=== PATIENT | male | born 1935 | race Caucasian/White ===

== ENCOUNTER 2023-03-13 14:09 | Inpatient (IN) ==
--- NOTE | 2023-03-13 14:41 | Emergency Department Note ---
Impression & Plan Altered mental status, Delirium due to general medical condition, Elevated troponin ED Provider Note NAME: JAGDISH BARLOW AGE: 87 SEX: M : 1935 ARRIVES VIA: Ambulance INFORMANT: Patient ED PROVIDER(S): Austyn Luciano DO CHIEF COMPLAINT: AMS HPI: Patient is an 87-year-old gentleman who presents to the ER brought in by EMS following being evaluated at [facility] earlier today. Per the he has been significantly more confused since . He has been agitated and they have been having trouble controlling him. She notes that normally he is just faintly confused but has trouble elaborating what exactly this confusion is. She notes he normally knows the year the day where he is at what is going on. She believes he will sometimes intermittently forget things. Patient denies any headache or change in vision. No chest pain or shortness of breath. No nausea, vomiting, or diarrhea. Denies any falls. ADDITIONAL HISTORY OBTAINED: Per HPI Chronic Medical/Social Conditions Affecting Care: Per HPI PAST MEDICAL HISTORY:See Below PAST SURGICAL HISTORY:See Below FAMILY HISTORY:See Below SOCIAL HISTORY:See Below HOME MEDICATIONS:See Below ALLERGIES:See Below VITALS:See Below PHYSICAL EXAMINATION: GENERAL: Sitting up in bed, alert, well appearing, well nourished, no distress, non-toxic EYE EXAM: normal conjunctiva. PERRL and EOM's intact. OROPHARYNX: no exudate, no erythema, lips, buccal mucosa, and tongue normal and mucous membranes are moist NECK: supple, no nuchal rigidity, no adenopathy, non-tender LUNGS: Clear to auscultation. Normal chest wall mechanics HEART: no murmurs, S1 normal and S2 normal ABDOMEN: abdomen soft, non-tender, normo-active bowel sounds, no masses, no rebound or guarding. BACK: Back is symmetrical on inspection and there is no deformity, no midline tenderness, no CVA tenderness. SKIN: no rashes and no bruising UPPER EXTREMITIES: upper extremities are grossly normal. LOWER EXTREMITIES: No pitting edema. NEURO EXAM: Normal sensorium, cranial nerves II-XII intact, normal speech, no weakness of arms, no weakness of legs. No drift. Finger to nose intact. Gross sensation intact. MEDICAL DECISION MAKING: Patient is an 87-year-old male who presents ER brought in by EMS for the above- stated complaint. IV was established blood work was obtained. Labs show no significant leukocytosis or anemia. BMP was remarkable for slightly elevated glucose at 250s. LFTs bilirubin was unremarkable. Troponin was initially elevated in the 30s. Repeat troponin was 42. This did trend up with more than a 20% increase did discuss with the hospitalist for further observation. Lipase was normal. UA was clean. Just recently finished up antibiotics. Granddaughter was updated at bedside. Discussed with the [facility] hospitalist for further evaluation management treatment. External Records Reviewed: None Consults/Care Managements Discussions: Per MDM Triage Nursing notes reviewed. Limited review of prior medical records performed Vital Signs: reviewed and remarkable for no significant abnormalities Differential diagnosis: Differential diagnoses includes but is not limited to toxic, metabolic, infectious, traumatic, cardiac, neurologic, hematologic, psychiatric and inflammatory etiologies. ER treatment provided: See below Diagnostics interpreted by me include EKG and cardiac monitoring as listed below: -Cardiac Monitoring: An order was placed for continuous cardiac monitoring. The monitor shows a rate of 75 with sinus rhythm. -ECG: Ventricularly paced rate of 70 QTc 481 -Laboratory studies:Interpreted by me as stated above in MDM and shown below. Imaging studies: Xrays: As interpreted by me: Portable AP upright 1 view of the chest shows pacer located in the left upper chest wall CTs show: CT head was negative per radiology Procedures:none Critical Care: None Past Med/Surg History Medical History (Updated 03/13/23 @ 20:20 by Austyn Luciano DO) Atrial fibrillation HTN (hypertension) CHF (congestive heart failure) CAD (coronary artery disease) Urinary retention BPH (benign prostatic hyperplasia) History of stroke DM (diabetes mellitus), type 2 Surgical History History of coronary artery stent placement Knee joint replacement status Pacemaker Family History Other Hypertension Social History (Updated 03/13/23 @ 19:27 by Azalia Gregg PA-C) Smoking Status: Never smoker Hx Alcohol Use: No Hx Substance Use: No Feels Safe at Home: Yes Allergies Allergies Allergy/AdvReac Type Severity Reaction Status Date / Time colestipol Allergy Unknown Unknown Unverified 03/13/23 18:47 gabapentin Allergy Unknown Nausea and Unverified 03/13/23 18:47 vomiting niacin Allergy Unknown Flushing Unverified 03/13/23 18:47 [id number]-[id number] Reductase Allergy Unknown Muscle Pain Unverified 03/13/23 18:47 Inhibitor Home Meds Home Medications Medication Instructions Recorded Confirmed acetaminophen 325 mg tablet 650 mg PO TID PRN 03/13/23 03/13/23 (Tylenol) pain/fever/headache allopurinol 300 mg tablet 150 mg PO DAILY 03/13/23 03/13/23 apixaban 5 mg tablet (Eliquis) 5 mg PO BID 03/13/23 03/13/23 atorvastatin 40 mg tablet 20 mg PO DAILY 03/13/23 03/13/23 cephalexin 250 mg capsule 250 mg PO TID UTI 03/13/23 03/13/23 codeine 10 mg-guaifenesin 100 mg/5 5 ml PO HS PRN Cough 03/13/23 03/13/23 mL oral liquid (Guaifenesin AC) docusate sodium 100 mg capsule 100 mg PO DAILY 03/13/23 03/13/23 empagliflozin 10 mg tablet 10 mg PO DAILY 03/13/23 03/13/23 (Jardiance) finasteride 5 mg tablet 5 mg PO DAILY 03/13/23 03/13/23 furosemide 20 mg tablet (Lasix) 20 mg PO DAILY 03/13/23 03/13/23 guaifenesin 200 mg tablet 200 mg PO BID 03/13/23 03/13/23 insulin NPH isoph U-100 human 100 See Rx Instructions .Route .COMPLEX 03/13/23 03/13/23 unit/mL (3 mL) subcutaneous pen (Humulin N NPH U-100 Insulin KwikPen) losartan 25 mg tablet 25 mg PO DAILY 03/13/23 03/13/23 metoprolol succinate 25 mg 12.5 mg PO DAILY 03/13/23 03/13/23 tablet,extended release 24 hr multivitamin 1 tab PO DAILY 03/13/23 03/13/23 nut.tx.gluc.intol,lac-free,soy 1 ea PO BID 03/13/23 03/13/23 (Glucerna oral liquid) omeprazole 20 mg capsule,delayed 20 mg PO DAILY 03/13/23 03/13/23 release polyethylene glycol 3350 17 17 g PO DAILY PRN Constipation 03/13/23 03/13/23 gram/dose oral powder (Miralax) spironolactone 25 mg tablet 12.5 mg PO DAILY 03/13/23 03/13/23 tamsulosin 0.4 mg capsule 0.4 mg PO DAILY 03/13/23 03/13/23 Results & Data (ED) Vital Signs Vital Signs - 24 hr 03/13/23 14:22 03/13/23 14:25 03/13/23 14:46 Temperature 36.8 C Temperature Source Oral Pulse Rate 76 71 Pulse Rate [Right Finger] Pulse Rhythm Respiratory Rate 18 Respiratory Effort / Characteristics Non-Labored Spontaneous Respiratory Depth Normal Blood Pressure 124/76 Blood Pressure [Right Arm] Blood Pressure Mean 92 Blood Pressure Mean [Right Arm] Pulse Oximetry 94 95 Oxygen Delivery Method Room Air Room Air Sepsis New/Unexplained Change in Mental Status No Sepsis Action Taken by Nursing No Action Required 03/13/23 14:46 03/13/23 16:11 03/13/23 17:53 Temperature Temperature Source Pulse Rate 70 70 Pulse Rate [Right Finger] 72 Pulse Rhythm Regular Respiratory Rate 20 20 Respiratory Effort / Characteristics Non-Labored Spontaneous Respiratory Depth Normal Blood Pressure Blood Pressure [Right Arm] 145/85 H Blood Pressure Mean Blood Pressure Mean [Right Arm] 105 Pulse Oximetry 95 97 Oxygen Delivery Method Room Air Room Air Sepsis New/Unexplained Change in Mental Status Sepsis Action Taken by Nursing 03/13/23 18:22 Temperature Temperature Source Pulse Rate Pulse Rate [Right Finger] 70 Pulse Rhythm Respiratory Rate 18 Respiratory Effort / Characteristics Non-Labored Spontaneous Respiratory Depth Normal Blood Pressure Blood Pressure [Right Arm] 146/82 H Blood Pressure Mean Blood Pressure Mean [Right Arm] 103 Pulse Oximetry 97 Oxygen Delivery Method Room Air Sepsis New/Unexplained Change in Mental Status Sepsis Action Taken by Nursing Laboratory Data 03/13/23 14:30 03/13/23 14:30 Lab Results 03/13/23 03/13/23 03/13/23 Range/Units 14:24 14:30 15:00 WBC 7.63 (4.8-10.8) K/ul RBC 4.69 L (4.70-6.10) M/uL Hgb 15.0 (14.0-18.0) g/dl Hct 44.3 (42.0-52.0) % MCV 94.5 (80.0-100.0) fL MCH 32.0 (25.0-34.0) pg MCHC 33.9 (32.0-36.0) g/dL RDW Std Deviation 51.7 H (36.4-46.3) fL RDW Coeff of Tanmay 14.9 H (11.5-14.5) % Plt Count 164 (130-400) K/uL MPV 11.3 (9.4-12.4) fL Immature Gran % (Auto) 0.4 % Neut % (Auto) 79.8 % Lymph % (Auto) 10.7 % Harper % (Auto) 6.6 % Eos % (Auto) 1.7 % Baso % (Auto) 0.8 % Neut # (Auto) 6.09 (1.40-6.50) K/uL Lymph # (Auto) 0.82 L (1.20-3.40) K/uL Harper # (Auto) 0.50 (0.11-0.59) K/uL Eos # (Auto) 0.13 (0.00-0.50) K/uL Baso # (Auto) 0.06 (0.00-0.20) K/uL Immature Gran # (Auto) 0.03 (0.01-0.20) K/uL Sodium 136 (136-145) mmol/L Potassium 4.3 (3.5-5.1) mmol/L Chloride 103 (98-107) mmol/L Carbon Dioxide 26 (21-32) mmol/L Anion Gap 7 (3-11) BUN 36 H (6-23) mg/dl Creatinine 1.13 (0.6-1.4) mg/dl Est Cr Clr Drug Dosing 57.1 ml/min Est GFR ( Amer) 66.9 ml/min Est GFR (Non-Af Amer) 57.7 ml/min BUN/Creatinine Ratio 31.9 H (10-20) Glucose 257 H (70-99(Fasting)) mg/dl POC Glucose 258 H (70-99) mg/dl Calcium 8.8 (8.6-10.3) mg/dl Total Bilirubin 0.5 (0.2-1.0) mg/dl AST 25 (13-39) U/L ALT 20 (7-52) U/L Alkaline Phosphatase 111 H (34-104) U/L Troponin I High Sens 34.6 H (0-20) pg/ml Total Protein 7.0 (6.0-8.3) gm/dl Albumin 3.7 (3.4-5.0) gm/dl Globulin 3.3 (2.5-4.0) gm/dl Albumin/Globulin Ratio 1.1 (0.9-2) Lipase 41 (11-82) U/L Urine Color Yellow Urine Appearance Clear (Clear) Urine pH 5.5 (4.5-7.5) Ur Specific [place] 1.020 (1.000-1.030) Urine Protein 1+ H (Negative) Urine Glucose (UA) 3+ H (Negative) Urine Ketones Negative (Negative) Urine Blood 3+ H (Negative) Urine Nitrite Negative (Negative) Urine Bilirubin Negative (Negative) Urine Urobilinogen Negative (Negative) Ur Leukocyte Esterase Negative (Negative) Urine WBC (Auto) 1-5 (0-5) /hpf Urine RBC (Auto) >30 H (0-4) /hpf U Hyaline Cast (Auto) 0 (0-5) /lpf U Epithel Cells (Auto) 0-5 (0-5) /lpf Urine Bacteria (Auto) Negative (Negative) 03/13/23 Range/Units 17:30 WBC (4.8-10.8) K/ul RBC (4.70-6.10) M/uL Hgb (14.0-18.0) g/dl Hct (42.0-52.0) % MCV (80.0-100.0) fL MCH (25.0-34.0) pg MCHC (32.0-36.0) g/dL RDW Std Deviation (36.4-46.3) fL RDW Coeff of Tanmay (11.5-14.5) % Plt Count (130-400) K/uL MPV (9.4-12.4) fL Immature Gran % (Auto) % Neut % (Auto) % Lymph % (Auto) % Harper % (Auto) % Eos % (Auto) % Baso % (Auto) % Neut # (Auto) (1.40-6.50) K/uL Lymph # (Auto) (1.20-3.40) K/uL Harper # (Auto) (0.11-0.59) K/uL Eos # (Auto) (0.00-0.50) K/uL Baso # (Auto) (0.00-0.20) K/uL Immature Gran # (Auto) (0.01-0.20) K/uL Sodium (136-145) mmol/L Potassium (3.5-5.1) mmol/L Chloride (98-107) mmol/L Carbon Dioxide (21-32) mmol/L Anion Gap (3-11) BUN (6-23) mg/dl Creatinine (0.6-1.4) mg/dl Est Cr Clr Drug Dosing ml/min Est GFR ( Amer) ml/min Est GFR (Non-Af Amer) ml/min BUN/Creatinine Ratio (10-20) Glucose (70-99(Fasting)) mg/dl POC Glucose (70-99) mg/dl Calcium (8.6-10.3) mg/dl Total Bilirubin (0.2-1.0) mg/dl AST (13-39) U/L ALT (7-52) U/L Alkaline Phosphatase (34-104) U/L Troponin I High Sens 42.2 H (0-20) pg/ml Total Protein (6.0-8.3) gm/dl Albumin (3.4-5.0) gm/dl Globulin (2.5-4.0) gm/dl Albumin/Globulin Ratio (0.9-2) Lipase (11-82) U/L Urine Color Urine Appearance (Clear) Urine pH (4.5-7.5) Ur Specific [place] (1.000-1.030) Urine Protein (Negative) Urine Glucose (UA) (Negative) Urine Ketones (Negative) Urine Blood (Negative) Urine Nitrite (Negative) Urine Bilirubin (Negative) Urine Urobilinogen (Negative) Ur Leukocyte Esterase (Negative) Urine WBC (Auto) (0-5) /hpf Urine RBC (Auto) (0-4) /hpf U Hyaline Cast (Auto) (0-5) /lpf U Epithel Cells (Auto) (0-5) /lpf Urine Bacteria (Auto) (Negative) Administered Medications Discontinued Medications Ceftriaxone Sodium 2,000 mg/ (Dextrose) 50 mls @ 100 mls/hr IV Q24H ANIYA; Protocol Stop: 03/23/23 19:29 Last Admin: 03/13/23 20:06 Dose: Not Given Documented By: [facility] Imaging Data Radiologist's Impression: Chest X-Ray 03/13/23 14:42 XR chest 1V portable CLINICAL HISTORY: ams TECHNIQUE: Single frontal radiograph of the chest was obtained. Comparison: None available at the time of this dictation. FINDINGS: Pacemaker defibrillator is seen. Calcified aortic knob is seen. The lungs are clear. No evidence of pleural effusion or pneumothorax. IMPRESSION: No acute chest disease. ACT 112: Negative or not required by law. Electronically signed by: Hever Loera M.D. 03/13/2023 4:[address] 03/13/23 14:46 CT head/brain wo con CLINICAL HISTORY: ams Technique: Contiguous axial CT images of the head were acquired from the base of the skull to the vertex without intravenous contrast administration. Images were viewed in brain, subdural and bone windows. Automated dose lowering techniques and/or adjustment according to patient size were utilized for this exam. Comparison: None available at the time of this dictation. Findings: Areas of decreased attenuation are present in the periventricular and subcortical white matter bilaterally consistent with small vessel ischemic disease. Generalized cerebral atrophy with commensurate enlargement of the ventricles, sulci, and cisterns is also present. There is no acute intracranial hemorrhage or evidence of acute territorial infarction. No shift of the midline structures, mass effect, or extra-axial abnormalities are shown. Atherosclerotic calcifications are present in the intracranial segments of the internal carotid arteries. Focal encephalomalacia is in the right frontal lobe and insular and frontal parietal white matter. Imaged portions of the paranasal sinuses and mastoid air cells are clear. The orbits appear normal. There are no acute fractures of the calvaria or scalp swelling. Impression: No focal abnormalities are seen. 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 ACT 112: Negative or not required by law. Electronically signed by: Hever Loera M.D. 03/13/2023 4:52 PM Discharge Plan Visit Data Chief Complaint: Altered Mental Status ED Provider: Austyn Luciano Discharge Problem: Altered mental status, Delirium due to general medical condition, Elevated troponin Forms Stand Alone Forms: [facility] Prescriptions Prescriptions: No Action multivitamin Tablet 1 tab PO DAILY atorvastatin 40 mg Tablet 20 mg PO DAILY acetaminophen [Tylenol] 325 mg Tablet 650 mg PO TID PRN (Reason: pain/fever/headache) cephalexin [Keflex] 250 mg Capsule 250 mg PO TID Rx Instructions: Start Date 03/07/23 - End Date 03/12/23. spironolactone 25 mg Tablet 12.5 mg PO DAILY guaifenesin 200 mg Tablet 200 mg PO BID tamsulosin 0.4 mg Capsule 0.4 mg PO DAILY losartan 25 mg Tablet 25 mg PO DAILY docusate sodium 100 mg Capsule 100 mg PO DAILY omeprazole 20 mg Capsule,Delayed Release(Dr/Ec) 20 mg PO DAILY codeine-guaifenesin [Guaifenesin AC] 10-100 mg/5 mL Liquid 5 ml PO HS PRN (Reason: Cough) allopurinol 300 mg Tablet 150 mg PO DAILY furosemide [Lasix] 20 mg Tablet 20 mg PO DAILY metoprolol succinate 25 mg Tablet Extended Release 24 Hr 12.5 mg PO DAILY polyethylene glycol 3350 [Miralax] 17 gram/dose Powder 17 g PO DAILY PRN (Reason: Constipation) finasteride 5 mg Tablet 5 mg PO DAILY Glucerna Liquid 1 ea PO BID Rx Instructions: Drink 1 can twice daily Humulin N NPH Insulin KwikPen 100 unit/mL (3 mL) Insulin Pen See Rx Instructions .ROUTE .COMPLEX Rx Instructions: inject 15 units in the morning and 10 units in the evening Eliquis 5 mg Tablet 5 mg PO BID Jardiance 10 mg Tablet 10 mg PO DAILY Referrals Referrals: PCP,NO [Primary Care Provider] - Discharge Problem: Altered mental status Qualifiers: Altered mental status type: unspecified Qualified Code(s): R41.82 - Altered mental status, unspecified
[2023-03-13 15:14] LABS: Appearance Urine Clear (Clear); Bacteria Urine Automated Negative (Negative); Bilirubin Urine Negative (Negative); Blood Urine 3+ (Negative); Cast Urine Automated 0 /lpf (0-5); Color Urine Yellow; Epithelial Cell Urine Auto 0-5 /lpf (0-5); Glucose Urine UA 3+ (Negative); Ketones Urine Negative (Negative); Leukocyte Esterase Urine Negative (Negative); Nitrite Urine Negative (Negative); Protein Urine 1+ (Negative); RBC Urine Automated >30 /hpf (0-4); Urobilinogen Urine Negative (Negative); pH Urine 5.5 (4.5-7.5)
[2023-03-13 15:20] LABS: Basophils # (auto) 0.06 K/uL (0.00-0.20); Basophils % (auto) 0.8 %; Eosinophils # (auto) 0.13 K/uL (0.00-0.50); Eosinophils % (auto) 1.7 %; Hematocrit (blood only) 44.3 % (42.0-52.0); Immature Granulocytes # (auto) 0.03 K/uL (0.01-0.20); Immature Granulocytes % (auto) 0.4 %; Lymphocytes # (auto) 0.82 K/uL (1.20-3.40); Lymphocytes % (auto) 10.7 %; Mean Corpuscular Hgb Conc 33.9 g/dL (32.0-36.0); Mean Corpuscular Volume 94.5 fL (80.0-100.0); Mean Platelet Volume 11.3 fL (9.4-12.4); Monocytes % (auto) 6.6 %; Neutrophils # (auto) 6.09 K/uL (1.40-6.50); Neutrophils % (auto) 79.8 %; Platelet Count 164 K/uL (130-400); RDW Coefficient of Variation 14.9 % (11.5-14.5); RDW Standard Deviation 51.7 fL (36.4-46.3); Red Blood Count 4.69 M/uL (4.70-6.10); White Blood Count 7.63 K/ul (4.8-10.8)
[2023-03-13 15:35] LABS: Albumin Globulin Ratio 1.1 (0.9-2); Albumin Level 3.7 gm/dl (3.4-5.0); BUN Creatinine Ratio 31.9 (10-20); Bilirubin,Total 0.5 mg/dl (0.2-1.0); Calcium 8.8 mg/dl (8.6-10.3); Creatinine Clr Calc Pharmacy 57.1 ml/min; Est GFR (African American) 66.9 ml/min; Est GFR (Non-African American) 57.7 ml/min; Globulin 3.3 gm/dl (2.5-4.0); Potassium 4.3 mmol/L (3.5-5.1)
[2023-03-13 15:42] LABS: Troponin I High Sensitivity 34.6 pg/ml (0-20)
--- NOTE | 2023-03-13 16:30 | XRay Report ---
XR chest 1V portable CLINICAL HISTORY: ams TECHNIQUE: Single frontal radiograph of the chest was obtained. Comparison: None available at the time of this dictation. FINDINGS: Pacemaker defibrillator is seen. Calcified aortic knob is seen. The lungs are clear. No evidence of p leural effusion or pneumothorax. IMPRESSION: No acute chest disease. ACT 112: Negative or not required by law. Electronically signed by: Hever Loera M.D. 03/13/2023 4:29 PM
--- NOTE | 2023-03-13 16:54 | CT Scan Report ---
CT head/brain wo con CLINICAL HISTORY: ams Technique: Contiguous axial CT images of the head were acquired from the base of the skull to the sherif harry without intravenous contrast administration. Images were viewed in brain, subdural and bone [facility]. Automated dose lowering techniques and/or adjustment according to patient size were utilized for this exam. Comparison: None available at the time of this dictation. Findings: Areas of decreased attenuation are present in the periventricular and subcortical white matter bilate rally consistent with small vessel ischemic disease. Generalized cerebral atrophy with commensurate e nlargement of the ventricles, sulci, and cisterns is also present. There is no acute intracranial hem orrhage or evidence of acute territorial infarction. No shift of the midline structures, mass effect, or extra-axial abnormalities are shown. Atherosclerotic calcifications are present in the intracran ial segments of the internal carotid arteries. Focal encephalomalacia is in the right frontal lobe an d insular and frontal parietal white matter. Imaged portions of the paranasal sinuses and mastoid air cells are clear. The orbits appear normal. There are no acute fractures of the calvaria or scalp swelling. Impression: No focal abnormalities are seen. 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 ACT 112: Negative or not required by law. Electronically signed by: Hever Loera M.D. 03/13/2023 4:52 PM
--- NOTE | 2023-03-13 18:47 | History & Physical Report ---
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 Acute metabolic encephalopathy Complicated UTI Recently treated with outpatient Keflex but persistent intermittent confusion, agitation History of urinary retention with recently placed Dumont last week Afebrile, no leukocytosis, UA without presence of nitrates and leuk esterase but likely partially treated Continue Zosyn for now CT abd/pelvis to evaluate for any obstruction Elevated troponin Mildly elevated HS trop of 34 --> 42, likely demand ischemia in setting of infection. 2D echo ordered. 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 No CP, EKG without acute ischemic dalton ges. Continue Toprol, statin H/o pacemaker placement Replaced in 2019. Requesting records to see if MRI compatible Hypertension Continue home losartan, Toprol Congestive heart failure Appears euvolemic. Requested recent cardiology documentation from [facility] Hold lasix and spironolactone for now until AM labs obtained Type 2 diabetes Initial BSG 258, A1c unknown, will obtain in a.m. Hold home agents Basal/bolus insulin while in-patient BSG AC HS BPH Chronic, stable. Continue finasteride, Flomax DVT Ppx: Eliquis Code status: FULL PCP: [facility] Dispo: Observation med tele Patient seen in collaboration with Dr. Gipson. Please see addendum. 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 History primarily obtained by granddaughter at bedside due to patient's confusion. [facility] and was seen for multiple visits due to progressive confusion and found to have UTI. Completed Keflex course yesterday but remains confused and somewhat agitated. Was directed by home health nurse to go to ED for further evaluation. Of note, had dumont catheter placed last week with leg bag for urinary retention. No F/C, lightheadedness, CP, SOB, N/V, abdominal pain, dysuria, diarrhea or constipation. Some agitation in perineal area due to strap from catheter bag. Has been having increased urgency but denies dysuria or hematuria. Allergies Allergy/AdvReac Type Severity Reaction Status Date / Time colestipol Allergy Unknown Unknown Unverified 03/13/23 18:47 gabapentin Allergy Unknown Nausea and Unverified 03/13/23 18:47 vomiting niacin Allergy Unknown Flushing Unverified 03/13/23 18:47 [id number]-[id number] Reductase Allergy Unknown Muscle Pain Unverified 03/13/23 18:47 Inhibitor Home Medications Medication Instructions Recorded Confirmed Type acetaminophen 325 mg tablet 650 mg PO TID PRN 03/13/23 03/13/23 History (Tylenol) pain/fever/headache allopurinol 300 mg tablet 150 mg PO DAILY 03/13/23 03/13/23 History apixaban 5 mg tablet (Eliquis) 5 mg PO BID 03/13/23 03/13/23 History atorvastatin 40 mg tablet 20 mg PO DAILY 03/13/23 03/13/23 History cephalexin 250 mg capsule 250 mg PO TID UTI 03/13/23 03/13/23 History codeine 10 mg-guaifenesin 100 mg/5 5 ml PO HS PRN Cough 03/13/23 03/13/23 History mL oral liquid (Guaifenesin AC) docusate sodium 100 mg capsule 100 mg PO DAILY 03/13/23 03/13/23 History empagliflozin 10 mg tablet 10 mg PO DAILY 03/13/23 03/13/23 History (Jardiance) finasteride 5 mg tablet 5 mg PO DAILY 03/13/23 03/13/23 History furosemide 20 mg tablet (Lasix) 20 mg PO DAILY 03/13/23 03/13/23 History guaifenesin 200 mg tablet 200 mg PO BID 03/13/23 03/13/23 History insulin NPH isoph U-100 human 100 See Rx Instructions .Route .COMPLEX 03/13/23 03/13/23 History unit/mL (3 mL) subcutaneous pen (Humulin N NPH U-100 Insulin KwikPen) losartan 25 mg tablet 25 mg PO DAILY 03/13/23 03/13/23 History metoprolol succinate 25 mg 12.5 mg PO DAILY 03/13/23 03/13/23 History tablet,extended release 24 hr multivitamin 1 tab PO DAILY 03/13/23 03/13/23 History nut.tx.gluc.intol,lac-free,soy 1 ea PO BID 03/13/23 03/13/23 History (Glucerna oral liquid) omeprazole 20 mg capsule,delayed 20 mg PO DAILY 03/13/23 03/13/23 History release polyethylene glycol 3350 17 17 g PO DAILY PRN Constipation 03/13/23 03/13/23 History gram/dose oral powder (Miralax) spironolactone 25 mg tablet 12.5 mg PO DAILY 03/13/23 03/13/23 History tamsulosin 0.4 mg capsule 0.4 mg PO DAILY 03/13/23 03/13/23 History Past Med/Surg History Medical History (Updated 03/13/23 @ 20:20 by Austyn Luciano DO) Atrial fibrillation HTN (hypertension) CHF (congestive heart failure) CAD (coronary artery disease) Urinary retention BPH (benign prostatic hyperplasia) History of stroke DM (diabetes mellitus), type 2 Surgical History History of coronary artery stent placement Knee joint replacement status Pacemaker Family History Other Hypertension Social History (Updated 03/13/23 @ 19:27 by Azalia Gregg PA-C) Smoking Status: Never smoker Hx Alcohol Use: No Hx Substance Use: No Preferred Language: Greek Communication Ability: Effective [employer] Required: No Beliefs That Will Affect Care: None Current Living Situation: Spouse Other Information That Helps Us Care for You: No Feels Safe at Home: Yes Safety Concerns: Feels Safe At This Time Assistive Devices: Cane Review of Systems Review of Systems: At least ten systems reviewed and negative except as noted in the HPI. Physical Exam Physical Exam: Please see Dr. Gipson's addendum for physical exam. Results & Data Results & Data Vital Signs (Past 12 Hours) Vital Signs Temp Pulse Pulse Resp BP BP Pulse Ox 03/13/23 18:22 70 18 146/82 H 97 03/13/23 17:53 70 03/13/23 16:11 72 20 145/85 H 97 03/13/23 14:46 70 20 95 03/13/23 14:46 95 03/13/23 14:25 71 03/13/23 14:22 36.8 C 76 18 124/76 94 O2 Del Method 03/13/23 18:22 Room Air 03/13/23 17:53 03/13/23 16:11 Room Air 03/13/23 14:46 Room Air 03/13/23 14:46 Room Air 03/13/23 14:25 03/13/23 14:22 Room Air Laboratory Results Short CBC 03/13/23 Range/Units 14:30 WBC 7.63 (4.8-10.8) K/ul Hgb 15.0 (14.0-18.0) g/dl Hct 44.3 (42.0-52.0) % Plt Count 164 (130-400) K/uL BMP 03/13/23 14:30 Sodium 136 Potassium 4.3 Chloride 103 Carbon Dioxide 26 BUN 36 H Creatinine 1.13 Glucose 257 H Calcium 8.8 Liver Function 03/13/23 Range/Units 14:30 Total Bilirubin 0.5 (0.2-1.0) mg/dl AST 25 (13-39) U/L ALT 20 (7-52) U/L Alkaline Phosphatase 111 H (34-104) U/L Albumin 3.7 (3.4-5.0) gm/dl Urine 03/13/23 Range/Units 15:00 Urine Color Yellow Urine Appearance Clear (Clear) Urine pH 5.5 (4.5-7.5) Ur Specific [place] 1.020 (1.000-1.030) Urine Protein 1+ H (Negative) Urine Glucose (UA) 3+ H (Negative) Diagnostic Findings Chest X-Ray 03/13/23 14:42 XR chest 1V portable CLINICAL HISTORY: ams TECHNIQUE: Single frontal radiograph of the chest was obtained. Comparison: None available at the time of this dictation. FINDINGS: Pacemaker defibrillator is seen. Calcified aortic knob is seen. The lungs are clear. No evidence of pleural effusion or pneumothorax. IMPRESSION: No acute chest disease. ACT 112: Negative or not required by law. Electronically signed by: Hever Loera M.D. 03/13/2023 4:[address] 03/13/23 14:46 CT head/brain wo con CLINICAL HISTORY: ams Technique: Contiguous axial CT images of the head were acquired from the base of the skull to the vertex without intravenous contrast administration. Images were viewed in brain, subdural and bone windows. Automated dose lowering techniques and/or adjustment according to patient size were utilized for this exam. Comparison: None available at the time of this dictation. Findings: Areas of decreased attenuation are present in the periventricular and subcortical white matter bilaterally consistent with small vessel ischemic disease. Generalized cerebral atrophy with commensurate enlargement of the ventricles, sulci, and cisterns is also present. There is no acute intracranial hemorrhage or evidence of acute territorial infarction. No shift of the midline structures, mass effect, or extra-axial abnormalities are shown. Atherosclerotic calcifications are present in the intracranial segments of the internal carotid arteries. Focal encephalomalacia is in the right frontal lobe and insular and frontal parietal white matter. Imaged portions of the paranasal sinuses and mastoid air cells are clear. The orbits appear normal. There are no acute fractures of the calvaria or scalp swelling. Impression: No focal abnormalities are seen. 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 ACT 112: Negative or not required by law. Electronically signed by: Hever Loera M.D. 03/13/2023 4:52 PM Supervising Physician Co-Signing Physician Notes delayed entry date of service noted above Attending Addendum: care coordinated with JASON Azalia Gregg please refer to her notes for full details, I agree with her notes patient seen and examined, records reviewed by myself as well diagnoses and plan of care as per above notes Mo Gipson MD
[2023-03-13] MEDS ORDERED: cefTRIAXone SODIUM 2,000 MG in DEXTROSE 5 % MINI-B 50 ML IV SCH (19:30)
[2023-03-13] MEDS ORDERED: GLUCAGON FOR INJ 1 MG VIAL SQ PRN (19:59)
[2023-03-13] MEDS ORDERED: CARBOHYDRATES FOR HYPOGLYCEMIA PO PRN (19:59)
[2023-03-13] MEDS ORDERED: GLUCOSE 10 TAB/TUBE PO PRN (19:59)
[2023-03-13] MEDS ORDERED: DEXTROSE 50% 50 ML SYRINGE IV PRN (19:59)
[2023-03-13] MEDS ORDERED: GLUCOSE 40% GEL 15 GM TUBE PO PRN (19:59)
[2023-03-13] MEDS ORDERED: APIXABAN 5 MG TABLET PO STA (20:07)
[2023-03-13] MEDS ORDERED: PIPERACILLIN/TAZOBACTAM 4.5 GM in DEXTROSE 5% MINI-B 100 ML IV STA (20:09)
[2023-03-13] MEDS ORDERED: APIXABAN 5 MG TABLET PO SCH (21:00)
[2023-03-13] MEDS: LANTUS PER UNIT CHARGE SQ SCH (21:03)
[2023-03-13] MEDS: INSULIN ASPART PER UNIT CHARGE SC SCH (21:04)
[2023-03-13] MEDS ORDERED: NON-FORMULARY MEDICATION (Nut.Tx.Gluc.Intol,Lac-Free,Soy [Glucerna] Liquid) PO SCH (22:26)
[2023-03-13] MEDS ORDERED: ONDANSETRON INJ 2 MG/ML 2 ML VIAL IV PRN (22:26)
[2023-03-13] MEDS ORDERED: guaiFENesin/CODEINE 100MG/10MG 5ML UDC PO PRN (22:26)
--- NOTE | 2023-03-13 23:18 | CT Scan Report ---
Exam(s): CT ABDOMEN + PELVIS Without Contrast EXAM: CT Abdomen and Pelvis Without Intravenous Contrast CLINICAL HISTORY: Reason for exam: urinary retention, comp UTI. TECHNIQUE: Axial computed tomography images of the abdomen and pelvis without intravenous contrast. Automated exposure control was utilized for the study. A dose lowering technique was utilized adhering to the principles of ALARA. COMPARISON: No relevant prior studies available. FINDINGS: ABDOMEN: Liver: Unremarkable. Gallbladder and bile ducts: Unremarkable. Pancreas: Unremarkable. Spleen: Unremarkable. Adrenals: Unremarkable. Kidneys and ureters: No hydronephrosis in the kidneys. Exophytic cortical cyst arising from the posterior cortex of the left kidney measuring 2.8 cm. Stomach and bowel: Sigmoid diverticulosis without acute diverticulitis. PELVIS: Appendix: No findings to suggest acute appendicitis. Bladder: Lopez catheter with balloon inflated in the bladder. Circumferential mucosal thickening within the bladder. Reproductive: Prostate mildly enlarged. ABDOMEN and PELVIS: Intraperitoneal space: Unremarkable. No free air. No significant fluid collection. Bones/joints: Sclerotic lesion within the posterior left iliac bone adjacent to the SI joint measuring 3 cm. Chronic compression deformity at T12. Soft tissues: Unremarkable. Vasculature: Unremarkable. Lymph nodes: Unremarkable. IMPRESSION: 1. Circumferential mucosal thickening in the bladder suggestive of cystitis. Prostate is mildly enlarged. No hydronephrosis. 2. Sigmoid diverticulosis without acute diverticulitis. 3. Sclerotic lesion within the posterior left iliac bone adjacent to the SI joint measuring 3 cm. 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 Electronically signed by: Daren Macdonald MD 03/13/23 23:17 PM
[2023-03-13] MEDS ORDERED: LOSARTAN POTASSIUM 25 MG TAB PO STA (23:48)
[2023-03-14] MEDS: PIPERACILLIN/TAZOBACTAM 4.5 GM in DEXTROSE 5% MINI-B 100 ML IV SCH ×3 (02:41→17:53)
[2023-03-14 06:00] LABS: BUN Creatinine Ratio 32.1 (10-20); Calcium 8.5 mg/dl (8.6-10.3); Creatinine Clr Calc Pharmacy 68.7 ml/min; Est GFR (African American) 90.6 ml/min; Est GFR (Non-African American) 78.2 ml/min
[2023-03-14 06:08] LABS: Hematocrit (blood only) 42.6 % (42.0-52.0); Hemoglobin 14.3 g/dl (14.0-18.0); Mean Corpuscular Hemoglobin 31.4 pg (25.0-34.0); Mean Corpuscular Hgb Conc 33.6 g/dL (32.0-36.0); Mean Corpuscular Volume 93.4 fL (80.0-100.0); Mean Platelet Volume 11.1 fL (9.4-12.4); Platelet Count 159 K/uL (130-400); RDW Standard Deviation 51.9 fL (36.4-46.3); Red Blood Count 4.56 M/uL (4.70-6.10); White Blood Count 7.11 K/ul (4.8-10.8)
[2023-03-14] MEDS: allopurinoL 300 MG TAB PO SCH (07:42)
[2023-03-14] MEDS: TAMSULOSIN HCL 0.4 MG CAP PO SCH (07:42)
[2023-03-14] MEDS: APIXABAN 5 MG TABLET PO SCH ×2 (07:42→20:34)
[2023-03-14] MEDS: DOCUSATE SODIUM 100 MG CAP PO SCH (07:43)
[2023-03-14] MEDS: FINASTERIDE 5 MG TAB PO SCH (07:43)
[2023-03-14] MEDS: ATORVASTATIN 20 MG TAB PO SCH (07:43)
[2023-03-14] MEDS: MULTIVITAMIN TAB PO SCH (07:44)
[2023-03-14] MEDS: LOSARTAN POTASSIUM 25 MG TAB PO SCH (07:44)
[2023-03-14] MEDS: METOPROLOL SUCC 25MG EXT REL TAB PO SCH (07:44)
[2023-03-14] MEDS: PANTOprazole 40 MG TAB PO SCH (07:45)
[2023-03-14 08:10] LABS: Estimated Average Glucose 209 mg/dl; Hemoglobin A1C 8.9 % (4.5-5.6)
[2023-03-14] MEDS: INSULIN ASPART PER UNIT CHARGE SC SCH ×4 (08:57→21:50)
[2023-03-14] MEDS: LANTUS PER UNIT CHARGE SQ SCH ×2 (08:57→21:49)
[2023-03-14] MEDS: ASPIRIN 81 MG ECTAB PO SCH (13:12)
--- NOTE | 2023-03-14 15:06 | Hospitalist Progress Note ---
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 Acute metabolic encephalopathy Complicated UTI Recently treated with outpatient Keflex but persistent intermittent confusion, agitation History of urinary retention with recently placed Lopez last week Afebrile, no leukocytosis, UA without presence of nitrates and leuk esterase but likely partially treated Continue Zosyn for now CT abd/pelvis to evaluate for any obstruction 03/14 mental status improving per Brain MRI: pending until pacemaker MRI compatibility verified with business development analyst Urine culture pending Blood culture pending IV Zosyn Day 2 Elevated troponin Mildly elevated HS trop of 34 --> 42, likely demand ischemia in setting of infection. 2D echo ordered. 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 No CP, EKG without acute ischemic changes. Continue Toprol, statin H/o pacemaker placement Replaced in 2019. Requesting records to see if MRI compatible Hypertension Continue home losartan, Toprol Congestive heart failure Appears euvolemic. Requested recent cardiology documentation from [place] resume usual diuretics Type 2 diabetes Initial BSG 258, A1c unknown, will obtain in a.m. Hold home agents Basal/bolus insulin while in-patient BSG AC HS BPH Chronic, stable. Continue finasteride, Flomax DVT Ppx: Eliquis Code status: FULL PCP: [facility] Dispo: lives at home with his anticipate d/c home when medically stable Admission and Anticipated Discharge Date Admission Date: March 14, 2023 Subjective ff up for altered mental status, etc seen with at bedside alert, oriented x 2 answers most questions appropriately states he is improving, less confused patient states he feels fine overall denies abdominal pain no chest pain, dyspnea, palpitations, dizziness no cough no other symptoms Review of Systems Review of Systems: all noted and negative except for above Physical Exam Physical Exam: General- oriented x 1-2, not in distress, speaks in sentences with no effort or accessory muscle use Eyes- anicteric Neck- no JVD Lungs- clear breath sounds bilaterally, no rales/wheezes Heart- normal rate, regular rhythm; no murmurs Abdomen- normal bowel sounds, nondistended, soft, nontender Lopez cath in place, yellow urine Extremities- no pretibial edema, no calf tenderness Neuro- alert, oriented x 1-2; no new gross focal neurologic deficits Skin- warm & dry Results & Data Results & Data Vital Signs (Past 12 Hours) Vital Signs Temp Pulse Pulse Resp BP Pulse Ox O2 Del Method 03/14/23 15:00 70 03/14/23 12:09 36.7 C 70 18 151/87 H 93 Room Air 03/14/23 07:43 36.6 C 70 18 157/88 H 93 Room Air 03/14/23 07:00 70 03/14/23 03:31 36.7 C 70 18 113/67 99 Room Air
--- NOTE | 2023-03-14 19:18 | Electrocardiogram Report ---
Test Reason : Blood Pressure : / mmHG Vent. Rate : 070 BPM Atrial Rate : 071 BPM P-R Int : 000 ms QRS Dur : 134 ms QT Int : 440 ms P-R-T Axes : 000 219 084 degrees QTc Int : 475 ms Ventricular-paced rhythm Biventricular pacemaker detected Abnormal ECG No previous ECGs available Confirmed by Goran Caceres ([id number]) on 03/14/2023 7:18:03 PM Referred By: REFERRED SELF Confirmed By:Goran Caceres
[2023-03-14] MEDS: ACETAMINOPHEN 325 MG TAB PO PRN (20:33)
[2023-03-14] MEDS ORDERED: OLANZapine 10 MG/2.1 ML SDV IM STA (22:04)
--- NOTE | 2023-03-14 22:10 | Electrocardiogram Report ---
Test Reason : Blood Pressure : / mmHG Vent. Rate : 070 BPM Atrial Rate : 060 BPM P-R Int : 000 ms QRS Dur : 136 ms QT Int : 446 ms P-R-T Axes : 000 235 077 degrees QTc Int : 481 ms Ventricular-paced rhythm Underlying sinus rhythm with AV dissociation Biventricular pacemaker detected Abnormal ECG When compared with ECG of 13-MAR-2023 14:25, (unconfirmed) No significant change was found Confirmed by Goran Caceres ([id number]) on 03/14/2023 10:09:57 PM Referred By: REFERRED SELF Confirmed By:Goran Caceres
--- NOTE | 2023-03-14 22:29 | Electrocardiogram Report ---
Test Reason : Blood Pressure : / mmHG Vent. Rate : 070 BPM Atrial Rate : 068 BPM P-R Int : 000 ms QRS Dur : 150 ms QT Int : 462 ms P-R-T Axes : 040 256 076 degrees QTc Int : 498 ms Ventricular-paced rhythm Underlying sinus rhythm with AV dissociation Biventricular pacemaker detected Abnormal ECG When compared with ECG of 13-MAR-2023 18:17, (unconfirmed) No significant change was found Confirmed by Goran Cacrees ([id number]) on 03/14/2023 10:29:38 PM Referred By: REFERRED SELF Confirmed By:Goran Caceres
--- NOTE | 2023-03-14 22:33 | Electrocardiogram Report ---
Test Reason : Blood Pressure : / mmHG Vent. Rate : 070 BPM Atrial Rate : 075 BPM P-R Int : 000 ms QRS Dur : 146 ms QT Int : 474 ms P-R-T Axes : 000 -26 078 degrees QTc Int : 511 ms Ventricular-paced rhythm Underlying sinus rhythm with AV dossociation Biventricular pacemaker detected Abnormal ECG When compared with ECG of 14-MAR-2023 06:09, (unconfirmed) No significant change was found Confirmed by Goran Caceres ([id number]) on 03/14/2023 10:33:19 PM Referred By: REFERRED SELF Confirmed By:Goran Caceres
[2023-03-15] MEDS: OLANZapine 10 MG/2.1 ML SDV IM PRN ×2 (01:41→09:05)
[2023-03-15] MEDS: PIPERACILLIN/TAZOBACTAM 4.5 GM in DEXTROSE 5% MINI-B 100 ML IV SCH ×3 (01:41→17:41)
[2023-03-15 06:55] LABS: Hematocrit (blood only) 46.7 % (42.0-52.0); Hemoglobin 15.9 g/dl (14.0-18.0); Mean Corpuscular Hemoglobin 31.7 pg (25.0-34.0); Mean Corpuscular Volume 93.2 fL (80.0-100.0); Mean Platelet Volume 10.5 fL (9.4-12.4); Platelet Count 161 K/uL (130-400); RDW Coefficient of Variation 14.8 % (11.5-14.5); RDW Standard Deviation 50.7 fL (36.4-46.3); Red Blood Count 5.01 M/uL (4.70-6.10)
[2023-03-15 07:29] LABS: BUN Creatinine Ratio 20.5 (10-20); Creatinine Clr Calc Pharmacy 43.7 ml/min; Est GFR (African American) 55.4 ml/min; Est GFR (Non-African American) 47.8 ml/min
[2023-03-15] MEDS: METOPROLOL SUCC 25MG EXT REL TAB PO SCH (07:43)
[2023-03-15] MEDS: APIXABAN 5 MG TABLET PO SCH ×2 (07:43→21:19)
[2023-03-15] MEDS: PANTOprazole 40 MG TAB PO SCH (07:44)
[2023-03-15] MEDS: allopurinoL 300 MG TAB PO SCH (07:45)
[2023-03-15] MEDS: DOCUSATE SODIUM 100 MG CAP PO SCH (07:45)
[2023-03-15] MEDS: LOSARTAN POTASSIUM 25 MG TAB PO SCH (07:47)
[2023-03-15] MEDS: MULTIVITAMIN TAB PO SCH (07:47)
[2023-03-15] MEDS: TAMSULOSIN HCL 0.4 MG CAP PO SCH (07:47)
[2023-03-15] MEDS: ATORVASTATIN 20 MG TAB PO SCH (07:47)
[2023-03-15] MEDS: ASPIRIN 81 MG ECTAB PO SCH (07:48)
[2023-03-15] MEDS: FINASTERIDE 5 MG TAB PO SCH (07:49)
[2023-03-15] MEDS: LANTUS PER UNIT CHARGE SQ SCH ×2 (08:54→21:18)
[2023-03-15] MEDS: INSULIN ASPART PER UNIT CHARGE SC SCH ×4 (08:55→21:18)
--- NOTE | 2023-03-15 11:49 | Hospitalist Progress Note ---
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 Acute metabolic encephalopathy Complicated UTI Urinary Retention, Prostate Enlargement Recently treated with outpatient Keflex but persistent intermittent confusion, agitation History of urinary retention with recently placed Lopez last week Afebrile, no leukocytosis, UA without presence of nitrates and leuk esterase but likely partially treated CT abd/pelvis: 1. Circumferential mucosal thickening in the bladder suggestive of cystitis. Prostate is mildly enlarged. No hydronephrosis. 2. Sigmoid diverticulosis without acute diverticulitis. 3. Sclerotic lesion within the posterior left iliac bone adjacent to the SI joint measuring 3 cm. 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 03/15 worsening confusion overnight possible acute worsening of confusion in light of UTI, recent Lopez Cath placement, underlying cognitive impairment, vascular dementia, history of CVA - management of medical conditions per below - will consult Psych partially treated UTI? - CT abd/pelvis: no pyelonephritis, abscess, lithiasis - still awaiting copy of initial urine cultures from [facility] - Urine culture pending Blood culture pending IV Zosyn Day 3 Urinary Retention - diagnosed last week at [facility] - will remove Lopez today, trial of voiding - may need Urology evaluation as inpatient if without improvement Acute CVA unlikely - CT head done last week at [place] unrevealing repeat CT head: no acute process Brain MRI: cannot be performed as PM not compatible patient already on Eliquis, ASA Elevated troponin Mildly elevated HS trop of 34 --> 42, likely demand ischemia in setting of infection. 2D echo ordered. 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 No CP, EKG without acute ischemic changes. Continue Toprol, statin H/o pacemaker placement Replaced in 2019. Requesting records to see if MRI compatible Hypertension Continue home losartan, Toprol Congestive heart failure Appears euvolemic. Requested recent cardiology documentation from [place] continue usual diuretics Type 2 diabetes Initial BSG 258, A1c unknown, will obtain in a.m. Hold home agents Basal/bolus insulin while in-patient BSG AC HS BPH Chronic, stable. Continue finasteride, Flomax DVT Ppx: Eliquis Code status: FULL PCP: [place] Dispo: lives at home with his anticipate d/c home when medically stable Admission and Anticipated Discharge Date Admission Date: March 14, 2023 Subjective ff up for altered mental status, etc seen resting in bed, not in distress was agitated, confused overnight required Zyprexa, restraints awake, alert, confused calm, cooperative no chest pain, dyspnea, palpitations, dizziness denies abdominal pain, nausea no other new symptoms discussed care with patient's at length outside the room Review of Systems Review of Systems: all noted and negative except for above Physical Exam Physical Exam: General- oriented x 1, not in distress, speaks in sentences with no effort or accessory muscle use Eyes- anicteric Neck- no JVD Lungs- clear breath sounds bilaterally, no rales/wheezes Heart- normal rate, regular rhythm; no murmurs Abdomen- normal bowel sounds, nondistended, soft, nontender Extremities- no pretibial edema, no calf tenderness Lopez cath in place: yellow urine Neuro- alert, oriented x 1; no new gross focal neurologic deficits Skin- warm & dry Results & Data Results & Data Vital Signs (Past 12 Hours) Vital Signs Temp Pulse Pulse Resp BP Pulse Ox O2 Del Method 03/15/23 08:08 36.5 C 71 16 145/76 H 95 Room Air 03/15/23 07:06 70 03/15/23 04:20 36.5 C 71 18 124/66 94 Room Air
--- NOTE | 2023-03-15 12:01 | Communication Note ---
Date of Service: March 15, 2023 Per medical 87 yo male with a PMH embolic stroke, mild residual memory deficis, on Eliquis for afib/paced rhythm, HTN, diabetes, an urinary retention. Periods of agitation overnight due to UTI/confusion and ripped at IV, dumont requiring wrist restraints and 2.5 mg Zyprexa X3. Case reviewed briefly with Dr. Gipson as QTc of 511 likely inaccurate give pacer. We can't diagnose dementia when acutely encephalopathic so will hold full consult for now. watch for hyperglycemia if requiring Zyprexa regularly, avoid standing based on acute change and QTc. Zyprexa would be favored over Haldol for patient as less EPS/impact on swallow/QTc issues. May require 5 mg Zyprexa if continues to require more than 1 dose with monitoring of QTc. 03/15/23 03/15/23 03/15/23 Range/Units 11:27 08:27 06:23 WBC 8.10 (4.8-10.8) K/ul RBC 5.01 (4.70-6.10) M/uL Hgb 15.9 (14.0-18.0) g/dl Hct 46.7 (42.0-52.0) % MCV 93.2 (80.0-100.0) fL MCH 31.7 (25.0-34.0) pg MCHC 34.0 (32.0-36.0) g/dL RDW Std Deviation 50.7 H (36.4-46.3) fL RDW Coeff of Tanmay 14.8 H (11.5-14.5) % Plt Count 161 (130-400) K/uL MPV 10.5 (9.4-12.4) fL Sodium 141 (136-145) mmol/L Potassium 4.0 (3.5-5.1) mmol/L Chloride 105 (98-107) mmol/L Carbon Dioxide 29 (21-32) mmol/L Anion Gap 7 (3-11) BUN 27 H (6-23) mg/dl Creatinine 1.32 D (0.6-1.4) mg/dl Est Cr Clr Drug Dosing 43.7 ml/min Est GFR ( Amer) 55.4 ml/min Est GFR (Non-Af Amer) 47.8 ml/min BUN/Creatinine Ratio 20.5 H (10-20) Glucose 198 H (70-99(Fasting)) mg/dl POC Glucose 180 H 217 H (70-99) mg/dl Calcium 9.0 (8.6-10.3) mg/dl 03/14/23 03/14/23 03/14/23 Range/Units 21:37 20:20 17:26 WBC (4.8-10.8) K/ul RBC (4.70-6.10) M/uL Hgb (14.0-18.0) g/dl Hct (42.0-52.0) % MCV (80.0-100.0) fL MCH (25.0-34.0) pg MCHC (32.0-36.0) g/dL RDW Std Deviation (36.4-46.3) fL RDW Coeff of Tanmay (11.5-14.5) % Plt Count (130-400) K/uL MPV (9.4-12.4) fL Sodium (136-145) mmol/L Potassium (3.5-5.1) mmol/L Chloride (98-107) mmol/L Carbon Dioxide (21-32) mmol/L Anion Gap (3-11) BUN (6-23) mg/dl Creatinine (0.6-1.4) mg/dl Est Cr Clr Drug Dosing ml/min Est GFR ( Amer) ml/min Est GFR (Non-Af Amer) ml/min BUN/Creatinine Ratio (10-20) Glucose (70-99(Fasting)) mg/dl POC Glucose 152 H 175 H 200 H (70-99) mg/dl Calcium (8.6-10.3) mg/dl 03/14/23 Range/Units 12:17 WBC (4.8-10.8) K/ul RBC (4.70-6.10) M/uL Hgb (14.0-18.0) g/dl Hct (42.0-52.0) % MCV (80.0-100.0) fL MCH (25.0-34.0) pg MCHC (32.0-36.0) g/dL RDW Std Deviation (36.4-46.3) fL RDW Coeff of Tanmay (11.5-14.5) % Plt Count (130-400) K/uL MPV (9.4-12.4) fL Sodium (136-145) mmol/L Potassium (3.5-5.1) mmol/L Chloride (98-107) mmol/L Carbon Dioxide (21-32) mmol/L Anion Gap (3-11) BUN (6-23) mg/dl Creatinine (0.6-1.4) mg/dl Est Cr Clr Drug Dosing ml/min Est GFR ( Amer) ml/min Est GFR (Non-Af Amer) ml/min BUN/Creatinine Ratio (10-20) Glucose (70-99(Fasting)) mg/dl POC Glucose 132 H (70-99) mg/dl Calcium (8.6-10.3) mg/dl
[2023-03-16] MEDS: PIPERACILLIN/TAZOBACTAM 4.5 GM in DEXTROSE 5% MINI-B 100 ML IV SCH ×3 (01:52→17:15)
[2023-03-16] MEDS: guaiFENesin 200 MG TAB PO PRN (08:48)
[2023-03-16] MEDS: MULTIVITAMIN TAB PO SCH (08:48)
[2023-03-16] MEDS: DOCUSATE SODIUM 100 MG CAP PO SCH (08:48)
[2023-03-16] MEDS: APIXABAN 5 MG TABLET PO SCH ×2 (08:48→20:55)
[2023-03-16] MEDS: allopurinoL 300 MG TAB PO SCH (08:48)
[2023-03-16] MEDS: METOPROLOL SUCC 25MG EXT REL TAB PO SCH (08:48)
[2023-03-16] MEDS: ASPIRIN 81 MG ECTAB PO SCH (08:48)
[2023-03-16] MEDS: PANTOprazole 40 MG TAB PO SCH (08:48)
[2023-03-16] MEDS: FINASTERIDE 5 MG TAB PO SCH (08:49)
[2023-03-16] MEDS: ATORVASTATIN 20 MG TAB PO SCH (08:49)
[2023-03-16] MEDS: LOSARTAN POTASSIUM 25 MG TAB PO SCH (08:49)
[2023-03-16] MEDS: TAMSULOSIN HCL 0.4 MG CAP PO SCH (08:49)
[2023-03-16] MEDS: INSULIN ASPART PER UNIT CHARGE SC SCH ×4 (09:27→20:55)
[2023-03-16] MEDS: LANTUS PER UNIT CHARGE SQ SCH ×2 (09:28→20:55)
[2023-03-16] MEDS ORDERED: Nursing to Pharmacy Communication SCH (09:45)
--- NOTE | 2023-03-16 12:07 | Psychiatric Consultation ---
Date of Consultation March 16, 2023 Impression / Recommendations Impression 87 yo male with likely some baseline cognitive impairment related to age and hx of stroke presents with agitation during multifactorial delirium. History from re: his baseline does not indicate sundowning/behavioral disturbance. (1) Delirium due to general medical condition: (2) Complicated UTI (urinary tract infection): (3) History of stroke: Plan no additional recs at this time, Zyprexa IM 2.5 mg prn as ordered by hospitalist and follow. CPT Code Overall, I spent a total of 56 minutes with this case, including review of chart, direct evaluation of the patient, coordination with nursing,coordination of care with hospitalist service, and documentation. Psych History Identifying Data 87 yo male from [place]. Admit 03/13 with metabolic encephalopathy. Consult placed 03/15/[address] Gipson for possible dementia with behavioral disturbance. Chief Complaint "[]". History of Present Illness as per initial review of chart 03/15/23: Per medical 87 yo male with a PMH embolic stroke, mild residual memory deficis, on Eliquis for afib/paced rhythm, HTN, diabetes, an urinary retention. Periods of agitation overnight due to UTI/confusion and ripped at IV, dumont requiring wrist restraints and 2.5 mg Zyprexa X3. Case reviewed briefly with Dr. Gipson as QTc of 511 likely inaccurate give pacer. We can't diagnose dementia when acutely encephalopathic so will hold full consult for now. watch for hyperglycemia if requiring Zyprexa regularly, avoid standing based on acute change and QTc. Zyprexa would be favored over Haldol for patient as less EPS/impact on swallow/QTc issues. May require 5 mg Zyprexa if continues to require more than 1 dose with monitoring of QTc. as per liaison: Met with patient for consult service. Patient's and daughter at bedside. Patient is oriented to self only, affect brightens with family talking with him. Currently has pleasant mood but unable to follow simple commands. Ate bites of fruit and drank 2 ensures from dinner tray. Patient remains in bilateral wrist restraints d/t pulling at medical equipment and impulsive. reports patient has a history of CVA in 2018, had some short term memory issues otherwise independent. At baseline he is able to do all ADLs, work on motors in the garage, and manage animals on the farm. reports patient has been complaining of urinary issues, unable to empty bladder, increased frequency ect. He has been seen by PCP at [facility] without any relief. Patient has become confused, agitated and unable to care for self for at least 2 weeks. reports patient has no history of mental health including SI or depression. Consult service will continue to round and offer support as needed. overnight patient did not require addition Zyprexa prn since am 03/15. Patient tolerating dumont. Did attempt to crawl out of bed despite soft wrist restraints. gluc check at that time was 61. Allergies Allergy/AdvReac Type Severity Reaction Status Date / Time colestipol Allergy Unknown Unknown Unverified 03/13/23 18:47 gabapentin Allergy Unknown Nausea and Unverified 03/13/23 18:47 vomiting niacin Allergy Unknown Flushing Unverified 03/13/23 18:47 Czeylwl-HZU-MeT Reductase Allergy Unknown Muscle Pain Unverified 03/13/23 18:47 Inhibitor Home Medications Medication Instructions Recorded Confirmed Type acetaminophen 325 mg tablet 650 mg PO TID PRN 03/13/23 03/13/23 History (Tylenol) pain/fever/headache allopurinol 300 mg tablet 150 mg PO DAILY 03/13/23 03/13/23 History apixaban 5 mg tablet (Eliquis) 5 mg PO BID 03/13/23 03/13/23 History atorvastatin 40 mg tablet 20 mg PO DAILY 03/13/23 03/13/23 History cephalexin 250 mg capsule 250 mg PO TID UTI 03/13/23 03/13/23 History codeine 10 mg-guaifenesin 100 mg/5 5 ml PO HS PRN Cough 03/13/23 03/13/23 History mL oral liquid (Guaifenesin AC) docusate sodium 100 mg capsule 100 mg PO DAILY 03/13/23 03/13/23 History empagliflozin 10 mg tablet 10 mg PO DAILY 03/13/23 03/13/23 History (Jardiance) finasteride 5 mg tablet 5 mg PO DAILY 03/13/23 03/13/23 History furosemide 20 mg tablet (Lasix) 20 mg PO DAILY 03/13/23 03/13/23 History guaifenesin 200 mg tablet 200 mg PO BID 03/13/23 03/13/23 History insulin NPH isoph U-100 human 100 See Rx Instructions .Route .COMPLEX 03/13/23 03/13/23 History unit/mL (3 mL) subcutaneous pen (Humulin N NPH U-100 Insulin KwikPen) losartan 25 mg tablet 25 mg PO DAILY 03/13/23 03/13/23 History metoprolol succinate 25 mg 12.5 mg PO DAILY 03/13/23 03/13/23 History tablet,extended release 24 hr multivitamin 1 tab PO DAILY 03/13/23 03/13/23 History nut.tx.gluc.intol,lac-free,soy 1 ea PO BID 03/13/23 03/13/23 History (Glucerna oral liquid) omeprazole 20 mg capsule,delayed 20 mg PO DAILY 03/13/23 03/13/23 History release polyethylene glycol 3350 17 17 g PO DAILY PRN Constipation 03/13/23 03/13/23 History gram/dose oral powder (Miralax) spironolactone 25 mg tablet 12.5 mg PO DAILY 03/13/23 03/13/23 History tamsulosin 0.4 mg capsule 0.4 mg PO DAILY 03/13/23 03/13/23 History Patient History Medical History Atrial fibrillation HTN (hypertension) CHF (congestive heart failure) CAD (coronary artery disease) Urinary retention BPH (benign prostatic hyperplasia) History of stroke DM (diabetes mellitus), type 2 Surgical History History of coronary artery stent placement Knee joint replacement status Pacemaker Family History Other Hypertension Social History Smoking Status: Never smoker Hx Alcohol Use: No Hx Substance Use: No Preferred Language: Samoan Communication Ability: Effective Sampler Ovens Required: No Beliefs That Will Affect Care: None Current Living Situation: Spouse Other Information That Helps Us Care for You: No Feels Safe at Home: Yes Safety Concerns: Feels Safe At This Time Assistive Devices: Cane Physical Exam Psychiatric: sedated, confused, unable to fully assess Vital Signs (Past 24 Hours): Last Vital Signs Temp 37.0 C 03/16/23 08:05 Pulse 69 03/16/23 08:05 Resp 16 03/16/23 08:05 BP 168/85 H 03/16/23 08:05 Pulse Ox 93 03/16/23 08:05 O2 Del Method Room Air 03/16/23 08:05 Review of Systems Unobtainable due to cognitive status Results & Data (PSY) Laboratory Results 03/16/23 03/16/23 03/16/23 Range/Units 12:07 08:19 01:14 POC Glucose 228 H 163 H 122 H (70-99) mg/dl 03/15/23 03/15/23 03/15/23 Range/Units 23:36 23:14 20:22 POC Glucose 167 H 61 L* 141 H (70-99) mg/dl 03/15/23 Range/Units 16:42 POC Glucose 190 H (70-99) mg/dl Medications Administered Acetaminophen (Acetaminophen 325 Mg Tab) 650 mg PO TID PRN PRN Reason: pain/fever/headache Stop: 04/12/23 22:25 Last Admin: 03/14/23 20:33 Dose: 650 mg Documented By: [id number] Allopurinol (Allopurinol 300 Mg Tab) 150 mg PO DAILY [facility] Stop: 04/13/23 08:59 Last Admin: 03/16/23 08:48 Dose: 150 mg Documented By: Admin: 03/15/23 07:45 Dose: 150 mg Documented By: Admin: 03/14/23 07:42 Dose: 150 mg Documented By: MONICA Apixaban (Apixaban 5 Mg Tablet) 5 mg PO BID [facility] Stop: 04/13/23 08:59 Last Admin: 03/16/23 08:48 Dose: 5 mg Documented By: Admin: 03/15/23 21:19 Dose: 5 mg Documented By: Admin: 03/15/23 07:43 Dose: 5 mg Documented By: Admin: 03/14/23 20:34 Dose: 5 mg Documented By: [id number] Admin: 03/14/23 07:42 Dose: 5 mg Documented By: MONICA Aspirin (Aspirin 81 Mg Ectab) 81 mg PO QAM [facility] Stop: 04/13/23 12:14 Last Admin: 03/16/23 08:48 Dose: 81 mg Documented By: Admin: 03/15/23 07:48 Dose: 81 mg Documented By: Admin: 03/14/23 13:12 Dose: 81 mg Documented By: MONICA Atorvastatin Calcium (Atorvastatin 20 Mg Tab) 20 mg PO DAILY [facility] Stop: 04/13/23 08:59 Last Admin: 03/16/23 08:49 Dose: 20 mg Documented By: Admin: 03/15/23 07:47 Dose: 20 mg Documented By: Admin: 03/14/23 07:43 Dose: 20 mg Documented By: MONICA Dextrose (Dextrose 50% 50 Ml Syringe) 25 - 50 ml IV UD PRN; Protocol PRN Reason: Hypoglycemia Protocol Stop: 04/12/23 19:58 Last Admin: 03/15/23 23:18 Dose: 25 ml Documented By: KARTIK Docusate Sodium (Docusate Sodium 100 Mg Cap) 100 mg PO DAILY ANIYA Stop: 04/13/23 08:59 Last Admin: 03/16/23 08:48 Dose: 100 mg Documented By: Admin: 03/15/23 07:45 Dose: 100 mg Documented By: Admin: 03/14/23 07:43 Dose: 100 mg Documented By: MONICA Finasteride (Finasteride 5 Mg Tab) 5 mg PO DAILY [facility] Stop: 04/13/23 08:59 Last Admin: 03/16/23 08:49 Dose: 5 mg Documented By: Admin: 03/15/23 07:49 Dose: 5 mg Documented By: Admin: 03/14/23 07:43 Dose: 5 mg Documented By: MONICA Guaifenesin (Guaifenesin 200 Mg Tab) 200 mg PO BID PRN PRN Reason: congestion Stop: 04/12/23 22:25 Last Admin: 03/16/23 08:48 Dose: 200 mg Documented By: SHELDON Piperacillin Sod/Tazobactam (Sod 4.5 gm/ Dextrose) 100 mls @ 25 mls/hr IV Q8H ANIYA; Protocol Stop: 03/24/23 01:59 Last Admin: 03/16/23 09:53 Dose: 25 mls/hr Documented By: Infusion: 03/16/23 06:01 Dose: Infused Documented By: Admin: 03/16/23 01:52 Dose: 25 mls/hr Documented By: Infusion: 03/15/23 21:50 Dose: Infused Documented By: Admin: 03/15/23 17:41 Dose: 25 mls/hr Documented By: Infusion: 03/15/23 14:58 Dose: Infused Documented By: Admin: 03/15/23 10:21 Dose: 25 mls/hr Documented By: Infusion: 03/15/23 05:46 Dose: Infused Documented By: Admin: 03/15/23 01:41 Dose: 25 mls/hr Documented By: Infusion: 03/14/23 23:46 Dose: Infused Documented By: Admin: 03/14/23 17:53 Dose: 25 mls/hr Documented By: Infusion: 03/14/23 13:13 Dose: Infused Documented By: Admin: 03/14/23 09:00 Dose: 25 mls/hr Documented By: Infusion: 03/14/23 06:54 Dose: Infused Documented By: Admin: 03/14/23 02:41 Dose: 25 mls/hr Documented By: NAZANIN Insulin Aspart (Insulin Aspart Per Unit Charge) 0 units SC ACHS ANIYA Stop: 04/12/23 20:59 Last Admin: 03/16/23 09:27 Dose: 6 units Documented By: SHELDON Co-signed By: JESSICA Admin: 03/15/23 21:18 Dose: Not Given Documented By: KARTIK Co-signed By: KAYDEN Admin: 03/15/23 17:41 Dose: 11 units Documented By: MONICA Co-signed By: [id number] Admin: 03/15/23 12:40 Dose: 6 units Documented By: MONICA Co-signed By: [id number] Admin: 03/15/23 08:55 Dose: 3 units Documented By: MONICA Co-signed By: [id number] Admin: 03/14/23 21:50 Dose: Not Given Documented By: NETTA Co-signed By: RUI Admin: 03/14/23 17:52 Dose: 10 units Documented By: MONICA Co-signed By: [id number] Admin: 03/14/23 13:12 Dose: 6 units Documented By: MONICA Co-signed By: [id number] Admin: 03/14/23 08:57 Dose: 5 units Documented By: MONICA Co-signed By: MM Admin: 03/13/23 21:04 Dose: Not Given Documented By: JT Insulin Glargine (Lantus Per Unit Charge) 5 units SQ BID ANIYA Stop: 04/15/23 08:59 Last Admin: 03/16/23 09:28 Dose: Not Given Documented By: SHELDON Losartan Potassium (Losartan Potassium 25 Mg Tab) 25 mg PO DAILY ANIYA Stop: 04/13/23 08:59 Last Admin: 03/16/23 08:49 Dose: 25 mg Documented By: Admin: 03/15/23 07:47 Dose: 25 mg Documented By: Admin: 03/14/23 07:44 Dose: 25 mg Documented By: MONICA Metoprolol Succinate (Metoprolol Succ 25mg Ext Rel Tab) 12.5 mg PO DAILY ANIYA Stop: 04/13/23 08:59 Last Admin: 03/16/23 08:48 Dose: 12.5 mg Documented By: Admin: 03/15/23 07:43 Dose: 12.5 mg Documented By: Admin: 03/14/23 07:44 Dose: 12.5 mg Documented By: MONICA Multivitamins (Multivitamin Tab) 1 tab PO DAILY ANIYA Stop: 04/13/23 08:59 Last Admin: 03/16/23 08:48 Dose: 1 tab Documented By: Admin: 03/15/23 07:47 Dose: 1 tab Documented By: Admin: 03/14/23 07:44 Dose: 1 tab Documented By: MONICA Olanzapine (Olanzapine 10 Mg/2.1 Ml Sdv) 2.5 mg IM Q4H PRN PRN Reason: Agitation Stop: 04/13/23 22:03 Last Admin: 03/15/23 09:05 Dose: 2.5 mg Documented By: Admin: 03/15/23 01:41 Dose: 2.5 mg Documented By: NETTA Pantoprazole Sodium (Pantoprazole 40 Mg Tab) 40 mg PO DAILY ANIYA Stop: 04/13/23 08:59 Last Admin: 03/16/23 08:48 Dose: 40 mg Documented By: Admin: 03/15/23 07:44 Dose: 40 mg Documented By: Admin: 03/14/23 07:45 Dose: 40 mg Documented By: MONICA Tamsulosin HCl (Tamsulosin Hcl 0.4 Mg Cap) 0.4 mg PO DAILY ANIYA Stop: 04/13/23 08:59 Last Admin: 11/07/23 08:49 Dose: 0.4 mg Documented By: Admin: 03/15/23 07:47 Dose: 0.4 mg Documented By: Admin: 03/14/23 07:42 Dose: 0.4 mg Documented By: MONICA Coding Level of Care Code 55071 U Intl Hosp Care Lvl 2 Diagnoses Delirium due to general medical condition F05 Complicated UTI (urinary tract infection) N39.0 History of stroke Z86.73
--- NOTE | 2023-03-16 16:11 | Hospitalist Progress Note ---
Date of Service March 16, 2023 Assessment & Plan (1) Acute metabolic encephalopathy: (2) Complicated UTI (urinary tract infection): (3) Urinary retention: (4) History of stroke: (5) Atrial fibrillation: (6) HTN (hypertension): (7) CHF (congestive heart failure): (8) CAD (coronary artery disease): (9) DM (diabetes mellitus), type 2: (10) BPH (benign prostatic hyperplasia): Plan This is an 87yo M with a PMH of 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 Acute metabolic encephalopathy Complicated UTI Urinary Retention, Prostate Enlargement Recently treated with outpatient Keflex during evaluation at [facility] but presented with persistent intermittent confusion, agitation History of urinary retention with recently placed Lopez last week Afebrile, no leukocytosis, UA without presence of nitrates and leuk esterase but likely partially treated CT abd/pelvis: 1. Circumferential mucosal thickening in the bladder suggestive of cystitis. Prostate is mildly enlarged. No hydronephrosis. 2. Sigmoid diverticulosis without acute diverticulitis. 3. Sclerotic lesion within the posterior left iliac bone adjacent to the SI joint measuring 3 cm. 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 possible acute worsening of confusion in light of UTI, recent Lopez Cath placement, underlying cognitive impairment, vascular dementia, history of CVA -Patient noted to have periods of agitation mostly at night while admitted Required Zyprexa, mechanical restraints -Mental status seems to be improving this morning (Baseline is pretty good, patient came to activities of daily living independently, just forgetful) partially treated UTI? - CT abd/pelvis: no pyelonephritis, abscess, lithiasis - Urine culture: Gram-negative bacilli Blood culture pending Continue IV Zosyn Day 3 Urinary Retention - diagnosed last week at [facility] -Lopez catheter removed yesterday for trial of voiding, but patient still demonstrating urinary retention Lopez catheter replaced, maintain for now -Has outpatient follow-up with urologist as per family Acute CVA unlikely - CT head done last week at [place] unrevealing repeat CT head: no acute process Brain MRI: cannot be performed as PM not compatible patient already on Eliquis, ASA -Psych consulted: Continue as needed Zyprexa Elevated troponin Mildly elevated HS trop of 34 --> 42, likely demand ischemia in setting of infection. 2D echo ordered. 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 No CP, EKG without acute ischemic changes. Continue Toprol, statin H/o pacemaker placement Replaced in 2019. Requesting records to see if MRI compatible Hypertension Continue home losartan, Toprol Congestive heart failure Appears euvolemic. Requested recent cardiology documentation from [facility] continue usual diuretics Type 2 diabetes Initial BSG 258, A1c unknown, will obtain in a.m. Hold home agents Basal/bolus insulin while in-patient BSG AC HS BPH Chronic, stable. Continue finasteride, Flomax DVT Ppx: Eliquis Code status: FULL PCP: [facility] Dispo: lives at home with his anticipate d/c home when medically stable PT/OT eval Admission and Anticipated Discharge Date Admission Date: March 14, 2023 Subjective Follow-up for metabolic encephalopathy likely secondary to underlying UTI, in the setting of underlying cognitive impairment from history of CVA etc. Seen resting in bed, not in distress, calm and cooperative Was agitated again last night Placed on restraints This morning patient;s mental status is improving Patient's at the bedside Oriented x1-2, answers all questions appropriately no chest pain, dyspnea, palpitations, dizziness Denies abdominal pain, nausea or vomiting, Fevers or chills Review of Systems Review of Systems: all noted and negative except for above Physical Exam Physical Exam: General- oriented x 1, not in distress, speaks in sentences with no effort or accessory muscle use Eyes- anicteric Neck- no JVD Lungs- clear breath sounds bilaterally, no rales/wheezes Heart- normal rate, regular rhythm; no murmurs Abdomen- normal bowel sounds, nondistended, soft, nontender Lopez catheter in place, draining yellow urine Extremities- no pretibial edema, no calf tenderness Neuro- alert, oriented x1; no new gross focal neurologic deficits Skin- warm & dry Results & Data Results & Data Vital Signs (Past 12 Hours) Vital Signs Temp Pulse Resp BP Pulse Ox O2 Del Method 03/16/23 15:49 37 C 70 14 137/80 94 Room Air 03/16/23 13:54 37 C 70 15 130/90 97 Room Air 03/16/23 08:05 37.0 C 69 16 168/85 H 93 Room Air 03/16/23 08:00 Room Air 03/16/23 04:23 36.6 C 78 16 124/71 94 Room Air all noted and reviewed including below
[2023-03-16] MEDS: ADVANCED PROBIOTIC 1250 MG CAPSULE PO SCH (16:51)
[2023-03-17] MEDS: PIPERACILLIN/TAZOBACTAM 4.5 GM in DEXTROSE 5% MINI-B 100 ML IV SCH ×2 (02:02→09:21)
[2023-03-17] MEDS: METOPROLOL SUCC 25MG EXT REL TAB PO SCH (07:59)
[2023-03-17] MEDS: FINASTERIDE 5 MG TAB PO SCH (08:00)
[2023-03-17] MEDS: ADVANCED PROBIOTIC 1250 MG CAPSULE PO SCH (08:00)
[2023-03-17] MEDS: APIXABAN 5 MG TABLET PO SCH ×2 (08:00→20:48)
[2023-03-17] MEDS: guaiFENesin 200 MG TAB PO PRN (08:00)
[2023-03-17] MEDS: DOCUSATE SODIUM 100 MG CAP PO SCH (08:00)
[2023-03-17] MEDS: ATORVASTATIN 20 MG TAB PO SCH (08:00)
[2023-03-17] MEDS: TAMSULOSIN HCL 0.4 MG CAP PO SCH (08:00)
[2023-03-17] MEDS: PANTOprazole 40 MG TAB PO SCH (08:00)
[2023-03-17] MEDS: allopurinoL 300 MG TAB PO SCH (08:00)
[2023-03-17] MEDS: MULTIVITAMIN TAB PO SCH (08:00)
[2023-03-17] MEDS: LOSARTAN POTASSIUM 25 MG TAB PO SCH (08:00)
[2023-03-17] MEDS: ASPIRIN 81 MG ECTAB PO SCH (08:00)
[2023-03-17] MEDS: INSULIN ASPART PER UNIT CHARGE SC SCH ×4 (08:59→20:47)
[2023-03-17] MEDS: LANTUS PER UNIT CHARGE SQ SCH ×2 (08:59→20:47)
[2023-03-17] MEDS: SULFAMETHOXAZOLE/TRIMETHOPRIM DS 800/160MG TAB PO SCH ×2 (14:21→20:49)
--- NOTE | 2023-03-17 14:49 | Hospitalist Progress Note ---
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 Acute metabolic encephalopathy CAUTI, POA Urinary Retention, Prostate Enlargement Recently treated with outpatient Keflex during evaluation at [facility] but presented with persistent intermittent confusion, agitation History of urinary retention with recently placed Lopez last week Afebrile, no leukocytosis, UA without presence of nitrates and leuk esterase but likely partially treated CT abd/pelvis: 1. Circumferential mucosal thickening in the bladder suggestive of cystitis. Prostate is mildly enlarged. No hydronephrosis. 2. Sigmoid diverticulosis without acute diverticulitis. 3. Sclerotic lesion within the posterior left iliac bone adjacent to the SI joint measuring 3 cm. 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 possible acute worsening of confusion in light of UTI, recent Lopez Cath placement, underlying cognitive impairment, vascular dementia, history of CVA Urine culture growing Stenotrophomonas maltophilia: Antibiotics changed from Zosyn to Bactrim. Blood culture no growth till date Infectious disease consulted Urinary Retention - diagnosed last week at [facility] -Trial of void done; unsuccessful Lopez catheter replaced, maintain for now -Has outpatient follow-up with urologist as per family Acute CVA unlikely - CT head done last week at [facility] unrevealing repeat CT head: no acute process Brain MRI: cannot be performed as PM not compatible patient already on Eliquis, ASA -Psych consulted: Continue as needed Zyprexa Elevated troponin Mildly elevated HS trop of 34 --> 42, likely demand ischemia in setting of infection. 2D echo ordered. 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 No CP, EKG without acute ischemic changes. Continue Toprol, statin H/o pacemaker placement Replaced in 2019. Requesting records to see if MRI compatible Hypertension Continue home losartan, Toprol Congestive heart failure, compensated Appears euvolemic. Requested recent cardiology documentation from [place] continue usual diuretics Type 2 diabetes Hold home agents Basal/bolus insulin while in-patient BSG AC HS BPH Chronic, stable. Continue finasteride, Flomax DVT Ppx: Eliquis Code status: FULL PCP: [place] Dispo: lives at home with his anticipate d/c home when medically stable PT/OT eval Time spent evaluating patient, direct bedside care, chart review, placing orders, interpretation of diagnostic studies, discussion with consultants, patient, and family members, as well as other required patient management activities is 60 minutes Please note the above document was generated using voice recognition software. It may contain grammatical, syntax or spelling errors. Any formal questions or concerns about the content, text or information contained within the body of this dictation should be directly addressed to the provider for clarification Admission and Anticipated Discharge Date Admission Date: March 14, 2023 Subjective Patient seen and examined at bedside. He is sitting up on a chair comfortably. Requires frequent redirection but able to answer simple question and follow directions. Review of Systems Review of Systems: All systems reviewed & are unremarkable except as noted in Subjective Physical Exam Physical Exam: Constitutional: Alert orient x2; no acute distress. Frequent reorientation Respiratory: normal respiratory effort, lungs clear to auscultation, no wheeze, rales, rhonchi. Normal insp/exp effort, no accessory muscle use Cardiovascular: RRR, no murmur, no edema Vessels: no JVD or carotid bruit Chest: normal inspection of chest Abdomen: normal bowel sounds, soft, nontender, no hepatosplenomegaly Musculoskeletal: no cyanosis or clubbing, extremities motor strength 5/5 Skin: no rashes, warm and dry normal turgor Neurologic: PERRL, EOMI, accommodation nl, no face palsy, no dysarthria CN's II- XI intact bilaterally and moves all extremities Psychiatric: A+Ox2, euthymic affect Results & Data Results & Data Vital Signs (Past 12 Hours) Vital Signs Temp Pulse Resp BP Pulse Ox O2 Del Method 03/17/23 11:15 36.4 C L 70 18 101/60 96 Room Air 03/17/23 07:52 36.4 C L 70 18 143/78 H 96 Room Air 03/17/23 03:36 36.6 C 70 18 137/74 91 Room Air Laboratory Results Laboratory Results WBC 8.10 K/ul (4.8-10.8) 03/15/23 06: RBC 5.01 M/uL (4.70-6.10) 03/15/23 06: Hgb 15.9 g/dl (14.0-18.0) 03/15/23 06: Hct 46.7 % (42.0-52.0) 03/15/23 06:23 MCV 93.2 fL (80.0-100.0) 03/15/23 06:23 MCH 31.7 pg (25.0-34.0) 03/15/23 06: MCHC 34.0 g/dL (32.0-36.0) 03/15/23 06: RDW Std Deviation 50.7 fL (36.4-46.3) H 03/15/23 06: RDW Coeff of Tanmay 14.8 % (11.5-14.5) H 03/15/23 06:23 Plt Count 161 K/uL (130-400) 03/15/23 06:23 MPV 10.5 fL (9.4-12.4) 03/15/23 06:23 Immature Gran % (Auto) 0.4 % 03/13/23 14:30 Neut % (Auto) 79.8 % 03/13/23 14:30 Lymph % (Auto) 10.7 % 03/13/23 14:30 Harding % (Auto) 6.6 % 03/13/23 14:30 Eos % (Auto) 1.7 % 03/13/23 14:30 Baso % (Auto) 0.8 % 03/13/23 14:30 Neut # (Auto) 6.09 K/uL (1.40-6.50) 03/13/23 14:30 Lymph # (Auto) 0.82 K/uL (1.20-3.40) L 03/13/23 14:30 Harding # (Auto) 0.50 K/uL (0.11-0.59) 03/13/23 14:30 Eos # (Auto) 0.13 K/uL (0.00-0.50) 03/13/23 14:30 Baso # (Auto) 0.06 K/uL (0.00-0.20) 03/13/23 14:30 Immature Gran # (Auto) 0.03 K/uL (0.01-0.20) 03/13/23 14:30 Sodium 141 mmol/L (136-145) 03/15/23 06:23 Potassium 4.0 mmol/L (3.5-5.1) 03/15/23 06:23 Chloride 105 mmol/L (98-107) 03/15/23 06:23 Carbon Dioxide 29 mmol/L (21-32) 03/15/23 06:23 Anion Gap 7 (3-11) 03/15/23 06:23 BUN 27 mg/dl (6-23) H 03/15/23 06:23 Creatinine 1.32 mg/dl (0.6-1.4) D 03/15/23 06:23 Est Cr Clr Drug Dosing 43.7 ml/min 03/15/23 06:23 Est GFR ( Amer) 55.4 ml/min 03/15/23 06:23 Est GFR (Non-Af Amer) 47.8 ml/min 03/15/23 06:23 BUN/Creatinine Ratio 20.5 (10-20) H 03/15/23 06:23 Glucose 198 mg/dl (70-99(Fasting)) H 03/15/23 06:23 POC Glucose 310 mg/dl (70-99) H* 03/17/23 11:46 Estimat Average Glucose 209 mg/dl 03/14/23 05:31 Hemoglobin A1c 8.9 % (4.5-5.6) H 03/14/23 05:31 Calcium 9.0 mg/dl (8.6-10.3) 03/15/23 06:23 Total Bilirubin 0.5 mg/dl (0.2-1.0) 03/13/23 14:30 AST 25 U/L (13-39) 03/13/23 14:30 ALT 20 U/L (7-52) 03/13/23 14:30 Alkaline Phosphatase 111 U/L (34-104) H 03/13/23 14:30 Troponin I High Sens 45.9 pg/ml (0-20) H D 03/14/23 10:49 Total Protein 7.0 gm/dl (6.0-8.3) 03/13/23 14:30 Albumin 3.7 gm/dl (3.4-5.0) 03/13/23 14:30 Globulin 3.3 gm/dl (2.5-4.0) 03/13/23 14:30 Albumin/Globulin Ratio 1.1 (0.9-2) 03/13/23 14:30 Lipase 41 U/L (11-82) 03/13/23 14:30 Urine Color Yellow 03/13/23 15:00 Urine Appearance Clear (Clear) 03/13/23 15:00 Urine pH 5.5 (4.5-7.5) 03/13/23 15:00 Ur Specific [place] 1.020 (1.000-1.030) 03/13/23 15:00 Urine Protein 1+ (Negative) H 03/13/23 15:00 Urine Glucose (UA) 3+ (Negative) H 03/13/23 15:00 Urine Ketones Negative (Negative) 03/13/23 15:00 Urine Blood 3+ (Negative) H 03/13/23 15:00 Urine Nitrite Negative (Negative) 03/13/23 15:00 Urine Bilirubin Negative (Negative) 03/13/23 15:00 Urine Urobilinogen Negative (Negative) 03/13/23 15:00 Ur Leukocyte Esterase Negative (Negative) 03/13/23 15:00 Urine WBC (Auto) 1-5 /hpf (0-5) 03/13/23 15:00 Urine RBC (Auto) >30 /hpf (0-4) H 03/13/23 15:00 U Hyaline Cast (Auto) 0 /lpf (0-5) 03/13/23 15:00 U Epithel Cells (Auto) 0-5 /lpf (0-5) 03/13/23 15:00 Urine Bacteria (Auto) Negative (Negative) 03/13/23 15:00 Impressions Chest X-Ray 03/13/23 14:42 XR chest 1V portable CLINICAL HISTORY: ams TECHNIQUE: Single frontal radiograph of the chest was obtained. Comparison: None available at the time of this dictation. FINDINGS: Pacemaker defibrillator is seen. Calcified aortic knob is seen. The lungs are clear. No evidence of pleural effusion or pneumothorax. IMPRESSION: No acute chest disease. ACT 112: Negative or not required by law. Electronically signed by: Hever Loera M.D. 03/13/2023 4:[address] 03/13/23 14:46 CT head/brain wo con CLINICAL HISTORY: ams Technique: Contiguous axial CT images of the head were acquired from the base of the skull to the vertex without intravenous contrast administration. Images were viewed in brain, subdural and bone windows. Automated dose lowering techniques and/or adjustment according to patient size were utilized for this exam. Comparison: None available at the time of this dictation. Findings: Areas of decreased attenuation are present in the periventricular and subcortical white matter bilaterally consistent with small vessel ischemic disease. Generalized cerebral atrophy with commensurate enlargement of the ventricles, sulci, and cisterns is also present. There is no acute intracranial hemorrhage or evidence of acute territorial infarction. No shift of the midline structures, mass effect, or extra-axial abnormalities are shown. Atherosclerotic calcifications are present in the intracranial segments of the internal carotid arteries. Focal encephalomalacia is in the right frontal lobe and insular and frontal parietal white matter. Imaged portions of the paranasal sinuses and mastoid air cells are clear. The orbits appear normal. There are no acute fractures of the calvaria or scalp swelling. Impression: No focal abnormalities are seen. 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 ACT 112: Negative or not required by law. Electronically signed by: Hever Loera M.D. 03/13/2023 4:52 PM Abdomen/Pelvis CT 03/13/23 19:52 Exam(s): CT ABDOMEN + PELVIS Without Contrast EXAM: CT Abdomen and Pelvis Without Intravenous Contrast CLINICAL HISTORY: Reason for exam: urinary retention, comp UTI. TECHNIQUE: Axial computed tomography images of the abdomen and pelvis without intravenous contrast. Automated exposure control was utilized for the study. A dose lowering technique was utilized adhering to the principles of ALARA. COMPARISON: No relevant prior studies available. FINDINGS: ABDOMEN: Liver: Unremarkable. Gallbladder and bile ducts: Unremarkable. Pancreas: Unremarkable. Spleen: Unremarkable. Adrenals: Unremarkable. Kidneys and ureters: No hydronephrosis in the kidneys. Exophytic cortical cyst arising from the posterior cortex of the left kidney measuring 2.8 cm. Stomach and bowel: Sigmoid diverticulosis without acute diverticulitis. PELVIS: Appendix: No findings to suggest acute appendicitis. Bladder: Lopez catheter with balloon inflated in the bladder. Circumferential mucosal thickening within the bladder. Reproductive: Prostate mildly enlarged. ABDOMEN and PELVIS: Intraperitoneal space: Unremarkable. No free air. No significant fluid collection. Bones/joints: Sclerotic lesion within the posterior left iliac bone adjacent to the SI joint measuring 3 cm. Chronic compression deformity at T12. Soft tissues: Unremarkable. Vasculature: Unremarkable. Lymph nodes: Unremarkable. IMPRESSION: 1. Circumferential mucosal thickening in the bladder suggestive of cystitis. Prostate is mildly enlarged. No hydronephrosis. 2. Sigmoid diverticulosis without acute diverticulitis. 3. Sclerotic lesion within the posterior left iliac bone adjacent to the SI joint measuring 3 cm. 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 Electronically signed by: Daren Macdonald MD 03/13/23 23:17 PM
[2023-03-17] MEDS ORDERED: OLANZapine 10 MG/2.1 ML SDV IM STA (17:28)
[2023-03-18] MEDS: OLANZapine 10 MG/2.1 ML SDV IM PRN ×3 (01:03→12:23)
[2023-03-18] MEDS: METOPROLOL SUCC 25MG EXT REL TAB PO SCH (08:48)
[2023-03-18] MEDS: LOSARTAN POTASSIUM 25 MG TAB PO SCH (08:48)
[2023-03-18] MEDS: APIXABAN 5 MG TABLET PO SCH ×2 (08:48→20:38)
[2023-03-18] MEDS: SULFAMETHOXAZOLE/TRIMETHOPRIM DS 800/160MG TAB PO SCH (08:48)
[2023-03-18] MEDS: ATORVASTATIN 20 MG TAB PO SCH (08:48)
[2023-03-18] MEDS: TAMSULOSIN HCL 0.4 MG CAP PO SCH (08:48)
[2023-03-18] MEDS: ADVANCED PROBIOTIC 1250 MG CAPSULE PO SCH (08:48)
[2023-03-18] MEDS: allopurinoL 300 MG TAB PO SCH (08:48)
[2023-03-18] MEDS: ASPIRIN 81 MG ECTAB PO SCH (08:49)
[2023-03-18] MEDS: DOCUSATE SODIUM 100 MG CAP PO SCH (08:49)
[2023-03-18] MEDS: MULTIVITAMIN TAB PO SCH (08:49)
[2023-03-18] MEDS: PANTOprazole 40 MG TAB PO SCH (08:49)
[2023-03-18] MEDS: FINASTERIDE 5 MG TAB PO SCH (08:49)
[2023-03-18 09:19] LABS: Basophils # (auto) 0.05 K/uL (0.00-0.20); Basophils % (auto) 0.6 %; Eosinophils # (auto) 0.29 K/uL (0.00-0.50); Eosinophils % (auto) 3.3 %; Hematocrit (blood only) 46.9 % (42.0-52.0); Hemoglobin 15.8 g/dl (14.0-18.0); Immature Granulocytes # (auto) 0.04 K/uL (0.01-0.20); Immature Granulocytes % (auto) 0.4 %; Lymphocytes # (auto) 0.87 K/uL (1.20-3.40); Lymphocytes % (auto) 9.8 %; Mean Corpuscular Hemoglobin 31.5 pg (25.0-34.0); Mean Corpuscular Hgb Conc 33.7 g/dL (32.0-36.0); Mean Corpuscular Volume 93.6 fL (80.0-100.0); Mean Platelet Volume 10.6 fL (9.4-12.4); Monocytes # (auto) 0.58 K/uL (0.11-0.59); Monocytes % (auto) 6.5 %; Neutrophils # (auto) 7.08 K/uL (1.40-6.50); Neutrophils % (auto) 79.4 %; Platelet Count 159 K/uL (130-400); RDW Coefficient of Variation 14.7 % (11.5-14.5); RDW Standard Deviation 50.9 fL (36.4-46.3); Red Blood Count 5.01 M/uL (4.70-6.10); White Blood Count 8.91 K/ul (4.8-10.8)
[2023-03-18 09:28] LABS: Albumin Globulin Ratio 1.2 (0.9-2); Albumin Level 3.6 gm/dl (3.4-5.0); BUN Creatinine Ratio 18.6 (10-20); Bilirubin,Total 0.6 mg/dl (0.2-1.0); Calcium 9.5 mg/dl (8.6-10.3); Creatinine Clr Calc Pharmacy 48.9 ml/min; Est GFR (African American) 63.5 ml/min; Est GFR (Non-African American) 54.8 ml/min; Globulin 2.9 gm/dl (2.5-4.0); Potassium 3.9 mmol/L (3.5-5.1); Total Protein 6.5 gm/dl (6.0-8.3)
[2023-03-18] MEDS: LANTUS PER UNIT CHARGE SQ SCH ×2 (09:48→20:54)
[2023-03-18] MEDS: INSULIN ASPART PER UNIT CHARGE SC SCH ×4 (09:48→20:54)
--- NOTE | 2023-03-18 14:12 | Communication Note ---
Date of Service: March 18, 2023 Patient with worsening confusion and agitation this am, appears to be responding to internal stimuli and did require restraints. IM Zyprexa administered for first time since just prior to initial consult. Blood sugars often in 200s as high as 300+. Patient would likely benefit from a trial of standing antipsychotic for ongoing delirium to minimize use of Zyprexa, Seroquel may have less direct impact on sugars if able to take PO. Typcially 12.5 Seroquel BID with timing of trial per hospitalist following discussion of risks/benefits with family given age/condition. 03/18/23 03/18/23 03/18/23 Range/Units 12:03 08:48 08:06 WBC 8.91 (4.8-10.8) K/ul RBC 5.01 (4.70-6.10) M/uL Hgb 15.8 (14.0-18.0) g/dl Hct 46.9 (42.0-52.0) % MCV 93.6 (80.0-100.0) fL MCH 31.5 (25.0-34.0) pg MCHC 33.7 (32.0-36.0) g/dL RDW Std Deviation 50.9 H (36.4-46.3) fL RDW Coeff of Tanmay 14.7 H (11.5-14.5) % Plt Count 159 (130-400) K/uL MPV 10.6 (9.4-12.4) fL Immature Gran % (Auto) 0.4 % Neut % (Auto) 79.4 % Lymph % (Auto) 9.8 % Union % (Auto) 6.5 % Eos % (Auto) 3.3 % Baso % (Auto) 0.6 % Neut # (Auto) 7.08 H (1.40-6.50) K/uL Lymph # (Auto) 0.87 L (1.20-3.40) K/uL Union # (Auto) 0.58 (0.11-0.59) K/uL Eos # (Auto) 0.29 (0.00-0.50) K/uL Baso # (Auto) 0.05 (0.00-0.20) K/uL Immature Gran # (Auto) 0.04 (0.01-0.20) K/uL Sodium 140 (136-145) mmol/L Potassium 3.9 (3.5-5.1) mmol/L Chloride 106 (98-107) mmol/L Carbon Dioxide 25 (21-32) mmol/L Anion Gap 9 (3-11) BUN 22 (6-23) mg/dl Creatinine 1.18 (0.6-1.4) mg/dl Est Cr Clr Drug Dosing 48.9 ml/min Est GFR ( Amer) 63.5 ml/min Est GFR (Non-Af Amer) 54.8 ml/min BUN/Creatinine Ratio 18.6 (10-20) Glucose 202 H (70-99(Fasting)) mg/dl POC Glucose 123 H 211 H (70-99) mg/dl Calcium 9.5 (8.6-10.3) mg/dl Total Bilirubin 0.6 (0.2-1.0) mg/dl AST 29 (13-39) U/L ALT 21 (7-52) U/L Alkaline Phosphatase 106 H (34-104) U/L Total Protein 6.5 (6.0-8.3) gm/dl Albumin 3.6 (3.4-5.0) gm/dl Globulin 2.9 (2.5-4.0) gm/dl Albumin/Globulin Ratio 1.2 (0.9-2) 03/17/23 03/17/23 Range/Units 20:32 16:39 WBC (4.8-10.8) K/ul RBC (4.70-6.10) M/uL Hgb (14.0-18.0) g/dl Hct (42.0-52.0) % MCV (80.0-100.0) fL MCH (25.0-34.0) pg MCHC (32.0-36.0) g/dL RDW Std Deviation (36.4-46.3) fL RDW Coeff of Tanmay (11.5-14.5) % Plt Count (130-400) K/uL MPV (9.4-12.4) fL Immature Gran % (Auto) % Neut % (Auto) % Lymph % (Auto) % Union % (Auto) % Eos % (Auto) % Baso % (Auto) % Neut # (Auto) (1.40-6.50) K/uL Lymph # (Auto) (1.20-3.40) K/uL Union # (Auto) (0.11-0.59) K/uL Eos # (Auto) (0.00-0.50) K/uL Baso # (Auto) (0.00-0.20) K/uL Immature Gran # (Auto) (0.01-0.20) K/uL Sodium (136-145) mmol/L Potassium (3.5-5.1) mmol/L Chloride (98-107) mmol/L Carbon Dioxide (21-32) mmol/L Anion Gap (3-11) BUN (6-23) mg/dl Creatinine (0.6-1.4) mg/dl Est Cr Clr Drug Dosing ml/min Est GFR ( Amer) ml/min Est GFR (Non-Af Amer) ml/min BUN/Creatinine Ratio (10-20) Glucose (70-99(Fasting)) mg/dl POC Glucose 207 H 247 H (70-99) mg/dl Calcium (8.6-10.3) mg/dl Total Bilirubin (0.2-1.0) mg/dl AST (13-39) U/L ALT (7-52) U/L Alkaline Phosphatase (34-104) U/L Total Protein (6.0-8.3) gm/dl Albumin (3.4-5.0) gm/dl Globulin (2.5-4.0) gm/dl Albumin/Globulin Ratio (0.9-2)
--- NOTE | 2023-03-18 15:15 | Hospitalist Progress Note ---
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 Acute metabolic encephalopathy CAUTI, POA Urinary Retention, Prostate Enlargement Recently treated with outpatient Keflex during evaluation at [facility] but presented with persistent intermittent confusion, agitation History of urinary retention with recently placed Lopez last week Afebrile, no leukocytosis, UA without presence of nitrates and leuk esterase but likely partially treated CT abd/pelvis: 1. Circumferential mucosal thickening in the bladder suggestive of cystitis. Prostate is mildly enlarged. No hydronephrosis. 2. Sigmoid diverticulosis without acute diverticulitis. 3. Sclerotic lesion within the posterior left iliac bone adjacent to the SI joint measuring 3 cm. 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 possible acute worsening of confusion in light of UTI, recent Lopez Cath placement, underlying cognitive impairment, vascular dementia, history of CVA Urine culture growing Stenotrophomonas maltophilia: Antibiotics changed from Zosyn to Bactrim. Blood culture no growth till date Discussed with infectious disease; recommended to continue Bactrim For delirium, started on Seroquel 12.5 mg twice daily. Repeat blood culture ordered Urinary Retention - diagnosed last week at [facility] -Trial of void done; unsuccessful Lopez catheter replaced, maintain for now -Has outpatient follow-up with urologist as per family Acute CVA unlikely - CT head done last week at [place] unrevealing repeat CT head: no acute process Brain MRI: cannot be performed as PM not compatible patient already on Eliquis, ASA -Psych consulted: Continue as needed Zyprexa. Started on Seroquel 12.5 mg twice daily Elevated troponin Mildly elevated HS trop of 34 --> 42, likely demand ischemia in setting of infection. 2D echo ordered. 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 No CP, EKG without acute ischemic changes. Continue Toprol, statin H/o pacemaker placement Replaced in 2019. Requesting records to see if MRI compatible Hypertension Continue home losartan, Toprol Congestive heart failure, compensated Appears euvolemic. continue usual diuretics Type 2 diabetes Hold home agents Basal/bolus insulin while in-patient BSG AC HS BPH Chronic, stable. Continue finasteride, Flomax DVT Ppx: Eliquis Code status: FULL [facility]: [facility] Disposition: Will need continued hospitalization as patient is very delirious; unable to follow any instructions or commands. He is requiring IV antibiotics; unable to tolerate oral. Time spent evaluating patient, direct bedside care, chart review, placing orders, interpretation of diagnostic studies, discussion with consultants, patient, and family members, as well as other required patient management activities is 60 minutes Please note the above document was generated using voice recognition software. It may contain grammatical, syntax or spelling errors. Any formal questions or concerns about the content, text or information contained within the body of this dictation should be directly addressed to the provider for clarification Admission and Anticipated Discharge Date Admission Date: March 14, 2023 Subjective Patient more delirious over the course of last evening and overnight. Not able to follow directions. He is combative as well and resting medical care Needed restraint. Review of Systems Review of Systems: All systems reviewed & are unremarkable except as noted in Subjective Physical Exam Physical Exam: Constitutional: Agitated, disoriented. Respiratory: normal respiratory effort, lungs clear to auscultation, no wheeze, rales, rhonchi. Normal insp/exp effort, no accessory muscle use Cardiovascular: RRR, no murmur, no edema Vessels: no JVD or carotid bruit Chest: normal inspection of chest Abdomen: normal bowel sounds, soft, nontender, no hepatosplenomegaly Musculoskeletal: no cyanosis or clubbing, extremities motor strength 5/5 Skin: no rashes, warm and dry normal turgor Neurologic: PERRL, EOMI, accommodation nl, no face palsy, no dysarthria CN's II- XI intact bilaterally and moves all extremities Psychiatric: Agitated, disoriented. Results & Data Results & Data Vital Signs (Past 12 Hours) Vital Signs Temp Pulse Resp BP Pulse Ox O2 Del Method 03/18/23 10:53 36.8 C 70 18 152/74 H 93 Room Air 03/18/23 08:00 Room Air Laboratory Results Laboratory Results WBC 8.91 K/ul (4.8-10.8) 03/18/23 08:48 RBC 5.01 M/uL (4.70-6.10) 03/18/23 08:48 Hgb 15.8 g/dl (14.0-18.0) 03/18/23 08:48 Hct 46.9 % (42.0-52.0) 03/18/23 08:48 MCV 93.6 fL (80.0-100.0) 03/18/23 08:48 MCH 31.5 pg (25.0-34.0) 03/18/23 08:48 MCHC 33.7 g/dL (32.0-36.0) 03/18/23 08:48 RDW Std Deviation 50.9 fL (36.4-46.3) H 03/18/23 08:48 RDW Coeff of Tanmay 14.7 % (11.5-14.5) H 03/18/23 08:48 Plt Count 159 K/uL (130-400) 03/18/23 08:48 MPV 10.6 fL (9.4-12.4) 03/18/23 08:48 Immature Gran % (Auto) 0.4 % 03/18/23 08:48 Neut % (Auto) 79.4 % 03/18/23 08:48 Lymph % (Auto) 9.8 % 03/18/23 08:48 [place] % (Auto) 6.5 % 03/18/23 08:48 Eos % (Auto) 3.3 % 03/18/23 08:48 Baso % (Auto) 0.6 % 03/18/23 08:48 Neut # (Auto) 7.08 K/uL (1.40-6.50) H 03/18/23 08:48 Lymph # (Auto) 0.87 K/uL (1.20-3.40) L 03/18/23 08:48 [place] # (Auto) 0.58 K/uL (0.11-0.59) 03/18/23 08:48 Eos # (Auto) 0.29 K/uL (0.00-0.50) 03/18/23 08:48 Baso # (Auto) 0.05 K/uL (0.00-0.20) 03/18/23 08:48 Immature Gran # (Auto) 0.04 K/uL (0.01-0.20) 03/18/23 08:48 Sodium 140 mmol/L (136-145) 03/18/23 08:48 Potassium 3.9 mmol/L (3.5-5.1) 03/18/23 08:48 Chloride 106 mmol/L (98-107) 03/18/23 08:48 Carbon Dioxide 25 mmol/L (21-32) 03/18/23 08:48 Anion Gap 9 (3-11) 03/18/23 08:48 BUN 22 mg/dl (6-23) 03/18/23 08:48 Creatinine 1.18 mg/dl (0.6-1.4) 03/18/23 08:48 Est Cr Clr Drug Dosing 48.9 ml/min 03/18/23 08:48 Est GFR ( Amer) 63.5 ml/min 03/18/23 08:48 Est GFR (Non-Af Amer) 54.8 ml/min 03/18/23 08:48 BUN/Creatinine Ratio 18.6 (10-20) 03/18/23 08:48 Glucose 202 mg/dl (70-99(Fasting)) H 03/18/23 08:48 POC Glucose 123 mg/dl (70-99) H 03/18/23 12:03 Estimat Average Glucose 209 mg/dl 03/14/23 05:31 Hemoglobin A1c 8.9 % (4.5-5.6) H 03/14/23 05:31 Calcium 9.5 mg/dl (8.6-10.3) 03/18/23 08:48 Total Bilirubin 0.6 mg/dl (0.2-1.0) 03/18/23 08:48 AST 29 U/L (13-39) 03/18/23 08:48 ALT 21 U/L (7-52) 03/18/23 08:48 Alkaline Phosphatase 106 U/L (34-104) H 03/18/23 08:48 Troponin I High Sens 45.9 pg/ml (0-20) H D 03/14/23 10:49 Total Protein 6.5 gm/dl (6.0-8.3) 03/18/23 08:48 Albumin 3.6 gm/dl (3.4-5.0) 03/18/23 08:48 Globulin 2.9 gm/dl (2.5-4.0) 03/18/23 08:48 Albumin/Globulin Ratio 1.2 (0.9-2) 03/18/23 08:48 Lipase 41 U/L (11-82) 03/13/23 14:30 Urine Color Yellow 03/13/23 15:00 Urine Appearance Clear (Clear) 03/13/23 15:00 Urine pH 5.5 (4.5-7.5) 03/13/23 15:00 Ur Specific [place] 1.020 (1.000-1.030) 03/13/23 15:00 Urine Protein 1+ (Negative) H 03/13/23 15:00 Urine Glucose (UA) 3+ (Negative) H 03/13/23 15:00 Urine Ketones Negative (Negative) 03/13/23 15:00 Urine Blood 3+ (Negative) H 03/13/23 15:00 Urine Nitrite Negative (Negative) 03/13/23 15:00 Urine Bilirubin Negative (Negative) 03/13/23 15:00 Urine Urobilinogen Negative (Negative) 03/13/23 15:00 Ur Leukocyte Esterase Negative (Negative) 03/13/23 15:00 Urine WBC (Auto) 1-5 /hpf (0-5) 03/13/23 15:00 Urine RBC (Auto) >30 /hpf (0-4) H 03/13/23 15:00 U Hyaline Cast (Auto) 0 /lpf (0-5) 03/13/23 15:00 U Epithel Cells (Auto) 0-5 /lpf (0-5) 03/13/23 15:00 Urine Bacteria (Auto) Negative (Negative) 03/13/23 15:00 Impressions Chest X-Ray 03/13/23 14:42 XR chest 1V portable CLINICAL HISTORY: ams TECHNIQUE: Single frontal radiograph of the chest was obtained. Comparison: None available at the time of this dictation. FINDINGS: Pacemaker defibrillator is seen. Calcified aortic knob is seen. The lungs are clear. No evidence of pleural effusion or pneumothorax. IMPRESSION: No acute chest disease. ACT 112: Negative or not required by law. Electronically signed by: Hever Leora M.D. 03/13/2023 4:[address] 03/13/23 14:46 CT head/brain wo con CLINICAL HISTORY: ams Technique: Contiguous axial CT images of the head were acquired from the base of the skull to the vertex without intravenous contrast administration. Images were viewed in brain, subdural and bone windows. Automated dose lowering techniques and/or adjustment according to patient size were utilized for this exam. Comparison: None available at the time of this dictation. Findings: Areas of decreased attenuation are present in the periventricular and subcortica l white matter bilaterally consistent with small vessel ischemic disease. Generalized cerebral atrophy with commensurate enlargement of the ventricles, sulci, and cisterns is also present. There is no acute intracranial hemorrhage or evidence of acute territorial infarction. No shift of the midline structures, mass effect, or extra-axial abnormalities are shown. Atherosclerotic calcifications are present in the intracranial segments of the internal carotid arteries. Focal encephalomalacia is in the right frontal lobe and insular and frontal parietal white matter. Imaged portions of the paranasal sinuses and mastoid air cells are clear. The orbits appear normal. There are no acute fractures of the calvaria or scalp swelling. Impression: No focal abnormalities are seen. 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 ACT 112: Negative or not required by law. Electronically signed by: Hever Loera M.D. 03/13/2023 4:52 PM Abdomen/Pelvis CT 03/13/23 19:52 Exam(s): CT ABDOMEN + PELVIS Without Contrast EXAM: CT Abdomen and Pelvis Without Intravenous Contrast CLINICAL HISTORY: Reason for exam: urinary retention, comp UTI. TECHNIQUE: Axial computed tomography images of the abdomen and pelvis without intravenous contrast. Automated exposure control was utilized for the study. A dose lowering technique was utilized adhering to the principles of ALARA. COMPARISON: No relevant prior studies available. FINDINGS: ABDOMEN: Liver: Unremarkable. Gallbladder and bile ducts: Unremarkable. Pancreas: Unremarkable. Spleen: Unremarkable. Adrenals: Unremarkable. Kidneys and ureters: No hydronephrosis in the kidneys. Exophytic cortical cyst arising from the posterior cortex of the left kidney measuring 2.8 cm. Stomach and bowel: Sigmoid diverticulosis without acute diverticulitis. PELVIS: Appendix: No findings to suggest acute appendicitis. Bladder: Lopez catheter with balloon inflated in the bladder. Circumferential mucosal thickening within the bladder. Reproductive: Prostate mildly enlarged. ABDOMEN and PELVIS: Intraperitoneal space: Unremarkable. No free air. No significant fluid collection. Bones/joints: Sclerotic lesion within the posterior left iliac bone adjacent to the SI joint measuring 3 cm. Chronic compression deformity at T12. Soft tissues: Unremarkable. Vasculature: Unremarkable. Lymph nodes: Unremarkable. IMPRESSION: 1. Circumferential mucosal thickening in the bladder suggestive of cystitis. Prostate is mildly enlarged. No hydronephrosis. 2. Sigmoid diverticulosis without acute diverticulitis. 3. Sclerotic lesion within the posterior left iliac bone adjacent to the SI joint measuring 3 cm. 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 Electronically signed by: Daren Macdonald MD 03/13/23 23:17 PM
[2023-03-18] MEDS: QUEtiapine FUMARATE 25 MG TABLET PO SCH ×2 (16:01→20:38)
--- NOTE | 2023-03-18 16:44 | Infectious Disease Consult ---
Date of Service March 18, 2023 Telehealth Information I performed this visit using a real-time telehealth connection between my location and the patients location ([facility]). After connecting through interactive tele-video, patient was identified by name and date of and/or wristband check.Patient (or authorized healthcare mechanical service representative) was informed that this was a telemedicine visit and it was being conducted confidentially over secure lines. My office door was closed and no one else was present in the room with me.Patient (or authorized healthcare mechanical service representative) provided consent to proceed with the visit, expressed an understanding of privacy and security of the telemedicine visit, and gave permission to have a hospital mechanical service representative in the room in order to assist with the visit and to conduct portions of the visit, as needed. I informed the patient (or authorized healthcare mechanical service representative) that I reviewed their record and presented the opportunity for them to ask any questions regarding the visit today. The patient agreed to participate. Assessment & Plan (1) Catheter-associated urinary tract infection: (2) Acute encephalopathy: (3) Urinary retention: (4) Indwelling Lopez catheter present: Plan - We agree with IV Bactrim at 320 mg of the trimethoprim dose twice daily. Patient will require a 10 day course of Bactrim to treat complicated/catheter associated urinary tract infection due to stenotrophomonas. - When patient is able to take oral medications, IV Bactrim can be stepped down to oral Bactrim double-strength 2 tablets twice daily to complete a course of 10 days. - Thank you for consulting ID. We will sign off for now. History of Present Illness History of Present Illness Most of the history was obtained from medical records as the patient was still encephalopathic and agitated. Mr. Polk is a 87 yo man with medical hx of vascular dementia, embolic stroke, atrial fibrillation, HTN, congestive heart failure with pacemaker in place, type 2 diabetes, BPH, and obstructed urinary outflow with indwelling Lopez catheter who was admitted to [facility] on because of acute en cephalopathy. The family also reported that in the last few weeks, he visited his primary care physician at the [place] few times because of change in mental status especially confusion and agitation. He was diagnosed with urinary tract infection and was started on Keflex with no improvement. According to the family, the patient had a Lopez catheter placed last week because of urinary retention. On presentation, he was hypertensive at 169/86, otherwise, the rest of the vitals were within normal limits. Initial workup was not impressive except for elevated blood sugar and mildly elevated alkaline phosphatase. His urine culture came back positive for stenotrophomonas and the ID team was consulted to help in the management of complicated UTI. Allergies Allergy/AdvReac Type Severity Reaction Status Date / Time colestipol Allergy Unknown Unknown Unverified 03/13/23 18:47 gabapentin Allergy Unknown Nausea and Unverified 03/13/23 18:47 vomiting niacin Allergy Unknown Flushing Unverified 03/13/23 18:47 [id number] Reductase Allergy Unknown Muscle Pain Unverified 03/13/23 18:47 Inhibitor Home Medications Medication Instructions Recorded Confirmed Type acetaminophen 325 mg tablet 650 mg PO TID PRN 03/13/23 03/13/23 History (Tylenol) pain/fever/headache allopurinol 300 mg tablet 150 mg PO DAILY 03/13/23 03/13/23 History apixaban 5 mg tablet (Eliquis) 5 mg PO BID 03/13/23 03/13/23 History atorvastatin 40 mg tablet 20 mg PO DAILY 03/13/23 03/13/23 History cephalexin 250 mg capsule 250 mg PO TID UTI 03/13/23 03/13/23 History codeine 10 mg-guaifenesin 100 mg/5 5 ml PO HS PRN Cough 03/13/23 03/13/23 History mL oral liquid (Guaifenesin AC) docusate sodium 100 mg capsule 100 mg PO DAILY 03/13/23 03/13/23 History empagliflozin 10 mg tablet 10 mg PO DAILY 03/13/23 03/13/23 History (Jardiance) finasteride 5 mg tablet 5 mg PO DAILY 03/13/23 03/13/23 History furosemide 20 mg tablet (Lasix) 20 mg PO DAILY 03/13/23 03/13/23 History guaifenesin 200 mg tablet 200 mg PO BID 03/13/23 03/13/23 History insulin NPH isoph U-100 human 100 See Rx Instructions .Route .COMPLEX 03/13/23 03/13/23 History unit/mL (3 mL) subcutaneous pen (Humulin N NPH U-100 Insulin KwikPen) losartan 25 mg tablet 25 mg PO DAILY 03/13/23 03/13/23 History metoprolol succinate 25 mg 12.5 mg PO DAILY 03/13/23 03/13/23 History tablet,extended release 24 hr multivitamin 1 tab PO DAILY 03/13/23 03/13/23 History nut.tx.gluc.intol,lac-free,soy 1 ea PO BID 03/13/23 03/13/23 History (Glucerna oral liquid) omeprazole 20 mg capsule,delayed 20 mg PO DAILY 03/13/23 03/13/23 History release polyethylene glycol 3350 17 17 g PO DAILY PRN Constipation 03/13/23 03/13/23 History gram/dose oral powder (Miralax) spironolactone 25 mg tablet 12.5 mg PO DAILY 03/13/23 03/13/23 History tamsulosin 0.4 mg capsule 0.4 mg PO DAILY 03/13/23 03/13/23 History Patient History Medical History Atrial fibrillation HTN (hypertension) CHF (congestive heart failure) CAD (coronary artery disease) Urinary retention BPH (benign prostatic hyperplasia) History of stroke DM (diabetes mellitus), type 2 Surgical History History of coronary artery stent placement Knee joint replacement status Pacemaker Family History Other Hypertension Social History Smoking Status: Never smoker Hx Alcohol Use: No Hx Substance Use: No Preferred Language: Colombian Communication Ability: Effective Undergraduate Internship Required: No Beliefs That Will Affect Care: None Current Living Situation: Spouse Other Information That Helps Us Care for You: No Feels Safe at Home: Yes Safety Concerns: Feels Safe At This Time Assistive Devices: Cane Review of Systems Couldn't be obtained as the patient was encephalopathic and agitated. Physical Exam Couldn't be performed as the consult was conducted via telemed. Results & Data Vital Signs (Past 12 Hours) Vital Signs Temp Pulse Resp BP Pulse Ox O2 Del Method 03/18/23 15:56 36.7 C 71 18 136/77 95 Room Air 03/18/23 10:53 36.8 C 70 18 152/74 H 93 Room Air 11/09/23 08:00 Room Air Laboratory Results MICROBIOLOGY: 03/14: 2 sets of blood culture negative to date 03/14: Urine culture growing stenotrophomonas maltophilia 03/18: 2 sets of blood culture pending Diagnostic Findings CT abdomen and pelvis performed on 03/13: 1. Circumferential mucosal thickening in the bladder suggestive of cystitis. Prostate is mildly enlarged. No hydronephrosis. 2. Sigmoid diverticulosis without acute diverticulitis. 3. Sclerotic lesion within the posterior left iliac bone adjacent to the SI joint measuring 3 cm. 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
[2023-03-18] MEDS: SULFA/TRIMETH 80/16MG/ML 320 MG in DEXTROSE 5% 500 ML IV SCH (21:33)
[2023-03-19] MEDS ORDERED: SODIUM CHLORIDE 0.9% 1,000 ML IV SCH (07:30)
[2023-03-19 07:36] LABS: Basophils # (auto) 0.05 K/uL (0.00-0.20); Basophils % (auto) 0.6 %; Eosinophils # (auto) 0.52 K/uL (0.00-0.50); Eosinophils % (auto) 6.7 %; Hematocrit (blood only) 43.4 % (42.0-52.0); Hemoglobin 14.9 g/dl (14.0-18.0); Immature Granulocytes # (auto) 0.03 K/uL (0.01-0.20); Immature Granulocytes % (auto) 0.4 %; Lymphocytes # (auto) 1.02 K/uL (1.20-3.40); Lymphocytes % (auto) 13.2 %; Mean Corpuscular Hemoglobin 31.8 pg (25.0-34.0); Mean Corpuscular Hgb Conc 34.3 g/dL (32.0-36.0); Mean Corpuscular Volume 92.5 fL (80.0-100.0); Mean Platelet Volume 10.8 fL (9.4-12.4); Monocytes # (auto) 0.57 K/uL (0.11-0.59); Monocytes % (auto) 7.4 %; Neutrophils # (auto) 5.56 K/uL (1.40-6.50); Neutrophils % (auto) 71.7 %; Platelet Count 155 K/uL (130-400); RDW Coefficient of Variation 15.1 % (11.5-14.5); Red Blood Count 4.69 M/uL (4.70-6.10); White Blood Count 7.75 K/ul (4.8-10.8)
[2023-03-19 08:03] LABS: Albumin Globulin Ratio 1.2 (0.9-2); Albumin Level 3.4 gm/dl (3.4-5.0); BUN Creatinine Ratio 17.8 (10-20); Bilirubin,Total 0.7 mg/dl (0.2-1.0); Calcium 9.2 mg/dl (8.6-10.3); Creatinine Clr Calc Pharmacy 53.9 ml/min; Est GFR (African American) 71.5 ml/min; Est GFR (Non-African American) 61.7 ml/min; Globulin 2.8 gm/dl (2.5-4.0); Potassium 4.1 mmol/L (3.5-5.1); Total Protein 6.2 gm/dl (6.0-8.3)
[2023-03-19] MEDS: ASPIRIN 81 MG ECTAB PO SCH (08:30)
[2023-03-19] MEDS: FINASTERIDE 5 MG TAB PO SCH (08:30)
[2023-03-19] MEDS: APIXABAN 5 MG TABLET PO SCH ×2 (08:30→20:50)
[2023-03-19] MEDS: allopurinoL 300 MG TAB PO SCH (08:30)
[2023-03-19] MEDS: ADVANCED PROBIOTIC 1250 MG CAPSULE PO SCH (08:31)
[2023-03-19] MEDS: ATORVASTATIN 20 MG TAB PO SCH (08:31)
[2023-03-19] MEDS: DOCUSATE SODIUM 100 MG CAP PO SCH (08:31)
[2023-03-19] MEDS: LOSARTAN POTASSIUM 25 MG TAB PO SCH (08:32)
[2023-03-19] MEDS: PANTOprazole 40 MG TAB PO SCH (08:33)
[2023-03-19] MEDS: MULTIVITAMIN TAB PO SCH (08:33)
[2023-03-19] MEDS: QUEtiapine FUMARATE 25 MG TABLET PO SCH ×2 (08:34→20:51)
[2023-03-19] MEDS: METOPROLOL SUCC 25MG EXT REL TAB PO SCH (08:35)
[2023-03-19] MEDS: TAMSULOSIN HCL 0.4 MG CAP PO SCH (08:35)
[2023-03-19] MEDS: SULFA/TRIMETH 80/16MG/ML 320 MG in DEXTROSE 5% 500 ML IV SCH ×2 (09:17→20:52)
[2023-03-19] MEDS: INSULIN ASPART PER UNIT CHARGE SC SCH ×4 (09:23→20:44)
[2023-03-19] MEDS: LANTUS PER UNIT CHARGE SQ SCH ×2 (09:24→21:01)
--- NOTE | 2023-03-19 11:28 | Hospitalist Progress Note ---
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 Acute metabolic encephalopathy CAUTI, POA Urinary Retention, Prostate Enlargement Recently treated with outpatient Keflex during evaluation at [facility] but presented with persistent intermittent confusion, agitation History of urinary retention with recently placed Lopez last week Afebrile, no leukocytosis, CT abd/pelvis: 1. Circumferential mucosal thickening in the bladder suggestive of cystitis. Prostate is mildly enlarged. No hydronephrosis. 2. Sigmoid diverticulosis without acute diverticulitis. 3. Sclerotic lesion within the posterior left iliac bone adjacent to the SI joint measuring 3 cm. 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 Urine culture growing Stenotrophomonas maltophilia: Antibiotics changed from Zosyn to Bactrim. Blood culture no growth till date Discussed with infectious disease; recommended to continue Bactrim For delirium, started on Seroquel 12.5 mg twice daily. Repeat blood culture negative so far Urinary Retention - diagnosed a week prior to admission at [facility] -Trial of void done; unsuccessful Lopez catheter replaced, maintain for now -Has outpatient follow-up with urologist as per family Acute CVA unlikely - CT head done last week at [place] unrevealing repeat CT head: no acute process Brain MRI: cannot be performed as PM not compatible patient already on Eliquis, ASA -Psych consulted: Continue as needed Zyprexa. Started on Seroquel 12.5 mg twice daily Elevated troponin Mildly elevated HS trop of 34 --> 42, likely demand ischemia in setting of infection. 2D echo ordered. 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 No CP, EKG without acute ischemic changes. Continue Toprol, statin H/o pacemaker placement Replaced in 2019. Hypertension Continue home losartan, Toprol Congestive heart failure, compensated Appears euvolemic. continue usual diuretics Type 2 diabetes Hold home agents Basal/bolus insulin while in-patient BSG AC HS BPH Chronic, stable. Continue finasteride, Flomax DVT Ppx: Eliquis Code status: FULL [facility]CP: [facility] Disposition: Continues to be hospitalized due to need for IV antibiotic and closer monitoring for delirium secondary to CAUTI,POA. Time spent evaluating patient, direct bedside care, chart review, placing orders, interpretation of diagnostic studies, discussion with consultants, patient, and family members, as well as other required patient management activities is 60 minutes Please note the above document was generated using voice recognition software. It may contain grammatical, syntax or spelling errors. Any formal questions or concerns about the content, text or information contained within the body of this dictation should be directly addressed to the provider for clarification Admission and Anticipated Discharge Date Admission Date: March 14, 2023 Subjective Patient seen and examined at bedside. He appears to be more cooperative today compared to yesterday. He is oriented to self and place today. Denies any pain or discomfort. Review of Systems Review of Systems: All systems reviewed & are unremarkable except as noted in Subjective Physical Exam Physical Exam: Constitutional: Awake, alert, oriented to self and place. Not in any distress. Respiratory: normal respiratory effort, lungs clear to auscultation, no wheeze, rales, rhonchi. Normal insp/exp effort, no accessory muscle use Cardiovascular: RRR, no murmur, no edema Vessels: no JVD or carotid bruit Chest: normal inspection of chest Abdomen: normal bowel sounds, soft, nontender, no hepatosplenomegaly Musculoskeletal: no cyanosis or clubbing, extremities motor strength 5/5 Skin: no rashes, warm and dry normal turgor Neurologic: PERRL, EOMI, accommodation nl, no face palsy, no dysarthria CN's II- XI intact bilaterally and moves all extremities Psychiatric: Agitated, disoriented. Results & Data Results & Data Vital Signs (Past 12 Hours) Vital Signs Temp Pulse Resp BP Pulse Ox O2 Del Method 03/19/23 07:57 36.8 C 70 18 163/83 H 94 Room Air Laboratory Results Laboratory Results WBC 7.75 K/ul (4.8-10.8) 03/19/23 06:58 RBC 4.69 M/uL (4.70-6.10) L 03/19/23 06:58 Hgb 14.9 g/dl (14.0-18.0) 03/19/23 06:58 Hct 43.4 % (42.0-52.0) 03/19/23 06:58 MCV 92.5 fL (80.0-100.0) 03/19/23 06:58 MCH 31.8 pg (25.0-34.0) 03/19/23 06:58 MCHC 34.3 g/dL (32.0-36.0) 03/19/23 06:58 RDW Std Deviation 51.0 fL (36.4-46.3) H 03/19/23 06:58 RDW Coeff of Tanmay 15.1 % (11.5-14.5) H 03/19/23 06:58 Plt Count 155 K/uL (130-400) 03/19/23 06:58 MPV 10.8 fL (9.4-12.4) 03/19/23 06:58 Immature Gran % (Auto) 0.4 % 03/19/23 06:58 Neut % (Auto) 71.7 % 03/19/23 06:58 Lymph % (Auto) 13.2 % 03/19/23 06:58 [place]oke % (Auto) 7.4 % 03/19/23 06:58 Eos % (Auto) 6.7 % 03/19/23 06:58 Baso % (Auto) 0.6 % 03/19/23 06:58 Neut # (Auto) 5.56 K/uL (1.40-6.50) 03/19/23 06:58 Lymph # (Auto) 1.02 K/uL (1.20-3.40) L 03/19/23 06:58 Hoke # (Auto) 0.57 K/uL (0.11-0.59) 03/19/23 06:58 Eos # (Auto) 0.52 K/uL (0.00-0.50) H 03/19/23 06:58 Baso # (Auto) 0.05 K/uL (0.00-0.20) 03/19/23 06:58 Immature Gran # (Auto) 0.03 K/uL (0.01-0.20) 03/19/23 06:58 Sodium 140 mmol/L (136-145) 03/19/23 06:58 Potassium 4.1 mmol/L (3.5-5.1) 03/19/23 06:58 Chloride 106 mmol/L (98-107) 03/19/23 06:58 Carbon Dioxide 28 mmol/L (21-32) 03/19/23 06:58 Anion Gap 6 (3-11) 03/19/23 06:58 BUN 19 mg/dl (6-23) 03/19/23 06:58 Creatinine 1.07 mg/dl (0.6-1.4) 03/19/23 06:58 Est Cr Clr Drug Dosing 53.9 ml/min 03/19/23 06:58 Est GFR ( Amer) 71.5 ml/min 03/19/23 06:58 Est GFR (Non-Af Amer) 61.7 ml/min 03/19/23 06:58 BUN/Creatinine Ratio 17.8 (10-20) 03/19/23 06:58 Glucose 137 mg/dl (70-99(Fasting)) H 03/19/23 06:58 POC Glucose 145 mg/dl (70-99) H 03/19/23 07:52 Estimat Average Glucose 209 mg/dl 03/14/23 05:31 Hemoglobin A1c 8.9 % (4.5-5.6) H 03/14/23 05:31 Calcium 9.2 mg/dl (8.6-10.3) 03/19/23 06:58 Total Bilirubin 0.7 mg/dl (0.2-1.0) 03/19/23 06:58 AST 30 U/L (13-39) 03/19/23 06:58 ALT 19 U/L (7-52) 03/19/23 06:58 Alkaline Phosphatase 94 U/L (34-104) 03/19/23 06:58 Troponin I High Sens 45.9 pg/ml (0-20) H D 03/14/23 10:49 Total Protein 6.2 gm/dl (6.0-8.3) 03/19/23 06:58 Albumin 3.4 gm/dl (3.4-5.0) 03/19/23 06:58 Globulin 2.8 gm/dl (2.5-4.0) 03/19/23 06:58 Albumin/Globulin Ratio 1.2 (0.9-2) 03/19/23 06:58 Lipase 41 U/L (11-82) 03/13/23 14:30 Urine Color Yellow 03/13/23 15:00 Urine Appearance Clear (Clear) 03/13/23 15:00 Urine pH 5.5 (4.5-7.5) 03/13/23 15:00 Ur Specific Emma 1.020 (1.000-1.030) 03/13/23 15:00 Urine Protein 1+ (Negative) H 03/13/23 15:00 Urine Glucose (UA) 3+ (Negative) H 03/13/23 15:00 Urine Ketones Negative (Negative) 03/13/23 15:00 Urine Blood 3+ (Negative) H 03/13/23 15:00 Urine Nitrite Negative (Negative) 03/13/23 15:00 Urine Bilirubin Negative (Negative) 03/13/23 15:00 Urine Urobilinogen Negative (Negative) 03/13/23 15:00 Ur Leukocyte Esterase Negative (Negative) 03/13/23 15:00 Urine WBC (Auto) 1-5 /hpf (0-5) 03/13/23 15:00 Urine RBC (Auto) >30 /hpf (0-4) H 03/13/23 15:00 U Hyaline Cast (Auto) 0 /lpf (0-5) 03/13/23 15:00 U Epithel Cells (Auto) 0-5 /lpf (0-5) 03/13/23 15:00 Urine Bacteria (Auto) Negative (Negative) 03/13/23 15:00 Impressions Chest X-Ray 03/13/23 14:42 XR chest 1V portable CLINICAL HISTORY: ams TECHNIQUE: Single frontal radiograph of the chest was obtained. Comparison: None available at the time of this dictation. FINDINGS: Pacemaker defibrillator is seen. Calcified aortic knob is seen. The lungs are clear. No evidence of pleural effusion or pneumothorax. IMPRESSION: No acute chest disease. ACT 112: Negative or not required by law. Electronically signed by: Hever Loera M.D. 03/13/2023 4:[address] 03/13/23 14:46 CT head/brain wo con CLINICAL HISTORY: ams Technique: Contiguous axial CT images of the head were acquired from the base of the skull to the vertex without intravenous contrast administration. Images were viewed in brain, subdural and bone windows. Automated dose lowering techniques and/or adjustment according to patient size were utilized for this exam. Comparison: None available at the time of this dictation. Findings: Areas of decreased attenuation are present in the periventricular and subcortical white matter bilaterally consistent with small vessel ischemic disease. Generalized cerebral atrophy with commensurate enlargement of the ventricles, sulci, and cisterns is also present. There is no acute intracranial hemorrhage or evidence of acute territorial infarction. No shift of the midline structures, mass effect, or extra-axial abnormalities are shown. Atherosclerotic calcifications are present in the intracranial segments of the internal carotid arteries. Focal encephalomalacia is in the right frontal lobe and insular and frontal parietal white matter. Imaged portions of the paranasal sinuses and mastoid air cells are clear. The orbits appear normal. There are no acute fractures of the calvaria or scalp swelling. Impression: No focal abnormalities are seen. 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 ACT 112: Negative or not required by law. Electronically signed by: Hever Loera M.D. 03/13/2023 4:52 PM Abdomen/Pelvis CT 03/13/23 19:52 Exam(s): CT ABDOMEN + PELVIS Without Contrast EXAM: CT Abdomen and Pelvis Without Intravenous Contrast CLINICAL HISTORY: Reason for exam: urinary retention, comp UTI. TECHNIQUE: Axial computed tomography images of the abdomen and pelvis without intravenous contrast. Automated exposure control was utilized for the study. A dose lowering technique was utilized adhering to the principles of ALARA. COMPARISON: No relevant prior studies available. FINDINGS: ABDOMEN: Liver: Unremarkable. Gallbladder and bile ducts: Unremarkable. Pancreas: Unremarkable. Spleen: Unremarkable. Adrenals: Unremarkable. Kidneys and ureters: No hydronephrosis in the kidneys. Exophytic cortical cyst arising from the posterior cortex of the left kidney measuring 2.8 cm. Stomach and bowel: Sigmoid diverticulosis without acute diverticulitis. PELVIS: Appendix: No findings to suggest acute appendicitis. Bladder: Lopez catheter with balloon inflated in the bladder. Circumferential mucosal thickening within the bladder. Reproductive: Prostate mildly enlarged. ABDOMEN and PELVIS: Intraperitoneal space: Unremarkable. No free air. No significant fluid collection. Bones/joints: Sclerotic lesion within the posterior left iliac bone adjacent to the SI joint measuring 3 cm. Chronic compression deformity at T12. Soft tissues: Unremarkable. Vasculature: Unremarkable. Lymph nodes: Unremarkable. IMPRESSION: 1. Circumferential mucosal thickening in the bladder suggestive of cystitis. Prostate is mildly enlarged. No hydronephrosis. 2. Sigmoid diverticulosis without acute diverticulitis. 3. Sclerotic lesion within the posterior left iliac bone adjacent to the SI joint measuring 3 cm. 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 Electronically signed by: Daren Macdonald MD 03/13/23 23:17 PM
[2023-03-20 06:10] LABS: Basophils # (auto) 0.06 K/uL (0.00-0.20); Basophils % (auto) 0.9 %; Eosinophils # (auto) 0.57 K/uL (0.00-0.50); Eosinophils % (auto) 8.1 %; Hemoglobin 14.8 g/dl (14.0-18.0); Immature Granulocytes # (auto) 0.03 K/uL (0.01-0.20); Immature Granulocytes % (auto) 0.4 %; Lymphocytes # (auto) 1.06 K/uL (1.20-3.40); Lymphocytes % (auto) 15.1 %; Mean Corpuscular Hemoglobin 31.8 pg (25.0-34.0); Mean Corpuscular Hgb Conc 34.4 g/dL (32.0-36.0); Mean Corpuscular Volume 92.5 fL (80.0-100.0); Mean Platelet Volume 11.2 fL (9.4-12.4); Monocytes # (auto) 0.47 K/uL (0.11-0.59); Monocytes % (auto) 6.7 %; Neutrophils # (auto) 4.83 K/uL (1.40-6.50); Neutrophils % (auto) 68.8 %; Platelet Count 159 K/uL (130-400); RDW Coefficient of Variation 15.1 % (11.5-14.5); RDW Standard Deviation 51.4 fL (36.4-46.3); Red Blood Count 4.65 M/uL (4.70-6.10); White Blood Count 7.02 K/ul (4.8-10.8)
[2023-03-20 06:31] LABS: Albumin Globulin Ratio 1.2 (0.9-2); Albumin Level 3.3 gm/dl (3.4-5.0); BUN Creatinine Ratio 19.6 (10-20); Bilirubin,Total 0.6 mg/dl (0.2-1.0); Calcium 9.1 mg/dl (8.6-10.3); Creatinine Clr Calc Pharmacy 51.5 ml/min; Est GFR (African American) 67.6 ml/min; Est GFR (Non-African American) 58.3 ml/min; Globulin 2.8 gm/dl (2.5-4.0); Potassium 4.3 mmol/L (3.5-5.1); Total Protein 6.1 gm/dl (6.0-8.3)
[2023-03-20] MEDS: allopurinoL 300 MG TAB PO SCH (08:33)
[2023-03-20] MEDS: APIXABAN 5 MG TABLET PO SCH ×2 (08:34→20:03)
[2023-03-20] MEDS: ASPIRIN 81 MG ECTAB PO SCH (08:34)
[2023-03-20] MEDS: DOCUSATE SODIUM 100 MG CAP PO SCH (08:35)
[2023-03-20] MEDS: ATORVASTATIN 20 MG TAB PO SCH (08:35)
[2023-03-20] MEDS: LOSARTAN POTASSIUM 25 MG TAB PO SCH (08:35)
[2023-03-20] MEDS: ADVANCED PROBIOTIC 1250 MG CAPSULE PO SCH (08:35)
[2023-03-20] MEDS: FINASTERIDE 5 MG TAB PO SCH (08:35)
[2023-03-20] MEDS: METOPROLOL SUCC 25MG EXT REL TAB PO SCH (08:35)
[2023-03-20] MEDS: PANTOprazole 40 MG TAB PO SCH (08:36)
[2023-03-20] MEDS: TAMSULOSIN HCL 0.4 MG CAP PO SCH (08:36)
[2023-03-20] MEDS: QUEtiapine FUMARATE 25 MG TABLET PO SCH (08:36)
[2023-03-20] MEDS: MULTIVITAMIN TAB PO SCH (08:36)
[2023-03-20] MEDS: POLYETHYLENE (MIRALAX) 17 GM PACK PO PRN (08:43)
[2023-03-20] MEDS: INSULIN ASPART PER UNIT CHARGE SC SCH ×4 (09:13→20:01)
[2023-03-20] MEDS: LANTUS PER UNIT CHARGE SQ SCH ×2 (09:13→20:05)
[2023-03-20] MEDS: SULFA/TRIMETH 80/16MG/ML 320 MG in DEXTROSE 5% 500 ML IV SCH ×2 (10:06→22:12)
--- NOTE | 2023-03-20 11:14 | Hospitalist Progress Note ---
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 Possible acute metabolic encephalopathy CAUTI, POA Urinary Retention, Prostate Enlargement Recently treated with outpatient Keflex during evaluation at [facility] but presented with persistent intermittent confusion, agitation History of urinary retention with recently placed Lopez last week Afebrile, no leukocytosis, CT abd/pelvis: 1. Circumferential mucosal thickening in the bladder suggestive of cystitis. Prostate is mildly enlarged. No hydronephrosis. 2. Sigmoid diverticulosis without acute diverticulitis. 3. Sclerotic lesion within the posterior left iliac bone adjacent to the SI joint measuring 3 cm. 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 Urine culture growing Stenotrophomonas maltophilia: Antibiotics changed from Zosyn to Bactrim. Blood culture no growth till date Discussed with infectious disease; recommended to continue Bactrim For delirium, started on Seroquel 12.5 mg twice daily. Will decrease the dose to Seroquel 12.5 mg at this only patient is slightly lethargic in the morning Repeat blood culture negative so far Urinary Retention - diagnosed a week prior to admission at [facility] -Trial of void done; unsuccessful Lopez catheter replaced, maintain for now -Has outpatient follow-up with urologist as per family Possible vascular dementia History of gradual decline in cognitive function CT head on admission personally reviewed; chronic appearing encephalomalacia in multiple foci Continue Eliquis and aspirin along with Lipitor Elevated troponin Demand ischemia Mildly elevated HS trop of 34 --> 42, likely demand ischemia in setting of inf ection. 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 No CP, EKG without acute ischemic changes. Continue Toprol, statin H/o pacemaker placement Replaced in 2019. Hypertension Continue home losartan, Toprol Congestive heart failure, compensated Appears euvolemic. continue usual diuretics Type 2 diabetes Hold home agents Basal/bolus insulin while in-patient BSG AC HS BPH Chronic, stable. Continue finasteride, Flomax DVT Ppx: Eliquis Code status: FULL [facility] Disposition: Continues to be hospitalized due to need for IV antibiotic and closer monitoring for delirium secondary to CAUTI,POA. Time spent evaluating patient, direct bedside care, chart review, placing orders, interpretation of diagnostic studies, discussion with consultants, patient, and family members, as well as other required patient management activities is 60 minutes Please note the above document was generated using voice recognition software. It may contain grammatical, syntax or spelling errors. Any formal questions or concerns about the content, text or information contained within the body of this dictation should be directly addressed to the provider for clarification Admission and Anticipated Discharge Date Admission Date: March 14, 2023 Subjective Patient seen and examined at bedside. He has intermittent features of agitation. Able to answer some questions. No other overnight events. Review of Systems Review of Systems: All systems reviewed & are unremarkable except as noted in Subjective Physical Exam Physical Exam: Constitutional: Awake, alert, oriented to self and place. Not in any distress. Respiratory: normal respiratory effort, lungs clear to auscultation, no wheeze, rales, rhonchi. Normal insp/exp effort, no accessory muscle use Cardiovascular: RRR, no murmur, no edema Vessels: no JVD or carotid bruit Chest: normal inspection of chest Abdomen: normal bowel sounds, soft, nontender, no hepatosplenomegaly Musculoskeletal: no cyanosis or clubbing, extremities motor strength 5/5 Skin: no rashes, warm and dry normal turgor Neurologic: PERRL, EOMI, accommodation nl, no face palsy, no dysarthria CN's II- XI intact bilaterally and moves all extremities Results & Data Results & Data Vital Signs (Past 12 Hours) Vital Signs Temp Pulse Pulse Resp BP Pulse Ox O2 Del Method 03/20/23 07:06 36.6 C 73 20 146/75 H 95 Room Air 03/20/23 07:04 70 03/20/23 02:46 37.1 C 69 18 134/72 96 Room Air Laboratory Results Laboratory Results WBC 7.02 K/ul (4.8-10.8) 03/20/23 05:30 RBC 4.65 M/uL (4.70-6.10) L 03/20/23 05:30 Hgb 14.8 g/dl (14.0-18.0) 03/20/23 05:30 Hct 43.0 % (42.0-52.0) 03/20/23 05:30 MCV 92.5 fL (80.0-100.0) 03/20/23 05:30 MCH 31.8 pg (25.0-34.0) 03/20/23 05:30 MCHC 34.4 g/dL (32.0-36.0) 03/20/23 05:30 RDW Std Deviation 51.4 fL (36.4-46.3) H 03/20/23 05:30 RDW Coeff of Tanmay 15.1 % (11.5-14.5) H 03/20/23 05:30 Plt Count 159 K/uL (130-400) 03/20/23 05:30 MPV 11.2 fL (9.4-12.4) 03/20/23 05:30 Immature Gran % (Auto) 0.4 % 03/20/23 05:30 Neut % (Auto) 68.8 % 03/20/23 05:30 Lymph % (Auto) 15.1 % 03/20/23 05:30 Wake % (Auto) 6.7 % 03/20/23 05:30 Eos % (Auto) 8.1 % 03/20/23 05:30 Baso % (Auto) 0.9 % 03/20/23 05:30 Neut # (Auto) 4.83 K/uL (1.40-6.50) 03/20/23 05:30 Lymph # (Auto) 1.06 K/uL (1.20-3.40) L 03/20/23 05:30 Wake # (Auto) 0.47 K/uL (0.11-0.59) 03/20/23 05:30 Eos # (Auto) 0.57 K/uL (0.00-0.50) H 03/20/23 05:30 Baso # (Auto) 0.06 K/uL (0.00-0.20) 03/20/23 05:30 Immature Gran # (Auto) 0.03 K/uL (0.01-0.20) 03/20/23 05:30 Sodium 137 mmol/L (136-145) 03/20/23 05:30 Potassium 4.3 mmol/L (3.5-5.1) 03/20/23 05:30 Chloride 106 mmol/L (98-107) 03/20/23 05:30 Carbon Dioxide 25 mmol/L (21-32) 03/20/23 05:30 Anion Gap 6 (3-11) 03/20/23 05:30 BUN 22 mg/dl (6-23) 03/20/23 05:30 Creatinine 1.12 mg/dl (0.6-1.4) 03/20/23 05:30 Est Cr Clr Drug Dosing 51.5 ml/min 03/20/23 05:30 Est GFR ( Amer) 67.6 ml/min 03/20/23 05:30 Est GFR (Non-Af Amer) 58.3 ml/min 03/20/23 05:30 BUN/Creatinine Ratio 19.6 (10-20) 03/20/23 05:30 Glucose 116 mg/dl (70-99(Fasting)) H 03/20/23 05:30 POC Glucose 122 mg/dl (70-99) H 03/20/23 08:30 Estimat Average Glucose 209 mg/dl 03/14/23 05:31 Hemoglobin A1c 8.9 % (4.5-5.6) H 03/14/23 05:31 Calcium 9.1 mg/dl (8.6-10.3) 03/20/23 05:30 Total Bilirubin 0.6 mg/dl (0.2-1.0) 03/20/23 05:30 AST 26 U/L (13-39) 03/20/23 05:30 ALT 17 U/L (7-52) 03/20/23 05:30 Alkaline Phosphatase 90 U/L (34-104) 03/20/23 05:30 Troponin I High Sens 45.9 pg/ml (0-20) H D 03/14/23 10:49 Total Protein 6.1 gm/dl (6.0-8.3) 03/20/23 05:30 Albumin 3.3 gm/dl (3.4-5.0) L 03/20/23 05:30 Globulin 2.8 gm/dl (2.5-4.0) 03/20/23 05:30 Albumin/Globulin Ratio 1.2 (0.9-2) 03/20/23 05:30 Lipase 41 U/L (11-82) 03/13/23 14:30 Urine Color Yellow 03/13/23 15:00 Urine Appearance Clear (Clear) 03/13/23 15:00 Urine pH 5.5 (4.5-7.5) 03/13/23 15:00 Ur Specific Lockney 1.020 (1.000-1.030) 03/13/23 15:00 Urine Protein 1+ (Negative) H 03/13/23 15:00 Urine Glucose (UA) 3+ (Negative) H 03/13/23 15:00 Urine Ketones Negative (Negative) 03/13/23 15:00 Urine Blood 3+ (Negative) H 03/13/23 15:00 Urine Nitrite Negative (Negative) 03/13/23 15:00 Urine Bilirubin Negative (Negative) 03/13/23 15:00 Urine Urobilinogen Negative (Negative) 03/13/23 15:00 Ur Leukocyte Esterase Negative (Negative) 03/13/23 15:00 Urine WBC (Auto) 1-5 /hpf (0-5) 03/13/23 15:00 Urine RBC (Auto) >30 /hpf (0-4) H 03/13/23 15:00 U Hyaline Cast (Auto) 0 /lpf (0-5) 03/13/23 15:00 U Epithel Cells (Auto) 0-5 /lpf (0-5) 03/13/23 15:00 Urine Bacteria (Auto) Negative (Negative) 03/13/23 15:00 Impressions Chest X-Ray 03/13/23 14:42 XR chest 1V portable CLINICAL HISTORY: ams TECHNIQUE: Single frontal radiograph of the chest was obtained. Comparison: None available at the time of this dictation. FINDINGS: Pacemaker defibrillator is seen. Calcified aortic knob is seen. The lungs are clear. No evidence of pleural effusion or pneumothorax. IMPRESSION: No acute chest disease. ACT 112: Negative or not required by law. Electronically signed by: Hever Loera M.D. 03/13/2023 4:[address] 03/13/23 14:46 CT head/brain wo con CLINICAL HISTORY: ams Technique: Contiguous axial CT images of the head were acquired from the base of the skull to the vertex without intravenous contrast administration. Images were viewed in brain, subdural and bone windows. Automated dose lowering techniques and/or adjustment according to patient size were utilized for this exam. Comparison: None available at the time of this dictation. Findings: Areas of decreased attenuation are present in the periventricular and subcortical white matter bilaterally consistent with small vessel ischemic disease. Generalized cerebral atrophy with commensurate enlargement of the ventricles, sulci, and cisterns is also present. There is no acute intracranial hemorrhage or evidence of acute territorial infarction. No shift of the midline structures, mass effect, or extra-axial abnormalities are shown. Atherosclerotic calcifications are present in the intracranial segments of the internal carotid arteries. Focal encephalomalacia is in the right frontal lobe and insular and frontal parietal white matter. Imaged portions of the paranasal sinuses and mastoid air cells are clear. The orbits appear normal. There are no acute fractures of the calvaria or scalp swelling. Impression: No focal abnormalities are seen. 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 ACT 112: Negative or not required by law. Electronically signed by: Hever Loera M.D. 03/13/2023 4:52 PM Abdomen/Pelvis CT 03/13/23 19:52 Exam(s): CT ABDOMEN + PELVIS Without Contrast EXAM: CT Abdomen and Pelvis Without Intravenous Contrast CLINICAL HISTORY: Reason for exam: urinary retention, comp UTI. TECHNIQUE: Axial computed tomography images of the abdomen and pelvis without intravenous contrast. Automated exposure control was utilized for the study. A dose lowering technique was utilized adhering to the principles of ALARA. COMPARISON: No relevant prior studies available. FINDINGS: ABDOMEN: Liver: Unremarkable. Gallbladder and bile ducts: Unremarkable. Pancreas: Unremarkable. Spleen: Unremarkable. Adrenals: Unremarkable. Kidneys and ureters: No hydronephrosis in the kidneys. Exophytic cortical cyst arising from the posterior cortex of the left kidney measuring 2.8 cm. Stomach and bowel: Sigmoid diverticulosis without acute diverticulitis. PELVIS: Appendix: No findings to suggest acute appendicitis. Bladder: Lopez catheter with balloon inflated in the bladder. Circumferential mucosal thickening within the bladder. Reproductive: Prostate mildly enlarged. ABDOMEN and PELVIS: Intraperitoneal space: Unremarkable. No free air. No significant fluid collection. Bones/joints: Sclerotic lesion within the posterior left iliac bone adjacent to the SI joint measuring 3 cm. Chronic compression deformity at T12. Soft tissues: Unremarkable. Vasculature: Unremarkable. Lymph nodes: Unremarkable. IMPRESSION: 1. Circumferential mucosal thickening in the bladder suggestive of cystitis. Prostate is mildly enlarged. No hydronephrosis. 2. Sigmoid diverticulosis without acute diverticulitis. 3. Sclerotic lesion within the posterior left iliac bone adjacent to the SI joint measuring 3 cm. 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 Electronically signed by: Daren Macdonald MD 03/13/23 23:17 PM
--- NOTE | 2023-03-20 14:10 | Neurology Consultation ---
Date of Consultation March 20, 2023 Assessment & Plan (1) Delirium due to general medical condition: 87 y/o male with history of stroke, cognitive decline, atrial fibrillation on eliquis, HTN, CAD, DM, and BPH that presented with delerium in the setting of UTI. In discussion with the family, pt appears to have had some difficulty with short term memory which preceeded this more recent decline, however, the exact chronicity is unclear. Pt would likely benefit from neuropsychology testing in the outpatient setting when acute medical conditions have been treated to further evaluate for cognitive disorders. Reportedly unable to obtain a MRI due to pacemaker. CTH with remote infarcts with no available prior imaging for comparison. 1. TSH, B12, ESR, folate, thiamine, B2, B3, B6, homocysteine 2. EEG 3. Frequent reorientation, window bed if possible, up to chair if able, and minimize sedating medications 4. Continue eliquis and atorvastatin for secondary stroke prevention. Recommend optimal blood glucose control. 5. Neuropsychology testing as outpatient Telehealth Consultation Telehealth Information Telehealth Information: I performed this visit using a real-time telehealth connection between my location and the patients location ([facility]). After connecting through interactive tele-video, patient was identified by name and date of and/or wristband check.Patient (or authorized healthcare patient care representative) was informed that this was a telemedicine visit and it was being conducted confidentially over secure lines. My office door was closed and no one else was present in the room with me.Patient (or authorized healthcare patient care representative) provided consent to proceed with the visit, expressed an understanding of privacy and security of the telemedicine visit, and gave permission to have a hospital patient care representative in the room in order to assist with the visit and to conduct portions of the visit, as needed. I informed the patient (or authorized healthcare patient care representative) that I reviewed their record and presented the opportunity for them to ask any questions regarding the visit today. The patient agreed to participate. History of Present Illness Reason for Consultation: ?Vascular Dementia Requesting Physician: Aneesh Hoover MD Attending Physician: Aneesh Hoover MD History of Present Illness 87 y/o male that presented with confusion on 03/13. His was contacted by phone to provide additional history, and she states that on 03/04, he woke up that morning saying that he did not know what he was supposed to do or where he was. She states that he had COVID one week prior to this. He was also having trouble urinating [facility] and [facility], [facility]. [facility] due to concerns regarding the catheter. On the third visit, she states that he was placed on keflex for UTI. She later took him to another OSH and he was seen in the emergency department and felt to have dementia and discharged home. She was concerned that he seemed to very agitated by the catheter. She states that he was rambling some but she did not necessarily feel that he was confused. She states that after he had his stroke, he had right sided weakness and speech impairment/aphasia. He did improve significantly with therapy. She takes care of the finances and has always done so. His always does the cooking and cleaning as well. He is independent with grooming/dressing and does not require prompting. He works out in the garage with motors and tries to keep busy. He has not driven since his stroke. She states that after his stroke he went to rehab and there was a change in his mental status that prompted readmission to the hospital. 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 She states that he has never had any additional events and they did not believe that prior event was a seizure. Over at least the last few months, she has had some concern regarding short term memory loss and she is not sure how much longer this could have been present. The patient does not contribute additional details to the history. Allergies Allergy/AdvReac Type Severity Reaction Status Date / Time colestipol Allergy Unknown Unknown Unverified 03/13/23 18:47 gabapentin Allergy Unknown Nausea and Unverified 03/13/23 18:47 vomiting niacin Allergy Unknown Flushing Unverified 03/13/23 18:47 [id number] Reductase Allergy Unknown Muscle Pain Unverified 03/13/23 18:47 Inhibitor Home Medications Medication Instructions Recorded Confirmed Type acetaminophen 325 mg tablet 650 mg PO TID PRN 03/13/23 03/13/23 History (Tylenol) pain/fever/headache allopurinol 300 mg tablet 150 mg PO DAILY 03/13/23 03/13/23 History apixaban 5 mg tablet (Eliquis) 5 mg PO BID 03/13/23 03/13/23 History atorvastatin 40 mg tablet 20 mg PO DAILY 03/13/23 03/13/23 History cephalexin 250 mg capsule 250 mg PO TID UTI 03/13/23 03/13/23 History codeine 10 mg-guaifenesin 100 mg/5 5 ml PO HS PRN Cough 03/13/23 03/13/23 History mL oral liquid (Guaifenesin AC) docusate sodium 100 mg capsule 100 mg PO DAILY 03/13/23 03/13/23 History empagliflozin 10 mg tablet 10 mg PO DAILY 03/13/23 03/13/23 History (Jardiance) finasteride 5 mg tablet 5 mg PO DAILY 03/13/23 03/13/23 History furosemide 20 mg tablet (Lasix) 20 mg PO DAILY 03/13/23 03/13/23 History guaifenesin 200 mg tablet 200 mg PO BID 03/13/23 03/13/23 History insulin NPH isoph U-100 human 100 See Rx Instructions .Route .COMPLEX 03/13/23 03/13/23 History unit/mL (3 mL) subcutaneous pen (Humulin N NPH U-100 Insulin KwikPen) losartan 25 mg tablet 25 mg PO DAILY 03/13/23 03/13/23 History metoprolol succinate 25 mg 12.5 mg PO DAILY 03/13/23 03/13/23 History tablet,extended release 24 hr multivitamin 1 tab PO DAILY 03/13/23 03/13/23 History nut.tx.gluc.intol,lac-free,soy 1 ea PO BID 03/13/23 03/13/23 History (Glucerna oral liquid) omeprazole 20 mg capsule,delayed 20 mg PO DAILY 03/13/23 03/13/23 History release polyethylene glycol 3350 17 17 g PO DAILY PRN Constipation 03/13/23 03/13/23 H istory gram/dose oral powder (Miralax) spironolactone 25 mg tablet 12.5 mg PO DAILY 03/13/23 03/13/23 History tamsulosin 0.4 mg capsule 0.4 mg PO DAILY 03/13/23 03/13/23 History Patient History Medical History Atrial fibrillation HTN (hypertension) CHF (congestive heart failure) CAD (coronary artery disease) Urinary retention BPH (benign prostatic hyperplasia) History of stroke DM (diabetes mellitus), type 2 Surgical History History of coronary artery stent placement Knee joint replacement status Pacemaker Family History Other Hypertension Social History Smoking Status: Never smoker Hx Alcohol Use: No Hx Substance Use: No Preferred Language: Vietnamese Communication Ability: Effective Couture Alterations Dressmaker Required: No Beliefs That Will Affect Care: None Current Living Situation: Spouse Other Information That Helps Us Care for You: No Feels Safe at Home: Yes Safety Concerns: Feels Safe At This Time Assistive Devices: Cane Review of Systems Unable to obtain Physical Exam Awake, alert, and oriented to self and person but not time or location. Follows simple commands. EOMI, no nystagmus Facial sensations intact Right NL flattening Tongue protrudes midline (erythematous tongue) Motor: Moves all four extremities antigravity, very mild drift in right lower ex tremity (chronic since stroke per family) Sensation: Intact to light touch throughout Cerebellar: FTN grossly intact Results & Data Vital Signs (Past 12 Hours) Vital Signs Temp Pulse Pulse Resp BP Pulse Ox O2 Del Method 03/20/23 11:29 36.7 C 73 20 133/75 95 Room Air 03/20/23 07:06 36.6 C 73 20 146/75 H 95 Room Air 03/20/23 07:04 70 03/20/23 02:46 37.1 C 69 18 134/72 96 Room Air Laboratory Results WBC 7,92, HGB 43, HCT 43.0, Plts 159, NA 137, Creatinine 1.12, Glucose 116, UA- negative nitrite and leukocyte esterase, urine culture with stenotrophamonus Diagnostic Findings CTH:No focal abnormalities are seen. 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
[2023-03-20] MEDS: OLANZapine 10 MG/2.1 ML SDV IM PRN ×2 (16:08→20:05)
[2023-03-20] MEDS ORDERED: QUEtiapine FUMARATE 25 MG TABLET PO SCH (21:00)
[2023-03-20] MEDS ORDERED: OLANZapine 10 MG/2.1 ML SDV IM STA (21:11)
[2023-03-21] MEDS: OLANZapine 10 MG/2.1 ML SDV IM PRN (04:04)
[2023-03-21 06:28] LABS: Basophils # (auto) 0.05 K/uL (0.00-0.20); Basophils % (auto) 0.6 %; Eosinophils # (auto) 0.22 K/uL (0.00-0.50); Eosinophils % (auto) 2.5 %; Hemoglobin 14.8 g/dl (14.0-18.0); Immature Granulocytes # (auto) 0.04 K/uL (0.01-0.20); Immature Granulocytes % (auto) 0.5 %; Lymphocytes # (auto) 0.92 K/uL (1.20-3.40); Lymphocytes % (auto) 10.4 %; Mean Corpuscular Hemoglobin 31.7 pg (25.0-34.0); Mean Corpuscular Hgb Conc 34.4 g/dL (32.0-36.0); Mean Corpuscular Volume 92.1 fL (80.0-100.0); Mean Platelet Volume 11.1 fL (9.4-12.4); Monocytes # (auto) 0.65 K/uL (0.11-0.59); Monocytes % (auto) 7.4 %; Neutrophils # (auto) 6.93 K/uL (1.40-6.50); Neutrophils % (auto) 78.6 %; Platelet Count 161 K/uL (130-400); RDW Standard Deviation 50.8 fL (36.4-46.3); Red Blood Count 4.67 M/uL (4.70-6.10); White Blood Count 8.81 K/ul (4.8-10.8)
[2023-03-21 06:46] LABS: BUN Creatinine Ratio 18.4 (10-20); Calcium 9.9 mg/dl (8.6-10.3); Creatinine Clr Calc Pharmacy 42.4 ml/min; Est GFR (African American) 53.5 ml/min; Est GFR (Non-African American) 46.1 ml/min; Potassium 4.6 mmol/L (3.5-5.1)
[2023-03-21 07:02] LABS: Thyroid Stimulating Hormone 2.848 uIu/ml (0.300-4.500)
[2023-03-21] MEDS: SULFA/TRIMETH 80/16MG/ML 320 MG in DEXTROSE 5% 500 ML IV SCH ×2 (08:10→21:09)
[2023-03-21] MEDS ORDERED: QUEtiapine FUMARATE 25 MG TABLET PO STA (09:41)
[2023-03-21] MEDS: LANTUS PER UNIT CHARGE SQ SCH ×2 (10:00→20:57)
[2023-03-21] MEDS: POLYETHYLENE (MIRALAX) 17 GM PACK PO PRN (10:00)
[2023-03-21] MEDS: INSULIN ASPART PER UNIT CHARGE SC SCH ×4 (10:00→20:57)
[2023-03-21] MEDS: allopurinoL 300 MG TAB PO SCH (11:56)
[2023-03-21] MEDS: ASPIRIN 81 MG ECTAB PO SCH (11:57)
[2023-03-21] MEDS: APIXABAN 5 MG TABLET PO SCH ×2 (11:57→20:58)
[2023-03-21] MEDS: ATORVASTATIN 20 MG TAB PO SCH (11:57)
[2023-03-21] MEDS: DOCUSATE SODIUM 100 MG CAP PO SCH (11:58)
[2023-03-21] MEDS: FINASTERIDE 5 MG TAB PO SCH (11:58)
[2023-03-21] MEDS: LOSARTAN POTASSIUM 25 MG TAB PO SCH (11:58)
[2023-03-21] MEDS: ADVANCED PROBIOTIC 1250 MG CAPSULE PO SCH (11:58)
[2023-03-21] MEDS: METOPROLOL SUCC 25MG EXT REL TAB PO SCH (11:59)
[2023-03-21] MEDS: MULTIVITAMIN TAB PO SCH (11:59)
[2023-03-21] MEDS: PANTOprazole 40 MG TAB PO SCH (12:00)
[2023-03-21] MEDS: TAMSULOSIN HCL 0.4 MG CAP PO SCH (12:00)
--- NOTE | 2023-03-21 12:46 | Hospitalist Progress Note ---
Date of Service March 21, 2023 Assessment & Plan (1) Acute metabolic encephalopathy: (2) Complicated UTI (urinary tract infection): (3) Urinary retention: (4) History of stroke: (5) Atrial fibrillation: (6) HTN (hypertension): (7) CHF (congestive heart failure): (8) CAD (coronary artery disease): (9) DM (diabetes mellitus), type 2: (10) BPH (benign prostatic hyperplasia): Plan This is an 87yo M with a PMH of 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 Possible acute metabolic encephalopathy CAUTI, POA Urinary Retention, Prostate Enlargement Recently treated with outpatient Keflex during evaluation at [facility] but presented with persistent intermittent confusion, agitation History of urinary retention with recently placed Lopez last week Afebrile, no leukocytosis, CT abd/pelvis: 1. Circumferential mucosal thickening in the bladder suggestive of cystitis. Prostate is mildly enlarged. No hydronephrosis. 2. Sigmoid diverticulosis without acute diverticulitis. 3. Sclerotic lesion within the posterior left iliac bone adjacent to the SI joint measuring 3 cm. 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 Urine culture growing Stenotrophomonas maltophilia: Antibiotics changed from Zosyn to Bactrim. Blood culture no growth till date Discussed with infectious disease; recommended to continue Bactrim For delirium, started on Seroquel 25 mg at bedtime. Repeat blood culture negative so far Urinary Retention - diagnosed a week prior to admission at [facility] -Trial of void done; unsuccessful Lopez catheter replaced, maintain for now -Has outpatient follow-up with urologist as per family Possible vascular dementia History of gradual decline in cognitive function CT head on admission personally reviewed; chronic appearing encephalomalacia in multiple foci Continue Eliquis and aspirin along with Lipitor Discussed with neurology; TSH, B12, ESR, folate, vitamin levels ordered. EEG ordered. Pacemaker not compatible with the MRI. Elevated troponin Demand ischemia Mildly elevated HS trop of 34 --> 42, likely demand ischemia in setting of infection. 40 ---> 50 --> 40 Echo: mild concentric LVH apical wall motion abnormality may reflect pacemaker activation mild hypokinesis of inferior wall EF 45-50% continue usual ASA, Eliquis History of embolic stroke Atrial fibrillation History of embolic stroke with some mild residual memory deficits, Continue anticoagulation with Eliquis, Toprol for rate control Currently in sinus rhythm at 70 bpm CAD H/o stent placement but details unknown. No CP, EKG without acute ischemic changes. Continue Toprol, statin H/o pacemaker placement Replaced in 2019. Hypertension Continue home losartan, Toprol Congestive heart failure, compensated Appears euvolemic. continue usual diuretics Type 2 diabetes Hold home agents Basal/bolus insulin while in-patient BSG AC HS BPH Chronic, stable. Continue finasteride, Flomax DVT Ppx: Eliquis Code status: FULL [facility]: [facility] Disposition: Continues to be hospitalized due to need for IV antibiotic and closer monitoring for delirium secondary to CAUTI,POA. Time spent evaluating patient, direct bedside care, chart review, placing orders, interpretation of diagnostic studies, discussion with consultants, patient, and family members, as well as other required patient management activities is 60 minutes Please note the above document was generated using voice recognition software. It may contain grammatical, syntax or spelling errors. Any formal questions or concerns about the content, text or information contained within the body of this dictation should be directly addressed to the provider for clarification Admission and Anticipated Discharge Date Admission Date: March 14, 2023 Subjective Patient seen and examined at bedside. He continued to be agitated intermittently. Requiring one-to-one sitter. Review of Systems Review of Systems: All systems reviewed & are unremarkable except as noted in Subjective Physical Exam Physical Exam: Constitutional: disoriented and agitated. Spontaneously opens his eyes at times Respiratory: Bilateral vesicular breath sound Cardiovascular: RRR, no murmur, no edema Vessels: no JVD or carotid bruit Chest: normal inspection of chest Abdomen: normal bowel sounds, soft, nontender, no hepatosplenomegaly. Lopez in place draining clear urine. Musculoskeletal: no cyanosis or clubbing, extremities motor strength 5/5 Skin: no rashes, warm and dry normal turgor Neurologic: Grossly moves all extremities. Disoriented and agitated. Results & Data Results & Data Vital Signs (Past 12 Hours) Vital Signs Temp Pulse Pulse Resp BP Pulse Ox O2 Del Method 03/21/23 11:48 37.1 C 67 18 138/76 95 Room Air 03/21/23 07:37 74 03/21/23 07:11 36.2 C L 70 18 153/62 H 95 Room Air 03/21/23 03:08 36.2 C L 71 19 153/82 H 92 Room Air Laboratory Results Laboratory Results WBC 8.81 K/ul (4.8-10.8) 03/21/23 05:52 RBC 4.67 M/uL (4.70-6.10) L 03/21/23 05:52 Hgb 14.8 g/dl (14.0-18.0) 03/21/23 05:52 Hct 43.0 % (42.0-52.0) 03/21/23 05:52 MCV 92.1 fL (80.0-100.0) 03/21/23 05:52 MCH 31.7 pg (25.0-34.0) 03/21/23 05:52 MCHC 34.4 g/dL (32.0-36.0) 03/21/23 05:52 RDW Std Deviation 50.8 fL (36.4-46.3) H 03/21/23 05:52 RDW Coeff of [place] 15.0 % (11.5-14.5) H 03/21/23 05:52 Plt Count 161 K/uL (130-400) 03/21/23 05:52 MPV 11.1 fL (9.4-12.4) 03/21/23 05:52 Immature Gran % (Auto) 0.5 % 03/21/23 05:52 Neut % (Auto) 78.6 % 03/21/23 05:52 Lymph % (Auto) 10.4 % 03/21/23 05:52 [place] % (Auto) 7.4 % 03/21/23 05:52 Eos % (Auto) 2.5 % 03/21/23 05:52 Baso % (Auto) 0.6 % 03/21/23 05:52 Neut # (Auto) 6.93 K/uL (1.40-6.50) H 03/21/23 05:52 Lymph # (Auto) 0.92 K/uL (1.20-3.40) L 03/21/23 05:52 [place] # (Auto) 0.65 K/uL (0.11-0.59) H 03/21/23 05:52 Eos # (Auto) 0.22 K/uL (0.00-0.50) 03/21/23 05:52 Baso # (Auto) 0.05 K/uL (0.00-0.20) 03/21/23 05:52 Immature Gran # (Auto) 0.04 K/uL (0.01-0.20) 03/21/23 05:52 Sodium 141 mmol/L (136-145) 03/21/23 05:52 Potassium 4.6 mmol/L (3.5-5.1) 03/21/23 05:52 Chloride 106 mmol/L (98-107) 03/21/23 05:52 Carbon Dioxide 26 mmol/L (21-32) 03/21/23 05:52 Anion Gap 9 (3-11) 03/21/23 05:52 BUN 25 mg/dl (6-23) H 03/21/23 05:52 Creatinine 1.36 mg/dl (0.6-1.4) 03/21/23 05:52 Est Cr Clr Drug Dosing 42.4 ml/min 03/21/23 05:52 Est GFR ( Amer) 53.5 ml/min 03/21/23 05:52 Est GFR (Non-Af Amer) 46.1 ml/min 03/21/23 05:52 BUN/Creatinine Ratio 18.4 (10-20) 03/21/23 05:52 Glucose 150 mg/dl (70-99(Fasting)) H 03/21/23 05:52 POC Glucose 179 mg/dl (70-99) H 03/21/23 12:07 Estimat Average Glucose 209 mg/dl 03/14/23 05:31 Hemoglobin A1c 8.9 % (4.5-5.6) H 03/14/23 05:31 Calcium 9.9 mg/dl (8.6-10.3) 03/21/23 05:52 Total Bilirubin 0.6 mg/dl (0.2-1.0) 03/20/23 05:30 AST 26 U/L (13-39) 03/20/23 05:30 ALT 17 U/L (7-52) 03/20/23 05:30 Alkaline Phosphatase 90 U/L (34-104) 03/20/23 05:30 Troponin I High Sens 45.9 pg/ml (0-20) H D 03/14/23 10:49 Total Protein 6.1 gm/dl (6.0-8.3) 03/20/23 05:30 Albumin 3.3 gm/dl (3.4-5.0) L 03/20/23 05:30 Globulin 2.8 gm/dl (2.5-4.0) 03/20/23 05:30 Albumin/Globulin Ratio 1.2 (0.9-2) 03/20/23 05:30 Lipase 41 U/L (11-82) 03/13/23 14:30 TSH 2.848 uIu/ml (0.300-4.500) 03/21/23 05:52 Urine Color Yellow 03/13/23 15:00 Urine Appearance Clear (Clear) 03/13/23 15:00 Urine pH 5.5 (4.5-7.5) 03/13/23 15:00 Ur Specific [place] 1.020 (1.000-1.030) 03/13/23 15:00 Urine Protein 1+ (Negative) H 03/13/23 15:00 Urine Glucose (UA) 3+ (Negative) H 03/13/23 15:00 Urine Ketones Negative (Negative) 03/13/23 15:00 Urine Blood 3+ (Negative) H 03/13/23 15:00 Urine Nitrite Negative (Negative) 03/13/23 15:00 Urine Bilirubin Negative (Negative) 03/13/23 15:00 Urine Urobilinogen Negative (Negative) 03/13/23 15:00 Ur Leukocyte Esterase Negative (Negative) 03/13/23 15:00 Urine WBC (Auto) 1-5 /hpf (0-5) 03/13/23 15:00 Urine RBC (Auto) >30 /hpf (0-4) H 03/13/23 15:00 U Hyaline Cast (Auto) 0 /lpf (0-5) 03/13/23 15:00 U Epithel Cells (Auto) 0-5 /lpf (0-5) 03/13/23 15:00 Urine Bacteria (Auto) Negative (Negative) 03/13/23 15:00 Impressions Chest X-Ray 03/13/23 14:42 XR chest 1V portable CLINICAL HISTORY: ams TECHNIQUE: Single frontal radiograph of the chest was obtained. Comparison: None available at the time of this dictation. FINDINGS: Pacemaker defibrillator is seen. Calcified aortic knob is seen. The lungs are clear. No evidence of pleural effusion or pneumothorax. IMPRESSION: No acute chest disease. ACT 112: Negative or not required by law. Electronically signed by: Hever Loera M.D. 03/13/2023 4:[address] 03/13/23 14:46 CT head/brain wo con CLINICAL HISTORY: ams Technique: Contiguous axial CT images of the head were acquired from the base of the skull to the vertex without intravenous contrast administration. Images were viewed in brain, subdural and bone windows. Automated dose lowering techniques and/or adjustment according to patient size were utilized for this exam. Comparison: None available at the time of this dictation. Findings: Areas of decreased attenuation are present in the periventricular and subcortical white matter bilaterally consistent with small vessel ischemic disease. Generalized cerebral atrophy with commensurate enlargement of the ventricles, sulci, and cisterns is also present. There is no acute intracranial hemorrhage or evidence of acute territorial infarction. No shift of the midline structures, mass effect, or extra-axial abnormalities are shown. Atherosclerotic calcifications are present in the intracranial segments of the internal carotid arteries. Focal encephalomalacia is in the right frontal lobe and insular and frontal parietal white matter. Imaged portions of the paranasal sinuses and mastoid air cells are clear. The orbits appear normal. There are no acute fractures of the calvaria or scalp swelling. Impression: No focal abnormalities are seen. 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 ACT 112: Negative or not required by law. Electronically signed by: Hever Loera M.D. 03/13/2023 4:52 PM Abdomen/Pelvis CT 03/13/23 19:52 Exam(s): CT ABDOMEN + PELVIS Without Contrast EXAM: CT Abdomen and Pelvis Without Intravenous Contrast CLINICAL HISTORY: Reason for exam: urinary retention, comp UTI. TECHNIQUE: Axial computed tomography images of the abdomen and pelvis without intravenous contrast. Automated exposure control was utilized for the study. A dose lowering technique was utilized adhering to the principles of ALARA. COMPARISON: No relevant prior studies available. FINDINGS: ABDOMEN: Liver: Unremarkable. Gallbladder and bile ducts: Unremarkable. Pancreas: Unremarkable. Spleen: Unremarkable. Adrenals: Unremarkable. Kidneys and ureters: No hydronephrosis in the kidneys. Exophytic cortical cyst arising from the posterior cortex of the left kidney measuring 2.8 cm. Stomach and bowel: Sigmoid diverticulosis without acute diverticulitis. PELVIS: Appendix: No findings to suggest acute appendicitis. Bladder: Lopez catheter with balloon inflated in the bladder. Circumferential mucosal thickening within the bladder. Reproductive: Prostate mildly enlarged. ABDOMEN and PELVIS: Intraperitoneal space: Unremarkable. No free air. No significant fluid collection. Bones/joints: Sclerotic lesion within the posterior left iliac bone adjacent to the SI joint measuring 3 cm. Chronic compression deformity at T12. Soft tissues: Unremarkable. Vasculature: Unremarkable. Lymph nodes: Unremarkable. IMPRESSION: 1. Circumferential mucosal thickening in the bladder suggestive of cystitis. Prostate is mildly enlarged. No hydronephrosis. 2. Sigmoid diverticulosis without acute diverticulitis. 3. Sclerotic lesion within the posterior left iliac bone adjacent to the SI joint measuring 3 cm. 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 Electronically signed by: Daren Macdonald MD 03/13/23 23:17 PM
[2023-03-21] MEDS: LACTATED RINGER'S 1,000 ML IV SCH (13:09)
[2023-03-21] MEDS: QUEtiapine FUMARATE 25 MG TABLET PO SCH (20:58)
[2023-03-21] MEDS: ACETAMINOPHEN 325 MG TAB PO PRN (21:03)
[2023-03-22] MEDS: LACTATED RINGER'S 1,000 ML IV SCH ×2 (03:07→15:50)
[2023-03-22 08:47] LABS: Basophils # (auto) 0.07 K/uL (0.00-0.20); Basophils % (auto) 1.1 %; Eosinophils # (auto) 0.56 K/uL (0.00-0.50); Eosinophils % (auto) 8.7 %; Hematocrit (blood only) 44.2 % (42.0-52.0); Hemoglobin 15.1 g/dl (14.0-18.0); Immature Granulocytes # (auto) 0.03 K/uL (0.01-0.20); Immature Granulocytes % (auto) 0.5 %; Lymphocytes # (auto) 1.13 K/uL (1.20-3.40); Lymphocytes % (auto) 17.6 %; Mean Corpuscular Hemoglobin 31.3 pg (25.0-34.0); Mean Corpuscular Hgb Conc 34.2 g/dL (32.0-36.0); Mean Corpuscular Volume 91.7 fL (80.0-100.0); Mean Platelet Volume 11.2 fL (9.4-12.4); Monocytes # (auto) 0.54 K/uL (0.11-0.59); Monocytes % (auto) 8.4 %; Neutrophils # (auto) 4.08 K/uL (1.40-6.50); Neutrophils % (auto) 63.7 %; Platelet Count 164 K/uL (130-400); RDW Coefficient of Variation 14.8 % (11.5-14.5); RDW Standard Deviation 49.8 fL (36.4-46.3); Red Blood Count 4.82 M/uL (4.70-6.10); White Blood Count 6.41 K/ul (4.8-10.8)
[2023-03-22 08:55] LABS: BUN Creatinine Ratio 17.3 (10-20); Calcium 8.9 mg/dl (8.6-10.3); Creatinine Clr Calc Pharmacy 52.5 ml/min; Est GFR (African American) 69.1 ml/min; Est GFR (Non-African American) 59.6 ml/min; Potassium 4.3 mmol/L (3.5-5.1)
[2023-03-22] MEDS: APIXABAN 5 MG TABLET PO SCH ×2 (09:06→21:06)
[2023-03-22] MEDS: TAMSULOSIN HCL 0.4 MG CAP PO SCH (09:06)
[2023-03-22] MEDS: METOPROLOL SUCC 25MG EXT REL TAB PO SCH (09:07)
[2023-03-22] MEDS: ADVANCED PROBIOTIC 1250 MG CAPSULE PO SCH (09:07)
[2023-03-22] MEDS: LOSARTAN POTASSIUM 25 MG TAB PO SCH (09:08)
[2023-03-22] MEDS: guaiFENesin 200 MG TAB PO PRN (09:08)
[2023-03-22] MEDS: FINASTERIDE 5 MG TAB PO SCH (09:08)
[2023-03-22] MEDS: ASPIRIN 81 MG ECTAB PO SCH (09:08)
[2023-03-22] MEDS: PANTOprazole 40 MG TAB PO SCH (09:08)
[2023-03-22] MEDS: MULTIVITAMIN TAB PO SCH (09:09)
[2023-03-22] MEDS: ATORVASTATIN 20 MG TAB PO SCH (09:09)
[2023-03-22] MEDS: allopurinoL 300 MG TAB PO SCH (09:09)
[2023-03-22] MEDS: DOCUSATE SODIUM 100 MG CAP PO SCH (09:09)
[2023-03-22] MEDS: INSULIN ASPART PER UNIT CHARGE SC SCH ×4 (09:16→21:06)
[2023-03-22] MEDS: LANTUS PER UNIT CHARGE SQ SCH ×2 (09:16→21:05)
[2023-03-22] MEDS: SULFA/TRIMETH 80/16MG/ML 320 MG in DEXTROSE 5% 500 ML IV SCH ×2 (09:29→21:00)
[2023-03-22] MEDS ORDERED: MAGNESIUM HYDROXIDE SUSP 30 ML UDC PO ONE (10:06)
[2023-03-22] MEDS: POLYETHYLENE (MIRALAX) 17 GM PACK PO SCH (13:06)
--- NOTE | 2023-03-22 13:50 | Hospitalist Progress Note ---
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 Possible acute metabolic encephalopathy CAUTI, POA Urinary Retention, Prostate Enlargement Recently treated with outpatient Keflex during evaluation at [facility] but presented with persistent intermittent confusion, agitation History of urinary retention with recently placed Lopez last week Afebrile, no leukocytosis, CT abd/pelvis: 1. Circumferential mucosal thickening in the bladder suggestive of cystitis. Prostate is mildly enlarged. No hydronephrosis. 2. Sigmoid diverticulosis without acute diverticulitis. 3. Sclerotic lesion within the posterior left iliac bone adjacent to the SI joint measuring 3 cm. 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 Urine culture grew Stenotrophomonas maltophilia: Antibiotics changed from Zosyn to Bactrim(end date is March 27, 2023) Blood culture no growth till date Discussed with infectious disease; recommended to continue Bactrim For delirium, started on Seroquel 25 mg at bedtime. Repeat blood culture negative so far Urinary Retention - diagnosed a week prior to admission at [facility] -Trial of void done; unsuccessful Lopez catheter replaced, maintain for now -Has outpatient follow-up with urologist as per family Possible vascular dementia History of gradual decline in cognitive function CT head on admission personally reviewed; chronic appearing encephalomalacia in multiple foci Continue Eliquis and aspirin along with Lipitor Discussed with neurology; TSH, B12, ESR, folate, vitamin levels ordered. EEG ordered. Pacemaker not compatible with the MRI. Elevated troponin Demand ischemia Mildly elevated HS trop of 34 --> 42, likely demand ischemia in setting of infection. 40 ---> 50 --> 40 Echo: mild concentric LVH apical wall motion abnormality may reflect pacemaker activation mild hypokinesis of inferior wall EF 45-50% continue usual ASA, Eliquis History of embolic stroke Atrial fibrillation History of embolic stroke with some mild residual memory deficits, Continue anticoagulation with Eliquis, Toprol for rate control Currently in sinus rhythm at 70 bpm CAD H/o stent placement but details unknown. No CP, EKG without acute ischemic changes. Continue Toprol, statin H/o pacemaker placement Replaced in 2019. Hypertension Continue home losartan, Toprol Congestive heart failure, compensated Appears euvolemic. continue usual diuretics Type 2 diabetes Hold home agents Basal/bolus insulin while in-patient BSG AC HS BPH Chronic, stable. Continue finasteride, Flomax DVT Ppx: Eliquis Code status: FULL [facility] Discussed with at bedside. Answered questions/queries. Disposition: Continues to be hospitalized due to need for IV antibiotic and closer monitoring for delirium secondary to CAUTI,POA. Time spent evaluating patient, direct bedside care, chart review, placing orders, interpretation of diagnostic studies, discussion with consultants, patient, and family members, as well as other required patient management activities is 60 minutes Please note the above document was generated using voice recognition software. It may contain grammatical, syntax or spelling errors. Any formal questions or concerns about the content, text or information contained within the body of thi s dictation should be directly addressed to the provider for clarification Admission and Anticipated Discharge Date Admission Date: March 14, 2023 Subjective Patient seen and examined at bedside. He is sitting up on the bed; not in distress. Mentation better than yesterday Last dose of Zyprexa more than 24 hours ago Review of Systems Review of Systems: All systems reviewed & are unremarkable except as noted in Subjective Physical Exam Physical Exam: Constitutional: Awake, oriented to self and place. Respiratory: Bilateral vesicular breath sound Cardiovascular: RRR, no murmur, no edema Vessels: no JVD or carotid bruit Chest: normal inspection of chest Abdomen: normal bowel sounds, soft, nontender, no hepatosplenomegaly. Lopez in place draining clear urine. Musculoskeletal: no cyanosis or clubbing, extremities motor strength 5/5 Skin: no rashes, warm and dry normal turgor Neurologic: Grossly moves all extremities. Awake, oriented to self and place. Results & Data Results & Data Vital Signs (Past 12 Hours) Vital Signs Temp Pulse Resp BP Pulse Ox O2 Del Method 03/22/23 11:22 36.8 C 70 18 117/65 94 Room Air 03/22/23 07:59 36.4 C L 68 18 155/82 H 92 Room Air 03/22/23 06:27 36.3 C L 70 20 130/74 95 Room Air 03/22/23 03:19 36.6 C 72 20 146/75 H 94 Room Air Laboratory Results Laboratory Results WBC 6.41 K/ul (4.8-10.8) 03/22/23 08:04 RBC 4.82 M/uL (4.70-6.10) 03/22/23 08:04 Hgb 15.1 g/dl (14.0-18.0) 03/22/23 08:04 Hct 44.2 % (42.0-52.0) 03/22/23 08:04 MCV 91.7 fL (80.0-100.0) 03/22/23 08:04 MCH 31.3 pg (25.0-34.0) 03/22/23 08:04 MCHC 34.2 g/dL (32.0-36.0) 03/22/23 08:04 RDW Std Deviation 49.8 fL (36.4-46.3) H 03/22/23 08:04 RDW Coeff of [place] 14.8 % (11.5-14.5) H 03/22/23 08:04 Plt Count 164 K/uL (130-400) 03/22/23 08:04 MPV 11.2 fL (9.4-12.4) 03/22/23 08:04 Immature Gran % (Auto) 0.5 % 03/22/23 08:04 Neut % (Auto) 63.7 % 03/22/23 08:04 Lymph % (Auto) 17.6 % 03/22/23 08:04 [place] % (Auto) 8.4 % 03/22/23 08:04 Eos % (Auto) 8.7 % 03/22/23 08:04 Baso % (Auto) 1.1 % 03/22/23 08:04 Neut # (Auto) 4.08 K/uL (1.40-6.50) 03/22/23 08:04 Lymph # (Auto) 1.13 K/uL (1.20-3.40) L 03/22/23 08:04 [place]re[place] # (Auto) 0.54 K/uL (0.11-0.59) 03/22/23 08:04 Eos # (Auto) 0.56 K/uL (0.00-0.50) H 03/22/23 08:04 Baso # (Auto) 0.07 K/uL (0.00-0.20) 03/22/23 08:04 Immature Gran # (Auto) 0.03 K/uL (0.01-0.20) 03/22/23 08:04 ESR 39 mm/hr (0-20) H 03/22/23 08:04 Sodium 138 mmol/L (136-145) 03/22/23 08:04 Potassium 4.3 mmol/L (3.5-5.1) 03/22/23 08:04 Chloride 105 mmol/L (98-107) 03/22/23 08:04 Carbon Dioxide 27 mmol/L (21-32) 03/22/23 08:04 Anion Gap 6 (3-11) 03/22/23 08:04 BUN 19 mg/dl (6-23) 03/22/23 08:04 Creatinine 1.10 mg/dl (0.6-1.4) 03/22/23 08:04 Est Cr Clr Drug Dosing 52.5 ml/min 03/22/23 08:04 Est GFR ( Amer) 69.1 ml/min 03/22/23 08:04 Est GFR (Non-Af Amer) 59.6 ml/min 03/22/23 08:04 BUN/Creatinine Ratio 17.3 (10-20) 03/22/23 08:04 Glucose 143 mg/dl (70-99(Fasting)) H 03/22/23 08:04 POC Glucose 254 mg/dl (70-99) H 03/22/23 11:35 Estimat Average Glucose 209 mg/dl 03/14/23 05:31 Hemoglobin A1c 8.9 % (4.5-5.6) H 03/14/23 05:31 Calcium 8.9 mg/dl (8.6-10.3) 03/22/23 08:04 Total Bilirubin 0.6 mg/dl (0.2-1.0) 03/20/23 05:30 AST 26 U/L (13-39) 03/20/23 05:30 ALT 17 U/L (7-52) 03/20/23 05:30 Alkaline Phosphatase 90 U/L (34-104) 03/20/23 05:30 Troponin I High Sens 45.9 pg/ml (0-20) H D 03/14/23 10:49 Total Protein 6.1 gm/dl (6.0-8.3) 03/20/23 05:30 Albumin 3.3 gm/dl (3.4-5.0) L 03/20/23 05:30 Globulin 2.8 gm/dl (2.5-4.0) 03/20/23 05:30 Albumin/Globulin Ratio 1.2 (0.9-2) 03/20/23 05:30 Lipase 41 U/L (11-82) 03/13/23 14:30 TSH 2.848 uIu/ml (0.300-4.500) 03/21/23 05:52 Urine Color Yellow 03/13/23 15:00 Urine Appearance Clear (Clear) 03/13/23 15:00 Urine pH 5.5 (4.5-7.5) 03/13/23 15:00 Ur Specific [place] 1.020 (1.000-1.030) 03/13/23 15:00 Urine Protein 1+ (Negative) H 03/13/23 15:00 Urine Glucose (UA) 3+ (Negative) H 03/13/23 15:00 Urine Ketones Negative (Negative) 03/13/23 15:00 Urine Blood 3+ (Negative) H 03/13/23 15:00 Urine Nitrite Negative (Negative) 03/13/23 15:00 Urine Bilirubin Negative (Negative) 03/13/23 15:00 Urine Urobilinogen Negative (Negative) 03/13/23 15:00 Ur Leukocyte Esterase Negative (Negative) 03/13/23 15:00 Urine WBC (Auto) 1-5 /hpf (0-5) 03/13/23 15:00 Urine RBC (Auto) >30 /hpf (0-4) H 03/13/23 15:00 U Hyaline Cast (Auto) 0 /lpf (0-5) 03/13/23 15:00 U Epithel Cells (Auto) 0-5 /lpf (0-5) 03/13/23 15:00 Urine Bacteria (Auto) Negative (Negative) 03/13/23 15:00 Impressions Chest X-Ray 03/13/23 14:42 XR chest 1V portable CLINICAL HISTORY: ams TECHNIQUE: Single frontal radiograph of the chest was obtained. Comparison: None available at the time of this dictation. FINDINGS: Pacemaker defibrillator is seen. Calcified aortic knob is seen. The lungs are clear. No evidence of pleural effusion or pneumothorax. IMPRESSION: No acute chest disease. ACT 112: Negative or not required by law. Electronically signed by: Hever Loera M.D. 03/13/2023 4:[address] 03/13/23 14:46 CT head/brain wo con CLINICAL HISTORY: ams Technique: Contiguous axial CT images of the head were acquired from the base of the skull to the vertex without intravenous contrast administration. Images were viewed in brain, subdural and bone windows. Automated dose lowering techniques and/or adjustment according to patient size were utilized for this exam. Comparison: None available at the time of this dictation. Findings: Areas of decreased attenuation are present in the periventricular and subcortical white matter bilaterally consistent with small vessel ischemic disease. Generalized cerebral atrophy with commensurate enlargement of the ventricles, sulci, and cisterns is also present. There is no acute intracranial hemorrhage or evidence of acute territorial infarction. No shift of the midline structures, mass effect, or extra-axial abnormalities are shown. Atherosclerotic calcifications are present in the intracranial segments of the internal carotid arteries. Focal encephalomalacia is in the right frontal lobe and insular and frontal parietal white matter. Imaged portions of the paranasal sinuses and mastoid air cells are clear. The orbits appear normal. There are no acute fractures of the calvaria or scalp swelling. Impression: No focal abnormalities are seen. 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 ACT 112: Negative or not required by law. Electronically signed by: Hever Loera M.D. 03/13/2023 4:52 PM Abdomen/Pelvis CT 03/13/23 19:52 Exam(s): CT ABDOMEN + PELVIS Without Contrast EXAM: CT Abdomen and Pelvis Without Intravenous Contrast CLINICAL HISTORY: Reason for exam: urinary retention, comp UTI. TECHNIQUE: Axial computed tomography images of the abdomen and pelvis without intravenous contrast. Automated exposure control was utilized for the study. A dose lowering technique was utilized adhering to the principles of ALARA. COMPARISON: No relevant prior studies available. FINDINGS: ABDOMEN: Liver: Unremarkable. Gallbladder and bile ducts: Unremarkable. Pancreas: Unremarkable. Spleen: Unremarkable. Adrenals: Unremarkable. Kidneys and ureters: No hydronephrosis in the kidneys. Exophytic cortical cyst arising from the posterior cortex of the left kidney measuring 2.8 cm. Stomach and bowel: Sigmoid diverticulosis without acute diverticulitis. PELVIS: Appendix: No findings to suggest acute appendicitis. Bladder: Lopez catheter with balloon inflated in the bladder. Circumferential mucosal thickening within the bladder. Reproductive: Prostate mildly enlarged. ABDOMEN and PELVIS: Intraperitoneal space: Unremarkable. No free air. No significant fluid collection. Bones/joints: Sclerotic lesion within the posterior left iliac bone adjacent to the SI joint measuring 3 cm. Chronic compression deformity at T12. Soft tissues: Unremarkable. Vasculature: Unremarkable. Lymph nodes: Unremarkable. IMPRESSION: 1. Circumferential mucosal thickening in the bladder suggestive of cystitis. Prostate is mildly enlarged. No hydronephrosis. 2. Sigmoid diverticulosis without acute diverticulitis. 3. Sclerotic lesion within the posterior left iliac bone adjacent to the SI joint measuring 3 cm. 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 Electronically signed by: Daren Macdonald MD 03/13/23 23:17 PM
[2023-03-22] MEDS: QUEtiapine FUMARATE 25 MG TABLET PO SCH (21:06)
--- NOTE | 2023-03-22 22:00 | Electroencephalogram ---
EEG Procedure Note Date of Service March 22, 2023 Start / End Times Start Time: 07:28 End Time: 07:48 Referring Physician Li Hoover History An 87 year old male with agitation, UTI, and encephalopathy. EEG performed for evaluation of epileptiform activity. Home Medication List Medication Instructions Recorded Confirmed Type acetaminophen 325 mg tablet 650 mg PO TID PRN 03/13/23 03/13/23 History (Tylenol) pain/fever/headache allopurinol 300 mg tablet 150 mg PO DAILY 03/13/23 03/13/23 History apixaban 5 mg tablet (Eliquis) 5 mg PO BID 03/13/23 03/13/23 History atorvastatin 40 mg tablet 20 mg PO DAILY 03/13/23 03/13/23 History cephalexin 250 mg capsule 250 mg PO TID UTI 03/13/23 03/13/23 History codeine 10 mg-guaifenesin 100 mg/5 5 ml PO HS PRN Cough 03/13/23 03/13/23 History mL oral liquid (Guaifenesin AC) docusate sodium 100 mg capsule 100 mg PO DAILY 03/13/23 03/13/23 History empagliflozin 10 mg tablet 10 mg PO DAILY 03/13/23 03/13/23 History (Jardiance) finasteride 5 mg tablet 5 mg PO DAILY 03/13/23 03/13/23 History furosemide 20 mg tablet (Lasix) 20 mg PO DAILY 03/13/23 03/13/23 History guaifenesin 200 mg tablet 200 mg PO BID 03/13/23 03/13/23 History insulin NPH isoph U-100 human 100 See Rx Instructions .Route .COMPLEX 03/13/23 03/13/23 History unit/mL (3 mL) subcutaneous pen (Humulin N NPH U-100 Insulin KwikPen) losartan 25 mg tablet 25 mg PO DAILY 03/13/23 03/13/23 History metoprolol succinate 25 mg 12.5 mg PO DAILY 03/13/23 03/13/23 History tablet,extended release 24 hr multivitamin 1 tab PO DAILY 03/13/23 03/13/23 History nut.tx.gluc.intol,lac-free,soy 1 ea PO BID 03/13/23 03/13/23 History (Glucerna oral liquid) omeprazole 20 mg capsule,delayed 20 mg PO DAILY 03/13/23 03/13/23 History release polyethylene glycol 3350 17 17 g PO DAILY PRN Constipation 03/13/23 03/13/23 Hi story gram/dose oral powder (Miralax) spironolactone 25 mg tablet 12.5 mg PO DAILY 03/13/23 03/13/23 History tamsulosin 0.4 mg capsule 0.4 mg PO DAILY 03/13/23 03/13/23 History Inpatient Medication List Acetaminophen (Acetaminophen 325 Mg Tab) 650 mg PO TID PRN PRN Reason: pain/fever/headache Stop: 04/12/23 22:25 Last Admin: 03/21/23 21:03 Dose: 650 mg Documented By: Admin: 03/14/23 20:33 Dose: 650 mg Documented By: [id number] Allopurinol (Allopurinol 300 Mg Tab) 150 mg PO DAILY ANIYA Stop: 04/13/23 08:59 Last Admin: 03/22/23 09:09 Dose: 150 mg Documented By: Admin: 03/21/23 11:56 Dose: 150 mg Documented By: Admin: 03/20/23 08:33 Dose: 150 mg Documented By: Admin: 03/19/23 08:30 Dose: 150 mg Documented By: Admin: 03/18/23 08:48 Dose: 150 mg Documented By: Admin: 03/17/23 08:00 Dose: 150 mg Documented By: Admin: 03/16/23 08:48 Dose: 150 mg Documented By: Admin: 03/15/23 07:45 Dose: 150 mg Documented By: Admin: 03/14/23 07:42 Dose: 150 mg Documented By: MONICA Apixaban (Apixaban 5 Mg Tablet) 5 mg PO BID ANIYA Stop: 04/13/23 08:59 Last Admin: 03/22/23 21:06 Dose: 5 mg Documented By: Admin: 03/22/23 09:06 Dose: 5 mg Documented By: Admin: 03/21/23 20:58 Dose: 5 mg Documented By: Admin: 03/21/23 11:57 Dose: 5 mg Documented By: Admin: 03/20/23 20:03 Dose: 5 mg Documented By: Admin: 03/20/23 08:34 Dose: 5 mg Documented By: Admin: 03/19/23 20:50 Dose: 5 mg Documented By: Admin: 03/19/23 08:30 Dose: 5 mg Documented By: Admin: 03/18/23 20:38 Dose: 5 mg Documented By: Admin: 03/18/23 08:48 Dose: 5 mg Documented By: Admin: 03/17/23 20:48 Dose: 5 mg Documented By: Admin: 03/17/23 08:00 Dose: 5 mg Documented By: Admin: 03/16/23 20:55 Dose: 5 mg Documented By: Admin: 03/16/23 08:48 Dose: 5 mg Documented By: Admin: 03/15/23 21:19 Dose: 5 mg Documented By: Admin: 03/15/23 07:43 Dose: 5 mg Documented By: Admin: 03/14/23 20:34 Dose: 5 mg Documented By: [id number] Admin: 03/14/23 07:42 Dose: 5 mg Documented By: MONICA Aspirin (Aspirin 81 Mg Ectab) 81 mg PO QAM ANIYA Stop: 04/13/23 12:14 Last Admin: 03/22/23 09:08 Dose: 81 mg Documented By: Admin: 03/21/23 11:57 Dose: 81 mg Documented By: Admin: 03/20/23 08:34 Dose: 81 mg Documented By: Admin: 03/19/23 08:30 Dose: 81 mg Documented By: Admin: 03/18/23 08:49 Dose: 81 mg Documented By: Admin: 03/17/23 08:00 Dose: 81 mg Documented By: Admin: 03/16/23 08:48 Dose: 81 mg Documented By: Admin: 03/15/23 07:48 Dose: 81 mg Documented By: Admin: 03/14/23 13:12 Dose: 81 mg Documented By: MONICA Atorvastatin Calcium (Atorvastatin 20 Mg Tab) 20 mg PO DAILY ANIYA Stop: 04/13/23 08:59 Last Admin: 03/22/23 09:09 Dose: 20 mg Documented By: Admin: 03/21/23 11:57 Dose: 20 mg Documented By: Admin: 03/20/23 08:35 Dose: 20 mg Documented By: Admin: 03/19/23 08:31 Dose: 20 mg Documented By: Admin: 03/18/23 08:48 Dose: 20 mg Documented By: Admin: 03/17/23 08:00 Dose: 20 mg Documented By: Admin: 03/16/23 08:49 Dose: 20 mg Documented By: Admin: 03/15/23 07:47 Dose: 20 mg Documented By: Admin: 03/14/23 07:43 Dose: 20 mg Documented By: MONICA Dextrose (Dextrose 50% 50 Ml Syringe) 25 - 50 ml IV UD PRN; Protocol PRN Reason: Hypoglycemia Protocol Stop: 04/12/23 19:58 Last Admin: 03/15/23 23:18 Dose: 25 ml Documented By: KARTIK Docusate Sodium (Docusate Sodium 100 Mg Cap) 100 mg PO DAILY ANIYA Stop: 04/13/23 08:59 Last Admin: 03/22/23 09:09 Dose: 100 mg Documented By: Admin: 03/21/23 11:58 Dose: 100 mg Documented By: Admin: 03/20/23 08:35 Dose: 100 mg Documented By: Admin: 03/19/23 08:31 Dose: 100 mg Documented By: Admin: 03/18/23 08:49 Dose: 100 mg Documented By: Admin: 03/17/23 08:00 Dose: 100 mg Documented By: Admin: 03/16/23 08:48 Dose: 100 mg Documented By: Admin: 03/15/23 07:45 Dose: 100 mg Documented By: Admin: 03/14/23 07:43 Dose: 100 mg Documented By: MONICA Finasteride (Finasteride 5 Mg Tab) 5 mg PO DAILY ANIYA Stop: 04/13/23 08:59 Last Admin: 03/22/23 09:08 Dose: 5 mg Documented By: Admin: 03/21/23 11:58 Dose: 5 mg Documented By: Admin: 03/20/23 08:35 Dose: 5 mg Documented By: Admin: 03/19/23 08:30 Dose: 5 mg Documented By: Admin: 03/18/23 08:49 Dose: 5 mg Documented By: Admin: 03/17/23 08:00 Dose: 5 mg Documented By: Admin: 03/16/23 08:49 Dose: 5 mg Documented By: Admin: 03/15/23 07:49 Dose: 5 mg Documented By: Admin: 03/14/23 07:43 Dose: 5 mg Documented By: MONICA Guaifenesin (Guaifenesin 200 Mg Tab) 200 mg PO BID PRN PRN Reason: congestion Stop: 04/12/23 22:25 Last Admin: 03/22/23 09:08 Dose: 200 mg Documented By: Admin: 03/17/23 08:00 Dose: 200 mg Documented By: Admin: 03/16/23 08:48 Dose: 200 mg Documented By: SHELDON Trimethoprim/Sulfamethoxazole (320 mg/ Dextrose) 520 mls @ 346.667 mls/hr IV Q12 ANIYA Stop: 03/23/23 23:59 Last Admin: 03/22/23 21:00 Dose: 346 mls/hr Documented By: Infusion: 03/22/23 11:00 Dose: Infused Documented By: Admin: 03/22/23 09:29 Dose: 346 mls/hr Documented By: Infusion: 03/21/23 22:56 Dose: Infused Documented By: Admin: 03/21/23 21:09 Dose: 346 mls/hr Documented By: Infusion: 03/21/23 09:47 Dose: Infused Documented By: Admin: 03/21/23 08:10 Dose: 346 mls/hr Documented By: Infusion: 03/21/23 00:57 Dose: Infused Documented By: Admin: 03/20/23 22:12 Dose: 346 mls/hr Documented By: Infusion: 03/20/23 12:07 Dose: Infused Documented By: RRSilke Admin: 03/20/23 10:06 Dose: 346.7 mls/hr Documented By: Infusion: 03/19/23 22:28 Dose: Infused Documented By: Admin: 03/19/23 20:52 Dose: 346 mls/hr Documented By: Infusion: 03/19/23 11:00 Dose: Infused Documented By: Admin: 03/19/23 09:17 Dose: 346.7 mls/hr Documented By: Infusion: 03/18/23 23:03 Dose: Infused Documented By: Admin: 03/18/23 21:33 Dose: 346.7 mls/hr Documented By: OMERO Lactated Ringer's (Lr) 1,000 mls @ 80 mls/hr IV .[id number] [facility] Stop: 04/20/23 12:44 Last Admin: 03/22/23 15:50 Dose: 80 mls/hr Documented By: Infusion: 03/22/23 15:37 Dose: Infused Documented By: Admin: 03/22/23 03:07 Dose: 80 mls/hr Documented By: Infusion: 03/22/23 01:39 Dose: Infused Documented By: Admin: 03/21/23 13:09 Dose: 80 mls/hr Documented By: ODILIA Insulin Aspart (Insulin Aspart Per Unit Charge) 0 units SC TID@0730,1130,1630 [facility] Stop: 04/17/23 11:29 Last Admin: 03/22/23 18:47 Dose: Not Given Documented By: Admin: 03/22/23 13:07 Dose: 14 units Documented By: JOSE Co-signed By: PATY Admin: 03/22/23 09:16 Dose: 13 units Documented By: JOSE Co-signed By: ALANA Admin: 03/21/23 18:18 Dose: Not Given Documented By: Admin: 03/21/23 13:14 Dose: 3 units Documented By: RRR Co-signed By: MITCHELL Admin: 03/21/23 10:00 Dose: 2 units Documented By: RRR Co-signed By: MITCHELL Admin: 03/20/23 17:54 Dose: 9 units Documented By: RRR Co-signed By: SHELDON Admin: 03/20/23 13:30 Dose: 7 units Documented By: RRR Co-signed By: SHELDON Admin: 03/20/23 09:13 Dose: 5 units Documented By: RRR Co-signed By: PATY Admin: 03/19/23 18:43 Dose: 7 units Documented By: RRR Co-signed By: HOLLI Admin: 03/19/23 13:39 Dose: 4 units Documented By: RRR Co-signed By: MOON Admin: 03/19/23 09:23 Dose: 3 units Documented By: RRR Co-signed By: [id number] Admin: 03/18/23 18:17 Dose: Not Given Documented By: Admin: 03/18/23 13:56 Dose: Not Given Documented By: MTM Insulin Aspart (Insulin Aspart Per Unit Charge) 0 units SC HS ANIYA Stop: 04/17/23 20:59 Last Admin: 03/22/23 21:06 Dose: 3 units Documented By: KAYDEN Co-signed By: NYASIA Admin: 03/21/23 20:57 Dose: Not Given Documented By: KAYDEN Co-signed By: MARGIE Admin: 03/20/23 20:01 Dose: Not Given Documented By: Admin: 03/19/23 20:44 Dose: Not Given Documented By: Admin: 03/18/23 20:54 Dose: 2 units Documented By: OMERO Co-signed By: TIFFANY Insulin Glargine (Lantus Per Unit Charge) 5 units SQ BID ANIYA Stop: 04/15/23 08:59 Last Admin: 03/22/23 21:05 Dose: 5 units Documented By: KAYDEN Co-signed By: NYASIA Admin: 03/22/23 09:16 Dose: 5 units Documented By: JOSE Co-signed By: ALANA Admin: 03/21/23 20:57 Dose: 5 units Documented By: KAYDEN Co-signed By: MARGIE Admin: 03/21/23 10:00 Dose: 5 units Documented By: ODILIA Co-signed By: GEG Admin: 03/20/23 20:05 Dose: 5 units Documented By: SHARRI Co-signed By: KAYDEN Admin: 03/20/23 09:13 Dose: 5 units Documented By: ODILIA Co-signed By: PATY Admin: 03/19/23 21:01 Dose: 5 units Documented By: HOLLI Co-signed By: KAYDEN Admin: 03/19/23 09:24 Dose: 5 units Documented By: ODILIA Co-signed By: [id number] Admin: 03/18/23 20:54 Dose: 5 units Documented By: OMERO Co-signed By: TIFFANY Admin: 03/18/23 09:48 Dose: 5 units Documented By: EMANI Co-signed By: MONICA Admin: 03/17/23 20:47 Dose: 5 units Documented By: KARTIK Co-signed By: MICKY Admin: 03/17/23 08:59 Dose: 5 units Documented By: SHELDON Co-signed By: JESSICA Admin: 03/16/23 20:55 Dose: 5 units Documented By: KARTIK Co-signed By: TRN Admin: 03/16/23 09:28 Dose: Not Given Documented By: SHELDON Lactobacillus Acidophilus (Advanced Probiotic 1250 Mg Capsule) 2 cap PO DAILY ANIYA Stop: 04/15/23 16:14 Last Admin: 03/22/23 09:07 Dose: 2 cap Documented By: Admin: 03/21/23 11:58 Dose: 2 cap Documented By: Admin: 03/20/23 08:35 Dose: 2 cap Documented By: Admin: 03/19/23 08:31 Dose: 2 cap Documented By: Admin: 03/18/23 08:48 Dose: 2 cap Documented By: Admin: 03/17/23 08:00 Dose: 2 cap Documented By: Admin: 03/16/23 16:51 Dose: 2 cap Documented By: SHELDON Losartan Potassium (Losartan Potassium 25 Mg Tab) 25 mg PO DAILY ANIYA Stop: 04/13/23 08:59 Last Admin: 03/22/23 09:08 Dose: 25 mg Documented By: Admin: 03/21/23 11:58 Dose: 25 mg Documented By: Admin: 03/20/23 08:35 Dose: 25 mg Documented By: Admin: 03/19/23 08:32 Dose: 25 mg Documented By: Admin: 03/18/23 08:48 Dose: 25 mg Documented By: Admin: 03/17/23 08:00 Dose: 25 mg Documented By: Admin: 03/16/23 08:49 Dose: 25 mg Documented By: Admin: 03/15/23 07:47 Dose: 25 mg Documented By: Admin: 03/14/23 07:44 Dose: 25 mg Documented By: MONICA Metoprolol Succinate (Metoprolol Succ 25mg Ext Rel Tab) 12.5 mg PO DAILY ANIYA Stop: 04/13/23 08:59 Last Admin: 03/22/23 09:07 Dose: 12.5 mg Documented By: Admin: 03/21/23 11:59 Dose: 12.5 mg Documented By: Admin: 03/20/23 08:35 Dose: 12.5 mg Documented By: Admin: 03/19/23 08:35 Dose: 12.5 mg Documented By: Admin: 03/18/23 08:48 Dose: 12.5 mg Documented By: Admin: 03/17/23 07:59 Dose: 12.5 mg Documented By: Admin: 03/16/23 08:48 Dose: 12.5 mg Documented By: Admin: 03/15/23 07:43 Dose: 12.5 mg Documented By: Admin: 03/14/23 07:44 Dose: 12.5 mg Documented By: MONICA Multivitamins (Multivitamin Tab) 1 tab PO DAILY ANIYA Stop: 04/13/23 08:59 Last Admin: 03/22/23 09:09 Dose: 1 tab Documented By: Admin: 03/21/23 11:59 Dose: 1 tab Documented By: Admin: 03/20/23 08:36 Dose: 1 tab Documented By: Admin: 03/19/23 08:33 Dose: 1 tab Documented By: Admin: 03/18/23 08:49 Dose: 1 tab Documented By: Admin: 03/17/23 08:00 Dose: 1 tab Documented By: Admin: 03/16/23 08:48 Dose: 1 tab Documented By: Admin: 03/15/23 07:47 Dose: 1 tab Documented By: Admin: 03/14/23 07:44 Dose: 1 tab Documented By: MONICA Olanzapine (Olanzapine 10 Mg/2.1 Ml Sdv) 2.5 mg IM Q4H PRN PRN Reason: Agitation Stop: 04/13/23 22:03 Last Admin: 03/21/23 04:04 Dose: 2.5 mg Documented By: Admin: 03/20/23 20:05 Dose: 2.5 mg Documented By: Admin: 03/20/23 16:08 Dose: 2.5 mg Documented By: Admin: 03/18/23 12:23 Dose: 2.5 mg Documented By: Admin: 03/18/23 06:36 Dose: 2.5 mg Documented By: Admin: 03/18/23 01:03 Dose: 2.5 mg Documented By: Admin: 03/15/23 09:05 Dose: 2.5 mg Documented By: Admin: 03/15/23 01:41 Dose: 2.5 mg Documented By: NETTA Pantoprazole Sodium (Pantoprazole 40 Mg Tab) 40 mg PO DAILY ANIYA Stop: 04/13/23 08:59 Last Admin: 03/22/23 09:08 Dose: 40 mg Documented By: Admin: 03/21/23 12:00 Dose: 40 mg Documented By: Admin: 03/20/23 08:36 Dose: 40 mg Documented By: Admin: 03/19/23 08:33 Dose: 40 mg Documented By: Admin: 03/18/23 08:49 Dose: 40 mg Documented By: Admin: 03/17/23 08:00 Dose: 40 mg Documented By: Admin: 03/16/23 08:48 Dose: 40 mg Documented By: Admin: 03/15/23 07:44 Dose: 40 mg Documented By: Admin: 03/14/23 07:45 Dose: 40 mg Documented By: MONICA Polyethylene Glycol (Polyethylene (Miralax) 17 Gm Pack) 17 gm PO DAILY PRN PRN Reason: Constipation Stop: 04/12/23 22:25 Last Admin: 03/21/23 10:00 Dose: 17 gm Documented By: Admin: 03/20/23 08:43 Dose: 17 gm Documented By: ODILIA Polyethylene Glycol (Polyethylene (Miralax) 17 Gm Pack) 17 gm PO DAILY ANIYA Stop: 04/21/23 10:29 Last Admin: 03/22/23 13:06 Dose: 17 gm Documented By: JOSE Quetiapine Fumarate (Quetiapine Fumarate 25 Mg Tablet) 25 mg PO HS ANIYA Stop: 04/20/23 20:59 Last Admin: 03/22/23 21:06 Dose: 25 mg Documented By: Admin: 03/21/23 20:58 Dose: 25 mg Documented By: KAYDEN Tamsulosin HCl (Tamsulosin Hcl 0.4 Mg Cap) 0.4 mg PO DAILY ANIYA Stop: 04/13/23 08:59 Last Admin: 03/22/23 09:06 Dose: 0.4 mg Documented By: Admin: 03/21/23 12:00 Dose: 0.4 mg Documented By: Admin: 03/20/23 08:36 Dose: 0.4 mg Documented By: Admin: 03/19/23 08:35 Dose: 0.4 mg Documented By: Admin: 03/18/23 08:48 Dose: 0.4 mg Documented By: Admin: 03/17/23 08:00 Dose: 0.4 mg Documented By: Admin: 03/16/23 08:49 Dose: 0.4 mg Documented By: Admin: 03/15/23 07:47 Dose: 0.4 mg Documented By: Admin: 03/14/23 07:42 Dose: 0.4 mg Documented By: MONICA Discontinued Medications Apixaban (Apixaban 5 Mg Tablet) 5 mg PO NOW STA Stop: 03/13/23 20:08 Last Admin: 03/13/23 20:42 Dose: 5 mg Documented By: CEDRIC Ceftriaxone Sodium 2,000 mg/ (Dextrose) 50 mls @ 100 mls/hr IV Q24H ANIYA; Protocol Stop: 03/23/23 19:29 Last Admin: 03/13/23 20:06 Dose: Not Given Documented By: CEDRIC Piperacillin Sod/Tazobactam (Sod 4.5 gm/ Dextrose) 100 mls @ 25 mls/hr IV Q8H ANIYA; Protocol Stop: 03/24/23 01:59 Last Infusion: 03/17/23 12:46 Dose: Infused Documented By: Admin: 03/17/23 09:21 Dose: 25 mls/hr Documented By: Infusion: 03/17/23 06:07 Dose: Infused Documented By: Admin: 03/17/23 02:02 Dose: 25 mls/hr Documented By: Infusion: 03/16/23 21:37 Dose: Infused Documented By: Admin: 03/16/23 17:15 Dose: 25 mls/hr Documented By: Infusion: 03/16/23 13:28 Dose: Infused Documented By: ROHAN Co-signed By: SHELDON Admin: 03/16/23 09:53 Dose: 25 mls/hr Documented By: Infusion: 03/16/23 06:01 Dose: Infused Documented By: Admin: 03/16/23 01:52 Dose: 25 mls/hr Documented By: Infusion: 03/15/23 21:50 Dose: Infused Documented By: Admin: 03/15/23 17:41 Dose: 25 mls/hr Documented By: Infusion: 03/15/23 14:58 Dose: Infused Documented By: Admin: 03/15/23 10:21 Dose: 25 mls/hr Documented By: Infusion: 03/15/23 05:46 Dose: Infused Documented By: Admin: 03/15/23 01:41 Dose: 25 mls/hr Documented By: Infusion: 03/14/23 23:46 Dose: Infused Documented By: Admin: 03/14/23 17:53 Dose: 25 mls/hr Documented By: Infusion: 03/14/23 13:13 Dose: Infused Documented By: Admin: 03/14/23 09:00 Dose: 25 mls/hr Documented By: Infusion: 03/14/23 06:54 Dose: Infused Documented By: Admin: 03/14/23 02:41 Dose: 25 mls/hr Documented By: NAZANIN Piperacillin Sod/Tazobactam (Sod 4.5 gm/ Dextrose) 100 mls @ 25 mls/hr IV NOW STA; Protocol Stop: 03/14/23 00:08 Last Infusion: 03/14/23 00:46 Dose: Infused Documented By: Admin: 03/13/23 20:42 Dose: 25 mls/hr Documented By: CEDRIC Sodium Chloride (Nss) 1,000 mls @ 80 mls/hr IV .[id number] ANIYA Stop: 04/18/23 07:29 Last Infusion: 03/19/23 20:26 Dose: Infused Documented By: Admin: 03/19/23 07:47 Dose: 80 mls/hr Documented By: ODILIA Insulin Aspart (Insulin Aspart Per Unit Charge) 0 units SC ACHS ANIYA Stop: 04/12/23 20:59 Last Admin: 03/18/23 09:48 Dose: 6 units Documented By: EMANI Co-signed By: MONICA Admin: 03/17/23 20:47 Dose: 2 units Documented By: KARTIK Co-signed By: MICKY Admin: 03/17/23 17:58 Dose: 4 units Documented By: SHELDON Co-signed By: JESSICA Admin: 03/17/23 13:17 Dose: 12 units Documented By: SHELDON Co-signed By: JESSICA Admin: 03/17/23 08:59 Dose: 6 units Documented By: SHELDON Co-signed By: JESSICA Admin: 03/16/23 20:55 Dose: 3 units Documented By: KARTIK Co-signed By: TIFFANY Admin: 03/16/23 18:10 Dose: 5 units Documented By: SHELDON Co-signed By: CONNIE Admin: 03/16/23 13:33 Dose: 9 units Documented By: ROHAN Co-signed By: SHELDON Admin: 03/16/23 09:27 Dose: 6 units Documented By: SHELDON Co-signed By: JESSICA Admin: 03/15/23 21:18 Dose: Not Given Documented By: KARTIK Co-signed By: KAYDEN Admin: 03/15/23 17:41 Dose: 11 units Documented By: MONICA Co-signed By: [id number] Admin: 03/15/23 12:40 Dose: 6 units Documented By: MONICA Co-signed By: [id number] Admin: 03/15/23 08:55 Dose: 3 units Documented By: MONICA Co-signed By: [id number] Admin: 03/14/23 21:50 Dose: Not Given Documented By: NETTA Co-signed By: RUI Admin: 03/14/23 17:52 Dose: 10 units Documented By: MONICA Co-signed By: [id number] Admin: 03/14/23 13:12 Dose: 6 units Documented By: MONICA Co-signed By: [id number] Admin: 03/14/23 08:57 Dose: 5 units Documented By: MONICA Co-signed By: GREGORY Admin: 03/13/23 21:04 Dose: Not Given Documented By: JT Insulin Glargine (Lantus Per Unit Charge) 0 - 8 units SQ BID ANIYA Stop: 04/12/23 20:59 Last Admin: 03/15/23 21:18 Dose: 5 units Documented By: KARTIK Co-signed By: KAYDEN Admin: 03/15/23 08:54 Dose: 8 units Documented By: MONICA Co-signed By: [id number] Admin: 03/14/23 21:49 Dose: 5 units Documented By: NETTA Co-signed By: RUI Admin: 03/14/23 08:57 Dose: 5 units Documented By: MONICA Co-signed By: GREGORY Admin: 03/13/23 21:03 Dose: 5 units Documented By: ERIS Co-signed By: MARY Losartan Potassium (Losartan Potassium 25 Mg Tab) 25 mg PO NOW STA Stop: 03/13/23 23:49 Last Admin: 03/14/23 00:35 Dose: 25 mg Documented By: NAZANIN Magnesium Hydroxide (Magnesium Hydroxide Susp 30 Ml Udc) 30 ml PO NOW ONE Stop: 03/22/23 10:07 Last Admin: 03/22/23 14:42 Dose: Not Given Documented By: JOSE Miscellaneous Information (Nursing To Pharmacy Communication) 1 each N/A TODAY ANIYA Stop: 04/15/23 09:44 Last Admin: 03/16/23 09:53 Dose: Not Given Documented By: SHELDON Olanzapine (Olanzapine 10 Mg/2.1 Ml Sdv) 2.5 mg IM NOW STA Stop: 03/14/23 22:05 Last Admin: 03/14/23 22:18 Dose: 2.5 mg Documented By: NETTA Olanzapine (Olanzapine 10 Mg/2.1 Ml Sdv) 5 mg IM NOW STA Stop: 03/17/23 17:29 Last Admin: 03/17/23 17:32 Dose: 5 mg Documented By: SHELDON Olanzapine (Olanzapine 10 Mg/2.1 Ml Sdv) 2.5 mg IM NOW STA Stop: 03/20/23 21:12 Last Admin: 03/20/23 21:25 Dose: 2.5 mg Documented By: SHARRI Quetiapine Fumarate (Quetiapine Fumarate 25 Mg Tablet) 12.5 mg PO BID ANIYA Stop: 04/17/23 14:59 Last Admin: 03/20/23 08:36 Dose: 12.5 mg Documented By: Admin: 03/19/23 20:51 Dose: 12.5 mg Documented By: Admin: 03/19/23 08:34 Dose: 12.5 mg Documented By: Admin: 03/18/23 20:38 Dose: 12.5 mg Documented By: Admin: 03/18/23 16:01 Dose: 12.5 mg Documented By: EMANI Quetiapine Fumarate (Quetiapine Fumarate 25 Mg Tablet) 12.5 mg PO HS ANIYA Stop: 04/19/23 20:59 Last Admin: 03/20/23 20:03 Dose: 12.5 mg Documented By: SHARRI Quetiapine Fumarate (Quetiapine Fumarate 25 Mg Tablet) 12.5 mg PO NOW STA Stop: 03/21/23 09:42 Last Admin: 03/21/23 12:00 Dose: 12.5 mg Documented By: RRR Trimethoprim/Sulfamethoxazole (Sulfamethoxazole/Trimethoprim Ds 800/160mg Tab) 2 tab PO BID ANIYA Stop: 03/23/23 23:59 Last Admin: 03/18/23 08:48 Dose: 2 tab Documented By: MTSpencer Admin: 03/17/23 20:49 Dose: 2 tab Documented By: Admin: 03/17/23 14:21 Dose: 2 tab Documented By: SHELDON Description This is a 21 electrode EEG with a single channel dedicated to limited EKG. The electrodes were placed in accordance with the International 10-20 system. REPORT: At the onset of the EEG the patient is drowsy. The background is continuous and symmetric. The posterior dominant rhythm is not seen. The background consist of generalized polymorphic delta activity with intermixed superimposed faster frequencies that are likely artifactual or muscle artifact. Photic stimulation does not induce any abnormalities. No stage II sleep transients are seen. Interpretation IMPRESSION: This is an abnormal routine EEG in a patient with altered mentation due to generalized background slowing suggestive of a non specific encephalopathy. No epileptiform activity is seen.
[2023-03-23] MEDS ORDERED: OLANZapine ZYDIS 5 MG ORALLY DIS. TAB PO STA (02:27)
[2023-03-23] MEDS: LACTATED RINGER'S 1,000 ML IV SCH ×2 (06:23→19:02)
[2023-03-23 08:04] LABS: Basophils # (auto) 0.05 K/uL (0.00-0.20); Basophils % (auto) 0.8 %; Eosinophils # (auto) 0.31 K/uL (0.00-0.50); Eosinophils % (auto) 4.9 %; Hematocrit (blood only) 42.1 % (42.0-52.0); Hemoglobin 14.4 g/dl (14.0-18.0); Immature Granulocytes # (auto) 0.03 K/uL (0.01-0.20); Immature Granulocytes % (auto) 0.5 %; Lymphocytes # (auto) 0.82 K/uL (1.20-3.40); Mean Corpuscular Hemoglobin 31.4 pg (25.0-34.0); Mean Corpuscular Hgb Conc 34.2 g/dL (32.0-36.0); Mean Corpuscular Volume 91.9 fL (80.0-100.0); Mean Platelet Volume 11.5 fL (9.4-12.4); Monocytes % (auto) 7.9 %; Neutrophils # (auto) 4.58 K/uL (1.40-6.50); Neutrophils % (auto) 72.9 %; Platelet Count 165 K/uL (130-400); RDW Coefficient of Variation 14.4 % (11.5-14.5); RDW Standard Deviation 48.1 fL (36.4-46.3); Red Blood Count 4.58 M/uL (4.70-6.10); White Blood Count 6.29 K/ul (4.8-10.8)
[2023-03-23 08:14] LABS: BUN Creatinine Ratio 23.1 (10-20); Calcium 9.3 mg/dl (8.6-10.3); Creatinine Clr Calc Pharmacy 44.4 ml/min; Est GFR (African American) 56.5 ml/min; Est GFR (Non-African American) 48.7 ml/min; Potassium 4.3 mmol/L (3.5-5.1)
[2023-03-23] MEDS: APIXABAN 5 MG TABLET PO SCH ×2 (09:04→21:28)
[2023-03-23] MEDS: PANTOprazole 40 MG TAB PO SCH (09:05)
[2023-03-23] MEDS: ATORVASTATIN 20 MG TAB PO SCH (09:05)
[2023-03-23] MEDS: DOCUSATE SODIUM 100 MG CAP PO SCH (09:05)
[2023-03-23] MEDS: guaiFENesin 200 MG TAB PO PRN (09:05)
[2023-03-23] MEDS: ADVANCED PROBIOTIC 1250 MG CAPSULE PO SCH (09:06)
[2023-03-23] MEDS: ASPIRIN 81 MG ECTAB PO SCH (09:06)
[2023-03-23] MEDS: allopurinoL 300 MG TAB PO SCH (09:06)
[2023-03-23] MEDS: METOPROLOL SUCC 25MG EXT REL TAB PO SCH (09:07)
[2023-03-23] MEDS: TAMSULOSIN HCL 0.4 MG CAP PO SCH (09:07)
[2023-03-23] MEDS: MULTIVITAMIN TAB PO SCH (09:07)
[2023-03-23] MEDS: FINASTERIDE 5 MG TAB PO SCH (09:08)
[2023-03-23] MEDS: LOSARTAN POTASSIUM 25 MG TAB PO SCH (09:08)
[2023-03-23] MEDS: POLYETHYLENE (MIRALAX) 17 GM PACK PO SCH (09:09)
[2023-03-23] MEDS: SULFA/TRIMETH 80/16MG/ML 320 MG in DEXTROSE 5% 500 ML IV SCH ×2 (09:21→21:00)
[2023-03-23] MEDS: INSULIN ASPART PER UNIT CHARGE SC SCH ×4 (09:24→21:21)
[2023-03-23] MEDS: LANTUS PER UNIT CHARGE SQ SCH ×2 (09:25→21:25)
--- NOTE | 2023-03-23 13:21 | Hospitalist Progress Note ---
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 Possible acute metabolic encephalopathy CAUTI, POA Urinary Retention, Prostate Enlargement Recently treated with outpatient Keflex during evaluation at [facility] but presented with persistent intermittent confusion, agitation History of urinary retention with recently placed Lopez last week Afebrile, no leukocytosis, CT abd/pelvis: 1. Circumferential mucosal thickening in the bladder suggestive of cystitis. Prostate is mildly enlarged. No hydronephrosis. 2. Sigmoid diverticulosis without acute diverticulitis. 3. Sclerotic lesion within the posterior left iliac bone adjacent to the SI joint measuring 3 cm. 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 Urine culture grew Stenotrophomonas maltophilia: Antibiotics changed from Zosyn to Bactrim(end date is March 27, 2023) Blood culture no growth till date Discussed with infectious disease; recommended to continue Bactrim For delirium, started on Seroquel 25 mg at bedtime. Repeat blood culture negative so far Urinary Retention - diagnosed a week prior to admission at [facility] -Trial of void done; unsuccessful Lopez catheter replaced, maintain for now -Has outpatient follow-up with urologist as per family Possible vascular dementia History of gradual decline in cognitive function CT head on admission personally reviewed; chronic appearing encephalomalacia in multiple foci Continue Eliquis and aspirin along with Lipitor Discussed with neurology; TSH, B12, ESR, folate, vitamin levels ordered. Pacemaker not compatible with the MRI. EEGno epileptiform activity. Elevated troponin Demand ischemia Mildly elevated HS trop of 34 --> 42, likely demand ischemia in setting of infection. 40 ---> 50 --> 40 Echo: mild concentric LVH apical wall motion abnormality may reflect pacemaker activation mild hypokinesis of inferior wall EF 45-50% continue usual ASA, Eliquis History of embolic stroke Atrial fibrillation History of embolic stroke with some mild residual memory deficits, Continue anticoagulation with Eliquis, Toprol for rate control Currently in sinus rhythm at 70 bpm CAD H/o stent placement but details unknown. No CP, EKG without acute ischemic changes. Continue Toprol, statin H/o pacemaker placement Replaced in 2019. Hypertension Continue home losartan, Toprol Congestive heart failure, compensated Appears euvolemic. continue usual diuretics Type 2 diabetes Hold home agents Basal/bolus insulin while in-patient BSG AC HS BPH Chronic, stable. Continue finasteride, Flomax DVT Ppx: Eliquis Code status: FULL [facility] Discussed with at bedside. Answered questions/queries. Disposition: Continues to be hospitalized due to need for IV antibiotic and closer monitoring for delirium secondary to CAUTI,POA. Please note the above document was generated using voice recognition software. It may contain grammatical, syntax or spelling errors. Any formal questions or concerns about the content, text or information contained within the body of this dictation should be directly addressed to the provider for clarification Admission and Anticipated Discharge Date Admission Date: March 14, 2023 Subjective Patient seen and examined at bedside. His is also at the bedside. Patient is awake and interactive today. He is able to follow most of the commands. He needs some redirection. Denies any pain or discomfort. Review of Systems Review of Systems: All systems reviewed & are unremarkable except as noted in Subjective Physical Exam Physical Exam: Constitutional: Awake, oriented to self and place. Not in distress Respiratory: Bilateral vesicular breath sound Cardiovascular: RRR, no murmur, no edema Vessels: no JVD or carotid bruit Chest: normal inspection of chest Abdomen: normal bowel sounds, soft, nontender, no hepatosplenomegaly. Lopez in place draining clear urine. Musculoskeletal: no cyanosis or clubbing, extremities motor strength 5/5 Skin: no rashes, warm and dry normal turgor Neurologic: Grossly moves all extremities. Awake, oriented to self and place. Results & Data Results & Data Vital Signs (Past 12 Hours) Vital Signs Temp Pulse Resp BP Pulse Ox O2 Del Method 03/23/23 11:19 36.9 C 74 18 130/68 96 Room Air 03/23/23 07:51 36.9 C 70 18 153/72 H 99 Room Air 03/23/23 03:45 36.7 C 70 18 116/71 94 Room Air 03/23/23 01:46 Room Air Laboratory Results Laboratory Results WBC 6.29 K/ul (4.8-10.8) 03/23/23 07:13 RBC 4.58 M/uL (4.70-6.10) L 03/23/23 07:13 Hgb 14.4 g/dl (14.0-18.0) 03/23/23 07:13 Hct 42.1 % (42.0-52.0) 03/23/23 07:13 MCV 91.9 fL (80.0-100.0) 03/23/23 07:13 MCH 31.4 pg (25.0-34.0) 03/23/23 07:13 MCHC 34.2 g/dL (32.0-36.0) 03/23/23 07:13 RDW Std Deviation 48.1 fL (36.4-46.3) H 03/23/23 07:13 RDW Coeff of Tanmay 14.4 % (11.5-14.5) 03/23/23 07:13 Plt Count 165 K/uL (130-400) 03/23/23 07:13 MPV 11.5 fL (9.4-12.4) 03/23/23 07:13 Immature Gran % (Auto) 0.5 % 03/23/23 07:13 Neut % (Auto) 72.9 % 03/23/23 07:13 Lymph % (Auto) 13.0 % 03/23/23 07:13 [place] % (Auto) 7.9 % 03/23/23 07:13 Eos % (Auto) 4.9 % 03/23/23 07:13 Baso % (Auto) 0.8 % 03/23/23 07:13 Neut # (Auto) 4.58 K/uL (1.40-6.50) 03/23/23 07:13 Lymph # (Auto) 0.82 K/uL (1.20-3.40) L 03/23/23 07:13 [place] # (Auto) 0.50 K/uL (0.11-0.59) 03/23/23 07:13 Eos # (Auto) 0.31 K/uL (0.00-0.50) 03/23/23 07:13 Baso # (Auto) 0.05 K/uL (0.00-0.20) 03/23/23 07:13 Immature Gran # (Auto) 0.03 K/uL (0.01-0.20) 03/23/23 07:13 ESR 39 mm/hr (0-20) H 03/22/23 08:04 Sodium 138 mmol/L (136-145) 03/23/23 07:13 Potassium 4.3 mmol/L (3.5-5.1) 03/23/23 07:13 Chloride 104 mmol/L (98-107) 03/23/23 07:13 Carbon Dioxide 26 mmol/L (21-32) 03/23/23 07:13 Anion Gap 8 (3-11) 03/23/23 07:13 BUN 30 mg/dl (6-23) H 03/23/23 07:13 Creatinine 1.30 mg/dl (0.6-1.4) 03/23/23 07:13 Est Cr Clr Drug Dosing 44.4 ml/min 03/23/23 07:13 Est GFR ( Amer) 56.5 ml/min 03/23/23 07:13 Est GFR (Non-Af Amer) 48.7 ml/min 03/23/23 07:13 BUN/Creatinine Ratio 23.1 (10-20) H 03/23/23 07:13 Glucose 178 mg/dl (70-99(Fasting)) H 03/23/23 07:13 POC Glucose 223 mg/dl (70-99) H 03/23/23 12:16 Estimat Average Glucose 209 mg/dl 03/14/23 05:31 Hemoglobin A1c 8.9 % (4.5-5.6) H 03/14/23 05:31 Calcium 9.3 mg/dl (8.6-10.3) 03/23/23 07:13 Total Bilirubin 0.6 mg/dl (0.2-1.0) 03/20/23 05:30 AST 26 U/L (13-39) 03/20/23 05:30 ALT 17 U/L (7-52) 03/20/23 05:30 Alkaline Phosphatase 90 U/L (34-104) 03/20/23 05:30 Troponin I High Sens 45.9 pg/ml (0-20) H D 03/14/23 10:49 Total Protein 6.1 gm/dl (6.0-8.3) 03/20/23 05:30 Albumin 3.3 gm/dl (3.4-5.0) L 03/20/23 05:30 Globulin 2.8 gm/dl (2.5-4.0) 03/20/23 05:30 Albumin/Globulin Ratio 1.2 (0.9-2) 03/20/23 05:30 Lipase 41 U/L (11-82) 03/13/23 14:30 TSH 2.848 uIu/ml (0.300-4.500) 03/21/23 05:52 Urine Color Yellow 03/13/23 15:00 Urine Appearance Clear (Clear) 03/13/23 15:00 Urine pH 5.5 (4.5-7.5) 03/13/23 15:00 Ur Specific Cavalier 1.020 (1.000-1.030) 03/13/23 15:00 Urine Protein 1+ (Negative) H 03/13/23 15:00 Urine Glucose (UA) 3+ (Negative) H 03/13/23 15:00 Urine Ketones Negative (Negative) 03/13/23 15:00 Urine Blood 3+ (Negative) H 03/13/23 15:00 Urine Nitrite Negative (Negative) 03/13/23 15:00 Urine Bilirubin Negative (Negative) 03/13/23 15:00 Urine Urobilinogen Negative (Negative) 03/13/23 15:00 Ur Leukocyte Esterase Negative (Negative) 03/13/23 15:00 Urine WBC (Auto) 1-5 /hpf (0-5) 03/13/23 15:00 Urine RBC (Auto) >30 /hpf (0-4) H 03/13/23 15:00 U Hyaline Cast (Auto) 0 /lpf (0-5) 03/13/23 15:00 U Epithel Cells (Auto) 0-5 /lpf (0-5) 03/13/23 15:00 Urine Bacteria (Auto) Negative (Negative) 03/13/23 15:00 Miscellaneous Test REPORT 03/21/23 05:52 Impressions Chest X-Ray 03/13/23 14:42 XR chest 1V portable CLINICAL HISTORY: ams TECHNIQUE: Single frontal radiograph of the chest was obtained. Comparison: None available at the time of this dictation. FINDINGS: Pacemaker defibrillator is seen. Calcified aortic knob is seen. The lungs are clear. No evidence of pleural effusion or pneumothorax. IMPRESSION: No acute chest disease. ACT 112: Negative or not required by law. Electronically signed by: Hever Loera M.D. 03/13/2023 4:[address] 03/13/23 14:46 CT head/brain wo con CLINICAL HISTORY: ams Technique: Contiguous axial CT images of the head were acquired from the base of the skull to the vertex without intravenous contrast administration. Images were viewed in brain, subdural and bone windows. Automated dose lowering techniques and/or adjustment according to patient size were utilized for this exam. Comparison: None available at the time of this dictation. Findings: Areas of decreased attenuation are present in the periventricular and subcortical white matter bilaterally consistent with small vessel ischemic disease. Generalized cerebral atrophy with commensurate enlargement of the ventricles, sulci, and cisterns is also present. There is no acute intracranial hemorrhage or evidence of acute territorial infarction. No shift of the midline structures, mass effect, or extra-axial abnormalities are shown. Atherosclerotic calcifications are present in the intracranial segments of the internal carotid arteries. Focal encephalomalacia is in the right frontal lobe and insular and frontal parietal white matter. Imaged portions of the paranasal sinuses and mastoid air cells are clear. The orbits appear normal. There are no acute fractures of the calvaria or scalp swelling. Impression: No focal abnormalities are seen. 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 ACT 112: Negative or not required by law. Electronically signed by: Hever Loera M.D. 03/13/2023 4:52 PM Abdomen/Pelvis CT 03/13/23 19:52 Exam(s): CT ABDOMEN + PELVIS Without Contrast EXAM: CT Abdomen and Pelvis Without Intravenous Contrast CLINICAL HISTORY: Reason for exam: urinary retention, comp UTI. TECHNIQUE: Axial computed tomography images of the abdomen and pelvis without intravenous contrast. Automated exposure control was utilized for the study. A dose lowering technique was utilized adhering to the principles of ALARA. COMPARISON: No relevant prior studies available. FINDINGS: ABDOMEN: Liver: Unremarkable. Gallbladder and bile ducts: Unremarkable. Pancreas: Unremarkable. Spleen: Unremarkable. Adrenals: Unremarkable. Kidneys and ureters: No hydronephrosis in the kidneys. Exophytic cortical cyst arising from the posterior cortex of the left kidney measuring 2.8 cm. Stomach and bowel: Sigmoid diverticulosis without acute diverticulitis. PELVIS: Appendix: No findings to suggest acute appendicitis. Bladder: Lopez catheter with balloon inflated in the bladder. Circumferential mucosal thickening within the bladder. Reproductive: Prostate mildly enlarged. ABDOMEN and PELVIS: Intraperitoneal space: Unremarkable. No free air. No significant fluid collection. Bones/joints: Sclerotic lesion within the posterior left iliac bone adjacent to the SI joint measuring 3 cm. Chronic compression deformity at T12. Soft tissues: Unremarkable. Vasculature: Unremarkable. Lymph nodes: Unremarkable. IMPRESSION: 1. Circumferential mucosal thickening in the bladder suggestive of cystitis. Prostate is mildly enlarged. No hydronephrosis. 2. Sigmoid diverticulosis without acute diverticulitis. 3. Sclerotic lesion within the posterior left iliac bone adjacent to the SI joint measuring 3 cm. 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 Electronically signed by: Daren Macdonald MD 03/13/23 23:17 PM
[2023-03-23] MEDS: OLANZapine 10 MG/2.1 ML SDV IM PRN ×2 (15:02→19:22)
[2023-03-23] MEDS: QUEtiapine FUMARATE 25 MG TABLET PO SCH (21:25)
[2023-03-24] MEDS: DOCUSATE SODIUM 100 MG CAP PO SCH (09:00)
[2023-03-24] MEDS: LACTATED RINGER'S 1,000 ML IV SCH (09:00)
[2023-03-24] MEDS: ASPIRIN 81 MG ECTAB PO SCH (09:00)
[2023-03-24] MEDS: PANTOprazole 40 MG TAB PO SCH (09:00)
[2023-03-24] MEDS: APIXABAN 5 MG TABLET PO SCH ×3 (09:00→21:39)
[2023-03-24] MEDS: ATORVASTATIN 20 MG TAB PO SCH (09:01)
[2023-03-24] MEDS: allopurinoL 300 MG TAB PO SCH (09:01)
[2023-03-24] MEDS: POLYETHYLENE (MIRALAX) 17 GM PACK PO SCH (09:01)
[2023-03-24] MEDS: TAMSULOSIN HCL 0.4 MG CAP PO SCH (09:01)
[2023-03-24] MEDS: FINASTERIDE 5 MG TAB PO SCH (09:02)
[2023-03-24] MEDS: MULTIVITAMIN TAB PO SCH (09:02)
[2023-03-24] MEDS: guaiFENesin 200 MG TAB PO PRN (09:02)
[2023-03-24] MEDS: LOSARTAN POTASSIUM 25 MG TAB PO SCH (09:02)
[2023-03-24] MEDS: ADVANCED PROBIOTIC 1250 MG CAPSULE PO SCH (09:03)
[2023-03-24] MEDS: LANTUS PER UNIT CHARGE SQ SCH ×2 (09:10→21:25)
[2023-03-24] MEDS: INSULIN ASPART PER UNIT CHARGE SC SCH ×4 (09:11→21:25)
[2023-03-24] MEDS: OLANZapine 10 MG/2.1 ML SDV IM PRN ×2 (13:09→21:35)
[2023-03-24] MEDS: METOPROLOL SUCC 25MG EXT REL TAB PO SCH (13:56)
--- NOTE | 2023-03-24 16:10 | CT Scan Report ---
CT head/brain wo con CLINICAL HISTORY: Altered Mental Status Technique: Contiguous axial CT images of the head were acquired from the base of the skull to the sherif harry without intravenous contrast administration. Images were viewed in brain, subdural and bone [facility]. Automated dose lowering techniques and/or adjustment according to patient size were utilized for this exam. Comparison: Comparison is made to CT head 03/13/2023 Findings: Areas of decreased attenuation are present in the periventricular and subcortical white matter bilate rally consistent with small vessel ischemic disease. Generalized cerebral atrophy with commensurate e nlargement of the ventricles, sulci, and cisterns is also present. There is no acute intracranial hem orrhage or evidence of acute territorial infarction. No shift of the midline structures, mass effect, or extra-axial abnormalities are shown. Atherosclerotic calcifications are present in the intracran ial segments of the internal carotid arteries. Encephalomalacia in the right temporal and posterior f rontal lobes, unchanged from prior exam. Imaged portions of the paranasal sinuses and mastoid air cells are clear. The orbits appear normal. There are no acute fractures of the calvaria or scalp swelling. Impression: No acute abnormalities. Encephalomalacia is unchanged from prior exam. ACT 112: Negative or not required by law. Electronically signed by: Hever Loera M.D. 03/24/2023 4:09 PM
[2023-03-24] MEDS: SULFAMETHOXAZOLE/TRIMETHOPRIM DS 800/160MG TAB PO SCH ×3 (18:27→21:39)
--- NOTE | 2023-03-24 18:42 | Hospitalist Progress Note ---
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 Possible acute metabolic encephalopathy CAUTI, POA Urinary Retention, Prostate Enlargement Recently treated with outpatient Keflex during evaluation at [facility] but presented with persistent intermittent confusion, agitation History of urinary retention with recently placed Lopez last week --CT abd/pelvis: Circumferential mucosal thickening in the bladder suggestive of cystitis. Prostate is mildly enlarged. No hydronephrosis. Sigmoid diverticulosis without acute diverticulitis. Sclerotic lesion within the posterior left iliac bone adjacent to the SI joint measuring 3 cm. 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 --C head:No acute abnormalities. Encephalomalacia is unchanged from prior exam. --EEG:This is an abnormal routine EEG in a patient with altered mentation due to generalized background slowing suggestive of a non specific encephalopathy. No epileptiform activity is seen. --Urine culture grew Stenotrophomonas maltophilia -- Blood cultures negative --Cannot get MRI brain due to incompatible pacemaker --normal TSH, homocystine, folate levels -- B1, B2, B6 levels pending Changed Zosyn to Bactrim(end date is March 27, 2023) Appreciate ID Input Neurology on board Started on Seroquel for delirium Reorient frequently Urinary Retention - diagnosed a week prior to admission at [facility] -Trial of void done; unsuccessful Lopez catheter replaced, continue for now -Has outpatient follow-up with urologist as per family Left iliac bone lesion Incidental finding on CT Discussed about the finding with patient's family Will need further work-up as outpatient Possible vascular dementia History of gradual decline in cognitive function CT head as above Continue Eliquis and aspirin, Lipitor Neuropsychology testing as outpatient Elevated troponin Demand ischemia Mildly elevated HS trop of 34 --> 42, likely demand ischemia in setting of infection. Echo:Mild concentric LVH, aical wall motion abnormality may reflect pacemaker activation, mild hypokinesis of inferior wall, EF 45-50% Continue usual ASA, Eliquis Will benefit from cardiology evaluation as outpatient H/O Embolic stroke Atrial fibrillation H/O mild residual memory deficits from CVA Continue anticoagulation with Eliquis, Toprol for rate control CAD H/o stent placement but details unknown. No CP, EKG without acute ischemic changes Continue Aspirin, Toprol, statin H/o pacemaker placement Replaced in 2019. Hypertension Continue losartan, Toprol Congestive heart failure, compensated Appears euvolemic. continue usual diuretics Type 2 diabetes Hold home agents Basal/bolus insulin while in-patient BSG AC HS BPH Chronic, stable Continue finasteride, Flomax DVT Px: Eliquis Code status: FULL CODE Disposition: To be determined Admission and Anticipated Discharge Date Admission Date: March 14, 2023 Subjective Patient is seen and examined at bedside Unable to provide any history Confused, having hallucinations during my encounter Poor oral intake as per family Discussed with patient's family at bedside CT head today showed no acute findings Review of Systems Review of Systems: Other Physical Exam Physical Exam: Physical Exam: Vitals signs as noted above General Appearance:Moderately built and nourished, no apparent distress Head: normocephalic, Atraumatic Eyes: normal inspection, EOMI Neck: supple, Trachea midline Respiratory/Chest: Normal breath sounds, CTA, No accessory muscle use Cardiovascular: S1, S2, No murmur Abdomen/GI:Soft, Non tender, Bowel sounds present Extremities/Musculoskeletal:normal inspection, no edema Neurologic/Psych:Alert, awake, confused, grossly no focal neurological deficits Skin: normal color, warm Results & Data Results & Data Vital Signs (Past 12 Hours) Vital Signs Temp Pulse Resp BP Pulse Ox O2 Del Method 03/24/23 12:13 36.6 C 70 20 148/80 H 100 Room Air 03/24/23 08:00 Room Air 03/24/23 07:44 36.8 C 71 21 150/75 H 95 Room Air
[2023-03-24] MEDS ORDERED: QUEtiapine FUMARATE 25 MG TABLET PO SCH (21:00)
[2023-03-24] MEDS: QUEtiapine FUMARATE 25 MG TABLET PO SCH ×2 (21:26→21:39)
[2023-03-25 05:49] LABS: Hematocrit (blood only) 45.2 % (42.0-52.0); Hemoglobin 14.8 g/dl (14.0-18.0); Mean Corpuscular Hemoglobin 31.1 pg (25.0-34.0); Mean Corpuscular Hgb Conc 32.7 g/dL (32.0-36.0); Platelet Count 184 K/uL (130-400); RDW Standard Deviation 52.7 fL (36.4-46.3); Red Blood Count 4.76 M/uL (4.70-6.10); White Blood Count 6.39 K/ul (4.8-10.8)
[2023-03-25 06:05] LABS: BUN Creatinine Ratio 14.5 (10-20); Calcium 9.5 mg/dl (8.6-10.3); Creatinine Clr Calc Pharmacy 52.5 ml/min; Est GFR (African American) 69.1 ml/min; Est GFR (Non-African American) 59.6 ml/min; Phosphorus 3.9 mg/dl (2.5-4.9); Potassium 3.8 mmol/L (3.5-5.1)
[2023-03-25] MEDS: APIXABAN 5 MG TABLET PO SCH ×2 (09:30→21:31)
[2023-03-25] MEDS: SULFAMETHOXAZOLE/TRIMETHOPRIM DS 800/160MG TAB PO SCH ×2 (09:30→21:32)
[2023-03-25] MEDS: METOPROLOL SUCC 25MG EXT REL TAB PO SCH (09:31)
[2023-03-25] MEDS: FINASTERIDE 5 MG TAB PO SCH (09:31)
[2023-03-25] MEDS: MULTIVITAMIN TAB PO SCH (09:32)
[2023-03-25] MEDS: PANTOprazole 40 MG TAB PO SCH (09:32)
[2023-03-25] MEDS: ATORVASTATIN 20 MG TAB PO SCH (09:32)
[2023-03-25] MEDS: LOSARTAN POTASSIUM 25 MG TAB PO SCH (09:33)
[2023-03-25] MEDS: ASPIRIN 81 MG ECTAB PO SCH (09:33)
[2023-03-25] MEDS: TAMSULOSIN HCL 0.4 MG CAP PO SCH (09:33)
[2023-03-25] MEDS: ADVANCED PROBIOTIC 1250 MG CAPSULE PO SCH (09:34)
[2023-03-25] MEDS: allopurinoL 300 MG TAB PO SCH (09:35)
[2023-03-25] MEDS: POLYETHYLENE (MIRALAX) 17 GM PACK PO SCH (09:36)
[2023-03-25] MEDS: QUEtiapine FUMARATE 25 MG TABLET PO SCH ×2 (09:36→21:32)
[2023-03-25] MEDS: DOCUSATE SODIUM 100 MG CAP PO SCH (09:54)
[2023-03-25] MEDS: LANTUS PER UNIT CHARGE SQ SCH (11:50)
[2023-03-25] MEDS: THIAMINE HCL 500 MG in SODIUM CHLORIDE 0.9% 50 ML IV SCH ×2 (11:51→21:25)
[2023-03-25] MEDS: INSULIN ASPART PER UNIT CHARGE SC SCH ×4 (11:56→21:30)
--- NOTE | 2023-03-25 17:23 | Hospitalist Progress Note ---
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 Possible acute metabolic encephalopathy CAUTI, POA Urinary Retention, Prostate Enlargement Recently treated with outpatient Keflex during evaluation at [facility] but presented with persistent intermittent confusion, agitation History of urinary retention with recently placed Lopez last week --CT abd/pelvis: Circumferential mucosal thickening in the bladder suggestive of cystitis. Prostate is mildly enlarged. No hydronephrosis. Sigmoid diverticulosis without acute diverticulitis. Sclerotic lesion within the posterior left iliac bone adjacent to the SI joint measuring 3 cm. 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 --C head:No acute abnormalities. Encephalomalacia is unchanged from prior exam. --EEG:This is an abnormal routine EEG in a patient with altered mentation due to generalized background slowing suggestive of a non specific encephalopathy. No epileptiform activity is seen. --Urine culture grew Stenotrophomonas maltophilia -- Blood cultures negative --Cannot get MRI brain due to incompatible pacemaker --normal TSH, homocystine, folate levels -- B1, B2, B6 levels pending Changed Zosyn to Bactrim(end date is March 27, 2023) Appreciate ID Input Neurology on board Started on Seroquel for delirium Reorient frequently Remains confused Urinary Retention - diagnosed a week prior to admission at [facility] -Trial of void done; unsuccessful Lopez catheter replaced, continue for now -Has outpatient follow-up with urologist as per family Left iliac bone lesion Incidental finding on CT Discussed about the finding with patient's family Will need further work-up as outpatient Alcohol use ? Wernicke's encephalopathy Started on thiamine Further management based on response Possible vascular dementia History of gradual decline in cognitive function CT head as above Continue Eliquis and aspirin, Lipitor Neuropsychology testing as outpatient Elevated troponin Demand ischemia Mildly elevated HS trop of 34 --> 42, likely demand ischemia in setting of infection. Echo:Mild concentric LVH, aical wall motion abnormality may reflect pacemaker activation, mild hypokinesis of inferior wall, EF 45-50% Continue usual ASA, Eliquis Will benefit from cardiology evaluation as outpatient H/O Embolic stroke Atrial fibrillation H/O mild residual memory deficits from CVA Continue anticoagulation with Eliquis, Toprol for rate control CAD H/o stent placement but details unknown. No CP, EKG without acute ischemic changes Continue Aspirin, Toprol, statin H/o pacemaker placement Replaced in 2019. Hypertension Continue losartan, Toprol Congestive heart failure, compensated Appears euvolemic. continue usual diuretics Type 2 diabetes Hold home agents Basal insulin while in-patient BSG AC HS Hold Lantus for today given hyperglycemia Readjust medications as needed BPH Chronic, stable Continue finasteride, Flomax DVT Px: Eliquis Code status: FULL CODE Disposition: To be determined Admission and Anticipated Discharge Date Admission Date: March 14, 2023 Subjective Patient is seen and examined at bedside Very drowsy during my encounter No distress on exam Discussed with patient's family at bedside No hallucinations today per family Off restraints Family admits patient drinking wine on a daily basis that last drink many days ago Was noted to be hypoglycemic this morning Review of Systems Review of Systems: Other Physical Exam Physical Exam: Physical Exam: Vitals signs as noted above General Appearance:Moderately built and nourished, no apparent distress Head: normocephalic, Atraumatic Eyes: normal inspection, EOMI Neck: supple, Trachea midline Respiratory/Chest: Normal breath sounds, CTA, No accessory muscle use Cardiovascular: S1, S2, No murmur Abdomen/GI:Soft, Non tender, Bowel sounds present Extremities/Musculoskeletal:normal inspection, no edema Neurologic/Psych:confused, grossly no focal neurological deficits, drowsy Skin: normal color, warm Results & Data Results & Data Vital Signs (Past 12 Hours) Vital Signs Temp Pulse Pulse Resp BP Pulse Ox O2 Del Method 03/25/23 15:58 Room Air 03/25/23 15:08 70 03/25/23 12:57 36.4 C L 70 18 119/71 93 Room Air 03/25/23 06:00 70 Laboratory Results Short CBC 03/25/23 Range/Units 04:57 WBC 6.39 (4.8-10.8) K/ul Hgb 14.8 (14.0-18.0) g/dl Hct 45.2 (42.0-52.0) % Plt Count 184 (130-400) K/uL [facility] 03/25/23 04:57 Sodium 141 Potassium 3.8 Chloride 104 Carbon Dioxide 29 BUN 16 Creatinine 1.10 Glucose 65 L Calcium 9.5
[2023-03-26] MEDS: THIAMINE HCL 500 MG in SODIUM CHLORIDE 0.9% 50 ML IV SCH ×3 (03:00→18:05)
[2023-03-26 07:00] LABS: BUN Creatinine Ratio 15.2 (10-20); Calcium 9.1 mg/dl (8.6-10.3); Creatinine Clr Calc Pharmacy 46.2 ml/min; Est GFR (African American) 59.2 ml/min; Est GFR (Non-African American) 51.1 ml/min; Potassium 4.4 mmol/L (3.5-5.1)
[2023-03-26] MEDS: DOCUSATE SODIUM 100 MG CAP PO SCH (07:52)
[2023-03-26] MEDS: ATORVASTATIN 20 MG TAB PO SCH (07:52)
[2023-03-26] MEDS: FINASTERIDE 5 MG TAB PO SCH (07:52)
[2023-03-26] MEDS: ADVANCED PROBIOTIC 1250 MG CAPSULE PO SCH (07:52)
[2023-03-26] MEDS: allopurinoL 300 MG TAB PO SCH (07:52)
[2023-03-26] MEDS: LOSARTAN POTASSIUM 25 MG TAB PO SCH (07:52)
[2023-03-26] MEDS: APIXABAN 5 MG TABLET PO SCH ×2 (07:52→21:18)
[2023-03-26] MEDS: ASPIRIN 81 MG ECTAB PO SCH (07:52)
[2023-03-26] MEDS: SULFAMETHOXAZOLE/TRIMETHOPRIM DS 800/160MG TAB PO SCH ×2 (07:54→21:18)
[2023-03-26] MEDS: QUEtiapine FUMARATE 25 MG TABLET PO SCH ×2 (07:54→21:18)
[2023-03-26] MEDS: MULTIVITAMIN TAB PO SCH (07:54)
[2023-03-26] MEDS: PANTOprazole 40 MG TAB PO SCH (07:54)
[2023-03-26] MEDS: POLYETHYLENE (MIRALAX) 17 GM PACK PO SCH (07:54)
[2023-03-26] MEDS: TAMSULOSIN HCL 0.4 MG CAP PO SCH (07:54)
[2023-03-26] MEDS: METOPROLOL SUCC 25MG EXT REL TAB PO SCH (07:54)
[2023-03-26] MEDS: INSULIN ASPART PER UNIT CHARGE SC SCH ×4 (09:42→21:13)
--- NOTE | 2023-03-26 17:06 | Hospitalist Progress Note ---
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 Possible acute metabolic encephalopathy CAUTI, POA Urinary Retention, Prostate Enlargement Recently treated with outpatient Keflex during evaluation at [facility] but presented with persistent intermittent confusion, agitation History of urinary retention with recently placed Lopez last week --CT abd/pelvis: Circumferential mucosal thickening in the bladder suggestive of cystitis. Prostate is mildly enlarged. No hydronephrosis. Sigmoid diverticulosis without acute diverticulitis. Sclerotic lesion within the posterior left iliac bone adjacent to the SI joint measuring 3 cm. 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 --C head:No acute abnormalities. Encephalomalacia is unchanged from prior exam. --EEG:This is an abnormal routine EEG in a patient with altered mentation due to generalized background slowing suggestive of a non specific encephalopathy. No epileptiform activity is seen. --Urine culture grew Stenotrophomonas maltophilia -- Blood cultures negative --Cannot get MRI brain due to incompatible pacemaker --normal TSH, homocystine, folate levels -- B1, B2, B6 levels pending Changed Zosyn to Bactrim(end date is March 27, 2023) Appreciate ID Input Neurology on board Started on Seroquel for delirium Reorient frequently Mental status slightly better today Urinary Retention - diagnosed a week prior to admission at [facility] -Trial of void done; unsuccessful Lopez catheter replaced, continue for now -Has outpatient follow-up with urologist as per family Left iliac bone lesion Incidental finding on CT --CT:Sclerotic lesion within the posterior left iliac bone adjacent to the SI joint measuring 3 cm. 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 Echo:Mild concentric LVH, aical wall motion abnormality may reflect pacemaker activation, mild hypokinesis of inferior wall, EF 45-50% Continue usual ASA, Eliquis Will benefit from cardiology evaluation as outpatient H/O Embolic stroke Atrial fibrillation H/O mild residual memory deficits from CVA Continue anticoagulation with Eliquis, Toprol for rate control CAD H/o stent placement but details unknown. No CP, EKG without acute ischemic changes Continue Aspirin, Toprol, statin H/o pacemaker placement Replaced in 2019. Hypertension Continue losartan, Toprol Congestive heart failure, compensated Appears euvolemic. continue usual diuretics Type 2 diabetes Hold home agents Basal insulin while in-patient BSG AC HS Readjust medications as needed BPH Chronic, stable Continue finasteride, Flomax DVT Px: Eliquis Code status: FULL CODE Disposition: To be determined Admission and Anticipated Discharge Date Admission Date: March 14, 2023 Subjective Patient is seen and examined at bedside More alert, awake today Sitting in chair with no distress during my encounter Follows simple commands, remains poor historian Discussed with patient's family at bedside Mental status seem to be better today Review of Systems Review of Systems: Other Physical Exam Physical Exam: Physical Exam: Vitals signs as noted above General Appearance:Moderately built and nourished, no apparent distress Head: normocephalic, Atraumatic Eyes: normal inspection, EOMI Neck: supple, Trachea midline Respiratory/Chest: Normal breath sounds, CTA, No accessory muscle use Cardiovascular: S1, S2, No murmur Abdomen/GI:Soft, Non tender, Bowel sounds present Extremities/Musculoskeletal:normal inspection, no edema Neurologic/Psych:confused, grossly no focal neurological deficits, drowsy Skin: normal color, warm Results & Data Results & Data Vital Signs (Past 12 Hours) Vital Signs Temp Pulse Pulse Resp BP Pulse Ox O2 Del Method 03/26/23 15:35 36.6 C 70 18 110/68 96 Room Air 03/26/23 11:20 36.4 C L 70 17 95/55 L 95 Room Air 03/26/23 09:00 70 03/26/23 07:34 36.7 C 70 18 136/79 93 Room Air Laboratory Results [facility] 03/26/23 05:19 Sodium 139 Potassium 4.4 Chloride 104 Carbon Dioxide 28 BUN 19 Creatinine 1.25 Glucose 156 H Calcium 9.1
[2023-03-26] MEDS: LANTUS PER UNIT CHARGE SQ SCH (21:15)
[2023-03-26] MEDS: OLANZapine 10 MG/2.1 ML SDV IM PRN (23:25)
[2023-03-27] MEDS ORDERED: OLANZapine 10 MG/2.1 ML SDV IM STA (00:03)
[2023-03-27] MEDS: THIAMINE HCL 500 MG in SODIUM CHLORIDE 0.9% 50 ML IV SCH ×3 (04:04→18:06)
[2023-03-27] MEDS: QUEtiapine FUMARATE 25 MG TABLET PO SCH (07:23)
[2023-03-27] MEDS: guaiFENesin 200 MG TAB PO PRN (07:23)
[2023-03-27] MEDS: ASPIRIN 81 MG ECTAB PO SCH (07:24)
[2023-03-27] MEDS: PANTOprazole 40 MG TAB PO SCH (07:24)
[2023-03-27] MEDS: allopurinoL 300 MG TAB PO SCH (07:24)
[2023-03-27] MEDS: APIXABAN 5 MG TABLET PO SCH ×2 (07:24→21:36)
[2023-03-27] MEDS: METOPROLOL SUCC 25MG EXT REL TAB PO SCH (07:25)
[2023-03-27] MEDS: POLYETHYLENE (MIRALAX) 17 GM PACK PO SCH (07:26)
[2023-03-27] MEDS: MULTIVITAMIN TAB PO SCH (07:26)
[2023-03-27] MEDS: LOSARTAN POTASSIUM 25 MG TAB PO SCH (07:26)
[2023-03-27] MEDS: DOCUSATE SODIUM 100 MG CAP PO SCH (07:27)
[2023-03-27] MEDS: SULFAMETHOXAZOLE/TRIMETHOPRIM DS 800/160MG TAB PO SCH ×2 (07:27→21:36)
[2023-03-27] MEDS: ATORVASTATIN 20 MG TAB PO SCH (07:27)
[2023-03-27] MEDS: FINASTERIDE 5 MG TAB PO SCH (07:27)
[2023-03-27] MEDS: ADVANCED PROBIOTIC 1250 MG CAPSULE PO SCH (07:27)
[2023-03-27] MEDS: TAMSULOSIN HCL 0.4 MG CAP PO SCH (07:28)
[2023-03-27] MEDS: INSULIN ASPART PER UNIT CHARGE SC SCH ×4 (09:38→21:37)
[2023-03-27] MEDS: LANTUS PER UNIT CHARGE SQ SCH ×2 (09:39→21:37)
--- NOTE | 2023-03-27 17:13 | Hospitalist Progress Note ---
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 Possible acute metabolic encephalopathy CAUTI, POA Urinary Retention, Prostate Enlargement Recently treated with outpatient Keflex during evaluation at [facility] but presented with persistent intermittent confusion, agitation History of urinary retention with recently placed Lopez last week --CT abd/pelvis: Circumferential mucosal thickening in the bladder suggestive of cystitis. Prostate is mildly enlarged. No hydronephrosis. Sigmoid diverticulosis without acute diverticulitis. Sclerotic lesion within the posterior left iliac bone adjacent to the SI joint measuring 3 cm. 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 --C head:No acute abnormalities. Encephalomalacia is unchanged from prior exam. --EEG:This is an abnormal routine EEG in a patient with altered mentation due to generalized background slowing suggestive of a non specific encephalopathy. No epileptiform activity is seen. --Urine culture grew Stenotrophomonas maltophilia -- Blood cultures negative --Cannot get MRI brain due to incompatible pacemaker --normal TSH, homocystine, folate levels -- B1, B2, B6 levels pending Changed Zosyn to Bactrim--please complete antibiotic course tomorrow Appreciate ID Input Neurology on board Reorient frequently Decrease dose of Seroquel to minimize side effects Mental status better but not to baseline per family Urinary Retention - diagnosed a week prior to admission at [facility] -Trial of void done; unsuccessful Lopez catheter replaced, continue for now -Has outpatient follow-up with urologist as per family Left iliac bone lesion Incidental finding on CT --CT:Sclerotic lesion within the posterior left iliac bone adjacent to the SI joint measuring 3 cm. 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 Echo:Mild concentric LVH, aical wall motion abnormality may reflect pacemaker activation, mild hypokinesis of inferior wall, EF 45-50% Continue usual ASA, Eliquis Will benefit from cardiology evaluation as outpatient H/O Embolic stroke Atrial fibrillation H/O mild residual memory deficits from CVA Continue anticoagulation with Eliquis, Toprol for rate control CAD H/o stent placement but details unknown. No CP, EKG without acute ischemic c hanges Continue Aspirin, Toprol, statin H/o pacemaker placement Replaced in 2019. Hypertension Continue losartan, Toprol Congestive heart failure, compensated Appears euvolemic. continue usual diuretics Type 2 diabetes Hold home agents Basal insulin while in-patient BSG AC HS Readjust medications as needed BPH Chronic, stable Continue finasteride, Flomax DVT Px: Eliquis Code status: FULL CODE Disposition: To be determined Admission and Anticipated Discharge Date Admission Date: March 14, 2023 Subjective Patient is seen and examined at bedside Feels tired Sitting in chair during my encounter Remains confused Discussed with patient's family at bedside Complaints of feet pain per family Review of Systems Review of Systems: All systems reviewed & are unremarkable except as noted in Subjective Physical Exam Physical Exam: Physical Exam: Vitals signs as noted above General Appearance:Moderately built and nourished, no apparent distress Head: normocephalic, Atraumatic Eyes: normal inspection, EOMI Neck: supple, Trachea midline Respiratory/Chest: Normal breath sounds, CTA, No accessory muscle use Cardiovascular: S1, S2, No murmur Abdomen/GI:Soft, Non tender, Bowel sounds present Extremities/Musculoskeletal:normal inspection, no edema Neurologic/Psych:confused, grossly no focal neurological deficits, drowsy Skin: normal color, warm Results & Data Results & Data Vital Signs (Past 12 Hours) Vital Signs Temp Pulse Pulse Resp BP Pulse Ox O2 Del Method 03/27/23 15:44 36.6 C 68 17 99/62 L 97 Room Air 03/27/23 15:26 70 03/27/23 11:33 36.8 C 70 18 126/68 97 Room Air 03/27/23 07:44 36.7 C 70 18 130/71 95 Room Air 03/27/23 07:26 70
[2023-03-27] MEDS ORDERED: QUEtiapine FUMARATE 25 MG TABLET PO SCH (21:00)
[2023-03-27] MEDS: OLANZapine 10 MG/2.1 ML SDV IM PRN (23:52)
[2023-03-28] MEDS: THIAMINE HCL 500 MG in SODIUM CHLORIDE 0.9% 50 ML IV SCH (05:32)
[2023-03-28 07:54] LABS: Calcium 9.2 mg/dl (8.6-10.3); Est GFR (African American) 46.7 ml/min; Est GFR (Non-African American) 40.3 ml/min
[2023-03-28] MEDS: LANTUS PER UNIT CHARGE SQ SCH (09:00)
[2023-03-28] MEDS ORDERED: SODIUM CHLORIDE 0.9% 1,000 ML IV ONE (09:52)
[2023-03-28] MEDS: APIXABAN 5 MG TABLET PO SCH ×2 (14:00→21:51)
[2023-03-28] MEDS: ASPIRIN 81 MG ECTAB PO SCH (14:00)
[2023-03-28] MEDS: ATORVASTATIN 20 MG TAB PO SCH (14:00)
[2023-03-28] MEDS: DOCUSATE SODIUM 100 MG CAP PO SCH (14:01)
[2023-03-28] MEDS: allopurinoL 300 MG TAB PO SCH (14:01)
[2023-03-28] MEDS: INSULIN ASPART PER UNIT CHARGE SC SCH ×4 (14:01→21:53)
[2023-03-28] MEDS: LOSARTAN POTASSIUM 25 MG TAB PO SCH (14:02)
[2023-03-28] MEDS: METOPROLOL SUCC 25MG EXT REL TAB PO SCH (14:02)
[2023-03-28] MEDS: MULTIVITAMIN TAB PO SCH (14:02)
[2023-03-28] MEDS: PANTOprazole 40 MG TAB PO SCH (14:02)
[2023-03-28] MEDS: FINASTERIDE 5 MG TAB PO SCH (14:02)
[2023-03-28] MEDS: ADVANCED PROBIOTIC 1250 MG CAPSULE PO SCH (14:02)
[2023-03-28] MEDS: POLYETHYLENE (MIRALAX) 17 GM PACK PO SCH (14:02)
[2023-03-28] MEDS: TAMSULOSIN HCL 0.4 MG CAP PO SCH (14:03)
[2023-03-28] MEDS: SULFAMETHOXAZOLE/TRIMETHOPRIM DS 800/160MG TAB PO SCH (14:03)
--- NOTE | 2023-03-28 16:04 | Hospitalist Progress Note ---
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 Possible acute metabolic encephalopathy CAUTI, POA Urinary Retention, Prostate Enlargement Recently treated with outpatient Keflex during evaluation at [facility] but presented with persistent intermittent confusion, agitation History of urinary retention with recently placed Lopez last week --CT abd/pelvis: Circumferential mucosal thickening in the bladder suggestive of cystitis. Prostate is mildly enlarged. No hydronephrosis. Sigmoid diverticulosis without acute diverticulitis. Sclerotic lesion within the posterior left iliac bone adjacent to the SI joint measuring 3 cm. 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 --C head:No acute abnormalities. Encephalomalacia is unchanged from prior exam. --EEG:This is an abnormal routine EEG in a patient with altered mentation due to generalized background slowing suggestive of a non specific encephalopathy. No epileptiform activity is seen. --Urine culture grew Stenotrophomonas maltophilia -- Blood cultures negative --Cannot get MRI brain due to incompatible pacemaker --normal TSH, homocystine, folate levels -- B1, B2, B6 levels pending Changed Zosyn to Bactrim--completed antibiotic course on 03/27/23 Appreciate ID Input Neurology on board Reorient frequently to minimize delirium Needs outpatient neuropsychology evaluation Plan to discharge to rehab facility when accepted Urinary Retention - diagnosed a week prior to admission at [facility] -Trial of void done; unsuccessful Lopez catheter replaced, continue for now -Has outpatient follow-up with urologist as per family -- Consider voiding trial as able Left iliac bone lesion Incidental finding on CT --CT:Sclerotic lesion within the posterior left iliac bone adjacent to the SI joint measuring 3 cm. 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 Discussed about the finding with patient's family Will need further work-up as outpatient Alcohol use ? Wernicke's encephalopathy Continue IV Thiamine Titrate thiamine as able Possible vascular dementia History of gradual decline in cognitive function CT head as above Continue Eliquis and aspirin, Lipitor Neuropsychology testing as outpatient Elevated troponin Demand ischemia Mildly elevated HS trop of 34 --> 42, likely demand ischemia in setting of infection. Echo:Mild concentric LVH, aical wall motion abnormality may reflect pacemaker activation, mild hypokinesis of inferior wall, EF 45-50% Continue usual ASA, Eliquis Will benefit from cardiology evaluation as outpatient H/O Embolic stroke Atrial fibrillation H/O mild residual memory deficits from CVA Continue anticoagulation with Eliquis, Toprol for rate control CAD H/o stent placement but details unknown. No CP, EKG without acute ischemic changes Continue Aspirin, Toprol, statin H/o pacemaker placement Replaced in 2019. Hypertension Continue losartan, Toprol Congestive heart failure, compensated Appears euvolemic. continue usual diuretics Type 2 diabetes Hold home agents Basal insulin while in-patient BSG AC HS Readjust medications as needed BPH Chronic, stable Continue finasteride, Flomax DVT Px: Eliquis Code status: FULL CODE Disposition: To be determined Admission and Anticipated Discharge Date Admission Date: March 14, 2023 Subjective Patient is seen and examined at bedside Very drowsy during my encounter Received Zyprexa for agitation overnight Discussed with patient's at bedside Review of Systems Review of Systems: Unobtainable due to reduced consciousness Physical Exam Physical Exam: Physical Exam: Vitals signs as noted above General Appearance:Moderately built and nourished, no apparent distress Head: normocephalic, Atraumatic Eyes: normal inspection, EOMI Neck: supple, Trachea midline Respiratory/Chest: Normal breath sounds, CTA, No accessory muscle use Cardiovascular: S1, S2, No murmur Abdomen/GI:Soft, Non tender, Bowel sounds present Extremities/Musculoskeletal:normal inspection, no edema Neurologic/Psych:confused, grossly no focal neurological deficits, drowsy Skin: normal color, warm Results & Data Results & Data Vital Signs (Past 12 Hours) Vital Signs Temp Pulse Pulse Resp BP Pulse Ox O2 Del Method 03/28/23 15:39 70 03/28/23 11:34 36.6 C 69 18 157/79 H 95 Room Air 03/28/23 08:00 70 03/28/23 07:56 36.4 C L 69 18 137/76 92 Room Air Laboratory Results [facility] 03/28/23 06:46 Sodium 138 Potassium 4.0 Chloride 105 Carbon Dioxide 28 BUN 38 H Creatinine 1.52 H Glucose 118 H Calcium 9.2
[2023-03-28] MEDS: QUEtiapine FUMARATE 25 MG TABLET PO SCH (21:55)
[2023-03-28 22:57] LABS: Basophils # (auto) 0.05 K/uL (0.00-0.20); Basophils % (auto) 0.9 %; Eosinophils # (auto) 0.23 K/uL (0.00-0.50); Eosinophils % (auto) 4.3 %; Hematocrit (blood only) 44.5 % (42.0-52.0); Hemoglobin 15.2 g/dl (14.0-18.0); Immature Granulocytes # (auto) 0.03 K/uL (0.01-0.20); Immature Granulocytes % (auto) 0.6 %; Lymphocytes # (auto) 1.07 K/uL (1.20-3.40); Mean Corpuscular Hemoglobin 31.6 pg (25.0-34.0); Mean Corpuscular Hgb Conc 34.2 g/dL (32.0-36.0); Mean Corpuscular Volume 92.5 fL (80.0-100.0); Monocytes # (auto) 0.68 K/uL (0.11-0.59); Monocytes % (auto) 12.7 %; Neutrophils % (auto) 61.5 %; Platelet Count 152 K/uL (130-400); RDW Coefficient of Variation 15.3 % (11.5-14.5); RDW Standard Deviation 52.4 fL (36.4-46.3); Red Blood Count 4.81 M/uL (4.70-6.10); White Blood Count 5.36 K/ul (4.8-10.8)
[2023-03-29] MEDS ORDERED: ALBUMIN 25% 25 GM/100 ML VIAL IV ONE (01:00)
--- NOTE | 2023-03-29 01:10 | CT Scan Report ---
Exam(s): CT HEAD Without Contrast EXAM: CT Head Without Intravenous Contrast CLINICAL HISTORY: Reason for exam: ams, eliquis. TECHNIQUE: Axial computed tomography images of the head/brain without intravenous contrast. Automated exposure control was utilized for the study. A dose lowering technique was utilized adhering to the principles of ALARA. COMPARISON: No relevant prior studies available. FINDINGS: No acute intracranial hemorrhage. No midline shift or mass effect. Encephalomalacia in the left parietal and temporal lobes, consistent with old infarcts. Age-related cerebral volume loss. Periventricular and subcortical white matter hypoattenuation, consistent with chronic microangiopathy. The visualized orbits appear grossly unremarkable. The calvarium is intact. The visualized paranasal sinuses and mastoid air cells are grossly clear. IMPRESSION: No acute intracranial hemorrhage, midline shift, or mass effect. Encephalomalacia in the left parietal and temporal lobes, consistent with old infarcts. Electronically signed by: Derrick Maciel MD 03/29/23 01:08 AM
[2023-03-29 03:41] LABS: Appearance Urine Cloudy (Clear); Bacteria Urine Automated Negative (Negative); Bilirubin Urine Negative (Negative); Blood Urine 2+ (Negative); Color Urine Yellow; Epithelial Cell Urine Auto 0-5 /lpf (0-5); Glucose Urine UA Negative (Negative); Ketones Urine 1+ (Negative); Leukocyte Esterase Urine 2+ (Negative); Nitrite Urine Negative (Negative); Protein Urine 2+ (Negative); Specific Gravity Urine 1.017 (1.000-1.030); Urobilinogen Urine Negative (Negative); WBC Urine Automated >30 /hpf (0-5)
[2023-03-29] MEDS ORDERED: LACTATED RINGER'S 1,000 ML IV ONE (03:51)
--- NOTE | 2023-03-29 03:52 | Communication Note ---
Date of Service: March 29, 2023 Patient with decreased responsiveness last night as per RN. Patient unable to verbalize headache, abdominal pain complaints. Serum creatinine 1.52 (03/28) UA WBC esterase positive CT head: Chronic appearing encephalomalacia is noted in multiple foci. UA WBC esterase, budding yeast AP Encephalopathy Multifactorial ARF Complicated UTI, recurrent infections, no sepsis for now Monitor creatinine response to IVF Hold losartan until creatinine back to baseline Urine CS, Cefepime May need antifungal Rx if patient develops signs of sepsis for funguria
[2023-03-29] MEDS: CEFEPIME 1,000 MG in SYRINGE 0 ML IV SCH (04:10)
[2023-03-29] MEDS: ACETAMINOPHEN 325 MG TAB PO PRN ×2 (05:41→20:38)
[2023-03-29 06:14] LABS: BUN Creatinine Ratio 24.6 (10-20); Calcium 9.1 mg/dl (8.6-10.3); Creatinine Clr Calc Pharmacy 47.3 ml/min; Est GFR (Non-African American) 52.6 ml/min; Potassium 4.1 mmol/L (3.5-5.1)
[2023-03-29 06:20] LABS: Hematocrit (blood only) 39.4 % (42.0-52.0); Hemoglobin 13.2 g/dl (14.0-18.0); Mean Corpuscular Hemoglobin 31.3 pg (25.0-34.0); Mean Corpuscular Hgb Conc 33.5 g/dL (32.0-36.0); Mean Corpuscular Volume 93.4 fL (80.0-100.0); Mean Platelet Volume 11.1 fL (9.4-12.4); Platelet Count 156 K/uL (130-400); RDW Standard Deviation 51.7 fL (36.4-46.3); Red Blood Count 4.22 M/uL (4.70-6.10); White Blood Count 4.91 K/ul (4.8-10.8)
--- NOTE | 2023-03-29 07:45 | XRay Report ---
XR chest 1V portable HISTORY: renal failure COMPARISON: Chest 03/13/2023. FINDINGS: No pneumothorax. No pleural effusions. The heart remains mildly enlarged. Left-sided pacema ker/defibrillator again noted. No evidence for pulmonary edema. A 1.5 cm nodule within the right midl emely zone. No new focal lung consolidations to suggest pneumonia. No evidence for pulmonary edema. IMPRESSION: 1. No acute process within the chest. 2. Stable mild cardiomegaly. 3. There is 1.5 cm nodule within the right midlung zone. This favors a calcified granuloma. ACT 112: Negative or not required by law. Electronically signed by: Nirav Ayala M.D. 03/29/2023 7:42 AM
[2023-03-29] MEDS: LANTUS PER UNIT CHARGE SQ SCH ×2 (08:20→09:27)
[2023-03-29] MEDS: APIXABAN 5 MG TABLET PO SCH ×2 (08:41→20:39)
[2023-03-29] MEDS: ASPIRIN 81 MG ECTAB PO SCH (08:42)
[2023-03-29] MEDS: DOCUSATE SODIUM 100 MG CAP PO SCH (08:42)
[2023-03-29] MEDS: QUEtiapine FUMARATE 25 MG TABLET PO SCH ×2 (08:42→20:39)
[2023-03-29] MEDS: PANTOprazole 40 MG TAB PO SCH (08:43)
[2023-03-29] MEDS: ATORVASTATIN 20 MG TAB PO SCH (08:43)
[2023-03-29] MEDS: allopurinoL 300 MG TAB PO SCH (08:43)
[2023-03-29] MEDS: TAMSULOSIN HCL 0.4 MG CAP PO SCH (08:43)
[2023-03-29] MEDS: MULTIVITAMIN TAB PO SCH (08:43)
[2023-03-29] MEDS: ADVANCED PROBIOTIC 1250 MG CAPSULE PO SCH (08:44)
[2023-03-29] MEDS: METOPROLOL SUCC 25MG EXT REL TAB PO SCH (08:44)
[2023-03-29] MEDS: POLYETHYLENE (MIRALAX) 17 GM PACK PO SCH (08:45)
[2023-03-29] MEDS: FINASTERIDE 5 MG TAB PO SCH (08:45)
[2023-03-29] MEDS: THIAMINE HCL 200 MG in SODIUM CHLORIDE 0.9% 50 ML IV SCH (09:05)
[2023-03-29] MEDS: INSULIN ASPART PER UNIT CHARGE SC SCH ×4 (09:26→20:38)
--- NOTE | 2023-03-29 15:46 | Hospitalist Progress Note ---
Date of Service March 29, 2023 Assessment & Plan (1) Acute metabolic encephalopathy: (2) Complicated UTI (urinary tract infection): (3) Urinary retention: (4) History of stroke: (5) Atrial fibrillation: (6) HTN (hypertension): (7) CHF (congestive heart failure): (8) CAD (coronary artery disease): (9) DM (diabetes mellitus), type 2: (10) BPH (benign prostatic hyperplasia): Plan This is an 87yo M with a PMH of 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 Possible acute metabolic encephalopathy CAUTI, POA Urinary Retention, Prostate Enlargement Recently treated with outpatient Keflex during evaluation at [facility] but presented with persistent intermittent confusion, agitation History of urinary retention with recently placed Lopez last week --CT abd/pelvis: Circumferential mucosal thickening in the bladder suggestive of cystitis. Prostate is mildly enlarged. No hydronephrosis. Sigmoid diverticulosis without acute diverticulitis. Sclerotic lesion within the posterior left iliac bone adjacent to the SI joint measuring 3 cm. 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 --C head:No acute abnormalities. Encephalomalacia is unchanged from prior exam. --EEG:This is an abnormal routine EEG in a patient with altered mentation due to generalized background slowing suggestive of a non specific encephalopathy. No epileptiform activity is seen. --Urine culture grew Stenotrophomonas maltophilia -- Blood cultures negative --Cannot get MRI brain due to incompatible pacemaker --normal TSH, homocystine, folate levels -- B1, B2, B6 levels pending Changed Zosyn to Bactrim--completed antibiotic course on 03/27/23 Appreciate ID Input Neurology on board Reorient frequently to minimize delirium Needs outpatient neuropsychology evaluation Plan to discharge to rehab facility when accepted Repeat urine culture pending. Empirically started on cefepime overnight Urinary Retention - diagnosed a week prior to admission at [facility] -Has outpatient follow-up with urologist as per family -- Patient's family requesting voiding trial Will discontinue Lopez catheter, bladder scan Q6H Consider urology evaluation if persistent urinary retention Left iliac bone lesion Incidental finding on CT --CT:Sclerotic lesion within the posterior left iliac bone adjacent to the SI joint measuring 3 cm. 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 Discussed about the finding with patient's family Will need further work-up as outpatient Alcohol use ? Wernicke's encephalopathy Continue IV Thiamine Titrate thiamine as able Possible vascular dementia History of gradual decline in cognitive function CT head as above Continue Eliquis and aspirin, Lipitor Neuropsychology testing as outpatient Elevated troponin Demand ischemia Mildly elevated HS trop of 34 --> 42, likely demand ischemia in setting of infection. Echo:Mild concentric LVH, aical wall motion abnormality may reflect pacemaker activation, mild hypokinesis of inferior wall, EF 45-50% Continue usual ASA, Eliquis Will benefit from cardiology evaluation as outpatient H/O Embolic stroke Atrial fibrillation H/O mild residual memory deficits from CVA Continue anticoagulation with Eliquis, Toprol for rate control CAD H/o stent placement but details unknown. No CP, EKG without acute ischemic changes Continue Aspirin, Toprol, statin H/o pacemaker placement Replaced in 2019. Hypertension Continue losartan, Toprol Congestive heart failure, compensated Appears euvolemic. continue usual diuretics Type 2 diabetes Hold home agents Basal insulin while in-patient BSG AC HS Readjust medications as needed BPH Chronic, stable Continue finasteride, Flomax DVT Px: Eliquis Code status: FULL CODE Disposition: To be determined Admission and Anticipated Discharge Date Admission Date: March 14, 2023 Subjective Patient is seen and examined at bedside Pleasant, minimal confusion during my encounter today States having some left thigh pain but otherwise no complaints Discussed with patient's family at bedside Repeat urine culture pending Denies any chest pain, dyspnea, dizziness Review of Systems Review of Systems: All systems reviewed & are unremarkable except as noted in Subjective Physical Exam Physical Exam: Physical Exam: Vitals signs as noted above General Appearance:Moderately built and nourished, no apparent distress Head: normocephalic, Atraumatic Eyes: normal inspection, EOMI Neck: supple, Trachea midline Respiratory/Chest: Normal breath sounds, CTA, No accessory muscle use Cardiovascular: S1, S2, No murmur Abdomen/GI:Soft, Non tender, Bowel sounds present Extremities/Musculoskeletal:normal inspection, no edema Neurologic/Psych:confused, grossly no focal neurological deficits, drowsy Skin: normal color, warm Results & Data Results & Data Vital Signs (Past 12 Hours) Vital Signs Temp Pulse Resp BP BP Pulse Ox O2 Del Method 03/29/23 15:32 36.7 C 69 16 136/68 96 Room Air 03/29/23 07:35 36.7 C 63 16 156/75 H 97 Room Air 03/29/23 04:00 36.7 C 72 18 157/80 H 97 Room Air Laboratory Results Short CBC 03/28/23 03/29/23 Range/Units 22:40 05:25 WBC 5.36 4.91 (4.8-10.8) K/ul Hgb 15.2 13.2 L (14.0-18.0) g/dl Hct 44.5 39.4 L (42.0-52.0) % Plt Count 152 156 (130-400) K/uL BMP 03/29/23 05:25 Sodium 136 Potassium 4.1 Chloride 104 Carbon Dioxide 27 BUN 30 H Creatinine 1.22 D Glucose 255 H Calcium 9.1 Urine 03/29/23 Range/Units 03:20 Urine Color Yellow Urine Appearance Cloudy A (Clear) Urine pH 6.0 (4.5-7.5) Ur Specific [place] 1.017 (1.000-1.030) Urine Protein 2+ H (Negative) Urine Glucose (UA) Negative (Negative)
--- NOTE | 2023-03-30 01:02 | Communication Note ---
Date of Service: March 30, 2023 Notified by RN of hematuria. Patient uncomfortable but unable to verbalize abdominal or flank pain complaints. AP Hematuria/complicated UTI Continue antibiotic CBC now Hold aspirin and Eliquis for now CT abdomen pelvis once patient comfortable
[2023-03-30 02:15] LABS: Basophils # (auto) 0.04 K/uL (0.00-0.20); Basophils % (auto) 0.9 %; Eosinophils # (auto) 0.16 K/uL (0.00-0.50); Eosinophils % (auto) 3.4 %; Hemoglobin 13.8 g/dl (14.0-18.0); Immature Granulocytes # (auto) 0.02 K/uL (0.01-0.20); Immature Granulocytes % (auto) 0.4 %; Lymphocytes # (auto) 0.72 K/uL (1.20-3.40); Lymphocytes % (auto) 15.5 %; Mean Corpuscular Hemoglobin 31.5 pg (25.0-34.0); Mean Corpuscular Hgb Conc 34.5 g/dL (32.0-36.0); Mean Corpuscular Volume 91.3 fL (80.0-100.0); Mean Platelet Volume 11.2 fL (9.4-12.4); Monocytes # (auto) 0.39 K/uL (0.11-0.59); Monocytes % (auto) 8.4 %; Neutrophils # (auto) 3.31 K/uL (1.40-6.50); Neutrophils % (auto) 71.4 %; Platelet Count 146 K/uL (130-400); RDW Coefficient of Variation 14.6 % (11.5-14.5); RDW Standard Deviation 49.3 fL (36.4-46.3); Red Blood Count 4.38 M/uL (4.70-6.10); White Blood Count 4.64 K/ul (4.8-10.8)
[2023-03-30] MEDS: CEFEPIME 1,000 MG in SYRINGE 0 ML IV SCH (04:59)
[2023-03-30 07:31] LABS: Hematocrit (blood only) 41.4 % (42.0-52.0); Hemoglobin 14.2 g/dl (14.0-18.0); Mean Corpuscular Hemoglobin 31.5 pg (25.0-34.0); Mean Corpuscular Hgb Conc 34.3 g/dL (32.0-36.0); Mean Corpuscular Volume 91.8 fL (80.0-100.0); Mean Platelet Volume 11.5 fL (9.4-12.4); Platelet Count 161 K/uL (130-400); RDW Coefficient of Variation 14.3 % (11.5-14.5); RDW Standard Deviation 48.4 fL (36.4-46.3); Red Blood Count 4.51 M/uL (4.70-6.10); White Blood Count 5.65 K/ul (4.8-10.8)
[2023-03-30 08:16] LABS: Vitamin B2 41.3 nmol/L (6.2-39.0); Vitamin B6 8.1 ng/mL (2.1-21.7)
[2023-03-30 08:25] LABS: Calcium 9.2 mg/dl (8.6-10.3)
[2023-03-30 08:30] LABS: BUN Creatinine Ratio 25.3 (10-20); Creatinine Clr Calc Pharmacy 58.3 ml/min; Est GFR (African American) 78.5 ml/min; Est GFR (Non-African American) 67.7 ml/min
[2023-03-30] MEDS: METOPROLOL SUCC 25MG EXT REL TAB PO SCH (09:18)
[2023-03-30] MEDS: PANTOprazole 40 MG TAB PO SCH (09:19)
[2023-03-30] MEDS: MULTIVITAMIN TAB PO SCH (09:19)
[2023-03-30] MEDS: DOCUSATE SODIUM 100 MG CAP PO SCH (09:19)
[2023-03-30] MEDS: ADVANCED PROBIOTIC 1250 MG CAPSULE PO SCH (09:20)
[2023-03-30] MEDS: allopurinoL 300 MG TAB PO SCH (09:20)
[2023-03-30] MEDS: ATORVASTATIN 20 MG TAB PO SCH (09:21)
[2023-03-30] MEDS: TAMSULOSIN HCL 0.4 MG CAP PO SCH (09:21)
[2023-03-30] MEDS: QUEtiapine FUMARATE 25 MG TABLET PO SCH ×2 (09:21→20:19)
[2023-03-30] MEDS: THIAMINE HCL 200 MG in SODIUM CHLORIDE 0.9% 50 ML IV SCH (09:22)
[2023-03-30] MEDS: POLYETHYLENE (MIRALAX) 17 GM PACK PO SCH (09:22)
[2023-03-30] MEDS: FINASTERIDE 5 MG TAB PO SCH (09:22)
[2023-03-30] MEDS: LANTUS PER UNIT CHARGE SQ SCH (09:29)
[2023-03-30] MEDS: INSULIN ASPART PER UNIT CHARGE SC SCH ×5 (09:30→20:19)
--- NOTE | 2023-03-30 12:00 | CT Scan Report ---
ABDOMEN AND PELVIS CT WITHOUT CONTRAST CT DOSE: 1786.12 mGy.cm HISTORY: hematuria TECHNIQUE: Multiaxial CT images of the abdomen and pelvis were performed without contrast. A dose lo wering technique was utilized adhering to the principles of ALARA. COMPARISON STUDY: Abdomen and pelvis CT 03/13/2023. FINDINGS: There is a calcified granuloma within the right lower lobe. Bibasilar linear densities favo r subsegmental atelectasis or scarring. No pneumoperitoneum. No pneumatosis. Chronic anterior wedging at T12 again noted. There is a 3 cm sclerotic focus within the left posterior iliac bone and a 1.5 c m sclerotic focus within the T9 vertebral body. These are concerning for osseous metastatic disease. There are healing bilateral lower rib fractures most pronounced on the left. This remains unchanged. Pacemaker wires are noted. The heart remains mildly enlarged. Subtle nodular contour to the liver sug gestive of early cirrhosis. No definite hepatic masses on this noncontrast study. The gallbladder amada gically absent. This likely accounts for the common bile duct dilatation which remains unchanged. The unenhanced spleen, adrenal glands, and pancreas are unremarkable. No renal or ureteral stones. No hy dronephrosis. Left renal hypodense lesions remain stable and favor cysts. No retroperitoneal lymphade nopathy. Calcified plaque within the normal caliber abdominal aorta. No pelvic lymphadenopathy or pel joaquin free fluid. Colonic diverticulosis. No evidence for acute diverticulitis. No bowel wall thickenin g or obstruction. Normal appendix. The bladder is decompressed by Lopez catheter which appears in goo d position. Gas within the bladder lumen is likely due to the catheterization. There is moderate blad connor wall thickening with adjacent fat stranding. This is similar to the prior study and is consistent with a nonspecific cystitis. The prostate gland is mildly enlarged. There is a 1.8 cm lobular soft t issue density extending from the right posterior lateral peripheral zone of the prostate gland best s een image 328. This is highly suspicious for a prostate malignancy. IMPRESSION: 1. Persistent bladder wall thickening with adjacent fat stranding. This is consistent with a nonspeci fic cystitis. 2. The bladder is decompressed by Lopez catheter appears in good position. 3. A 1.8 cm soft tissue nodule extending from within the right posterolateral peripheral zone of the prostate gland. This is highly suspicious for a prostate malignancy. 4. There are 2 sclerotic foci within the left posterior iliac bone and T9 vertebral body which are hi ghly suspicious for osseous metastatic disease. 5. No renal or ureteral stones. No hydronephrosis. 6. Additional findings as described above. ACT 112: Negative or not required by law. Electronically signed by: Nirav Ayala M.D. 03/30/2023 11:58 AM
--- NOTE | 2023-03-30 13:53 | Hospitalist Progress Note ---
Date of Service March 30, 2023 Assessment & Plan (1) Acute metabolic encephalopathy: (2) Complicated UTI (urinary tract infection): (3) Urinary retention: (4) History of stroke: (5) Atrial fibrillation: (6) HTN (hypertension): (7) CHF (congestive heart failure): (8) CAD (coronary artery disease): (9) DM (diabetes mellitus), type 2: (10) BPH (benign prostatic hyperplasia): Plan This is an 87yo M with a PMH of 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 Possible acute metabolic encephalopathy CAUTI, POA Urinary Retention, Prostate Enlargement Recently treated with outpatient Keflex during evaluation at [facility] but presented with persistent intermittent confusion, agitation History of urinary retention with recently placed Lopez a week prior to admission --CT abd/pelvis: Circumferential mucosal thickening in the bladder suggestive of cystitis. Prostate is mildly enlarged. No hydronephrosis. Sigmoid diverticulosis without acute diverticulitis. Sclerotic lesion within the posterior left iliac bone adjacent to the SI joint measuring 3 cm. 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 --C head:No acute abnormalities. Encephalomalacia is unchanged from prior exam. --EEG:This is an abnormal routine EEG in a patient with altered mentation due to generalized background slowing suggestive of a non specific encephalopathy. No epileptiform activity is seen. --Urine culture grew Stenotrophomonas maltophilia -- Blood cultures negative --Cannot get MRI brain due to incompatible pacemaker --normal TSH, homocystine, folate levels -- B1, B2, B6 levels pending Changed Zosyn to Bactrim--completed antibiotic course on 03/27/23 Currently restarted on cefepime as urinalysis was positive of infection. Reorient frequently to minimize delirium Needs outpatient neuropsychology evaluation Plan to discharge to rehab facility when accepted Prostate mass Urinary Retention Sclerotic lesions in the left posterior iliac bone and T9 vertebral body CT abdomen and pelvis done today shows 1.8 cm soft tissue nodule in the prostate and 2 sclerotic foci in left posterior iliac bone and T9 vertebral body Trial of void failed on March 30, 2023 Lopze placed back again. Has hematuria Urologist consultation for the prostate mass Continue Lopez Aspirin and Eliquis on hold currently. Possible vascular dementia History of gradual decline in cognitive function CT head as above Continue Eliquis and aspirin, Lipitor Neuropsychology testing as outpatient Elevated troponin Demand ischemia Mildly elevated HS trop of 34 --> 42, likely demand ischemia in setting of infection. Echo:Mild concentric LVH, aical wall motion abnormality may reflect pacemaker activation, mild hypokinesis of inferior wall, EF 45-50% Continue usual ASA, Eliquis Will benefit from cardiology evaluation as outpatient H/O Embolic stroke Atrial fibrillation H/O mild residual memory deficits from CVA Toprol for rate control Anticoagulation on hold CAD H/o stent placement but details unknown. No CP, EKG without acute ischemic changes Aspirin on hold currently H/o pacemaker placement Replaced in 2019. Hypertension Continue losartan, Toprol Congestive heart failure, compensated Appears euvolemic. continue usual diuretics Type 2 diabetes Hold home agents Basal insulin while in-patient BSG AC HS Readjust medications as needed BPH Chronic, stable Continue finasteride, Flomax DVT Px: Eliquis Code status: FULL CODE Disposition: Likely discharge to rehab in dementia unit. He is currently delirious requiring inpatient management. Also awaiting urine culture result. Discussed with and daughter at bedside. Answered questions/queries. Time spent evaluating patient, direct bedside care, chart review, placing orders , interpretation of diagnostic studies, discussion with consultants, patient, and family members, as well as other required patient management activities is 60 minutes Please note the above document was generated using voice recognition software. It may contain grammatical, syntax or spelling errors. Any formal questions or concerns about the content, text or information contained within the body of this dictation should be directly addressed to the provider for clarification Admission and Anticipated Discharge Date Admission Date: March 14, 2023 Subjective Patient seen and examined at bedside. He appears to be disoriented; he recognizes his family members. Answer few questions; need to be redirected many times Review of Systems Review of Systems: Unobtainable due to cognitive status Physical Exam Physical Exam: Constitutional: Awake, oriented to self. Not in distress Respiratory: Bilateral vesicular breath sound Cardiovascular: RRR, no murmur, no edema Vessels: no JVD or carotid bruit Chest: normal inspection of chest Abdomen: normal bowel sounds, soft, nontender, no hepatosplenomegaly. Lopez in place draining red urine Musculoskeletal: no cyanosis or clubbing, extremities motor strength 5/5 Skin: no rashes, warm and dry normal turgor Neurologic: Grossly moves all extremities. Awake, oriented to self and place. Results & Data Results & Data Vital Signs (Past 12 Hours) Vital Signs Temp Pulse Pulse Resp BP Pulse Ox O2 Del Method 03/30/23 10:22 72 03/30/23 08:03 36.6 C 73 16 162/77 H 98 Room Air 03/30/23 03:52 36.7 C 68 18 158/76 H 97 Room Air Laboratory Results Laboratory Results WBC 5.65 K/ul (4.8-10.8) 03/30/23 06:34 RBC 4.51 M/uL (4.70-6.10) L 03/30/23 06:34 Hgb 14.2 g/dl (14.0-18.0) 03/30/23 06:34 Hct 41.4 % (42.0-52.0) L 03/30/23 06:34 MCV 91.8 fL (80.0-100.0) 03/30/23 06:34 MCH 31.5 pg (25.0-34.0) 03/30/23 06:34 MCHC 34.3 g/dL (32.0-36.0) 03/30/23 06:34 RDW Std Deviation 48.4 fL (36.4-46.3) H 03/30/23 06:34 RDW Coeff of [place] 14.3 % (11.5-14.5) 03/30/23 06:34 Plt Count 161 K/uL (130-400) 03/30/23 06:34 MPV 11.5 fL (9.4-12.4) 03/30/23 06:34 Immature Gran % (Auto) 0.4 % 03/30/23 01:36 Neut % (Auto) 71.4 % 03/30/23 01:36 Lymph % (Auto) 15.5 % 03/30/23 01:36 [place] % (Auto) 8.4 % 03/30/23 01:36 Eos % (Auto) 3.4 % 03/30/23 01:36 Baso % (Auto) 0.9 % 03/30/23 01:36 Neut # (Auto) 3.31 K/uL (1.40-6.50) 03/30/23 01:36 Lymph # (Auto) 0.72 K/uL (1.20-3.40) L 03/30/23 01:36 [place] # (Auto) 0.39 K/uL (0.11-0.59) 03/30/23 01:36 Eos # (Auto) 0.16 K/uL (0.00-0.50) 03/30/23 01:36 Baso # (Auto) 0.04 K/uL (0.00-0.20) 03/30/23 01:36 Immature Gran # (Auto) 0.02 K/uL (0.01-0.20) 03/30/23 01:36 ESR 39 mm/hr (0-20) H 03/22/23 08:04 Sodium 140 mmol/L (136-145) 03/30/23 06:34 Potassium 4.0 mmol/L (3.5-5.1) 03/30/23 06:34 Chloride 105 mmol/L (98-107) 03/30/23 06:34 Carbon Dioxide 27 mmol/L (21-32) 03/30/23 06:34 Anion Gap 8 (3-11) 03/30/23 06:34 BUN 25 mg/dl (6-23) H 03/30/23 06:34 Creatinine 0.99 mg/dl (0.6-1.4) 03/30/23 06:34 Est Cr Clr Drug Dosing 58.3 ml/min 03/30/23 06:34 Est GFR ( Amer) 78.5 ml/min 03/30/23 06:34 Est GFR (Non-Af Amer) 67.7 ml/min 03/30/23 06:34 BUN/Creatinine Ratio 25.3 (10-20) H 03/30/23 06:34 Glucose 196 mg/dl (70-99(Fasting)) H 03/30/23 06:34 POC Glucose 233 mg/dl (70-99) H 03/30/23 12:30 Estimat Average Glucose 209 mg/dl 03/14/23 05:31 Hemoglobin A1c 8.9 % (4.5-5.6) H 03/14/23 05:31 Calcium 9.2 mg/dl (8.6-10.3) 03/30/23 06:34 Phosphorus 3.9 mg/dl (2.5-4.9) 03/25/23 04:57 Total Bilirubin 0.6 mg/dl (0.2-1.0) 03/20/23 05:30 AST 26 U/L (13-39) 03/20/23 05:30 ALT 17 U/L (7-52) 03/20/23 05:30 Alkaline Phosphatase 90 U/L (34-104) 03/20/23 05:30 Ammonia 18.0 umol/L (18-72) 03/28/23 22:40 Troponin I High Sens 45.9 pg/ml (0-20) H D 03/14/23 10:49 Total Protein 6.1 gm/dl (6.0-8.3) 03/20/23 05:30 Albumin 3.3 gm/dl (3.4-5.0) L 03/20/23 05:30 Globulin 2.8 gm/dl (2.5-4.0) 03/20/23 05:30 Albumin/Globulin Ratio 1.2 (0.9-2) 03/20/23 05:30 Lipase 41 U/L (11-82) 03/13/23 14:30 Vitamin B1 20 nmol/L (8-30) 03/22/23 08:04 Vitamin B2 41.3 nmol/L (6.2-39.0) H 03/22/23 08:04 Vitamin B6 8.1 ng/mL (2.1-21.7) 03/22/23 08:04 Folate 20.81 ng/ml (>5.38) 03/22/23 08:04 Homocysteine 11.5 umol/L (<11.4) H 03/22/23 08:04 TSH 2.848 uIu/ml (0.300-4.500) 03/21/23 05:52 Urine Color Yellow 03/29/23 03:20 Urine Appearance Cloudy (Clear) A 03/29/23 03:20 Urine pH 6.0 (4.5-7.5) 03/29/23 03:20 Ur Specific [place] 1.017 (1.000-1.030) 03/29/23 03:20 Urine Protein 2+ (Negative) H 03/29/23 03:20 Urine Glucose (UA) Negative (Negative) 03/29/23 03:20 Urine Ketones 1+ (Negative) H 03/29/23 03:20 Urine Blood 2+ (Negative) H 03/29/23 03:20 Urine Nitrite Negative (Negative) 03/29/23 03:20 Urine Bilirubin Negative (Negative) 03/29/23 03:20 Urine Urobilinogen Negative (Negative) 03/29/23 03:20 Ur Leukocyte Esterase 2+ (Negative) H 03/29/23 03:20 Urine WBC (Auto) >30 /hpf (0-5) H 03/29/23 03:20 Urine RBC (Auto) 10-30 /hpf (0-4) H 03/29/23 03:20 U Hyaline Cast (Auto) 5-10 /lpf (0-5) H 03/29/23 03:20 U Epithel Cells (Auto) 0-5 /lpf (0-5) 03/29/23 03:20 Urine Bacteria (Auto) Negative (Negative) 03/29/23 03:20 Urine Yeast Budding w/ Hyphae (None Prsent) A 03/29/23 03:20 Miscellaneous Test REPORT 03/21/23 05:52 Blood Type O Negative 03/30/23 01:36 Antibody Screen NEGATIVE 03/30/23 01:[address] 03/28/23 22:32 Exam(s): CT HEAD Without Contrast EXAM: CT Head Without Intravenous Contrast CLINICAL HISTORY: Reason for exam: ams, eliquis. TECHNIQUE: Axial computed tomography images of the head/brain without intravenous contrast. Automated exposure control was utilized for the study. A dose lowering technique was utilized adhering to the principles of ALARA. COMPARISON: No relevant prior studies available. FINDINGS: No acute intracranial hemorrhage. No midline shift or mass effect. Encephalomalacia in the left parietal and temporal lobes, consistent with old infarcts. Age-related cerebral volume loss. Periventricular and subcortical white matter hypoattenuation, consistent with chronic microangiopathy. The visualized orbits appear grossly unremarkable. The calvarium is intact. The visualized paranasal sinuses and mastoid air cells are grossly clear. IMPRESSION: No acute intracranial hemorrhage, midline shift, or mass effect. Encephalomalacia in the left parietal and temporal lobes, consistent with old infarcts. Electronically signed by: Derrick Maciel MD 03/29/23 01:08 AM Chest X-Ray 03/29/23 00:42 XR chest 1V portable HISTORY: renal failure COMPARISON: Chest 03/13/2023. FINDINGS: No pneumothorax. No pleural effusions. The heart remains mildly enlarged. Left-sided pacemaker/defibrillator again noted. No evidence for pulmonary edema. A 1.5 cm nodule within the right midlung zone. No new focal lung consolidations to suggest pneumonia. No evidence for pulmonary edema. IMPRESSION: 1. No acute process within the chest. 2. Stable mild cardiomegaly. 3. There is 1.5 cm nodule within the right midlung zone. This favors a calcified granuloma. ACT 112: Negative or not required by law. Electronically signed by: Nirav Ayala M.D. 03/29/2023 7:42 AM Abdomen/Pelvis CT 03/30/23 01:[address] WITHOUT CONTRAST CT DOSE: 1786.12 mGy.cm HISTORY: hematuria TECHNIQUE: Multiaxial CT images of the abdomen and pelvis were performed without contrast. A dose lowering technique was utilized adhering to the principles of ALARA. COMPARISON STUDY: Abdomen and pelvis CT 03/13/2023. FINDINGS: There is a calcified granuloma within the right lower lobe. Bibasilar linear densities favor subsegmental atelectasis or scarring. No pneumoperito neum. No pneumatosis. Chronic anterior wedging at T12 again noted. There is a 3 cm sclerotic focus within the left posterior iliac bone and a 1.5 cm sclerotic focus within the T9 vertebral body. These are concerning for osseous metastatic disease. There are healing bilateral lower rib fractures most pronounced on the left. This remains unchanged. Pacemaker wires are noted. The heart remains mildly enlarged. Subtle nodular contour to the liver suggestive of early cirrhosis. No definite hepatic masses on this noncontrast study. The gallbladder surgically absent. This likely accounts for the common bile duct dilatation which remains unchanged. The unenhanced spleen, adrenal glands, and pancreas are unremarkable. No renal or ureteral stones. No hydronephrosis. Left renal hypodense lesions remain stable and favor cysts. No retroperitoneal lymphadenopathy. Calcified plaque within the normal caliber abdominal aorta. No pelvic lymphadenopathy or pelvic free fluid. Colonic diverticulosis. No evidence for acute diverticulitis. No bowel wall thickening or obstruction. Normal appendix. The bladder is decompressed by Lopez catheter which appears in good position. Gas within the bladder lumen is likely due to the catheterization. There is moderate bladder wall thickening with adjacent fat stranding. This is similar to the prior study and is consistent with a nonspecific cystitis. The prostate gland is mildly enlarged. There is a 1.8 cm lobular soft tissue density extending from the right posterior lateral peripheral zone of the prostate gland best seen image 328. This is highly suspicious for a prostate malignancy. IMPRESSION: 1. Persistent bladder wall thickening with adjacent fat stranding. This is consistent with a nonspecific cystitis. 2. The bladder is decompressed by Lopez catheter appears in good position. 3. A 1.8 cm soft tissue nodule extending from within the right posterolateral peripheral zone of the prostate gland. This is highly suspicious for a prostate malignancy. 4. There are 2 sclerotic foci within the left posterior iliac bone and T9 vertebral body which are highly suspicious for osseous metastatic disease. 5. No renal or ureteral stones. No hydronephrosis. 6. Additional findings as described above. ACT 112: Negative or not required by law. Electronically signed by: Nirav Ayala M.D. 03/30/2023 11:58 AM
--- NOTE | 2023-03-30 13:54 | Urology Consultation ---
Date of Consultation March 30, 2023 Assessment & Plan (1) Urinary retention: (2) Indwelling Lopez catheter present: (3) Complicated UTI (urinary tract infection): 87 yo M admitted for acute metabolic encephalopathy in the setting of suspected UTI. Urology consulted for concern of prostate cancer CT imaging reviewed and notable for a 1.8 cm soft tissue nodule extending from the prostate gland, 2 sclerotic foci within the left posterior iliac bone and T9 vertebral body Findings concerning for prostate cancer with bony metastasis Recommend PSAorder placed Can consider IR biopsy of sclerotic lesion or prostate biopsy as an outpatient depending on goals/clinical course Can refer to medical oncology as an outpatient for discussion of ADT Recommend maintain Lopez catheter for management of urinary retention Acute UTI has been treated, repeat urine culture pendingfollow culture Continue Tamsulosin and Finasteride Hematuria has clearedcontinue to monitor Okay to hand irrigate catheter as necessary for obstructed catheter Continue supportive care, antibiotics, and medical management per primary service See attending note for further details of plan of care Supervising Physician Co-Signing Physician Notes Discussed patient with JASON. Agree with plan. Reviewed imaging and labs. Concerning for metastatic prostate cancer, which is supported by elevated PSA of ~41. Given entire clinical picture, I think this can be evaluated further as an outpatient. Patient will either need a prostate needle biopsy or IR could potentially biopsy of bone lesion if they think that is amenable. Based on NCCN guidelines, you could also consider observation in someone with a life expectancy less than 5 years. Another option would be ADT. History of Present Illness Attending Physician: Aneesh Hoover MD History of Present Illness This is an 87-year-old male with past medical history of atrial fibrillation, type 2 diabetes, history of embolic stroke, hypertension, CHF, CAD, BPH and urinary retention who was admitted on 03/13/2023 with acute metabolic encephalopathy in the setting of UTI. Urology is consulted for concern of prostate cancer. HPI and ROS unobtainable due to patient's cognitive status. Chart reviewed including hospital notes, labs, imaging. Per admitting notes, patient presented to the emergency department with altered mental status in setting of suspected UTI. Patient was experiencing progressive confusion and found to have a UTI, which was treated by his PCP. He was given course of Keflex as an outpatient, but remained confused and agitated prompting ED evaluation. He had a Lopez catheter placed at outside facility due to urinary retention the week prior to admission. He is on tamsulosin and finasteride for BPH. Chart review: Afebrile Labs -creatinine 0.99, WBC 5.65, hemoglobin 14.2 BCx 03/14 showed no growth BCx 03/18 showed no growth Urine culture 03/14 showed 80k CFU of Stenotrophomonas maltophilia Urine culture 03/29 pending Initially treated with Zosyn which was transitioned to Bactrim x 10 days, completed on 03/27 Now on IV cefepime Patient failed voiding trial, catheter was replaced yesterday per nursing Hematuria was noted after Lopez replacement CTAP wo con (03/30): Impression- 1. Persistent bladder wall thickening with adjacent fat stranding. This is consistent with a nonspecific cystitis. 2. The bladder is decompressed by Lopez catheter appears in good position. 3. A 1.8 cm soft tissue nodule extending from within the right posterolateral peripheral zone of the prostate gland. This is highly suspicious for a prostate malignancy. 4. There are 2 sclerotic foci within the left posterior iliac bone and T9 vertebral body which are highly suspicious for osseous metastatic disease. 5. No renal or ureteral stones. No hydronephrosis. Patient seen and examined at bedside. He is sleeping, arouses to his name. He is unable to answer questions or provide meaningful history. Lopez is patent and draining clear yellow urine on exam. Allergies Allergy/AdvReac Type Severity Reaction Status Date / Time colestipol Allergy Unknown Unknown Unverified 03/13/23 18:47 gabapentin Allergy Unknown Nausea and Unverified 03/13/23 18:47 vomiting niacin Allergy Unknown Flushing Unverified 03/13/23 18:47 [id number] Reductase Allergy Unknown Muscle Pain Unverified 03/13/23 18:47 Inhibitor Home Medications Medication Instructions Recorded Confirmed Type acetaminophen 325 mg tablet 650 mg PO TID PRN 03/13/23 03/13/23 History (Tylenol) pain/fever/headache allopurinol 300 mg tablet 150 mg PO DAILY 03/13/23 03/13/23 History apixaban 5 mg tablet (Eliquis) 5 mg PO BID 03/13/23 03/13/23 History atorvastatin 40 mg tablet 20 mg PO DAILY 03/13/23 03/13/23 History cephalexin 250 mg capsule 250 mg PO TID UTI 03/13/23 03/13/23 History codeine 10 mg-guaifenesin 100 mg/5 5 ml PO HS PRN Cough 03/13/23 03/13/23 History mL oral liquid (Guaifenesin AC) docusate sodium 100 mg capsule 100 mg PO DAILY 03/13/23 03/13/23 History empagliflozin 10 mg tablet 10 mg PO DAILY 03/13/23 03/13/23 History (Jardiance) finasteride 5 mg tablet 5 mg PO DAILY 03/13/23 03/13/23 History furosemide 20 mg tablet (Lasix) 20 mg PO DAILY 03/13/23 03/13/23 History guaifenesin 200 mg tablet 200 mg PO BID 03/13/23 03/13/23 History insulin NPH isoph U-100 human 100 See Rx Instructions .Route .COMPLEX 03/13/23 03/13/23 History unit/mL (3 mL) subcutaneous pen (Humulin N NPH U-100 Insulin KwikPen) losartan 25 mg tablet 25 mg PO DAILY 03/13/23 03/13/23 History metoprolol succinate 25 mg 12.5 mg PO DAILY 03/13/23 03/13/23 History tablet,extended release 24 hr multivitamin 1 tab PO DAILY 03/13/23 03/13/23 History nut.tx.gluc.intol,lac-free,soy 1 ea PO BID 03/13/23 03/13/23 History (Glucerna oral liquid) omeprazole 20 mg capsule,delayed 20 mg PO DAILY 03/13/23 03/13/23 History release polyethylene glycol 3350 17 17 g PO DAILY PRN Constipation 03/13/23 03/13/23 History gram/dose oral powder (Miralax) spironolactone 25 mg tablet 12.5 mg PO DAILY 03/13/23 03/13/23 History tamsulosin 0.4 mg capsule 0.4 mg PO DAILY 03/13/23 03/13/23 History Patient History Medical History Atrial fibrillation HTN (hypertension) CHF (congestive heart failure) CAD (coronary artery disease) Urinary retention BPH (benign prostatic hyperplasia) History of stroke DM (diabetes mellitus), type 2 Surgical History History of coronary artery stent placement Knee joint replacement status Pacemaker Family History Other Hypertension Social History Smoking Status: Never smoker Hx Alcohol Use: No Hx Substance Use: No Preferred Language: British Communication Ability: Effective Production Coordinator Required: No Beliefs That Will Affect Care: None Current Living Situation: Spouse Other Information That Helps Us Care for You: No Feels Safe at Home: Yes Safety Concerns: Feels Safe At This Time Assistive Devices: Cane Review of Systems Review of Systems: Unobtainable due to cognitive status Physical Exam Constitutional: comfortable; no acute distress Respiratory: no respiratory distress and no labored breathing Gastrointestinal (Abdomen): Inspection/Auscultation: abdomen normal to inspection; abdomen not distended Percussion/Palpation: abdomen soft; abdomen nontender Musculoskeletal: Head/Neck/Chest: normocephalic Psychiatric: Orientation: oriented to person Genitourinary: Lopez patent and draining clear yellow urine Results & Data Vital Signs (Past 12 Hours) Vital Signs Temp Pulse Pulse Resp BP Pulse Ox O2 Del Method 03/30/23 10:22 72 03/30/23 08:03 36.6 C 73 16 162/77 H 98 Room Air 03/30/23 03:52 36.7 C 68 18 158/76 H 97 Room Air PG Care Time/CCT Total # of Minutes Spent Total Time Spent with Patient: Total time spent is greater than 50% in coordination of care (as documented) at patient's floor/unit and/or counseling patient: Coding Level of Care Code 07166 INT INP/OBS CARE 2/55MIN Diagnoses Urinary retention R33.9 Indwelling Lopez catheter present Z97.8 Complicated UTI (urinary tract infection) N39.0
[2023-03-30] MEDS: CEFEPIME 2,000 MG in SYRINGE 0 ML IV SCH (18:07)
[2023-03-30] MEDS: ACETAMINOPHEN 325 MG TAB PO PRN (20:19)
[2023-03-31] MEDS: CEFEPIME 2,000 MG in SYRINGE 0 ML IV SCH (05:37)
[2023-03-31 06:07] LABS: Basophils # (auto) 0.06 K/uL (0.00-0.20); Basophils % (auto) 1.2 %; Eosinophils # (auto) 0.19 K/uL (0.00-0.50); Eosinophils % (auto) 3.7 %; Hematocrit (blood only) 42.3 % (42.0-52.0); Hemoglobin 14.5 g/dl (14.0-18.0); Immature Granulocytes # (auto) 0.03 K/uL (0.01-0.20); Immature Granulocytes % (auto) 0.6 %; Lymphocytes # (auto) 1.03 K/uL (1.20-3.40); Lymphocytes % (auto) 19.8 %; Mean Corpuscular Hemoglobin 31.7 pg (25.0-34.0); Mean Corpuscular Hgb Conc 34.3 g/dL (32.0-36.0); Mean Corpuscular Volume 92.4 fL (80.0-100.0); Mean Platelet Volume 11.1 fL (9.4-12.4); Monocytes # (auto) 0.41 K/uL (0.11-0.59); Monocytes % (auto) 7.9 %; Neutrophils # (auto) 3.48 K/uL (1.40-6.50); Neutrophils % (auto) 66.8 %; Platelet Count 165 K/uL (130-400); RDW Coefficient of Variation 14.5 % (11.5-14.5); Red Blood Count 4.58 M/uL (4.70-6.10)
[2023-03-31 06:16] LABS: Albumin Globulin Ratio 1.3 (0.9-2); Albumin Level 3.6 gm/dl (3.4-5.0); BUN Creatinine Ratio 21.9 (10-20); Bilirubin,Total 0.6 mg/dl (0.2-1.0); Calcium 9.6 mg/dl (8.6-10.3); Est GFR (African American) 73.1 ml/min; Est GFR (Non-African American) 63.1 ml/min; Globulin 2.8 gm/dl (2.5-4.0); Potassium 4.7 mmol/L (3.5-5.1); Total Protein 6.4 gm/dl (6.0-8.3)
[2023-03-31] MEDS: APIXABAN 5 MG TABLET PO SCH ×2 (08:28→21:27)
[2023-03-31] MEDS: QUEtiapine FUMARATE 25 MG TABLET PO SCH ×2 (08:28→21:25)
[2023-03-31] MEDS: ASPIRIN 81 MG ECTAB PO SCH (08:29)
[2023-03-31] MEDS: ADVANCED PROBIOTIC 1250 MG CAPSULE PO SCH (08:30)
[2023-03-31] MEDS: TAMSULOSIN HCL 0.4 MG CAP PO SCH (08:31)
[2023-03-31] MEDS: DOCUSATE SODIUM 100 MG CAP PO SCH (08:31)
[2023-03-31] MEDS: MULTIVITAMIN TAB PO SCH (08:32)
[2023-03-31] MEDS: METOPROLOL SUCC 25MG EXT REL TAB PO SCH (08:32)
[2023-03-31] MEDS: PANTOprazole 40 MG TAB PO SCH (08:32)
[2023-03-31] MEDS: POLYETHYLENE (MIRALAX) 17 GM PACK PO SCH (08:33)
[2023-03-31] MEDS: ATORVASTATIN 20 MG TAB PO SCH (08:37)
[2023-03-31] MEDS: allopurinoL 300 MG TAB PO SCH (08:38)
[2023-03-31] MEDS: FINASTERIDE 5 MG TAB PO SCH (08:38)
[2023-03-31] MEDS: LANTUS PER UNIT CHARGE SQ SCH (09:12)
[2023-03-31] MEDS: THIAMINE HCL 200 MG in SODIUM CHLORIDE 0.9% 50 ML IV SCH (09:13)
[2023-03-31] MEDS: INSULIN ASPART PER UNIT CHARGE SC SCH ×4 (09:13→21:27)
--- NOTE | 2023-03-31 14:28 | Hospitalist Progress Note ---
Date of Service March 31, 2023 Assessment & Plan (1) Acute metabolic encephalopathy: (2) Complicated UTI (urinary tract infection): (3) Urinary retention: (4) History of stroke: (5) Atrial fibrillation: (6) HTN (hypertension): (7) CHF (congestive heart failure): (8) CAD (coronary artery disease): (9) DM (diabetes mellitus), type 2: (10) BPH (benign prostatic hyperplasia): Plan This is an 87yo M with a PMH of 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 Possible acute metabolic encephalopathy CAUTI, POA Urinary Retention, Prostate Enlargement Recently treated with outpatient Keflex during evaluation at [facility] but presented with persistent intermittent confusion, agitation History of urinary retention with recently placed Lopez a week prior to admission --CT abd/pelvis: Circumferential mucosal thickening in the bladder suggestive of cystitis. Prostate is mildly enlarged. No hydronephrosis. Sigmoid diverticulosis without acute diverticulitis. Sclerotic lesion within the posterior left iliac bone adjacent to the SI joint measuring 3 cm. 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 --C head:No acute abnormalities. Encephalomalacia is unchanged from prior exam. --EEG:This is an abnormal routine EEG in a patient with altered mentation due to generalized background slowing suggestive of a non specific encephalopathy. No epileptiform activity is seen. --Urine culture grew Stenotrophomonas maltophilia -- Blood cultures negative --Cannot get MRI brain due to incompatible pacemaker --normal TSH, homocystine, folate levels -- B1, B2, B6 levels pending Changed Zosyn to Bactrim--completed antibiotic course on 03/27/23 Currently restarted on cefepime as urinalysis was suggestive for infection. Urine culture grew yeast. Lopez was exchanged. Will discontinue antibiotic. Reorient frequently to minimize delirium Needs outpatient neuropsychology evaluation Plan to discharge to rehab facility when accepted Prostate mass Urinary Retention Sclerotic lesions in the left posterior iliac bone and T9 vertebral body CT abdomen and pelvis done today shows 1.8 cm soft tissue nodule in the prostate and 2 sclerotic foci in left posterior iliac bone and T9 vertebral body Trial of void failed on March 30, 2023 Lopez placed back again. Urologist consultation for the prostate mass; workup as outpatient Continue Lopez Resume Eliquis and aspirin PSA elevated to 40s Outpatient workup as per urology. Possible vascular dementia History of gradual decline in cognitive function CT head as above Continue Eliquis and aspirin, Lipitor Neuropsychology testing as outpatient Elevated troponin Demand ischemia Mildly elevated HS trop of 34 --> 42, likely demand ischemia in setting of infection. Echo:Mild concentric LVH, aical wall motion abnormality may reflect pacemaker activation, mild hypokinesis of inferior wall, EF 45-50% Continue usual ASA, Eliquis H/O Embolic stroke Atrial fibrillation H/O mild residual memory deficits from CVA Toprol for rate control Continue Eliquis CAD H/o stent placement but details unknown. No CP, EKG without acute ischemic changes Continue as H/o pacemaker placement Replaced in 2019. Hypertension Continue losartan, Toprol Congestive heart failure, compensated Appears euvolemic. continue usual diuretics Type 2 diabetes Hold home agents Basal insulin while in-patient BSG AC HS Readjust medications as needed BPH Chronic, stable Continue finasteride, Flomax DVT Px: Eliquis Code status: FULL CODE Disposition: Likely discharge to rehab in dementia unit. Has not required IM Zyprexa currently. Case management on board. Please note the above document was generated using voice recognition software. It may contain grammatical, syntax or spelling errors. Any formal questions or concerns about the content, text or information contained within the body of this dictation should be directly addressed to the provider for clarification Admission and Anticipated Discharge Date Admission Date: March 14, 2023 Subjective Patient seen and examined at bedside. He is comfortably sitting on the chair at the side of the bed; not in distress. He is still not fully oriented. Review of Systems Review of Systems: Unobtainable due to cognitive status Physical Exam Physical Exam: Constitutional: Awake, oriented to self. Not in distress Respiratory: Bilateral vesicular breath sound Cardiovascular: RRR, no murmur, no edema Vessels: no JVD or carotid bruit Chest: normal inspection of chest Abdomen: normal bowel sounds, soft, nontender, no hepatosplenomegaly. Lopez in place draining red urine Musculoskeletal: no cyanosis or clubbing, extremities motor strength 5/5 Skin: no rashes, warm and dry normal turgor Neurologic: Grossly moves all extremities. Awake, oriented to self and place. Results & Data Results & Data Vital Signs (Past 12 Hours) Vital Signs Temp Pulse Pulse Resp BP Pulse Ox O2 Del Method 03/31/23 11:18 36.4 C L 70 19 134/68 96 Room Air 03/31/23 11:08 70 03/31/23 08:54 36.8 C 72 19 169/92 H 99 Room Air Laboratory Results Laboratory Results WBC 5.20 K/ul (4.8-10.8) 03/31/23 05:30 RBC 4.58 M/uL (4.70-6.10) L 03/31/23 05:30 Hgb 14.5 g/dl (14.0-18.0) 03/31/23 05:30 Hct 42.3 % (42.0-52.0) 03/31/23 05:30 MCV 92.4 fL (80.0-100.0) 03/31/23 05:30 MCH 31.7 pg (25.0-34.0) 03/31/23 05:30 MCHC 34.3 g/dL (32.0-36.0) 03/31/23 05:30 RDW Std Deviation 49.0 fL (36.4-46.3) H 03/31/23 05:30 RDW Coeff of Tanmay 14.5 % (11.5-14.5) 03/31/23 05:30 Plt Count 165 K/uL (130-400) 03/31/23 05:30 MPV 11.1 fL (9.4-12.4) 03/31/23 05:30 Immature Gran % (Auto) 0.6 % 03/31/23 05:30 Neut % (Auto) 66.8 % 03/31/23 05:30 Lymph % (Auto) 19.8 % 03/31/23 05:30 [place] % (Auto) 7.9 % 03/31/23 05:30 Eos % (Auto) 3.7 % 03/31/23 05:30 Baso % (Auto) 1.2 % 03/31/23 05:30 Neut # (Auto) 3.48 K/uL (1.40-6.50) 03/31/23 05:30 Lymph # (Auto) 1.03 K/uL (1.20-3.40) L 03/31/23 05:30 [place] # (Auto) 0.41 K/uL (0.11-0.59) 03/31/23 05:30 Eos # (Auto) 0.19 K/uL (0.00-0.50) 03/31/23 05:30 Baso # (Auto) 0.06 K/uL (0.00-0.20) 03/31/23 05:30 Immature Gran # (Auto) 0.03 K/uL (0.01-0.20) 03/31/23 05:30 ESR 39 mm/hr (0-20) H 03/22/23 08:04 Sodium 138 mmol/L (136-145) 03/31/23 05:30 Potassium 4.7 mmol/L (3.5-5.1) 03/31/23 05:30 Chloride 104 mmol/L (98-107) 03/31/23 05:30 Carbon Dioxide 29 mmol/L (21-32) 03/31/23 05:30 Anion Gap 5 (3-11) 03/31/23 05:30 BUN 23 mg/dl (6-23) 03/31/23 05:30 Creatinine 1.05 mg/dl (0.6-1.4) 03/31/23 05:30 Est Cr Clr Drug Dosing 55.0 ml/min 03/31/23 05:30 Est GFR ( Amer) 73.1 ml/min 03/31/23 05:30 Est GFR (Non-Af Amer) 63.1 ml/min 03/31/23 05:30 BUN/Creatinine Ratio 21.9 (10-20) H 03/31/23 05:30 Glucose 267 mg/dl (70-99(Fasting)) H 03/31/23 05:30 POC Glucose 217 mg/dl (70-99) H 03/31/23 12:16 Estimat Average Glucose 209 mg/dl 03/14/23 05:31 Hemoglobin A1c 8.9 % (4.5-5.6) H 03/14/23 05:31 Calcium 9.6 mg/dl (8.6-10.3) 03/31/23 05:30 Phosphorus 3.9 mg/dl (2.5-4.9) 03/25/23 04:57 Total Bilirubin 0.6 mg/dl (0.2-1.0) 03/31/23 05:30 AST 22 U/L (13-39) 03/31/23 05:30 ALT 19 U/L (7-52) 03/31/23 05:30 Alkaline Phosphatase 98 U/L (34-104) 03/31/23 05:30 Ammonia 18.0 umol/L (18-72) 03/28/23 22:40 Troponin I High Sens 45.9 pg/ml (0-20) H D 03/14/23 10:49 Total Protein 6.4 gm/dl (6.0-8.3) 03/31/23 05:30 Albumin 3.6 gm/dl (3.4-5.0) 03/31/23 05:30 Globulin 2.8 gm/dl (2.5-4.0) 03/31/23 05:30 Albumin/Globulin Ratio 1.3 (0.9-2) 03/31/23 05:30 Lipase 41 U/L (11-82) 03/13/23 14:30 Prostate Specific Ag 41.765 ng/ml (0-4) H 03/30/23 14:33 Vitamin B1 20 nmol/L (8-30) 03/22/23 08:04 Vitamin B2 41.3 nmol/L (6.2-39.0) H 03/22/23 08:04 Vitamin B6 8.1 ng/mL (2.1-21.7) 03/22/23 08:04 Folate 20.81 ng/ml (>5.38) 03/22/23 08:04 Homocysteine 11.5 umol/L (<11.4) H 03/22/23 08:04 TSH 2.848 uIu/ml (0.300-4.500) 03/21/23 05:52 Urine Color Yellow 03/29/23 03:20 Urine Appearance Cloudy (Clear) A 03/29/23 03:20 Urine pH 6.0 (4.5-7.5) 03/29/23 03:20 Ur Specific [place] 1.017 (1.000-1.030) 03/29/23 03:20 Urine Protein 2+ (Negative) H 03/29/23 03:20 Urine Glucose (UA) Negative (Negative) 03/29/23 03:20 Urine Ketones 1+ (Negative) H 03/29/23 03:20 Urine Blood 2+ (Negative) H 03/29/23 03:20 Urine Nitrite Negative (Negative) 03/29/23 03:20 Urine Bilirubin Negative (Negative) 03/29/23 03:20 Urine Urobilinogen Negative (Negative) 03/29/23 03:20 Ur Leukocyte Esterase 2+ (Negative) H 03/29/23 03:20 Urine WBC (Auto) >30 /hpf (0-5) H 03/29/23 03:20 Urine RBC (Auto) 10-30 /hpf (0-4) H 03/29/23 03:20 U Hyaline Cast (Auto) 5-10 /lpf (0-5) H 03/29/23 03:20 U Epithel Cells (Auto) 0-5 /lpf (0-5) 03/29/23 03:20 Urine Bacteria (Auto) Negative (Negative) 03/29/23 03:20 Urine Yeast Budding w/ Hyphae (None Prsent) A 03/29/23 03:20 Miscellaneous Test REPORT 03/21/23 05:52 Blood Type O Negative 03/30/23 01:36 Antibody Screen NEGATIVE 03/30/23 01:[address] 03/28/23 22:32 Exam(s): CT HEAD Without Contrast EXAM: CT Head Without Intravenous Contrast CLINICAL HISTORY: Reason for exam: ams, eliquis. TECHNIQUE: Axial computed tomography images of the head/brain without intravenous contrast. Automated exposure control was utilized for the study. A dose lowering technique was utilized adhering to the principles of ALARA. COMPARISON: No relevant prior studies available. FINDINGS: No acute intracranial hemorrhage. No midline shift or mass effect. Encephalomalacia in the left parietal and temporal lobes, consistent with old infarcts. Age-related cerebral volume loss. Periventricular and subcortical white matter hypoattenuation, consistent with chronic microangiopathy. The visualized orbits appear grossly unremarkable. The calvarium is intact. The visualized paranasal sinuses and mastoid air cells are grossly clear. IMPRESSION: No acute intracranial hemorrhage, midline shift, or mass effect. Encephalomalacia in the left parietal and temporal lobes, consistent with old infarcts. Electronically signed by: Derrick Maciel MD 03/29/23 01:08 AM Chest X-Ray 03/29/23 00:42 XR chest 1V portable HISTORY: renal failure COMPARISON: Chest 03/13/2023. FINDINGS: No pneumothorax. No pleural effusions. The heart remains mildly enlarged. Left-sided pacemaker/defibrillator again noted. No evidence for pulmonary edema. A 1.5 cm nodule within the right midlung zone. No new focal lung consolidations to suggest pneumonia. No evidence for pulmonary edema. IMPRESSION: 1. No acute process within the chest. 2. Stable mild cardiomegaly. 3. There is 1.5 cm nodule within the right midlung zone. This favors a calcified granuloma. ACT 112: Negative or not required by law. Electronically signed by: Nirav Ayala M.D. 03/29/2023 7:42 AM Abdomen/Pelvis CT 03/30/23 01:[address] WITHOUT CONTRAST CT DOSE: 1786.12 mGy.cm HISTORY: hematuria TECHNIQUE: Multiaxial CT images of the abdomen and pelvis were performed without contrast. A dose lowering technique was utilized adhering to the principles of ALARA. COMPARISON STUDY: Abdomen and pelvis CT 03/13/2023. FINDINGS: There is a calcified granuloma within the right lower lobe. Bibasilar linear densities favor subsegmental atelectasis or scarring. No pneumoperitoneum. No pneumatosis. Chronic anterior wedging at T12 again noted. There is a 3 cm sclerotic focus within the left posterior iliac bone and a 1.5 cm sclerotic focus within the T9 vertebral body. These are concerning for osseous metastatic disease. There are healing bilateral lower rib fractures most pronounced on the left. This remains unchanged. Pacemaker wires are noted. The heart remains mildly enlarged. Subtle nodular contour to the liver suggestive of early cirrhosis. No definite hepatic masses on this noncontrast study. The gallbladder surgically absent. This likely accounts for the common bile duct dilatation which remains unchanged. The unenhanced spleen, adrenal glands, and pancreas are unremarkable. No renal or ureteral stones. No hydronephrosis. Left renal hypodense lesions remain stable and favor cysts. No retroperitoneal lymphadenopathy. Calcified plaque within the normal caliber abdominal aorta. No pelvic lymphadenopathy or pelvic free fluid. Colonic diverticulosis. No evidence for acute diverticulitis. No bowel wall thickening or obstruction. Normal appendix. The bladder is decompressed by Lopez catheter which appears in good position. Gas within the bladder lumen is likely due to the catheterization. The re is moderate bladder wall thickening with adjacent fat stranding. This is similar to the prior study and is consistent with a nonspecific cystitis. The prostate gland is mildly enlarged. There is a 1.8 cm lobular soft tissue density extending from the right posterior lateral peripheral zone of the prostate gland best seen image 328. This is highly suspicious for a prostate malignancy. IMPRESSION: 1. Persistent bladder wall thickening with adjacent fat stranding. This is consistent with a nonspecific cystitis. 2. The bladder is decompressed by Lopez catheter appears in good position. 3. A 1.8 cm soft tissue nodule extending from within the right posterolateral peripheral zone of the prostate gland. This is highly suspicious for a prostate malignancy. 4. There are 2 sclerotic foci within the left posterior iliac bone and T9 vertebral body which are highly suspicious for osseous metastatic disease. 5. No renal or ureteral stones. No hydronephrosis. 6. Additional findings as described above. ACT 112: Negative or not required by law. Electronically signed by: Nirav Ayala M.D. 03/30/2023 11:58 AM
[2023-04-01 07:17] LABS: Basophils # (auto) 0.07 K/uL (0.00-0.20); Basophils % (auto) 1.2 %; Eosinophils # (auto) 0.16 K/uL (0.00-0.50); Eosinophils % (auto) 2.8 %; Hematocrit (blood only) 41.6 % (42.0-52.0); Hemoglobin 14.2 g/dl (14.0-18.0); Immature Granulocytes # (auto) 0.05 K/uL (0.01-0.20); Immature Granulocytes % (auto) 0.9 %; Lymphocytes % (auto) 17.3 %; Mean Corpuscular Hemoglobin 31.5 pg (25.0-34.0); Mean Corpuscular Hgb Conc 34.1 g/dL (32.0-36.0); Mean Corpuscular Volume 92.2 fL (80.0-100.0); Mean Platelet Volume 11.2 fL (9.4-12.4); Monocytes # (auto) 0.43 K/uL (0.11-0.59); Monocytes % (auto) 7.4 %; Neutrophils # (auto) 4.08 K/uL (1.40-6.50); Neutrophils % (auto) 70.4 %; Platelet Count 163 K/uL (130-400); RDW Coefficient of Variation 14.5 % (11.5-14.5); Red Blood Count 4.51 M/uL (4.70-6.10); White Blood Count 5.79 K/ul (4.8-10.8)
[2023-04-01 07:44] LABS: Albumin Globulin Ratio 1.3 (0.9-2); Albumin Level 3.4 gm/dl (3.4-5.0); BUN Creatinine Ratio 25.5 (10-20); Bilirubin,Total 0.6 mg/dl (0.2-1.0); Calcium 9.3 mg/dl (8.6-10.3); Creatinine Clr Calc Pharmacy 56.6 ml/min; Est GFR (African American) 75.7 ml/min; Est GFR (Non-African American) 65.3 ml/min; Globulin 2.6 gm/dl (2.5-4.0); Potassium 4.1 mmol/L (3.5-5.1)
[2023-04-01] MEDS: allopurinoL 300 MG TAB PO SCH (08:28)
[2023-04-01] MEDS: FINASTERIDE 5 MG TAB PO SCH (08:28)
[2023-04-01] MEDS: POLYETHYLENE (MIRALAX) 17 GM PACK PO SCH (08:28)
[2023-04-01] MEDS: MULTIVITAMIN TAB PO SCH (08:29)
[2023-04-01] MEDS: ASPIRIN 81 MG ECTAB PO SCH (08:29)
[2023-04-01] MEDS: ADVANCED PROBIOTIC 1250 MG CAPSULE PO SCH (08:30)
[2023-04-01] MEDS: METOPROLOL SUCC 25MG EXT REL TAB PO SCH (08:30)
[2023-04-01] MEDS: TAMSULOSIN HCL 0.4 MG CAP PO SCH (08:30)
[2023-04-01] MEDS: APIXABAN 5 MG TABLET PO SCH ×2 (08:31→21:58)
[2023-04-01] MEDS: PANTOprazole 40 MG TAB PO SCH (08:31)
[2023-04-01] MEDS: DOCUSATE SODIUM 100 MG CAP PO SCH (08:31)
[2023-04-01] MEDS: ATORVASTATIN 20 MG TAB PO SCH (08:32)
[2023-04-01] MEDS: THIAMINE HCL 200 MG in SODIUM CHLORIDE 0.9% 50 ML IV SCH (08:52)
[2023-04-01] MEDS: QUEtiapine FUMARATE 25 MG TABLET PO SCH ×2 (09:15→21:56)
[2023-04-01] MEDS: INSULIN ASPART PER UNIT CHARGE SC SCH ×4 (09:21→21:21)
[2023-04-01] MEDS: LANTUS PER UNIT CHARGE SQ SCH ×2 (09:21→21:21)
--- NOTE | 2023-04-01 12:44 | Hospitalist Progress Note ---
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 Possible acute metabolic encephalopathy CAUTI, POA Urinary Retention, Prostate Enlargement Recently treated with outpatient Keflex during evaluation at [facility] but presented with persistent intermittent confusion, agitation History of urinary retention with recently placed Lopez a week prior to admission --CT abd/pelvis: Circumferential mucosal thickening in the bladder suggestive of cystitis. Prostate is mildly enlarged. No hydronephrosis. Sigmoid diverticulosis without acute diverticulitis. Sclerotic lesion within the posterior left iliac bone adjacent to the SI joint measuring 3 cm. 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 --C head:No acute abnormalities. Encephalomalacia is unchanged from prior exam. --EEG:This is an abnormal routine EEG in a patient with altered mentation due to generalized background slowing suggestive of a non specific encephalopathy. No epileptiform activity is seen. --Urine culture grew Stenotrophomonas maltophilia -- Blood cultures negative --Cannot get MRI brain due to incompatible pacemaker --normal TSH, homocystine, folate levels -- B1, B2, B6 levels pending Changed Zosyn to Bactrim--completed antibiotic course on 03/27/23 Currently restarted on cefepime as urinalysis was suggestive for infection. Urine culture grew yeast. Lopez was exchanged. Will discontinue antibiotic. Reorient frequently to minimize delirium Needs outpatient neuropsychology evaluation Plan to discharge to rehab facility when accepted Prostate mass Urinary Retention Sclerotic lesions in the left posterior iliac bone and T9 vertebral body CT abdomen and pelvis done today shows 1.8 cm soft tissue nodule in the prostate and 2 sclerotic foci in left posterior iliac bone and T9 vertebral body Trial of void failed on March 30, 2023 Lopez placed back again. Urologist consultation for the prostate mass; workup as outpatient Continue Lopez Resume Eliquis and aspirin PSA elevated to 40s Outpatient workup as per urology. Possible vascular dementia History of gradual decline in cognitive function CT head as above Continue Eliquis and aspirin, Lipitor Neuropsychology testing as outpatient Elevated troponin Demand ischemia Mildly elevated HS trop of 34 --> 42, likely demand ischemia in setting of infection. Echo:Mild concentric LVH, aical wall motion abnormality may reflect pacemaker activation, mild hypokinesis of inferior wall, EF 45-50% Continue usual ASA, Eliquis H/O Embolic stroke Atrial fibrillation H/O mild residual memory deficits from CVA Toprol for rate control Continue Eliquis CAD H/o stent placement but details unknown. No CP, EKG without acute ischemic changes Continue as H/o pacemaker placement Replaced in 2019. Hypertension Continue losartan, Toprol Congestive heart failure, compensated Appears euvolemic. continue usual diuretics Type 2 diabetes Hold home agents Basal insulin while in-patient BSG AC HS Readjust medications as needed BPH Chronic, stable Continue finasteride, Flomax DVT Px: Eliquis Code status: FULL CODE Disposition: Likely discharge to rehab in dementia unit. Has not required IM Zyprexa currently. Case management on board. Time spent evaluating patient, direct bedside care, chart review, placing orders, interpretation of diagnostic studies, discussion with consultants, patient, and family members, as well as other required patient management activities is 50-minutes Please note the above document was generated using voice recognition software. It may contain grammatical, syntax or spelling errors. Any formal questions or concerns about the content, text or information contained within the body of this dictation should be directly addressed to the provider for clarification Admission and Anticipated Discharge Date Admission Date: March 14, 2023 Subjective Patient seen and examined at bedside. He appears to be oriented to self and recognizes his . Not in any distress. Did not require IM Zyprexa overnight. Review of Systems Review of Systems: Unobtainable due to cognitive status Physical Exam Physical Exam: Constitutional: Awake, oriented to self. Not in distress Respiratory: Bilateral vesicular breath sound Cardiovascular: RRR, no murmur, no edema Vessels: no JVD or carotid bruit Chest: normal inspection of chest Abdomen: normal bowel sounds, soft, nontender, no hepatosplenomegaly. Lopez in place draining red urine Musculoskeletal: no cyanosis or clubbing, extremities motor strength 5/5 Skin: no rashes, warm and dry normal turgor Neurologic: Grossly moves all extremities. Awake, oriented to self and place. Results & Data Results & Data Vital Signs (Past 12 Hours) Vital Signs Temp Pulse Resp BP Pulse Ox O2 Del Method 04/01/23 07:23 36.8 C 70 17 162/84 H 95 Room Air Laboratory Results Laboratory Results WBC 5.79 K/ul (4.8-10.8) 04/01/23 06:13 RBC 4.51 M/uL (4.70-6.10) L 04/01/23 06:13 Hgb 14.2 g/dl (14.0-18.0) 04/01/23 06:13 Hct 41.6 % (42.0-52.0) L 04/01/23 06:13 MCV 92.2 fL (80.0-100.0) 04/01/23 06:13 MCH 31.5 pg (25.0-34.0) 04/01/23 06:13 MCHC 34.1 g/dL (32.0-36.0) 04/01/23 06:13 RDW Std Deviation 49.0 fL (36.4-46.3) H 04/01/23 06:13 RDW Coeff of [place]may 14.5 % (11.5-14.5) 04/01/23 06:13 Plt Count 163 K/uL (130-400) 04/01/23 06:13 MPV 11.2 fL (9.4-12.4) 04/01/23 06:13 Immature Gran % (Auto) 0.9 % 04/01/23 06:13 Neut % (Auto) 70.4 % 04/01/23 06:13 Lymph % (Auto) 17.3 % 04/01/23 06:13 [place] % (Auto) 7.4 % 04/01/23 06:13 Eos % (Auto) 2.8 % 04/01/23 06:13 Baso % (Auto) 1.2 % 04/01/23 06:13 Neut # (Auto) 4.08 K/uL (1.40-6.50) 04/01/23 06:13 Lymph # (Auto) 1.00 K/uL (1.20-3.40) L 04/01/23 06:13 [place] # (Auto) 0.43 K/uL (0.11-0.59) 04/01/23 06:13 Eos # (Auto) 0.16 K/uL (0.00-0.50) 04/01/23 06:13 Baso # (Auto) 0.07 K/uL (0.00-0.20) 04/01/23 06:13 Immature Gran # (Auto) 0.05 K/uL (0.01-0.20) 04/01/23 06:13 ESR 39 mm/hr (0-20) H 03/22/23 08:04 Sodium 137 mmol/L (136-145) 04/01/23 06:13 Potassium 4.1 mmol/L (3.5-5.1) 04/01/23 06:13 Chloride 104 mmol/L (98-107) 04/01/23 06:13 Carbon Dioxide 25 mmol/L (21-32) 04/01/23 06:13 Anion Gap 8 (3-11) 04/01/23 06:13 BUN 26 mg/dl (6-23) H 04/01/23 06:13 Creatinine 1.02 mg/dl (0.6-1.4) 04/01/23 06:13 Est Cr Clr Drug Dosing 56.6 ml/min 04/01/23 06:13 Est GFR ( Amer) 75.7 ml/min 04/01/23 06:13 Est GFR (Non-Af Amer) 65.3 ml/min 04/01/23 06:13 BUN/Creatinine Ratio 25.5 (10-20) H 04/01/23 06:13 Glucose 262 mg/dl (70-99(Fasting)) H 04/01/23 06:13 POC Glucose 268 mg/dl (70-99) H 04/01/23 11:53 Estimat Average Glucose 209 mg/dl 03/14/23 05:31 Hemoglobin A1c 8.9 % (4.5-5.6) H 03/14/23 05:31 Calcium 9.3 mg/dl (8.6-10.3) 04/01/23 06:13 Phosphorus 3.9 mg/dl (2.5-4.9) 03/25/23 04:57 Total Bilirubin 0.6 mg/dl (0.2-1.0) 04/01/23 06:13 AST 20 U/L (13-39) 04/01/23 06:13 ALT 19 U/L (7-52) 04/01/23 06:13 Alkaline Phosphatase 96 U/L (34-104) 04/01/23 06:13 Ammonia 18.0 umol/L (18-72) 03/28/23 22:40 Troponin I High Sens 45.9 pg/ml (0-20) H D 03/14/23 10:49 Total Protein 6.0 gm/dl (6.0-8.3) 04/01/23 06:13 Albumin 3.4 gm/dl (3.4-5.0) 04/01/23 06:13 Globulin 2.6 gm/dl (2.5-4.0) 04/01/23 06:13 Albumin/Globulin Ratio 1.3 (0.9-2) 04/01/23 06:13 Lipase 41 U/L (11-82) 03/13/23 14:30 Prostate Specific Ag 41.765 ng/ml (0-4) H 03/30/23 14:33 Vitamin B1 20 nmol/L (8-30) 03/22/23 08:04 Vitamin B2 41.3 nmol/L (6.2-39.0) H 03/22/23 08:04 Vitamin B6 8.1 ng/mL (2.1-21.7) 03/22/23 08:04 Folate 20.81 ng/ml (>5.38) 03/22/23 08:04 Homocysteine 11.5 umol/L (<11.4) H 03/22/23 08:04 TSH 2.848 uIu/ml (0.300-4.500) 03/21/23 05:52 Urine Color Yellow 03/29/23 03:20 Urine Appearance Cloudy (Clear) A 03/29/23 03:20 Urine pH 6.0 (4.5-7.5) 03/29/23 03:20 Ur Specific [place] 1.017 (1.000-1.030) 03/29/23 03:20 Urine Protein 2+ (Negative) H 03/29/23 03:20 Urine Glucose (UA) Negative (Negative) 03/29/23 03:20 Urine Ketones 1+ (Negative) H 03/29/23 03:20 Urine Blood 2+ (Negative) H 03/29/23 03:20 Urine Nitrite Negative (Negative) 03/29/23 03:20 Urine Bilirubin Negative (Negative) 03/29/23 03:20 Urine Urobilinogen Negative (Negative) 03/29/23 03:20 Ur Leukocyte Esterase 2+ (Negative) H 03/29/23 03:20 Urine WBC (Auto) >30 /hpf (0-5) H 03/29/23 03:20 Urine RBC (Auto) 10-30 /hpf (0-4) H 03/29/23 03:20 U Hyaline Cast (Auto) 5-10 /lpf (0-5) H 03/29/23 03:20 U Epithel Cells (Auto) 0-5 /lpf (0-5) 03/29/23 03:20 Urine Bacteria (Auto) Negative (Negative) 03/29/23 03:20 Urine Yeast Budding w/ Hyphae (None Prsent) A 03/29/23 03:20 Miscellaneous Test REPORT 03/21/23 05:52 Blood Type O Negative 03/30/23 01:36 Antibody Screen NEGATIVE 03/30/23 01:[address] 03/28/23 22:32 Exam(s): CT HEAD Without Contrast EXAM: CT Head Without Intravenous Contrast CLINICAL HISTORY: Reason for exam: ams, eliquis. TECHNIQUE: Axial computed tomography images of the head/brain without intravenous contrast. Automated exposure control was utilized for the study. A dose lowering technique was utilized adhering to the principles of ALARA. COMPARISON: No relevant prior studies available. FINDINGS: No acute intracranial hemorrhage. No midline shift or mass effect. Encephalomalacia in the left parietal and temporal lobes, consistent with old infarcts. Age-related cerebral volume loss. Periventricular and subcortical white matter hypoattenuation, consistent with chronic microangiopathy. The visualized orbits appear grossly unremarkable. The calvarium is intact. The visualized paranasal sinuses and mastoid air cells are grossly clear. IMPRESSION: No acute intracranial hemorrhage, midline shift, or mass effect. Encephalomalacia in the left parietal and temporal lobes, consistent with old infarcts. Electronically signed by: Derrick Maciel MD 03/29/23 01:08 AM Chest X-Ray 03/29/23 00:42 XR chest 1V portable HISTORY: renal failure COMPARISON: Chest 03/13/2023. FINDINGS: No pneumothorax. No pleural effusions. The heart remains mildly enlarged. Left-sided pacemaker/defibrillator again noted. No evidence for pulmonary edema. A 1.5 cm nodule within the right midlung zone. No new focal lung consolidations to suggest pneumonia. No evidence for pulmonary edema. IMPRESSION: 1. No acute process within the chest. 2. Stable mild cardiomegaly. 3. There is 1.5 cm nodule within the right midlung zone. This favors a calcified granuloma. ACT 112: Negative or not required by law. Electronically signed by: Nirav Ayala M.D. 03/29/2023 7:42 AM Abdomen/Pelvis CT 03/30/23 01:[address] WITHOUT CONTRAST CT DOSE: 1786.12 mGy.cm HISTORY: hematuria TECHNIQUE: Multiaxial CT images of the abdomen and pelvis were performed without contrast. A dose lowering technique was utilized adhering to the principles of ALARA. COMPARISON STUDY: Abdomen and pelvis CT 03/13/2023. FINDINGS: There is a calcified granuloma within the right lower lobe. Bibasilar linear densities favor subsegmental atelectasis or scarring. No pneumoperitoneum. No pneumatosis. Chronic anterior wedging at T12 again noted. There is a 3 cm sclerotic focus within the left posterior iliac bone and a 1.5 cm sclerotic focus within the T9 vertebral body. These are concerning for osseous metastatic disease. There are healing bilateral lower rib fractures most pronounced on the left. This remains unchanged. Pacemaker wires are noted. The heart remains mildly enlarged. Subtle nodular contour to the liver suggestive of early cirrhosis. No definite hepatic masses on this noncontrast study. The gallbladder surgically absent. This likely accounts for the common bile duct dilatation which remains unchanged. The unenhanced spleen, adrenal glands, and pancreas are unremarkable. No renal or ureteral stones. No hydronephrosis. Left renal hypodense lesions remain stable and favor cysts. No retroperitoneal lymphadenopathy. Calcified plaque within the normal caliber abdominal aorta. No pelvic lymphadenopathy or pelvic free fluid. Colonic diverticulosis. No evidence for acute diverticulitis. No bowel wall thickening or obstruction. Normal appendix. The bladder is decompressed by Lopez catheter which appears in good position. Gas within the bladder lumen is likely due to the catheterization. There is moderate bladder wall thickening with adjacent fat stranding. This is similar to the prior study and is consistent with a nonspecific cystitis. The prostate gland is mildly enlarged. There is a 1.8 cm lobular soft tissue density extending from the right posterior lateral peripheral zone of the prostate gland best seen image 328. This is highly suspicious for a prostate malignancy. IMPRESSION: 1. Persistent bladder wall thickening with adjacent fat stranding. This is consistent with a nonspecific cystitis. 2. The bladder is decompressed by Lopez catheter appears in good position. 3. A 1.8 cm soft tissue nodule extending from within the right posterolateral peripheral zone of the prostate gland. This is highly suspicious for a prostate malignancy. 4. There are 2 sclerotic foci within the left posterior iliac bone and T9 vertebral body which are highly suspicious for osseous metastatic disease. 5. No renal or ureteral stones. No hydronephrosis. 6. Additional findings as described above. ACT 112: Negative or not required by law. Electronically signed by: Nirav Ayala M.D. 03/30/2023 11:58 AM
[2023-04-02 08:43] LABS: Basophils # (auto) 0.06 K/uL (0.00-0.20); Eosinophils # (auto) 0.25 K/uL (0.00-0.50); Eosinophils % (auto) 4.2 %; Hematocrit (blood only) 40.4 % (42.0-52.0); Immature Granulocytes # (auto) 0.04 K/uL (0.01-0.20); Immature Granulocytes % (auto) 0.7 %; Lymphocytes # (auto) 1.13 K/uL (1.20-3.40); Lymphocytes % (auto) 19.1 %; Mean Corpuscular Hemoglobin 31.4 pg (25.0-34.0); Mean Corpuscular Hgb Conc 34.7 g/dL (32.0-36.0); Mean Corpuscular Volume 90.6 fL (80.0-100.0); Mean Platelet Volume 11.4 fL (9.4-12.4); Monocytes # (auto) 0.38 K/uL (0.11-0.59); Monocytes % (auto) 6.4 %; Neutrophils # (auto) 4.07 K/uL (1.40-6.50); Neutrophils % (auto) 68.6 %; Platelet Count 156 K/uL (130-400); RDW Coefficient of Variation 14.5 % (11.5-14.5); RDW Standard Deviation 48.2 fL (36.4-46.3); Red Blood Count 4.46 M/uL (4.70-6.10); White Blood Count 5.93 K/ul (4.8-10.8)
[2023-04-02 08:56] LABS: Albumin Globulin Ratio 1.3 (0.9-2); Albumin Level 3.3 gm/dl (3.4-5.0); Bilirubin,Total 0.6 mg/dl (0.2-1.0); Calcium 9.2 mg/dl (8.6-10.3); Creatinine Clr Calc Pharmacy 70.4 ml/min; Est GFR (African American) 91.5 ml/min; Globulin 2.5 gm/dl (2.5-4.0); Potassium 3.8 mmol/L (3.5-5.1); Total Protein 5.8 gm/dl (6.0-8.3)
[2023-04-02] MEDS: PANTOprazole 40 MG TAB PO SCH (09:17)
[2023-04-02] MEDS: APIXABAN 5 MG TABLET PO SCH ×2 (09:17→20:49)
[2023-04-02] MEDS: DOCUSATE SODIUM 100 MG CAP PO SCH (09:17)
[2023-04-02] MEDS: ATORVASTATIN 20 MG TAB PO SCH (09:18)
[2023-04-02] MEDS: QUEtiapine FUMARATE 25 MG TABLET PO SCH ×2 (09:18→20:50)
[2023-04-02] MEDS: FINASTERIDE 5 MG TAB PO SCH (09:18)
[2023-04-02] MEDS: TAMSULOSIN HCL 0.4 MG CAP PO SCH (09:18)
[2023-04-02] MEDS: ADVANCED PROBIOTIC 1250 MG CAPSULE PO SCH (09:18)
[2023-04-02] MEDS: ASPIRIN 81 MG ECTAB PO SCH (09:19)
[2023-04-02] MEDS: allopurinoL 300 MG TAB PO SCH (09:19)
[2023-04-02] MEDS: METOPROLOL SUCC 25MG EXT REL TAB PO SCH (09:19)
[2023-04-02] MEDS: POLYETHYLENE (MIRALAX) 17 GM PACK PO SCH (09:19)
[2023-04-02] MEDS: LOSARTAN POTASSIUM 25 MG TAB PO SCH (09:20)
[2023-04-02] MEDS: MULTIVITAMIN TAB PO SCH (09:20)
[2023-04-02] MEDS: INSULIN ASPART PER UNIT CHARGE SC SCH ×4 (09:29→20:49)
[2023-04-02] MEDS: LANTUS PER UNIT CHARGE SQ SCH ×2 (09:29→20:49)
--- NOTE | 2023-04-02 13:48 | Hospitalist Progress Note ---
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 Possible acute metabolic encephalopathy CAUTI, POA Urinary Retention, Prostate Enlargement Recently treated with outpatient Keflex during evaluation at [facility] but presented with persistent intermittent confusion, agitation History of urinary retention with recently placed Lopez a week prior to admission --CT abd/pelvis: Circumferential mucosal thickening in the bladder suggestive of cystitis. Prostate is mildly enlarged. No hydronephrosis. Sigmoid diverticulosis without acute diverticulitis. Sclerotic lesion within the posterior left iliac bone adjacent to the SI joint measuring 3 cm. 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 --C head:No acute abnormalities. Encephalomalacia is unchanged from prior exam. --EEG:This is an abnormal routine EEG in a patient with altered mentation due to generalized background slowing suggestive of a non specific encephalopathy. No epileptiform activity is seen. --Urine culture grew Stenotrophomonas maltophilia -- Blood cultures negative --Cannot get MRI brain due to incompatible pacemaker --normal TSH, homocystine, folate levels -- B1, B2, B6 levels pending Changed Zosyn to Bactrim--completed antibiotic course on 03/27/23 Currently restarted on cefepime as urinalysis was suggestive for infection. Urine culture grew yeast. Lopez was exchanged. Will discontinue antibiotic. Reorient frequently to minimize delirium Needs outpatient neuropsychology evaluation Plan to discharge to rehab facility when accepted Prostate mass Urinary Retention Sclerotic lesions in the left posterior iliac bone and T9 vertebral body CT abdomen and pelvis done today shows 1.8 cm soft tissue nodule in the prostate and 2 sclerotic foci in left posterior iliac bone and T9 vertebral body Trial of void failed on March 30, 2023 Lopez placed back again. Urologist consultation for the prostate mass; workup as outpatient Continue Lopez Resume Eliquis and aspirin PSA elevated to 40s Outpatient workup as per urology. Possible vascular dementia History of gradual decline in cognitive function CT head as above Continue Eliquis and aspirin, Lipitor Neuropsychology testing as outpatient Elevated troponin Demand ischemia Mildly elevated HS trop of 34 --> 42, likely demand ischemia in setting of infection. Echo:Mild concentric LVH, aical wall motion abnormality may reflect pacemaker activation, mild hypokinesis of inferior wall, EF 45-50% Continue usual ASA, Eliquis H/O Embolic stroke Atrial fibrillation H/O mild residual memory deficits from CVA Toprol for rate control Continue Eliquis CAD H/o stent placement but details unknown. No CP, EKG without acute ischemic changes Continue as H/o pacemaker placement Replaced in 2019. Hypertension Continue losartan, Toprol Congestive heart failure, compensated Appears euvolemic. continue usual diuretics Type 2 diabetes Hold home agents Basal insulin while in-patient BSG AC HS Readjust medications as needed BPH Chronic, stable Continue finasteride, Flomax DVT Px: Eliquis Code status: FULL CODE Disposition: Likely discharge to rehab in dementia unit. Has not required IM Zyprexa currently. Case management on board. Please note the above document was generated using voice recognition software. It may contain grammatical, syntax or spelling errors. Any formal questions or concerns about the content, text or information contained within the body of this dictation should be directly addressed to the provider for clarification Admission and Anticipated Discharge Date Admission Date: March 14, 2023 Subjective Patient cooperative and calm. Has not required IM Zyprexa Requires reorientation. Review of Systems Review of Systems: All systems reviewed & are unremarkable except as noted in Subjective Physical Exam Physical Exam: Constitutional: Awake, oriented to self and place. Not in distress Respiratory: Bilateral vesicular breath sound Cardiovascular: RRR, no murmur, no edema Vessels: no JVD or carotid bruit Chest: normal inspection of chest Abdomen: normal bowel sounds, soft, nontender, no hepatosplenomegaly. Lopez in place draining red urine Musculoskeletal: no cyanosis or clubbing, extremities motor strength 5/5 Skin: no rashes, warm and dry normal turgor Neurologic: Grossly moves all extremities. Awake, oriented to self and place. Results & Data Results & Data Vital Signs (Past 12 Hours) Vital Signs Temp Pulse Resp BP Pulse Ox O2 Del Method 04/02/23 11:21 36.6 C 71 20 123/67 96 Room Air 04/02/23 07:32 36.8 C 70 20 165/85 H 97 Room Air Laboratory Results Laboratory Results WBC 5.93 K/ul (4.8-10.8) 04/02/23 08:23 RBC 4.46 M/uL (4.70-6.10) L 04/02/23 08:23 Hgb 14.0 g/dl (14.0-18.0) 04/02/23 08:23 Hct 40.4 % (42.0-52.0) L 04/02/23 08:23 MCV 90.6 fL (80.0-100.0) 04/02/23 08: MCH 31.4 pg (25.0-34.0) 04/02/23 08: MCHC 34.7 g/dL (32.0-36.0) 04/02/23 08:23 RDW Std Deviation 48.2 fL (36.4-46.3) H 04/02/23 08:23 RDW Coeff of [place] 14.5 % (11.5-14.5) 04/02/23 08: Plt Count 156 K/uL (130-400) 04/02/23 08:23 MPV 11.4 fL (9.4-12.4) 04/02/23 08:23 Immature Gran % (Auto) 0.7 % 04/02/23 08:23 Neut % (Auto) 68.6 % 04/02/23 08:23 Lymph % (Auto) 19.1 % 04/02/23 08:23 [place] % (Auto) 6.4 % 04/02/23 08:23 Eos % (Auto) 4.2 % 04/02/23 08: Baso % (Auto) 1.0 % 04/02/23 08: Neut # (Auto) 4.07 K/uL (1.40-6.50) 04/02/23 08:23 Lymph # (Auto) 1.13 K/uL (1.20-3.40) L 04/02/23 08:23 [place] # (Auto) 0.38 K/uL (0.11-0.59) 04/02/23 08:23 Eos # (Auto) 0.25 K/uL (0.00-0.50) 04/02/23 08:23 Baso # (Auto) 0.06 K/uL (0.00-0.20) 04/02/23 08:23 Immature Gran # (Auto) 0.04 K/uL (0.01-0.20) 04/02/23 08:23 ESR 39 mm/hr (0-20) H 03/22/23 08:04 Sodium 139 mmol/L (136-145) 04/02/23 08:23 Potassium 3.8 mmol/L (3.5-5.1) 04/02/23 08:23 Chloride 106 mmol/L (98-107) 04/02/23 08:23 Carbon Dioxide 28 mmol/L (21-32) 04/02/23 08:23 Anion Gap 5 (3-11) 04/02/23 08:23 BUN 23 mg/dl (6-23) 04/02/23 08:23 Creatinine 0.82 mg/dl (0.6-1.4) 04/02/23 08:23 Est Cr Clr Drug Dosing 70.4 ml/min 04/02/23 08:23 Est GFR ( Amer) 91.5 ml/min 04/02/23 08:23 Est GFR (Non-Af Amer) 79.0 ml/min 04/02/23 08:23 BUN/Creatinine Ratio 28.0 (10-20) H 04/02/23 08:23 Glucose 216 mg/dl (70-99(Fasting)) H 04/02/23 08:23 POC Glucose 260 mg/dl (70-99) H 04/02/23 12:53 Estimat Average Glucose 209 mg/dl 03/14/23 05:31 Hemoglobin A1c 8.9 % (4.5-5.6) H 03/14/23 05:31 Calcium 9.2 mg/dl (8.6-10.3) 04/02/23 08:23 Phosphorus 3.9 mg/dl (2.5-4.9) 03/25/23 04:57 Total Bilirubin 0.6 mg/dl (0.2-1.0) 04/02/23 08:23 AST 21 U/L (13-39) 04/02/23 08:23 ALT 19 U/L (7-52) 04/02/23 08:23 Alkaline Phosphatase 87 U/L (34-104) 04/02/23 08:23 Ammonia 18.0 umol/L (18-72) 03/28/23 22:40 Troponin I High Sens 45.9 pg/ml (0-20) H D 03/14/23 10:49 Total Protein 5.8 gm/dl (6.0-8.3) L 04/02/23 08:23 Albumin 3.3 gm/dl (3.4-5.0) L 04/02/23 08: Globulin 2.5 gm/dl (2.5-4.0) 04/02/23 08: Albumin/Globulin Ratio 1.3 (0.9-2) 04/02/23 08:23 Lipase 41 U/L (11-82) 03/13/23 14:30 Prostate Specific Ag 41.765 ng/ml (0-4) H 03/30/23 14:33 Vitamin B1 20 nmol/L (8-30) 03/22/23 08:04 Vitamin B2 41.3 nmol/L (6.2-39.0) H 03/22/23 08:04 Vitamin B6 8.1 ng/mL (2.1-21.7) 03/22/23 08:04 Folate 20.81 ng/ml (>5.38) 03/22/23 08:04 Homocysteine 11.5 umol/L (<11.4) H 03/22/23 08:04 TSH 2.848 uIu/ml (0.300-4.500) 03/21/23 05:52 Urine Color Yellow 03/29/23 03:20 Urine Appearance Cloudy (Clear) A 03/29/23 03:20 Urine pH 6.0 (4.5-7.5) 03/29/23 03:20 Ur Specific [place] 1.017 (1.000-1.030) 03/29/23 03:20 Urine Protein 2+ (Negative) H 03/29/23 03:20 Urine Glucose (UA) Negative (Negative) 03/29/23 03:20 Urine Ketones 1+ (Negative) H 03/29/23 03:20 Urine Blood 2+ (Negative) H 03/29/23 03:20 Urine Nitrite Negative (Negative) 03/29/23 03:20 Urine Bilirubin Negative (Negative) 03/29/23 03:20 Urine Urobilinogen Negative (Negative) 03/29/23 03:20 Ur Leukocyte Esterase 2+ (Negative) H 03/29/23 03:20 Urine WBC (Auto) >30 /hpf (0-5) H 03/29/23 03:20 Urine RBC (Auto) 10-30 /hpf (0-4) H 03/29/23 03:20 U Hyaline Cast (Auto) 5-10 /lpf (0-5) H 03/29/23 03:20 U Epithel Cells (Auto) 0-5 /lpf (0-5) 03/29/23 03:20 Urine Bacteria (Auto) Negative (Negative) 03/29/23 03:20 Urine Yeast Budding w/ Hyphae (None Prsent) A 03/29/23 03:20 Miscellaneous Test REPORT 03/21/23 05:52 Blood Type O Negative 03/30/23 01:36 Antibody Screen NEGATIVE 03/30/23 01:[address] 03/28/23 22:32 Exam(s): CT HEAD Without Contrast EXAM: CT Head Without Intravenous Contrast CLINICAL HISTORY: Reason for exam: ams, eliquis. TECHNIQUE: Axial computed tomography images of the head/brain without intravenous contrast. Automated exposure control was utilized for the study. A dose lowering technique was utilized adhering to the principles of ALARA. COMPARISON: No relevant prior studies available. FINDINGS: No acute intracranial hemorrhage. No midline shift or mass effect. Encephalomalacia in the left parietal and temporal lobes, consistent with old infarcts. Age-related cerebral volume loss. Periventricular and subcortical white matter hypoattenuation, consistent with chronic microangiopathy. The visualized orbits appear grossly unremarkable. The calvarium is intact. The visualized paranasal sinuses and mastoid air cells are grossly clear. IMPRESSION: No acute intracranial hemorrhage, midline shift, or mass effect. Encephalomalacia in the left parietal and temporal lobes, consistent with old infarcts. Electronically signed by: Derrick Maciel MD 03/29/23 01:08 AM Chest X-Ray 03/29/23 00:42 XR chest 1V portable HISTORY: renal failure COMPARISON: Chest 03/13/2023. FINDINGS: No pneumothorax. No pleural effusions. The heart remains mildly enlarged. Left-sided pacemaker/defibrillator again noted. No evidence for pulmonary edema. A 1.5 cm nodule within the right midlung zone. No new focal lung consolidations to suggest pneumonia. No evidence for pulmonary edema. IMPRESSION: 1. No acute process within the chest. 2. Stable mild cardiomegaly. 3. There is 1.5 cm nodule within the right midlung zone. This favors a calcified granuloma. ACT 112: Negative or not required by law. Electronically signed by: Nirav Ayala M.D. 03/29/2023 7:42 AM Abdomen/Pelvis CT 03/30/23 01:[address] WITHOUT CONTRAST CT DOSE: 1786.12 mGy.cm HISTORY: hematuria TECHNIQUE: Multiaxial CT images of the abdomen and pelvis were performed without contrast. A dose lowering technique was utilized adhering to the principles of ALARA. COMPARISON STUDY: Abdomen and pelvis CT 03/13/2023. FINDINGS: There is a calcified granuloma within the right lower lobe. Bibasilar linear densities favor subsegmental atelectasis or scarring. No pneumoperitoneum. No pneumatosis. Chronic anterior wedging at T12 again noted. There is a 3 cm sclerotic focus within the left posterior iliac bone and a 1.5 cm sclerotic focus within the T9 vertebral body. These are concerning for osseous metastatic disease. There are healing bilateral lower rib fractures most pronounced on the left. This remains unchanged. Pacemaker wires are noted. The heart remains mildly enlarged. Subtle nodular contour to the liver suggestive of early cirrhosis. No definite hepatic masses on this noncontrast study. The gallbladder surgically absent. This likely accounts for the common bile duct dilatation which remains unchanged. The unenhanced spleen, adrenal glands, and pancreas are unremarkable. No renal or ureteral stones. No hydronephrosis. Left renal hypodense lesions remain stable and favor cysts. No retroperitoneal lymphadenopathy. Calcified plaque within the normal caliber abdominal aorta. No pelvic lymphadenopathy or pelvic free fluid. Colonic diverticulosis. No evidence for acute diverticulitis. No bowel wall thickening or obstruction. Normal appendix. The bladder is decompressed by Lopez catheter which appears in good position. Gas within the bladder lumen is likely due to the catheterization. There is moderate bladder wall thickening with adjacent fat stranding. This is similar to the prior study and is consistent with a nonspecific cystitis. The prostate gland is mildly enlarged. There is a 1.8 cm lobular soft tissue density extending from the right posterior lateral peripheral zone of the prostate gland best seen image 328. This is highly suspicious for a prostate malignancy. IMPRESSION: 1. Persistent bladder wall thickening with adjacent fat stranding. This is consistent with a nonspecific cystitis. 2. The bladder is decompressed by Lopez catheter appears in good position. 3. A 1.8 cm soft tissue nodule extending from within the right posterolateral peripheral zone of the prostate gland. This is highly suspicious for a prostate malignancy. 4. There are 2 sclerotic foci within the left posterior iliac bone and T9 vertebral body which are highly suspicious for osseous metastatic disease. 5. No renal or ureteral stones. No hydronephrosis. 6. Additional findings as described above. ACT 112: Negative or not required by law. Electronically signed by: Nirav Ayala M.D. 03/30/2023 11:58 AM
[2023-04-03] MEDS: LANTUS PER UNIT CHARGE SQ SCH ×2 (10:01→21:11)
[2023-04-03] MEDS: POLYETHYLENE (MIRALAX) 17 GM PACK PO SCH (10:02)
[2023-04-03] MEDS: INSULIN ASPART PER UNIT CHARGE SC SCH ×4 (10:02→20:49)
[2023-04-03] MEDS: ASPIRIN 81 MG ECTAB PO SCH (10:07)
[2023-04-03] MEDS: allopurinoL 300 MG TAB PO SCH (10:07)
[2023-04-03] MEDS: ADVANCED PROBIOTIC 1250 MG CAPSULE PO SCH (10:07)
[2023-04-03] MEDS: ATORVASTATIN 20 MG TAB PO SCH (10:07)
[2023-04-03] MEDS: MULTIVITAMIN TAB PO SCH (10:07)
[2023-04-03] MEDS: TAMSULOSIN HCL 0.4 MG CAP PO SCH (10:07)
[2023-04-03] MEDS: PANTOprazole 40 MG TAB PO SCH (10:08)
[2023-04-03] MEDS: METOPROLOL SUCC 25MG EXT REL TAB PO SCH (10:08)
[2023-04-03] MEDS: DOCUSATE SODIUM 100 MG CAP PO SCH (10:08)
[2023-04-03] MEDS: APIXABAN 5 MG TABLET PO SCH ×2 (10:08→21:05)
[2023-04-03] MEDS: LOSARTAN POTASSIUM 25 MG TAB PO SCH (10:08)
[2023-04-03] MEDS: FINASTERIDE 5 MG TAB PO SCH (10:08)
[2023-04-03] MEDS: QUEtiapine FUMARATE 25 MG TABLET PO SCH ×2 (10:09→21:11)
--- NOTE | 2023-04-03 12:15 | Hospitalist Progress Note ---
Date of Service April 03, 2023 Assessment & Plan (1) Acute metabolic encephalopathy: (2) Complicated UTI (urinary tract infection): (3) Urinary retention: (4) History of stroke: (5) Atrial fibrillation: (6) HTN (hypertension): (7) CHF (congestive heart failure): (8) CAD (coronary artery disease): (9) DM (diabetes mellitus), type 2: (10) BPH (benign prostatic hyperplasia): Plan This is an 87yo M with a PMH of 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 ALICIA POA Acute metabolic encephalopathy Recently treated with outpatient Keflex during evaluation at [facility] but presented with persistent intermittent confusion, agitation History of urinary retention with recently placed Lopez a week prior to admission --CT abd/pelvis on admission; circumferential mucosal thickening in the bladder suggestive of cystitis. Prostate is mildly enlarged. No hydronephrosis. Sigmoid diverticulosis without acute diverticulitis. Sclerotic lesion within the posterior left iliac bone adjacent to the SI joint measuring 3 cm. 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 --C head:No acute abnormalities. Encephalomalacia is unchanged from prior exam. --EEG:This is an abnormal routine EEG in a patient with altered mentation due to generalized background slowing suggestive of a non specific encephalopathy. No epileptiform activity is seen. --Urine culture grew Stenotrophomonas maltophilia -- Blood cultures negative --Cannot get MRI brain due to incompatible pacemaker --normal TSH, homocystine, folate levels Patient was placed on antibiotics for CAUTI. Urine culture was positive for Stenotrophomonas maltophilia. Infectious disease had recommended Bactrim for 10 days which was completed. Patient continues to be encephalopathic. Repeat urinalysis and culture was done; found to have a yeast. Lopez was exchanged. Not on antibiotics/antifungal right now He has not required IM Zyprexa since March 27 He has periods of delirium. He is oriented to self and family. He responds to question appropriately and can follow questions. He is currently on Seroquel 12.5 mg twice daily as per recommendation by psychiatry Plan to discharge to rehab facility when accepted Prostate mass Urinary Retention Sclerotic lesions in the left posterior iliac bone and T9 vertebral body CT abdomen and pelvis done on March 30, 2023 shows 1.8 cm soft tissue nodule in the prostate and 2 sclerotic foci in left posterior iliac bone and T9 vertebral body Trial of void failed on March 30, 2023 Lopez placed back again. Urologist consultation for the prostate mass; Continue Lopez PSA elevated to 40s Outpatient workup as per urology. Left lower extremity cellulitis Patient noted to have redness, swelling on his left lower extremity Started on Keflex and doxycycline. Plan to treat for 5 to 7 days Possible vascular dementia H/o Embolic stroke Atrial Fibrillation History of gradual decline in cognitive function CT head as above Continue Eliquis and aspirin, Lipitor Neuropsychology testing as outpatient Elevated troponin Demand ischemia Mildly elevated HS trop of 34 --> 42, likely demand ischemia in setting of infection. Echo:Mild concentric LVH, aical wall motion abnormality may reflect pacemaker activation, mild hypokinesis of inferior wall, EF 45-50% Continue usual ASA, Eliquis CAD H/o stent placement but details unknown. No CP, EKG without acute ischemic changes Continue on aspirin. H/o pacemaker placement Generator replaced in 2019. Hypertension Continue losartan, Toprol Congestive heart failure, compensated Appears euvolemic. continue usual diuretics Type 2 diabetes Hold home agents Basal insulin while in-patient BSG AC HS Readjust medications as needed BPH Chronic, stable Continue finasteride, Flomax DVT Px: Eliquis Code status: FULL CODE Disposition: Likely discharge to rehab in dementia unit. Has not required IM Zyprexa currently. Case management on board. Time spent evaluating patient, direct bedside care, chart review, placing order s, interpretation of diagnostic studies, discussion with consultants, patient, and family members, as well as other required patient management activities is 50 minutes Please note the above document was generated using voice recognition software. It may contain grammatical, syntax or spelling errors. Any formal questions or concerns about the content, text or information contained within the body of this dictation should be directly addressed to the provider for clarification Admission and Anticipated Discharge Date Admission Date: March 14, 2023 Subjective Patient seen and examined at bedside. He is awake, oriented to self and family. Not in distress. He complains of pain in his calf Review of Systems Review of Systems: All systems reviewed & are unremarkable except as noted in Subjective Physical Exam Physical Exam: Constitutional: Awake, oriented to self and place. Not in distress Respiratory: Bilateral vesicular breath sound Cardiovascular: RRR, no murmur, no edema Vessels: no JVD or carotid bruit Chest: normal inspection of chest Abdomen: normal bowel sounds, soft, nontender, no hepatosplenomegaly. Lopez in place draining red urine Musculoskeletal: no cyanosis or clubbing, extremities motor strength 5/5. Redness in left lower leg near the calf. Not tender Skin: no rashes, warm and dry normal turgor Neurologic: Grossly moves all extremities. Awake, oriented to self and place. Results & Data Results & Data Vital Signs (Past 12 Hours) Vital Signs Temp Pulse Resp BP Pulse Ox O2 Del Method 04/03/23 11: 36.7 C 71 20 142/76 H 99 Room Air 04/03/23 07:17 36.4 C L 70 20 154/74 H 96 Room Air Laboratory Results Laboratory Results WBC 5.93 K/ul (4.8-10.8) 04/02/23 08: RBC 4.46 M/uL (4.70-6.10) L 04/02/23 08:23 Hgb 14.0 g/dl (14.0-18.0) 04/02/23 08: Hct 40.4 % (42.0-52.0) L 04/02/23 08:23 MCV 90.6 fL (80.0-100.0) 04/02/23 08:23 MCH 31.4 pg (25.0-34.0) 04/02/23 08: MCHC 34.7 g/dL (32.0-36.0) 04/02/23 08:23 RDW Std Deviation 48.2 fL (36.4-46.3) H 04/02/23 08:23 RDW Coeff of Tanmay 14.5 % (11.5-14.5) 04/02/23 08: Plt Count 156 K/uL (130-400) 04/02/23 08: MPV 11.4 fL (9.4-12.4) 04/02/23 08:23 Immature Gran % (Auto) 0.7 % 04/02/23 08: Neut % (Auto) 68.6 % 04/02/23 08:23 Lymph % (Auto) 19.1 % 04/02/23 08:23 Bourbon % (Auto) 6.4 % 04/02/23 08:23 Eos % (Auto) 4.2 % 04/02/23 08:23 Baso % (Auto) 1.0 % 04/02/23 08:23 Neut # (Auto) 4.07 K/uL (1.40-6.50) 04/02/23 08:23 Lymph # (Auto) 1.13 K/uL (1.20-3.40) L 04/02/23 08:23 Bourbon # (Auto) 0.38 K/uL (0.11-0.59) 04/02/23 08:23 Eos # (Auto) 0.25 K/uL (0.00-0.50) 04/02/23 08:23 Baso # (Auto) 0.06 K/uL (0.00-0.20) 04/02/23 08:23 Immature Gran # (Auto) 0.04 K/uL (0.01-0.20) 04/02/23 08:23 ESR 39 mm/hr (0-20) H 03/22/23 08:04 Sodium 139 mmol/L (136-145) 04/02/23 08:23 Potassium 3.8 mmol/L (3.5-5.1) 04/02/23 08:23 Chloride 106 mmol/L (98-107) 04/02/23 08:23 Carbon Dioxide 28 mmol/L (21-32) 04/02/23 08:23 Anion Gap 5 (3-11) 04/02/23 08:23 BUN 23 mg/dl (6-23) 04/02/23 08:23 Creatinine 0.82 mg/dl (0.6-1.4) 04/02/23 08:23 Est Cr Clr Drug Dosing 70.4 ml/min 04/02/23 08:23 Est GFR ( Amer) 91.5 ml/min 04/02/23 08:23 Est GFR (Non-Af Amer) 79.0 ml/min 04/02/23 08:23 BUN/Creatinine Ratio 28.0 (10-20) H 04/02/23 08:23 Glucose 216 mg/dl (70-99(Fasting)) H 04/02/23 08:23 POC Glucose 166 mg/dl (70-99) H 04/03/23 08:36 Estimat Average Glucose 209 mg/dl 03/14/23 05:31 Hemoglobin A1c 8.9 % (4.5-5.6) H 03/14/23 05:31 Calcium 9.2 mg/dl (8.6-10.3) 04/02/23 08:23 Phosphorus 3.9 mg/dl (2.5-4.9) 03/25/23 04:57 Total Bilirubin 0.6 mg/dl (0.2-1.0) 04/02/23 08:23 AST 21 U/L (13-39) 04/02/23 08:23 ALT 19 U/L (7-52) 04/02/23 08:23 Alkaline Phosphatase 87 U/L (34-104) 04/02/23 08:23 Ammonia 18.0 umol/L (18-72) 03/28/23 22:40 Troponin I High Sens 45.9 pg/ml (0-20) H D 03/14/23 10:49 Total Protein 5.8 gm/dl (6.0-8.3) L 04/02/23 08:23 Albumin 3.3 gm/dl (3.4-5.0) L 04/02/23 08:23 Globulin 2.5 gm/dl (2.5-4.0) 04/02/23 08:23 Albumin/Globulin Ratio 1.3 (0.9-2) 04/02/23 08:23 Lipase 41 U/L (11-82) 03/13/23 14:30 Prostate Specific Ag 41.765 ng/ml (0-4) H 03/30/23 14:33 Vitamin B1 20 nmol/L (8-30) 03/22/23 08:04 Vitamin B2 41.3 nmol/L (6.2-39.0) H 03/22/23 08:04 Vitamin B6 8.1 ng/mL (2.1-21.7) 03/22/23 08:04 Folate 20.81 ng/ml (>5.38) 03/22/23 08:04 Homocysteine 11.5 umol/L (<11.4) H 03/22/23 08:04 TSH 2.848 uIu/ml (0.300-4.500) 03/21/23 05:52 Urine Color Yellow 03/29/23 03:20 Urine Appearance Cloudy (Clear) A 03/29/23 03:20 Urine pH 6.0 (4.5-7.5) 03/29/23 03:20 Ur Specific Imbler 1.017 (1.000-1.030) 03/29/23 03:20 Urine Protein 2+ (Negative) H 03/29/23 03:20 Urine Glucose (UA) Negative (Negative) 03/29/23 03:20 Urine Ketones 1+ (Negative) H 03/29/23 03:20 Urine Blood 2+ (Negative) H 03/29/23 03:20 Urine Nitrite Negative (Negative) 03/29/23 03:20 Urine Bilirubin Negative (Negative) 03/29/23 03:20 Urine Urobilinogen Negative (Negative) 03/29/23 03:20 Ur Leukocyte Esterase 2+ (Negative) H 03/29/23 03:20 Urine WBC (Auto) >30 /hpf (0-5) H 03/29/23 03:20 Urine RBC (Auto) 10-30 /hpf (0-4) H 03/29/23 03:20 U Hyaline Cast (Auto) 5-10 /lpf (0-5) H 03/29/23 03:20 U Epithel Cells (Auto) 0-5 /lpf (0-5) 03/29/23 03:20 Urine Bacteria (Auto) Negative (Negative) 03/29/23 03:20 Urine Yeast Budding w/ Hyphae (None Prsent) A 03/29/23 03:20 Miscellaneous Test REPORT 03/21/23 05:52 Blood Type O Negative 03/30/23 01:36 Antibody Screen NEGATIVE 03/30/23 01:[address] 03/28/23 22:32 Exam(s): CT HEAD Without Contrast EXAM: CT Head Without Intravenous Contrast CLINICAL HISTORY: Reason for exam: ams, eliquis. TECHNIQUE: Axial computed tomography images of the head/brain without intravenous contrast. Automated exposure control was utilized for the study. A dose lowering technique was utilized adhering to the principles of ALARA. COMPARISON: No relevant prior studies available. FINDINGS: No acute intracranial hemorrhage. No midline shift or mass effect. Encephalomalacia in the left parietal and temporal lobes, consistent with old infarcts. Age-related cerebral volume loss. Periventricular and subcortical white matter hypoattenuation, consistent with chronic microangiopathy. The visualized orbits appear grossly unremarkable. The calvarium is intact. The visualized paranasal sinuses and mastoid air cells are grossly clear. IMPRESSION: No acute intracranial hemorrhage, midline shift, or mass effect. Encephalomalacia in the left parietal and temporal lobes, consistent with old infarcts. Electronically signed by: Derrick Maciel MD 03/29/23 01:08 AM Chest X-Ray 03/29/23 00:42 XR chest 1V portable HISTORY: renal failure COMPARISON: Chest 03/13/2023. FINDINGS: No pneumothorax. No pleural effusions. The heart remains mildly enlarged. Left-sided pacemaker/defibrillator again noted. No evidence for pulmonary edema. A 1.5 cm nodule within the right midlung zone. No new focal lung consolidations to suggest pneumonia. No evidence for pulmonary edema. IMPRESSION: 1. No acute process within the chest. 2. Stable mild cardiomegaly. 3. There is 1.5 cm nodule within the right midlung zone. This favors a calcified granuloma. ACT 112: Negative or not required by law. Electronically signed by: Nirav Ayala M.D. 03/29/2023 7:42 AM Abdomen/Pelvis CT 03/30/23 01:[address] WITHOUT CONTRAST CT DOSE: 1786.12 mGy.cm HISTORY: hematuria TECHNIQUE: Multiaxial CT images of the abdomen and pelvis were performed without contrast. A dose lowering technique was utilized adhering to the principles of ALARA. COMPARISON STUDY: Abdomen and pelvis CT 03/13/2023. FINDINGS: There is a calcified granuloma within the right lower lobe. Bibasilar linear densities favor subsegmental atelectasis or scarring. No pneumoperitoneum. No pneumatosis. Chronic anterior wedging at T12 again noted. There is a 3 cm sclerotic focus within the left posterior iliac bone and a 1.5 cm sclerotic focus within the T9 vertebral body. These are concerning for osseous metastatic disease. There are healing bilateral lower rib fractures most pronounced on the left. This remains unchanged. Pacemaker wires are noted. The heart remains mildly enlarged. Subtle nodular contour to the liver suggestive of early cirrhosis. No definite hepatic masses on this noncontrast study. The gallbladder surgically absent. This likely accounts for the common bile duct dilatation which remains unchanged. The unenhanced spleen, adrenal glands, and pancreas are unremarkable. No renal or ureteral stones. No hydronephrosis. Left renal hypodense lesions remain stable and favor cysts. No retroperitoneal lymphadenopathy. Calcified plaque within the normal caliber abdominal aorta. No pelvic lymphadenopathy or pelvic free fluid. Colonic diverticulosis. No evidence for acute diverticulitis. No bowel wall thickening or obstruction. Normal appendix. The bladder is decompressed by Lopez catheter which appears in good position. Gas within the bladder lumen is likely due to the catheterization. There is moderate bladder wall thickening with adjacent fat stranding. This is similar to the prior study and is consistent with a nonspecific cystitis. The prostate gland is mildly enlarged. There is a 1.8 cm lobular soft tissue density extending from the right posterior lateral peripheral zone of the prostate gland best seen image [id number]. This is highly suspicious for a prostate malignancy. IMPRESSION: 1. Persistent bladder wall thickening with adjacent fat stranding. This is consistent with a nonspecific cystitis. 2. The bladder is decompressed by Lopez catheter appears in good position. 3. A 1.8 cm soft tissue nodule extending from within the right posterolateral peripheral zone of the prostate gland. This is highly suspicious for a prostate malignancy. 4. There are 2 sclerotic foci within the left posterior iliac bone and T9 vertebral body which are highly suspicious for osseous metastatic disease. 5. No renal or ureteral stones. No hydronephrosis. 6. Additional findings as described above. ACT 112: Negative or not required by law. Electronically signed by: Nirav Ayala M.D. 03/30/2023 11:58 AM
[2023-04-03] MEDS: cephALEXin 500 MG CAP PO SCH ×3 (13:44→21:10)
[2023-04-03] MEDS: DOXYCYCLINE HYCLATE 100 MG CAP PO SCH ×2 (13:45→21:10)
[2023-04-04] MEDS: INSULIN ASPART PER UNIT CHARGE SC SCH ×4 (09:29→20:58)
[2023-04-04] MEDS: LANTUS PER UNIT CHARGE SQ SCH ×2 (10:44→21:05)
[2023-04-04] MEDS: cephALEXin 500 MG CAP PO SCH ×4 (10:44→21:01)
[2023-04-04] MEDS: DOXYCYCLINE HYCLATE 100 MG CAP PO SCH ×2 (10:44→21:00)
[2023-04-04] MEDS: APIXABAN 5 MG TABLET PO SCH ×2 (10:44→21:00)
[2023-04-04] MEDS: QUEtiapine FUMARATE 25 MG TABLET PO SCH ×2 (10:45→20:59)
[2023-04-04] MEDS: ASPIRIN 81 MG ECTAB PO SCH (10:45)
[2023-04-04] MEDS: DOCUSATE SODIUM 100 MG CAP PO SCH (10:45)
[2023-04-04] MEDS: allopurinoL 300 MG TAB PO SCH (10:45)
[2023-04-04] MEDS: TAMSULOSIN HCL 0.4 MG CAP PO SCH (10:45)
[2023-04-04] MEDS: MULTIVITAMIN TAB PO SCH (10:45)
[2023-04-04] MEDS: LOSARTAN POTASSIUM 25 MG TAB PO SCH (10:45)
[2023-04-04] MEDS: METOPROLOL SUCC 25MG EXT REL TAB PO SCH (10:46)
[2023-04-04] MEDS: FINASTERIDE 5 MG TAB PO SCH (10:46)
[2023-04-04] MEDS: ATORVASTATIN 20 MG TAB PO SCH (10:46)
[2023-04-04] MEDS: PANTOprazole 40 MG TAB PO SCH (10:46)
[2023-04-04] MEDS: POLYETHYLENE (MIRALAX) 17 GM PACK PO SCH (10:46)
[2023-04-04] MEDS: ADVANCED PROBIOTIC 1250 MG CAPSULE PO SCH (10:47)
--- NOTE | 2023-04-04 13:43 | Hospitalist Progress Note ---
Date of Service April 04, 2023 Assessment & Plan (1) Acute metabolic encephalopathy: (2) Complicated UTI (urinary tract infection): (3) Urinary retention: (4) History of stroke: (5) Atrial fibrillation: (6) HTN (hypertension): (7) CHF (congestive heart failure): (8) CAD (coronary artery disease): (9) DM (diabetes mellitus), type 2: (10) BPH (benign prostatic hyperplasia): Plan This is an 87yo M with a PMH of 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 HUGOTI, POA Acute metabolic encephalopathy Recently treated with outpatient Keflex during evaluation at [facility] but presented with persistent intermittent confusion, agitation History of urinary retention with recently placed Lopez a week prior to admission --CT abd/pelvis on admission; circumferential mucosal thickening in the bladder suggestive of cystitis. Prostate is mildly enlarged. No hydronephrosis. Sigmoid diverticulosis without acute diverticulitis. Sclerotic lesion within the posterior left iliac bone adjacent to the SI joint measuring 3 cm. 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 --C head:No acute abnormalities. Encephalomalacia is unchanged from prior exam. --EEG:This is an abnormal routine EEG in a patient with altered mentation due to generalized background slowing suggestive of a non specific encephalopathy. No epileptiform activity is seen. --Urine culture grew Stenotrophomonas maltophilia -- Blood cultures negative --Cannot get MRI brain due to incompatible pacemaker --normal TSH, homocystine, folate levels. Vitamin B1, vitamin B2, vitamin B6 are all within normal limits. Patient was placed on antibiotics for CAUTI. Urine culture was positive for Stenotrophomonas maltophilia. Infectious disease had recommended Bactrim for 10 days which was completed. Patient continues to be encephalopathic. Repeat urinalysis and culture was done; found to have a yeast. Lopez was exchanged. Not on antibiotics/antifungal right now He has not required IM Zyprexa since March 27 He has periods of delirium. He is oriented to self and family. He responds to question appropriately and can follow questions. He is currently on Seroquel 12.5 mg twice daily as per recommendation by psychiatry Plan to discharge to rehab facility when accepted Prostate mass Urinary Retention Sclerotic lesions in the left posterior iliac bone and T9 vertebral body CT abdomen and pelvis done on March 30, 2023 shows 1.8 cm soft tissue nodule in the prostate and 2 sclerotic foci in left posterior iliac bone and T9 vertebral body Trial of void failed on March 30, 2023 Lopez placed back again. Urologist consultation for the prostate mass; Continue Lopez PSA elevated to 40s Outpatient workup as per urology. Left lower extremity cellulitis Patient noted to have redness, swelling on his left lower extremity Started on Keflex and doxycycline. Plan to treat for 5 to 7 days Possible vascular dementia H/o Embolic stroke Atrial Fibrillation History of gradual decline in cognitive function CT head as above Continue Eliquis and aspirin, Lipitor Neuropsychology testing as outpatient Elevated troponin Demand ischemia Mildly elevated HS trop of 34 --> 42, likely demand ischemia in setting of infection. Echo:Mild concentric LVH, aical wall motion abnormality may reflect pacemaker activation, mild hypokinesis of inferior wall, EF 45-50% Continue usual ASA, Eliquis CAD H/o stent placement but details unknown. No CP, EKG without acute ischemic changes Continue on aspirin. H/o pacemaker placement Generator replaced in 2019. Hypertension Continue losartan, Toprol Congestive heart failure, compensated Appears euvolemic. continue usual diuretics Type 2 diabetes Hold home agents Basal insulin while in-patient BSG AC HS Readjust medications as needed BPH Chronic, stable Continue finasteride, Flomax DVT Px: Eliquis Code status: FULL CODE Disposition: Likely discharge to rehab in dementia unit. Has not required IM Zyprexa currently. Case management on board. Discussed with family at bedside. Answered questions/queries. Time spent evaluating patient, direct bedside care, chart review, placing orders, interpretation of diagnostic studies, discussion with consultants, patient, and family members, as well as other required patient management activities is 50 minutes Please note the above document was generated using voice recognition software. It may contain grammatical, syntax or spelling errors. Any formal questions or concerns about the content, text or information contained within the body of this dictation should be directly addressed to the provider for clarification Admission and Anticipated Discharge Date Admission Date: March 14, 2023 Subjective Patient seen and examined at bedside. He is awake, oriented to self and family members. Not in any distress. Review of Systems Review of Systems: All systems reviewed & are unremarkable except as noted in Subjective Physical Exam Physical Exam: Constitutional: Awake, oriented to self and place. Not in distress Respiratory: Bilateral vesicular breath sound Cardiovascular: RRR, no murmur, no edema Vessels: no JVD or carotid bruit Chest: normal inspection of chest Abdomen: normal bowel sounds, soft, nontender, no hepatosplenomegaly. Lopez in place draining red urine Musculoskeletal: no cyanosis or clubbing, extremities motor strength 5/5. Redness in left lower leg near the calf. Not tender Skin: no rashes, warm and dry normal turgor Neurologic: Grossly moves all extremities. Awake, oriented to self and place. Results & Data Results & Data Vital Signs (Past 12 Hours) Vital Signs Temp Pulse Pulse Resp BP BP Pulse Ox 04/04/23 12:37 36.5 C 70 16 121/53 L 96 04/04/23 08:05 70 04/04/23 07:16 36.4 C L 73 16 134/75 96 04/04/23 03:52 36.6 C 74 18 118/70 93 04/04/23 01:46 70 O2 Del Method 04/04/23 12:37 Room Air 04/04/23 08:05 04/04/23 07:16 Room Air 04/04/23 03:52 Room Air 04/04/23 01:46 Laboratory Results Laboratory Results WBC 5.93 K/ul (4.8-10.8) 04/02/23 08:23 RBC 4.46 M/uL (4.70-6.10) L 04/02/23 08:23 Hgb 14.0 g/dl (14.0-18.0) 04/02/23 08:23 Hct 40.4 % (42.0-52.0) L 04/02/23 08:23 MCV 90.6 fL (80.0-100.0) 04/02/23 08:23 MCH 31.4 pg (25.0-34.0) 04/02/23 08: MCHC 34.7 g/dL (32.0-36.0) 04/02/23 08:23 RDW Std Deviation 48.2 fL (36.4-46.3) H 04/02/23 08:23 RDW Coeff of [place] 14.5 % (11.5-14.5) 04/02/23 08:23 Plt Count 156 K/uL (130-400) 04/02/23 08:23 MPV 11.4 fL (9.4-12.4) 04/02/23 08:23 Immature Gran % (Auto) 0.7 % 04/02/23 08:23 Neut % (Auto) 68.6 % 04/02/23 08:23 Lymph % (Auto) 19.1 % 04/02/23 08:23 [place] % (Auto) 6.4 % 04/02/23 08:23 Eos % (Auto) 4.2 % 04/02/23 08:23 Baso % (Auto) 1.0 % 04/02/23 08: Neut # (Auto) 4.07 K/uL (1.40-6.50) 04/02/23 08:23 Lymph # (Auto) 1.13 K/uL (1.20-3.40) L 04/02/23 08:23 [place] # (Auto) 0.38 K/uL (0.11-0.59) 04/02/23 08:23 Eos # (Auto) 0.25 K/uL (0.00-0.50) 04/02/23 08:23 Baso # (Auto) 0.06 K/uL (0.00-0.20) 04/02/23 08:23 Immature Gran # (Auto) 0.04 K/uL (0.01-0.20) 04/02/23 08:23 ESR 39 mm/hr (0-20) H 03/22/23 08:04 Sodium 139 mmol/L (136-145) 04/02/23 08:23 Potassium 3.8 mmol/L (3.5-5.1) 04/02/23 08:23 Chloride 106 mmol/L (98-107) 04/02/23 08:23 Carbon Dioxide 28 mmol/L (21-32) 04/02/23 08:23 Anion Gap 5 (3-11) 04/02/23 08:23 BUN 23 mg/dl (6-23) 04/02/23 08:23 Creatinine 0.82 mg/dl (0.6-1.4) 04/02/23 08:23 Est Cr Clr Drug Dosing 70.4 ml/min 04/02/23 08:23 Est GFR ( Amer) 91.5 ml/min 04/02/23 08:23 Est GFR (Non-Af Amer) 79.0 ml/min 04/02/23 08:23 BUN/Creatinine Ratio 28.0 (10-20) H 04/02/23 08:23 Glucose 216 mg/dl (70-99(Fasting)) H 04/02/23 08:23 POC Glucose 258 mg/dl (70-99) H 04/04/23 12:23 Estimat Average Glucose 209 mg/dl 03/14/23 05:31 Hemoglobin A1c 8.9 % (4.5-5.6) H 03/14/23 05:31 Calcium 9.2 mg/dl (8.6-10.3) 04/02/23 08:23 Phosphorus 3.9 mg/dl (2.5-4.9) 03/25/23 04:57 Total Bilirubin 0.6 mg/dl (0.2-1.0) 04/02/23 08:23 AST 21 U/L (13-39) 04/02/23 08:23 ALT 19 U/L (7-52) 04/02/23 08:23 Alkaline Phosphatase 87 U/L (34-104) 04/02/23 08:23 Ammonia 18.0 umol/L (18-72) 03/28/23 22:40 Troponin I High Sens 45.9 pg/ml (0-20) H D 03/14/23 10:49 Total Protein 5.8 gm/dl (6.0-8.3) L 04/02/23 08:23 Albumin 3.3 gm/dl (3.4-5.0) L 04/02/23 08:23 Globulin 2.5 gm/dl (2.5-4.0) 04/02/23 08:23 Albumin/Globulin Ratio 1.3 (0.9-2) 04/02/23 08:23 Lipase 41 U/L (11-82) 03/13/23 14:30 Prostate Specific Ag 41.765 ng/ml (0-4) H 03/30/23 14:33 Vitamin B1 20 nmol/L (8-30) 03/22/23 08:04 Vitamin B2 41.3 nmol/L (6.2-39.0) H 03/22/23 08:04 Vitamin B6 8.1 ng/mL (2.1-21.7) 03/22/23 08:04 Folate 20.81 ng/ml (>5.38) 03/22/23 08:04 Homocysteine 11.5 umol/L (<11.4) H 03/22/23 08:04 TSH 2.848 uIu/ml (0.300-4.500) 03/21/23 05:52 Urine Color Yellow 03/29/23 03:20 Urine Appearance Cloudy (Clear) A 03/29/23 03:20 Urine pH 6.0 (4.5-7.5) 03/29/23 03:20 Ur Specific [place] 1.017 (1.000-1.030) 03/29/23 03:20 Urine Protein 2+ (Negative) H 03/29/23 03:20 Urine Glucose (UA) Negative (Negative) 03/29/23 03:20 Urine Ketones 1+ (Negative) H 03/29/23 03:20 Urine Blood 2+ (Negative) H 03/29/23 03:20 Urine Nitrite Negative (Negative) 03/29/23 03:20 Urine Bilirubin Negative (Negative) 03/29/23 03:20 Urine Urobilinogen Negative (Negative) 03/29/23 03:20 Ur Leukocyte Esterase 2+ (Negative) H 03/29/23 03:20 Urine WBC (Auto) >30 /hpf (0-5) H 03/29/23 03:20 Urine RBC (Auto) 10-30 /hpf (0-4) H 03/29/23 03:20 U Hyaline Cast (Auto) 5-10 /lpf (0-5) H 03/29/23 03:20 U Epithel Cells (Auto) 0-5 /lpf (0-5) 03/29/23 03:20 Urine Bacteria (Auto) Negative (Negative) 03/29/23 03:20 Urine Yeast Budding w/ Hyphae (None Prsent) A 03/29/23 03:20 Miscellaneous Test REPORT 03/21/23 05:52 Blood Type O Negative 03/30/23 01:36 Antibody Screen NEGATIVE 03/30/23 01:[address] 03/28/23 22:32 Exam(s): CT HEAD Without Contrast EXAM: CT Head Without Intravenous Contrast CLINICAL HISTORY: Reason for exam: ams, eliquis. TECHNIQUE: Axial computed tomography images of the head/brain without intravenous contrast. Automated exposure control was utilized for the study. A dose lowering technique was utilized adhering to the principles of ALARA. COMPARISON: No relevant prior studies available. FINDINGS: No acute intracranial hemorrhage. No midline shift or mass effect. Encephalomalacia in the left parietal and temporal lobes, consistent with old infarcts. Age-related cerebral volume loss. Periventricular and subcortical white matter hypoattenuation, consistent with chronic microangiopathy. The visualized orbits appear grossly unremarkable. The calvarium is intact. The visualized paranasal sinuses and mastoid air cells are grossly clear. IMPRESSION: No acute intracranial hemorrhage, midline shift, or mass effect. Encephalomalacia in the left parietal and temporal lobes, consistent with old infarcts. Electronically signed by: Derrick Maciel MD 03/29/23 01:08 AM Chest X-Ray 03/29/23 00:42 XR chest 1V portable HISTORY: renal failure COMPARISON: Chest 03/13/2023. FINDINGS: No pneumothorax. No pleural effusions. The heart remains mildly enlarged. Left-sided pacemaker/defibrillator again noted. No evidence for pulmonary edema. A 1.5 cm nodule within the right midlung zone. No new focal lung consolidations to suggest pneumonia. No evidence for pulmonary edema. IMPRESSION: 1. No acute process within the chest. 2. Stable mild cardiomegaly. 3. There is 1.5 cm nodule within the right midlung zone. This favors a calcified granuloma. ACT 112: Negative or not required by law. Electronically signed by: Nirav Ayala M.D. 03/29/2023 7:42 AM Abdomen/Pelvis CT 03/30/23 01:[address] WITHOUT CONTRAST CT DOSE: 1786.12 mGy.cm HISTORY: hematuria TECHNIQUE: Multiaxial CT images of the abdomen and pelvis were performed without contrast. A dose lowering technique was utilized adhering to the principles of ALARA. COMPARISON STUDY: Abdomen and pelvis CT 03/13/2023. FINDINGS: There is a calcified granuloma within the right lower lobe. Bibasilar linear densities favor subsegmental atelectasis or scarring. No pneumoperitoneum. No pneumatosis. Chronic anterior wedging at T12 again noted. There is a 3 cm sclerotic focus within the left posterior iliac bone and a 1.5 cm sclerotic focus within the T9 vertebral body. These are concerning for osseous metastatic disease. There are healing bilateral lower rib fractures most pronounced on the left. This remains unchanged. Pacemaker wires are noted. The heart remains mildly enlarged. Subtle nodular contour to the liver suggestive of early cirrhosis. No definite hepatic masses on this noncontrast study. The gallbladder surgically absent. This likely accounts for the common bile duct dilatation which remains unchanged. The unenhanced spleen, adrenal glands, and pancreas are unremarkable. No renal or ureteral stones. No hydronephrosis. Left renal hypodense lesions remain stable and favor cysts. No retroperitoneal lymphadenopathy. Calcified plaque within the normal caliber abdominal aorta. No pelvic lymphadenopathy or pelvic free fluid. Colonic diverticulosis. No evidence for acute diverticulitis. No bowel wall thickening or obstruction. Normal appendix. The bladder is decompressed by Lopez catheter which appears in good position. Gas within the bladder lumen is likely due to the catheterization. There is moderate bladder wall thickening with adjacent fat stranding. This is similar to the prior study and is consistent with a nonspecific cystitis. The prostate gland is mildly enlarged. There is a 1.8 cm lobular soft tissue density extending from the right posterior lateral peripheral zone of the prostate gland best seen image 328. This is highly suspicious for a prostate malignancy. IMPRESSION: 1. Persistent bladder wall thickening with adjacent fat stranding. This is consistent with a nonspecific cystitis. 2. The bladder is decompressed by Lopez catheter appears in good position. 3. A 1.8 cm soft tissue nodule extending from within the right posterolateral peripheral zone of the prostate gland. This is highly suspicious for a prostate malignancy. 4. There are 2 sclerotic foci within the left posterior iliac bone and T9 vertebral body which are highly suspicious for osseous metastatic disease. 5. No renal or ureteral stones. No hydronephrosis. 6. Additional findings as described above. ACT 112: Negative or not required by law. Electronically signed by: Nirav Ayala M.D. 03/30/2023 11:58 AM
[2023-04-05] MEDS: APIXABAN 5 MG TABLET PO SCH (07:30)
[2023-04-05] MEDS: QUEtiapine FUMARATE 25 MG TABLET PO SCH (07:31)
[2023-04-05] MEDS: cephALEXin 500 MG CAP PO SCH ×2 (07:32→12:50)
[2023-04-05] MEDS: DOXYCYCLINE HYCLATE 100 MG CAP PO SCH (07:32)
[2023-04-05] MEDS: PANTOprazole 40 MG TAB PO SCH (07:33)
[2023-04-05] MEDS: MULTIVITAMIN TAB PO SCH (07:33)
[2023-04-05] MEDS: DOCUSATE SODIUM 100 MG CAP PO SCH (07:34)
[2023-04-05] MEDS: ASPIRIN 81 MG ECTAB PO SCH (07:34)
[2023-04-05] MEDS: POLYETHYLENE (MIRALAX) 17 GM PACK PO SCH (07:34)
[2023-04-05] MEDS: TAMSULOSIN HCL 0.4 MG CAP PO SCH (07:34)
[2023-04-05] MEDS: allopurinoL 300 MG TAB PO SCH (07:35)
[2023-04-05] MEDS: ADVANCED PROBIOTIC 1250 MG CAPSULE PO SCH (07:35)
[2023-04-05] MEDS: FINASTERIDE 5 MG TAB PO SCH (07:37)
[2023-04-05] MEDS: ATORVASTATIN 20 MG TAB PO SCH (07:37)
[2023-04-05] MEDS: LOSARTAN POTASSIUM 25 MG TAB PO SCH (07:38)
[2023-04-05] MEDS: METOPROLOL SUCC 25MG EXT REL TAB PO SCH (07:39)
[2023-04-05] MEDS: INSULIN ASPART PER UNIT CHARGE SC SCH ×2 (09:03→12:50)
[2023-04-05] MEDS: LANTUS PER UNIT CHARGE SQ SCH (09:04)
--- NOTE | 2023-04-05 12:43 | Discharge Summary ---
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 History primarily obtained by granddaughter at bedside due to patient's confusion. [facility] seen for multiple visits due to progressive confusion and found to have UTI. Completed Keflex course yesterday but remains confused and somewhat agitated. Was directed by home health nurse to go to ED for further evaluation. Of note, had dumont catheter placed last week with leg bag for urinary retention. No F/C, lightheadedness, CP, SOB, N/V, abdominal pain, dysuria, diarrhea or constipation. Some agitation in perineal area due to strap from catheter bag. Has been having increased urgency but denies dysuria or hematuria. Admission Exam Per Admitting Provider GENERAL: Sitting up in bed, alert, well appearing, well nourished, no distress, non-toxic EYE EXAM: normal conjunctiva. PERRL and EOM's intact. OROPHARYNX: no exudate, no erythema, lips, buccal mucosa, and tongue normal and mucous membranes are moist NECK: supple, no nuchal rigidity, no adenopathy, non-tender LUNGS: Clear to auscultation. Normal chest wall mechanics HEART: no murmurs, S1 normal and S2 normal ABDOMEN: abdomen soft, non-tender, normo-active bowel sounds, no masses, no rebound or guarding. BACK: Back is symmetrical on inspection and there is no deformity, no midline tenderness, no CVA tenderness. SKIN: no rashes and no bruising UPPER EXTREMITIES: upper extremities are grossly normal. LOWER EXTREMITIES: No pitting edema. NEURO EXAM: Normal sensorium, cranial nerves II-XII intact, normal speech, no weakness of arms, no weakness of legs. No drift. Finger to nose intact. Gross sensation intact. Principal Diagnosis Catheter associated UTI Metabolic encephalopathy, resolved Prostate mass Discharge Exam Constitutional: Awake, oriented to self and place. Not in distress Respiratory: Bilateral vesicular breath sound Cardiovascular: RRR, no murmur, no edema Vessels: no JVD or carotid bruit Chest: normal inspection of chest Abdomen: normal bowel sounds, soft, nontender, no hepatosplenomegaly. Dumont in place draining red urine Musculoskeletal: no cyanosis or clubbing, extremities motor strength 5/5. Redness in left lower leg near the calf. Not tender Skin: no rashes, warm and dry normal turgor Neurologic: Grossly moves all extremities. Awake, oriented to self and place. Discharge Data Allergies Allergy/AdvReac Type Severity Reaction Status Date / Time colestipol Allergy Unknown Unknown Unverified 03/13/23 18:47 gabapentin Allergy Unknown Nausea and Unverified 03/13/23 18:47 vomiting niacin Allergy Unknown Flushing Unverified 03/13/23 18:47 Fshwsgp-SYD-BrS Reductase Allergy Unknown Muscle Pain Unverified 03/13/23 18:47 Inhibitor Consultations 03/13/23 18:20 ED Decision to Admit Stat 03/13/23 19:56 HIM [Consult Health Information Management] Stat 03/15/23 11:39 Consult Psychiatry Routine 03/17/23 12:38 Consult Infectious Diseases Routine 03/20/23 13:01 Consult Neurology Routine 03/30/23 12:29 Consult Urology Routine Ordered Studies 03/13/23 14:46 CT head/brain wo con Stat 03/13/23 19:52 CT Abd and Pelvis [CT abd pelvis wo con] Routine 03/24/23 15:08 CT head/brain wo con Urgent 03/28/23 22:32 CT head/brain wo con Stat 03/30/23 01:02 CT Abd and Pelvis [CT abd pelvis wo con] Stat Hospital Course (1) Acute metabolic encephalopathy: (2) Complicated UTI (urinary tract infection): (3) Urinary retention: (4) History of stroke: (5) Atrial fibrillation: (6) HTN (hypertension): (7) CHF (congestive heart failure): (8) CAD (coronary artery disease): (9) DM (diabetes mellitus), type 2: (10) BPH (benign prostatic hyperplasia): Plan This is an 87yo M with a PMH of 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 RUY VARGAS Acute metabolic encephalopathy Recently treated with outpatient Keflex during evaluation at [facility] but presented with persistent intermittent confusion, agitation History of urinary retention with recently placed Dumont a week prior to admission --CT abd/pelvis on admission; circumferential mucosal thickening in the bladder suggestive of cystitis. Prostate is mildly enlarged. No hydronephrosis. Sigmoid diverticulosis without acute diverticulitis. Sclerotic lesion within the posterior left iliac bone adjacent to the SI joint measuring 3 cm. 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 --C head:No acute abnormalities. Encephalomalacia is unchanged from prior exam. --EEG:This is an abnormal routine EEG in a patient with altered mentation due to generalized background slowing suggestive of a non specific encephalopathy. No epileptiform activity is seen. --Urine culture grew Stenotrophomonas maltophilia -- Blood cultures negative --Cannot get MRI brain due to incompatible pacemaker --normal TSH, homocystine, folate levels. Vitamin B1, vitamin B2, vitamin B6 are all within normal limits. Patient was placed on antibiotics for CAUTI. Urine culture was positive for Stenotrophomonas maltophilia. Infectious disease had recommended Bactrim for 10 days which was completed. Patient continues to be encephalopathic. Repeat urinalysis and culture was done; found to have a yeast. Dumont was exchanged. Not on antibiotics/antifungal right now He has not required IM Zyprexa since March 27 He has periods of delirium. He is oriented to self and family. He responds to question appropriately and can follow questions. He is currently on Seroquel 12.5 mg twice daily as per recommendation by psychiatry. He has been doing well on the doses. Patient had not required IM Zyprexa for the last several days. Patient was discharged home with home PT OT. Prostate mass Urinary Retention Sclerotic lesions in the left posterior iliac bone and T9 vertebral body CT abdomen and pelvis done on March 30, 2023 shows 1.8 cm soft tissue nodule in the prostate and 2 sclerotic foci in left posterior iliac bone and T9 vertebral body Trial of void failed on March 30, 2023 Dumont placed back again. Urologist consultation for the prostate mass; Continue Dumont PSA elevated to 40s Outpatient workup as per urology. Left lower extremity cellulitis Patient noted to have redness, swelling on his left lower extremity At discharge, started on Keflex and doxycycline. Plan to treat for 5 to 7 days Please note the above document was generated using voice recognition software. It may contain grammatical, syntax or spelling errors. Any formal questions or concerns about the content, text or information contained within the body of this dictation should be directly addressed to the provider for clarification Total Time Total Time Spent Total Time Spent (In Minutes): 60 Total Time Includes: Examination of the Patient, Discharge Planning, Medication Reconciliation, Communication With Other Providers and Other Discharge Plan Discharge Items Patient Disposition: Home - Home Health Services Reason For Visit: ACUTE METABOLIC ENCEPH, UTI Discharge Diagnosis: Catheter associated UTI Acute metabolic encephalopathy Prostate mass Activity: Resume your previous activity Non-emergency contact: Primary Care Provider Call non-emergency contact if: you have any medication questions and your symptoms worsen Follow-up/Referrals: PCP,NO [Physician] - Diet: Regular Addtl Attending Provider Instructions: You were admitted to the hospital due to urinary tract infection which led to mental confusion. You were treated with antibiotic during the hospitalization. You are prescribed following antibiotic for the left leg cellulitis to be taken for 5 days: 1) cephalexin 500 mg 4 times a day 2) doxycycline 100 mg twice a day You are also prescribed following medication as recommended by the psychiatrist: Seroquel(25mg) half tablet to be taken in the morning and half tablet to be taken at night You were found to have prostate mass during the hospitalization with possible metastasis. Please follow-up with urology for workup as outpatient. Your Dumont catheter was changed on March 30, 2023. It should be changed every 4 weeks. Pending Studies at Discharge: No Stand-Alone Forms: My [employer], Smoking Cessation Medications and DC Order Prescriptions: New quetiapine 25 mg Tablet 12.5 mg PO BID Qty: 60 0RF doxycycline hyclate 100 mg Capsule 100 mg PO BID 5 Days Qty: 10 0RF cephalexin 500 mg Capsule 500 mg PO QID 5 Days Qty: 20 0RF Continued multivitamin Tablet 1 tab PO DAILY atorvastatin 40 mg Tablet 20 mg PO DAILY acetaminophen [Tylenol] 325 mg Tablet 650 mg PO TID PRN (Reason: pain/fever/headache) spironolactone 25 mg Tablet 12.5 mg PO DAILY guaifenesin 200 mg Tablet 200 mg PO BID tamsulosin 0.4 mg Capsule 0.4 mg PO DAILY losartan 25 mg Tablet 25 mg PO DAILY docusate sodium 100 mg Capsule 100 mg PO DAILY omeprazole 20 mg Capsule,Delayed Release(Dr/Ec) 20 mg PO DAILY codeine-guaifenesin [Guaifenesin AC] 10-100 mg/5 mL Liquid 5 ml PO HS PRN (Reason: Cough) allopurinol 300 mg Tablet 150 mg PO DAILY furosemide [Lasix] 20 mg Tablet 20 mg PO DAILY metoprolol succinate 25 mg Tablet Extended Release 24 Hr 12.5 mg PO DAILY polyethylene glycol 3350 [Miralax] 17 gram/dose Powder 17 g PO DAILY PRN (Reason: Constipation) finasteride 5 mg Tablet 5 mg PO DAILY Glucerna Liquid 1 ea PO BID Rx Instructions: Drink 1 can twice daily Humulin N NPH Insulin KwikPen 100 unit/mL (3 mL) Insulin Pen See Rx Instructions .ROUTE .COMPLEX Rx Instructions: inject 15 units in the morning and 10 units in the evening Eliquis 5 mg Tablet 5 mg PO BID Jardiance 10 mg Tablet 10 mg PO DAILY Discontinued cephalexin [Keflex] 250 mg Capsule 250 mg PO TID Rx Instructions: Start Date 03/07/23 - End Date 03/12/23. Discharge Orders: Discharge Order (Routine); Ordered 04/05/23 Ordered By: Aneesh Redding/Other Patient Handouts: Managing Type 2 Diabetes Admission Data Admit Date/Time: 03/14/23 14:03 Attending Provider: Aneesh Hoover Admit Provider: Mo Gipson Primary Care Provider: Valarie Josue Other Providers: Lacey Mathews; [facility]; Deborah Bean; Nika Alvarado; Theodore Reinoso; Mo Gipson; Tye Colorado; Cecil Crooks; Keenan Gregg I.; Javi Corea II; Cate Taylor; Theodore Stuart; Marin Tabares; Bradley Hardin; Shira Bundy; Jhonatan Manuel; Shira Hernandez; Nehemias Mathur; Lucas Bruce; Russ Mishra; Neftali Saldana; Prudence Garcia; Andrew Sharma; Nick Haney; Pedro Wong; Miky Avalos; Aria Glynn; Dona Perdomo; Kory Mercer; Miky Reece. Other Interventions: Discharge Summary Assessment (RN) Last Done: 04/05/23 14:15
== END 2023-04-05 16:44 | disposition home health service (06) | DRG 698 ==
LOC: ED 14:09 → 2N 14:09 → SUATTDRO 03-14 14:03